=== PATIENT | male | born 1955 | race Caucasian/White ===

== ENCOUNTER 2023-01-05 08:56 | Outpatient (CLI) | payer MEDICARE, BC, SELFPAY | END 2023-01-05 08:57 | disposition home or self-care (01) | PROVIDERS: PCP Family Medicine; Visit Provider Family Medicine | DX: Z00.00 Encounter for general adult medical examination without abnormal findings (principal); E78.1 Pure hyperglyceridemia; Z12.5 Encounter for screening for malignant neoplasm of prostate; N40.0 Benign prostatic hyperplasia without lower urinary tract symptoms; R42 Dizziness and giddiness; Z80.42 Family history of malignant neoplasm of prostate; Z13.6 Encounter for screening for cardiovascular disorders; Z11.59 Encounter for screening for other viral diseases; Z83.3 Family history of diabetes mellitus | CPT/HCPCS: 80053; 80061; 84153; 86803 ==

== ENCOUNTER 2024-03-26 07:06 | Outpatient (CLI) | payer MEDICARE, BC, SELFPAY | END 2024-03-26 07:07 | disposition home or self-care (01) | PROVIDERS: PCP Family Medicine; Visit Provider Family Medicine | DX: E78.1 Pure hyperglyceridemia (principal); N40.0 Benign prostatic hyperplasia without lower urinary tract symptoms; Z12.5 Encounter for screening for malignant neoplasm of prostate; Z13.228 Encounter for screening for other metabolic disorders | CPT/HCPCS: 80053; 80061; G0103 ==

== ENCOUNTER 2024-06-13 19:20 | Emergency (ER) | payer MEDICARE, BC, SELFPAY ==
[2024-06-13 19:37] VITALS: BP 110/70; PULSE 66; RESP 16; TEMP 36.8; O2SAT 95; BMI 30.4
--- NOTE | 2024-06-13 19:43 | CRLHL7_ITS ---
For Patients: As a result of the Century Cures Act, medical imaging exams and procedure reports are released immediately into your electronic medical record. You may view this report before your referring provider. If you have questions, please contact your health care provider. Indication: Pain/injury. Technique: Left ankle 3 views. Comparison: None. Findings: Bones: Alignment is normal. No fractures or bone lesions. Joint spaces: Unremarkable. No ankle joint effusion. Soft tissues: Scattered vascular calcifications. Impression: No evidence of an acute bony abnormality. Dictated by William Aguirre MD @ 06/13/2024 8:34:16 PM (Electronically Signed)
--- NOTE | 2024-06-13 20:38 | ED.LOWEXIN ---
HPI - Extremity Injury (Lower) General Time Seen by Provider: 20:38 Date Seen: 06/13/24 Chief Complaint: Extremity Pain/Injury, Lower Stated Complaint: R ankle twisted earlier today, painful Time Seen by Provider: 06/13/24 20:38 Source: patient and RN notes reviewed Mode of arrival: ambulatory Limitations: no limitations History of Present Illness HPI Narrative: This 68-year-old male is coming in with left foot pain. He initially had ankle imaging ordered by nursing staff in triage, did point below his lateral malleolus where there was some pain but is also in his foot. He was on a ladder about 2 ft up when he fell off, he landed on his left foot, maybe felt like it twisted. With sore at 1st but he is getting increasing pain. He initially could walk okay but now the pain is worsening and he is having increased pain walking. It is more in the lateral foot now where he is feeling this. He tried icing without relief, did not try any oral [id number] medicines. Nothing else was injured. Related Data Previous Rx's ?Medication ?Instructions ?Recorded atorvastatin 40 mg tablet 40 mg PO QHS #90 tabs 03/26/24 tamsulosin 0.4 mg capsule 0.8 mg (2 x 0.4 mg) PO QDAY #180 05/20/24 caps Allergies Allergy/AdvReac Type Severity Reaction Status Date / Time No Known Drug Allergies Allergy Verified 03/26/24 07:09 Review of Systems Narrative: As per HPI. 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 [employer] What is your current living situation?: I presently have a place to live Problems where you live: no known problems In the past 12 months, utilities in danger of being shut off: no In past 12 months, lack of transportation kept you from medical appts, meetings, work, or getting things needed for daily living: no In the past 12 mos, have been you worried that your food would run out before you had money to buy more?: never true In the past 12 mos, the food you bought just didn't last and you didn't have money to buy more?: never true Smoking Status: Never smoker Do you use any of these nicotine containing products: None How often do you have a drink containing alcohol: never AUDIT-C Alcohol total score: 0 Non-prescribed substance use: denies use How often does anyone, including family, friends and others, physically hurt you: never How often does anyone, including family, friends and others, insult or talk down to you: never How often does anyone, including family, friends and others, threaten you with harm: never How often does anyone, including family, friends and others, scream or curse at you: never Little interest or pleasure in doing things: not at all Feeling down, depressed, or hopeless: not at all service: No Exam Const: Vital Signs, click to edit/add: Vital Signs - 24 hr 06/13/24 19:37 Temperature 98.2 F Pulse Rate [Pulse Oximeter] 66 Respiratory Rate 16 Blood Pressure [Ri ght Upper Arm] 110/70 Pulse Oximetry 95 Oxygen Delivery Me thod Room Air Nasim is a 68-year-old male whom is seen in exam room 3, he is lying on the bed. His sock was removed, there is no discoloration of skin, no bruising, no open wounds, ecchymosis. He has strong dorsalis pedis and posterior tibialis pulses. Neurovascular is intact. He is nontender over the malleoli, ankle mortise is nontender and intact. He is tender over the lateral midfoot and slightly over the left 5th metatarsal. This is at the base. Inversion of the foot causes pain in this area, he still has quite good range of motion about the ankle. Achilles is palpably intact and nontender. Palpation of his calcaneus really does not cause him pain along the heel. Documenting provider has reviewed patient's vital signs: yes Course Course ED Course: Nursing staff had done x-ray imaging of the ankle due to the acuity and volume in the ED. Discussed with him that I would consider doing ankle imaging based on his mechanism in where he pointed to his initial pain but I also think we should be doing foot imaging. Discussed with this type of mechanism that you can see foot and heel fractures. Reviewed that sometimes initial images of x-rays can be negative and may need to move to CT imaging. I do think we need to rule out fracture in his foot as well. Patient is in agreement. Reevaluation(s) Time of Reevaluation #1: 21:44 Reevaluation #1: Reviewed the negative x-rays of his foot by Radiology. He states his foot is feeling better now, has been using some ice. We discussed trial of conservative management, we certainly can do CT imaging if he really feels he cannot walk on it. He has declined CT imaging, did review that he really should take some Tylenol baseline and supplemental ibuprofen if needed, continue icing, minimize activity for few days. Vital Signs Vital signs: Initial Vital Signs Temperature 98.2 F 06/13/24 19:37 Temperature Source Temporal Artery Scan 06/13/24 19:37 Pulse Rate 66 06/13/24 19:37 Respiratory Rate 16 06/13/24 19:37 Blood Pressure 110/70 06/13/24 19:37 Blood Pressure Mean 83 06/13/24 19:37 Blood Pressure Position Sitting 06/13/24 19:37 Pulse Oximetry 95 06/13/24 19:37 Oxygen Delivery Method Room Air 06/13/24 19:37 Vital Signs Temperature 98.2 F 06/13/24 19:37 Pulse Rate 66 06/13/24 19:37 Respiratory Rate 16 06/13/24 19:37 Blood Pressure 110/70 06/13/24 19:37 Pulse Oximetry 95 06/13/24 19:37 Oxygen Delivery Method Room Air 06/13/24 19:37 Temperature 98.2 F 06/13/24 19:37 Pulse Rate 66 06/13/24 19:37 Respiratory Rate 16 06/13/24 19:37 Blood Pressure 110/70 06/13/24 19:37 Pulse Oximetry 95 06/13/24 19:37 Oxygen Delivery Method Room Air 06/13/24 19:37 MDM - Extremity Injury (Lower) Imaging Data XR ankle: Attestation: I have reviewed the pertinent imaging results. Radiologist's impression: Patient: WILLIAM DURÁN Facility:?[facility] Patient ID:?[id number] Site Patient ID:?[id number]. Site :?[id number] Study:?XRay-Extremity Left ANKLE 3 VIEWS-06/13/2024 7:59:37 PM Ordering Physician:?GEN KEEN Final Report: Indication: Pain/injury. Technique: Left ankle 3 views. Comparison: None. Findings: Bones: Alignment is normal. No fractures or bone lesions. Joint spaces: Unremarkable. No ankle joint effusion. Soft tissues: Scattered vascular calcifications. Impression: No evidence of an acute bony abnormality. Dictated by William Aguirre MD @ 06/13/2024 8:34:16 PM (Electronic Signature) XR foot: Attestation: I have reviewed the pertinent imaging results. Radiologist's impression: Patient: WILLIAM DURÁN Facility:?[facility] Patient ID:?[id number] Site Patient ID:?[id number]. Site :?[id number] Study:?XRay-Extremity Left FOOT 3 VIEW-06/13/2024 9:05:15 PM Ordering Physician:Aviva Soto Final Report: Indication: Fall off ladder on foot. Technique: Left foot 3 views. Comparison: None. Findings: Bones: Alignment is normal. No fractures or bone lesions. Joint spaces: Unremarkable. Soft tissues: Scattered vascular calcifications. Impression: No evidence of an acute bony abnormality. Dictated by William Aguirre MD @ 06/13/2024 9:31:01 PM (Electronic Signature) Discharge Plan Discharge Clinical Impression: Fall, Acute foot pain Patient Disposition: Home, Self-Care Condition: Stable Instructions: Foot Contusion (ED) Additional Instructions: Minimize activity. Symptoms should be improving over the next week. If they are not, you are developing increasing pain, do recommend re-evaluation. Take Tylenol 1000 mg 3 times a day baseline for pain. Can supplement with ibuprofen if needed for additional pain, follow bottle directions for dosing. Do recommend continuing to ice and elevate the next couple days, after that can try to increase activity as tolerated. Activity Level: Activity as Tolerated Prescriptions: No Action atorvastatin 40 mg tablet 40 mg PO QHS Qty: 90 3RF tamsulosin 0.4 mg capsule 0.8 mg PO QDAY Qty: 180 3RF Follow Up/Referrals: Teressa Warren MD [Primary Care Provider] - Stand Alone Forms: [employer] Instructions
--- NOTE | 2024-06-13 20:50 | CRLHL7_ITS ---
For Patients: As a result of the Century Cures Act, medical imaging exams and procedure reports are released immediately into your electronic medical record. You may view this report before your referring provider. If you have questions, please contact your health care provider. Indication: Fall off ladder on foot. Technique: Left foot 3 views. Comparison: None. Findings: Bones: Alignment is normal. No fractures or bone lesions. Joint spaces: Unremarkable. Soft tissues: Scattered vascular calcifications. Impression: No evidence of an acute bony abnormality. Dictated by William gAuirre MD @ 06/13/2024 9:31:01 PM (Electronically Signed)
== END 2024-06-13 22:00 | disposition home or self-care (01) ==
PROVIDERS: Emergency Provider Family Medicine; PCP Family Medicine
DX: M79.672 Pain in left foot (principal); W11.XXXA Fall on and from ladder, initial encounter
CPT/HCPCS: 73610; 73630; 99283

== ENCOUNTER 2024-08-26 15:59 | Outpatient (CLI) | payer MEDICARE, BC, SELFPAY | END 2024-08-26 16:00 | disposition home or self-care (01) | PROVIDERS: PCP Family Medicine; Visit Provider Family Medicine | DX: E78.1 Pure hyperglyceridemia (principal); R10.31 Right lower quadrant pain; T14.8XXA Other injury of unspecified body region, initial encounter | CPT/HCPCS: 80053; 86140 ==

== ENCOUNTER 2024-08-29 09:35 | Outpatient (CLI) | payer MEDICARE, BC, SELFPAY ==
--- NOTE | 2024-08-29 10:00 | CRLHL7_ITS ---
For Patients: As a result of the Century Cures Act, medical imaging exams and procedure reports are released immediately into your electronic medical record. You may view this report before your referring provider. If you have questions, please contact your health care provider. Indication: RT GROIN, THIGH PAIN Technique: CT Pelvis W/ ISOVUE 370 104 cc Please note that all CT scans at this facility use dose modulation, iterative reconstruction, and/or weight-based dosing when appropriate to reduce radiation dose to as low as reasonably achievable. Comparison: X-rays 08/14/2024 Findings: Disc space narrowing and spurring L4-5. Narrowing and spurring at both hip joints, right greater than left, with right-sided subchondral degenerative cystic change. No fracture. Vascular calcifications. No aneurysm. Prostate is heterogeneous. No bladder stone. Distal ureters normal. Normal appendix. No hernia. Impression: Degenerative joint disease right hip. No hernia or suspicious mass. Please note that all CT scans at this facility use dose modulation, iterative reconstruction, and/or weight-based dosing when appropriate to reduce radiation dose to as low as reasonably achievable. Dictated by Noel Perkins MD @ 08/29/2024 11:52:53 AM (Electronically Signed)
== END 2024-08-29 09:36 | disposition home or self-care (01) ==
PROVIDERS: PCP Family Medicine; Visit Provider Family Medicine
DX: R10.31 Right lower quadrant pain (principal); M16.12 Unilateral primary osteoarthritis, left hip; T14.8XXA Other injury of unspecified body region, initial encounter
CPT/HCPCS: 72193; Q9967

== ENCOUNTER 2024-09-06 11:01 | Outpatient (CLI) | payer MEDICARE, BC, SELFPAY ==
--- NOTE | 2024-09-06 11:15 | CRLHL7_ITS ---
For Patients: As a result of the Century Cures Act, medical imaging exams and procedure reports are released immediately into your electronic medical record. You may view this report before your referring provider. If you have questions, please contact your health care provider. Indication: RIGHT HIP PAIN/ RIGHT HIP OSTEOARTHRITIS Comparison: CT 08/29/2024 Procedure : Informed consent was obtained. The site was marked. Time-out was performed. The skin of the right hip was cleansed with ChloraPrep. A sterile drape was placed. 8 cc of 1 percent lidocaine was administered for superficial anesthesia. Subsequently a 22 gauge spinal needle was introduced into the right hip joint under intermittent fluoroscopic guidance. Subsequently 7 cc of 1 percent lidocaine and 2 cc 40 milligram/cc Depo-Medrol then injected into the right hip joint. The needle was removed and hemostasis achieved with direct pressure. A dressing was placed. The patient tolerated the procedure well without immediate complication. Total fluoroscopy time 0.09 minutes. Impression: Successful fluoroscopically guided right hip injection with 80 milligrams of Depo-Medrol. Dictated by Noel Perkins MD @ 09/06/2024 12:57:23 PM (Electronically Signed)
== END 2024-09-06 11:02 | disposition home or self-care (01) ==
LOC: RAD 11:02
PROVIDERS: PCP Family Medicine; Visit Provider Orthopaedic Surgery Sports Medicine
DX: M16.11 Unilateral primary osteoarthritis, right hip (principal)
CPT/HCPCS: 20610; 77002; Q9966

== ENCOUNTER 2024-12-06 14:21 | Outpatient (CLI) | payer MEDICARE, BC, SELFPAY | END 2024-12-06 14:22 | disposition home or self-care (01) | LOC: FRMREF 14:23 | PROVIDERS: PCP Family Medicine; Visit Provider Family Medicine | DX: Z01.818 Encounter for other preprocedural examination (principal) | CPT/HCPCS: 80053 ==

== ENCOUNTER 2025-06-06 08:04 | Emergency (ER) | payer MEDICARE, BC, SELFPAY ==
--- OUTSIDE RECORDS SUMMARY | 2025-04-28 08:00 | XMS_ITS | Encounter Summary ---
Author Organization [facility] Address [address] [place] [address]. [place] [address] Care Team Providers Care Wood [employer] Pelletizer Name Role Phone Nalini Salinas MD Unavailable [phone] Jose Rodriguez MD Unavailable [phone] Teressa Warren MD Primary Care Provider [phone] Reason for Visit * Reason Comments RECHECK Biopsy Encounter Details Date Type Department Care Team (Latest Contact Info) Description 04/28/2025 8:00 AM CDT Office Visit [facility] [address] 4[address] [place] [address] Santiago Linder, PAReneeC [address] [place] [address] Bone lesion (Primary Dx); Multiple myeloma not having achieved remission (H); Other myelodysplastic syndromes (H) Social History Tobacco Use Types Packs/Day Years Used Date Smoking Tobacco: Never Smokeless Tobacco: Never PHQ-2 Answer Date Recorded PHQ-2 Score 0 04/21/2025 Adolescent Education Answer Date Record ed Getting School Help Needed Not on file 05/28 Sex and Gender Information Value Date Recorded Sex Assigned at Not on file 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 [facility] Orth[facility] Surgery by Santiago Linder PA-C William Hampton Date of : 1955 Clinical History: 69 year old male with history of a right clavicle lytic lesion who presents today for biopsy for referral from Dr. Rodriguez. Procedure: After informed consent repeat scanning was performed to identify the mass and adjacent anatomical structures. The skin was prepped and draped in sterile fashion. 1% lidocaine was used for local anesthesia. Ultrasound was necessary to assure intralesional positioning and to avoid vital adjacent structures. Ultrasound guidance was used to pass a 14-gauge core biopsy needle into the mass for tissue biopsy. 8 passes were made. 4 were sent for presurgical pathology and 4 were sent for flow cytometry. Images were permanently stored for the patient's record.The specimen was immediately placed in formalin and sent to the lab. The patient tolerated the procedure well and there were no immediate complications following the procedure. 1% lidocaine: Lot# [id number] expiration 05/2028 Assessment and Plan: Assessment: 69 year old male with history of a right clavicle lytic lesion who presents today for biopsy for referral from Dr. Rodriguez. Tolerated procedure well Plan: After consent was given the procedure was performed as above. The patient tolerated it well. Steri-Strips and a bandage were placed. The patient can remove the bandage tomorrow and start showering but should avoid soaking for 1 week. The Steri-Strips will fall off on their own. They should watch for signs of infection including erythema, discharge and increased pain. If they have any concerns I instructed them to call. When the pathology results have been finalized in 7 to 14 days a member of our team will reach out to them with further instruction. All questions were answered and the patientwas in agreement the plan. Santiago Linder PA-C Physician [facility] Dept Orthopaedic Surgery, [facility] documented in this encounter Nursing Notes * Meredith Dumont ATC - 04/28/2025 8:00 AM CDT [facility] [address] 4TH FLOOR [facility] [address] Dept: [phone] Patient: William Hampton : 1955 April 28, 2025 INVASIVE PROCEDURE SAFETY CHECKLIST Date: 04/28/2025 Procedure:Right clavicle USG biopsy Patient Name: William Hampton Date of : 1955 Action: Complete sections as appropriate. Any discrepancy results in a HARD COPY until resolved. PRE PROCEDURE: Patient ID verified with 2 identifiers (name and or MRN): Yes Procedure and site verified with patient/designee (when able): Yes Accurate consent documentation in medical record: Yes H&P (or appropriate assessment) documented in medical record: NA H&P must be up to 20 days prior to procedure and updates within 24 hours of procedure as applicable: NA Relevant diagnostic and radiology test results appropriately labeled and displayed as applicable: Yes Procedure site(s) marked with provider initials: NA TIMEOUT: Time-Out performed immediately prior to starting procedure, including verbal and active participation of all team members addressing the following:Yes * Correct patient identify * Confirmed that the correct side and site are marked * An accurate procedure consent form * Agreement on the procedure to be done * Correct patient position * Relevant images and results are properly labeled and appropriately displayed * The need to administer antibiotics or fluids for irrigation purposes during the procedure as applicable * Safety precautions based on patient history or medication use DURING PROCEDURE: Verification of correct person, site, and procedures any time the responsibility for care of the patient is transferred to another member of the care team. The following medications were given: Prior to injection, verified patient identity using patient's name and date of . Due to injection administration, patient instructed to remain in clinic for 15 minutes afterwards, and to report any adverse reaction to me immediately. Biopsy was preformed Medication Name: Lidocaine [facility] [id number] Drug Amount Wasted: Yes: 15 mg/ml Vial/Syringe: Single dose vial Expiration Date: 05/2028 Scribed by Meredith Dumont ATC for Santiago Linder PA-C on April 28, 2025 at 8:58a based on the provider's statements to me. Meredith Dumont ATC documented in this encounter Miscellaneous Notes * Addendum Note - Camryn Blanco - 04/28/2025 8:00 AM CDTAddended by: CAMRYN BLANCO on: 04/29/2025 10:56 AM Modules accepted: Orders * Addendum Note - Meredith Miranda CLS - 04/28/2025 8:00 AM CDTAddended by: MEREDITH MIRANDA on: 05/20/2025 05:14 PM Modules accepted: Orders * Addendum Note - Meredith Miranda CLS - 04/28/2025 8:00 AM CDTAddended by: MEREDITH MIRANDA on: 05/20/2025 05:15 PM Modules accepted: Orders * Addendum Note - Desmond Melo CLS - 04/28/2025 8:00 AM CDTAddended by: DESMOND MELO on: 05/21/2025 01:23 PM Modules accepted: Orders * Addendum Note - Santiago Linder PA-C - 04/28/2025 8:00 AM CDTAddended by: SANTIAGO LINDER on: 05/22/2025 09:01 AM Modules accepted: Orders documented in this encounter Plan of Treatment Pending Results Name Type Priority Associated Diagnoses Date /Time POC US GUIDANCE NEEDLE PLACEMENT Imaging Routine Bone lesion 04/28/2025 7:55 AM CDT PCS Culture Pathology and Cytology Routine 04/28/2025 9:20 AM CDT Scheduled Orders Name Type Priority Associated Diagnoses Order Schedule POC US GUIDANCE NEEDLE PLACEMENT Imaging Routine Bone lesion Expected: 04/28/2025 (Approximate), Expires: 05/02/2025 PCS Culture Pathology and Cytology Routine Routine for 1 Occurrences starting 04/28/2025 until 04/28/2025, 1 completed documented as of this encounter Procedures Procedure Name Priority Date/Time Associated Diagnosis Comments FISH TIER 2 Routine 04/28/2025 9:20 AM CDT Bone lesion Other myelodysplastic syndromes (H) 1H-3C(09/05) CULTURE Routine 04/28/2025 9: 20 AM CDT FISH Routine 04/28/2025 9:20 AM CDT Bone lesion CHROMOSOME ANALYSIS, MALIGNANT TISSUE Routine 04/28/2025 9:20 AM CDT FLOW CYTOMETRY Routine 04/28/2025 8:50 AM CDT Bone lesion WA BIOPSY MUSCLE/SOFT TISSUE, PERCUTANEOUS NEEDLE Routine 04/28/2025 8:48 AM CDT Bone lesion SURGICAL PATHOLOGY EXAM Routine 04/28/2025 8:48 AM CDT Bone lesion documented in this encounter Results * FISH TIER 2 With Professional Interpretation (04/28/2025 9:20 AM CDT) Interpretation This FISH analysis was performed in follow up to the previously reported FISH analysis ([id number]) that showed MYC rearrangement. The present study was undertaken to identify a MYC fusion partner. METHODS: Specimen: Tissue touch imprints prepared from a right clavicular lesion Test performed: Fluorescence in situ hybridization (FISH) Interphase cells examined: 100 for each probe set Probes: - IGK (2p11.2) / MYC (8q24.21) (dual fusion) - CytoTest - MYC (8q24.21) / IGL (22q11.22) (dual fusion) - CytoTest RESULTS: ABNORMAL - IGK::MYC fusion (77%) - Loss of IGL (80%) - Tetraploid signal pattern consistent with doubling of stemline (7-10%) INTERPRETATION: This analysis showed that the MYC rearrangement detected in the previously reported FISH analysis results from an IGK::MYC fusion. MYC rearrangement has been associated with a worse prognosis in myeloma (Gracy N et al, 2019, Clin Cancer Res 26:6096; Sj-Garry S et al, 2024, Neoplasia 66:237945), with a greater impact on survival reported in cases in which IGL is the fusion partner (rather than IGK, as in the present case) (Fazal Jenkins et al, 2020, Clin Ca Res 27:5430) ISCN: nuc kevon (IGK,MYC)x3(IGK con MYC)x2[]/(IG K,MYC)x6(IGK con MYC)x4[] nuc kevon (MYCx1,MYC dimx2,IGLx1)[/10 0]/(MYCx2,MYC dimx4,IGLx2)[ ] ADDITIONAL COMMENTS: Control ranges: IGK::MYC: 0-0.1% MYC::IGL: 0-0.1% IGLx1: 0-4.6% This test was developed and its performance characteristics determined by the [facility]. It has not been cleared or approved by the U.S. Food and Drug Administration. . 05/24/2025 12:13 AM CDT CYTO[facility]ET[facility] BONE STRUCTURE OF RIGHT CLAVICLE / Unknown 04/28/2025 9:20 AM CDT 05/23/2025 9:03 AM CDT us Santiago MITCHELL Final Resu lt [facility] Cytogenetics Lab [facility] [address] * FISH With Professional Interpretation (04/28/2025 9:20 AM CDT) Interpretation METHODS: Specimen: Tissue touch imprints prepared from a right clavicular lesion Test performed: Fluorescence in situ hybridization (FISH) Interphase cells examined: 100-200 for each probe set Probes: - CDKN2C (1p32.3) / CKS1B (1q21.3) (dual color) - Cytocell - [id number] (5p15.2), CEP9 and D15Z4 (centromeres of 9 and 15) (Tri-Color) - [facility] [employer] - MYC (8q24.21) (breakapart) - [facility] [employer] - RADHA (11q22.3) / TP53 (17p13.1) (dual color) - Cytocell - C47R912 (13q14.3) / LAMP1 (13q34) (dual color) - [facility] [employer] - IGH (14q32.3) (breakapart) - [facility] [employer] RESULTS: ABNORMAL: HIGH-RISK - MYC rearrangement (87%) ABNORMAL: OTHER - Gain of 1q (44.5%); no loss of 1p - Gain of chromosomes 5, 9, and 15 (79%) - Monosomy 13 (94%) - Tetraploid signal pattern consistent with doubling of stemline (3.5-25.5%) NORMAL - No loss of TP53 - No rearrangement of IGH High-risk classification per one or more of the following: - Second revision of the International Staging System (R2-ISS) for overall survival in multiple myeloma. Kacey M et al. J Clin Oncol 202;40:3406. - mSMART 4.0 classification (https://www.msmar t.org/mm-treatment -guidelines) - Implications of MYC rearrangements in newly diagnosed multiple myeloma. Gracy Jenkins et al, 2020, Clin Cancer Res 26:3602. 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 The abnormalities seen in this case are well-documented albeit nonspecific recurring abnormalities in plasma cell neoplasms. Additional FISH analyses will be performed to attempt to identify a MYC fusion partner, which may permit further prognostic classification of this disease. Upon completion, results of those analyses will be issued as separate reports. ISCN: nuc kevon (EFUK8Vx4,PHQ8Kr6) [51/200]/(NVZT4Ot5 ,BPP2Ne5)[38/200] nuc kevon (M3I28-Y0Z108,CEP9 ,D15Z4)x3[73/100]/ (Q1E14-N0S883,CEP9 ,D15Z4)x6[6100] nuc kevon (MYC)x2(5'MYC sep 3'MYC)x1[80/100]/( MYC)x4(5'MYC sep 3'MYC)x2[100] nuc kevon (RADHA,TP53)x4[200 ] nuc kevon (J80P100,LAMP1)x1[ 94/100] nuc kevon (IGH)x4[200] ADDITIONAL COMMENTS: Control ranges: DVX0Hf6: 0-0.1% ODKW0Up9: 0-5.3% (ESAT4Sc6,QMT6Wh7) : 0-0.1% +5,9,15: 0-0.1% (5,9,15)x6: 0-0.1% MYC rearr: 0-2.8% (MYC)x4(5'MYC sep 3'MYC)x2: 0-0.1% +11: 0-0.1% -13: 0-3.0% IGH rearr: 0-1.5% IGHx4: 0-0.7% TP53x1: 0-3.1% (RADHA,TP53)x4: 0-1.9% This test was developed and its performance characteristics determined by the [facility]. It has not been cleared or approved by the U.S. Food and Drug Administration. . 05/21/2025 2:03 PM CDT [facility] Tissue BONE STRUCTURE OF RIGHT CLAVICLE / Unknown Non-blood Collection / Unknown 04/28/2025 9:20 AM CDT 04/28/2025 9:20 AM CDT us Santiago MITCHELL Final Resu lt [facility] Cytogenetics Lab [address] [place] [address] [address] [place] [address] * 1H-3C(1/2) Culture (04/28/2025 9:20 AM CDT) Pathologist [facility] Culture [place] Complete Date 05/08/2025 4:59 PM CDT CYTOGENETICS Tissue BONE STRUCTURE OF RIGHT CLAVICLE / Unknown Non-blood Collection / Unknown 04/28/2025 9:20 AM CDT 04/28/2025 9:20 AM CDT Santiago Linder PA-C LAB - BEAKER AP Final Resu lt Performing Organization Address City/[facility]/ZIP Co de Phone Number [facility] Cytogenetics Lab [address] [place] [address] * CHROMOSOME ANALYSIS, MALIGNANT TISSUE With Professional Interpretation (04/28/2025 9:20 AM CDT) Pathologist [facility] Interpretation A right clavicle tissue specimen was received and processed by the Cytogenetics Laboratory on 04-28-2025. Due to the hypocellularity of the specimen, only a single culture, with half the standard cell concentration could be initiated. This culture failed to yield any metaphase cells; thus, a G-banded chromosome analysis could not be performed. BILLING COMMENT: Credited all but processing fee. 05/09/2025 10:39 AM CDT CYTOGENETICS Tissue BONE STRUCTURE OF RIGHT CLAVICLE / Unknown Non-blood Collection / Unknown 04/28/2025 9:20 AM CDT 04/28/2025 9:20 AM CDT us Santiago Linder PA-C LAB - BODY FLUIDS ORDERABL ES Final Result [facility] Cytogenetics Lab [address] [place] [address] * (ABNORMAL) Flow Cytometry (04/28/2025 8:50 AM CDT) Pathologist [facility] Case Report Flow Cytometry Report Case: [id number] Authorizing Provider: Santiago Linder PA-C Collected: 04/28/2025 08:50 AM Ordering Location: [facility] Received: 04/28/2025 08:56 AM [facility] [place] Pathologist: Etta Dos Santos MD Specimen: Clavicle, Right 04/28/2025 5:44 PM CDT [facility] FLOW CYTOMETRY Flow Interpretation A. Clavicle, Right: -[place]-monotypic plasma cells -See comment 04/28/2025 5:44 PM CDT [facility] FLOW CYTOMETRY at 1744 CDT Comment The immunophenotypic findings are consistent with a clonal plasma cell process, which may represent a plasmacytoma, plasma cell myeloma, monoclonal gammopathy of undetermined significance (MGUS), or other plasma cell dyscrasia/neoplasm . Final interpretation requires correlation with morphologic and clinical features as well as with the results of other ancillary laboratory and imaging studies. 04/28/2025 5:44 PM CDT [facility] FLOW CYTOMETRY Flow Phenotypic Data 56% of total events are CD45 positive and are viable by 7-AAD. A low percentage may be caused by low viability and/or a low number of CD45 positive cells. Of the CD45 positive leukocytes, 62% are viable by 7-AAD. Unless otherwise indicated, percentages reported below are based on the total number of CD45 positive viable leukocytes. If applicable, percentage of plasma cells is from total viable nucleated cells. 90% plasma cells which express CD38, CD45 (dim), CD56, and monotypic cytoplasmic kappa immunoglobulin light chains but lack CD19 and CD20. The plasma cell percentage by flow cytometry is expected to be less than by morphology due to specimen processing. B cells are rare to absent. Case was reviewed by the following: Pathology Fellow: Iris Verdugo MD A resident/fellow was involved in the selection of testing, review of flow scattergrams, and/or interpretation of this case. I, as the senior physician, attest that I: (i) confirmed appropriate testing, (ii) examined the relevant flow scattergrams for the specimen(s); and (ii) rendered or confirmed the interpretation(s). 04/28/2025 5:44 PM CDT [facility] FLOW CYTOMETRY Flow Processing Information Multi-color flow analysis is performed for the following markers: CD19, CD20, CD38, CD45, CD56, CD138, and cytoplasmic kappa and lambda immunoglobulin light chains. Cells are gated to isolate populations (CD45 versus side scatter and forward scatter versus side scatter), to exclude debris (forward scatter versus side scatter) and to exclude cell doublets (forward scatter height versus forward scatter width and side scatter height versus side scatter width). Forward scatter varies with cell size. Side scatter varies with the amount of cytoplasmic granules. Intensity for CD45 usually increases as hematolymphoid cells mature. The analytic sensitivity of this assay to detect monotypic plasma cells as rare flow events is 0.01%. 04/28/2025 5:44 PM CDT FLOW CYTOMETRY Clinical Information 69 year old male with a right clavicle lytic lesion 04/28/2025 5:44 PM CDT FLOW CYTOMETRY FDA Disclaimer This test was developed and its performance characteristics determined by the [facility]. It has not been cleared or approved by the US Food and Drug Administration. FDA does not require this test to go through premarket FDA review. This test is used for clinical purposes and should not be regarded as investigational or for research. This laboratory is certified under the Clinical Laboratory Improvement Amendments (CLIA) as qualified to perform high complexity clinical laboratory testing. 04/28/2025 5:44 PM CDT [facility] - CORE LAB MCRS Yes(A) N/A 04/28/2025 5:44 PM CDT FLOW CYTOMETRY Performing Labs The technical component of this testing was completed at [facility]. Stain controls for all stains resulted within this report have been reviewed and show appropriate reactivity. 04/28/2025 5:44 PM CDT [facility] - CORE LAB Tissue BONE STRUCTURE OF RIGHT CLAVICLE / Unknown Non-blood Collection / Unknown 04/28/2025 8:50 AM CDT 04/28/2025 8:56 AM CDT us Santiago MITCHELL Final Resu lt [facility] FLOW CYTOMETRY [facility] Flow Cytometry [address] [facility] [address], [address] [place] [address], [facility] - CORE LAB [facility] [place] [address] [facility] 1st [place] [address] * (ABNORMAL) Surgical pathology exam [[id number]] (04/28/2025 8:48 AM CDT) Case Report Surgical Pathology Report Case: [id number] Authorizing Provider: Santiago Linder PA-C Collected: 04/28/2025 08:48 AM Ordering Location: [facility] Received: 04/28/2025 09:11 AM [facility] Pathologist: Tomi Christopher MD Specimen: Clavicle, Right, right clavicle lesion biopsy 11:22 AM CDT [facility] LAB[facility] Final Diagnosis Clavicle, right, lesion, biopsy: - Plasmacytoma - See comment 11:22 AM CDT [facility] at 1122 CDT Comment This is diagnostic o f a plasmacytoma. Additional clinical correlation is recommended to clarify the diagnosis of a solitary plasmacytoma vs multiple myeloma. A random, non-targeted, iliac crest bone marrow biopsy is recommended. Concurrent flow cytometry ([id number]) showed kappa-monotypic plasma cells. This case was reviewed in part at our Hematopathology Faculty Consensus conference at which Eduarda Han, and Ajit were present in addition to myself. 11:22 AM CDT [facility] Clinical Information The patient is a 69-year-old male with progressive right shoulder pain for 1-2 months. X-ray and MRI at [facility] showed an osteolytic lesion of the right clavicle. CT showed a partially visualized large lytic right clavicular bone lesion with an associated soft tissue mass as well as additional numerous ill-defined lucent osseous lesions in the thoracic and lumbar vertebrae. SPEP showed an 3.3 g/dL M-spike with a kappa/lambda ratio of 4.09. 11:22 AM CDT [facility] Gross Description A(A). Clavicle, Right, right clavicle lesion biopsy: Right clavicle lesion biopsy: Intraoperative consultation, lymphoma workup: Cytogenetics: 0.4 x 0.3 x 0.1 cm aggregate sent Flow cytometry: 0.5 x 0.4 x 0.1 cm aggregate sent Touch preps: 5 air dried, (Evelia GIBBS(ASC)) The specimen is received fresh with proper patient identification labeled right clavicle lesion biopsy. The specimen consists of 4 beebe-pink to red, hemorrhagic, cylindrical cores of soft tissue, ranging from 1.0-1.7 cm in length, each 0.1 cm in diameter. The cores are divided and sent for the aforementioned send out testing. One core is retained and submitted for permanent. The specimen is received in formalin with proper patient identification labeled right clavicle lesion biopsy. The specimen consists of 4 beebe-white to pink, fish-flesh cylindrical cores of soft tissue, ranging from 0.4-1.7 cm in length, each 0.1 cm in diameter. The specimen is wrapped, submitted in toto as A1-2. 5 11:22 AM [facility] Microscopic Description H&E stained sections demonstrate sheets of morphologically atypical plasma cells containing enlarged round eccentrically-located nuclei with coarse chromatin, variably prominent nucleoli, and moderate amounts of eosinophilic cytoplasm. A subset of plasma cells contain Kvng bodies. Mitotic figures are present but not numerous. Immunohistochemistry and in situ hybridization are performed with appropriate controls. The neoplastic cells are positive for CD138, OCT2, and c-MYC. They are kappa light chain restricted by kappa/lambda KEVON. They are negative for CD20, PAX5, and CD79a. The Ki-67 proliferation index is 40-50%. WADE KEVON is negative. Note: These immunohistochemical stains are deemed medically necessary. Some of the antigens may also be evaluated by flow cytometry. Concurrent evaluation by immunohistochemistry is indicated in this case in order to correlate immunophenotype with cell morphology and determine extent of involvement, spatial pattern, and focality of potential disease distribution. Case was reviewed by the following: Resident Pathologist: Connie Wallace MD A resident or fellow in a training program was involved in the initial review, preparation, and/or interpretation of this case. I, as the senior physician, attest that I have personally reviewed all specimens and or slides, including the listed special stains, and used them with my medical judgement to determine the final diagnosis. 5 11:22 AM [facility] Disclaimer Analyte Specific Reagents (ASRs) are used in many laboratory tests necessary for standard medical care and generally do not require FDA approval. This test was developed and its performance characteristics determined by [facility]. It has not been cleared or approved by the U.S. Food and Drug Administration. [facility] are certified for the performance of high-complexity clinical testing under the Clinical Laboratory Improvement Amendments of 1988 (CLIA), and in keeping with the certification requirements, the laboratory has verified this test's accuracy, precision and/or validity of the method. The following assays; ALK (D5F3), ER, HER2, PD-L1, BRAF, CD20, CD30 AZF, CD30 Formalin, MLH-1, MSH-2, MSH-6 and PMS-2, have not been validated on decalcified tissues. Results should be interpreted with caution given the possibility of false negative results on decalcified specimens. 5 11:22 AM CDT [facility] MCRS Yes(A) N/A 5 11:22 AM CDT [facility] Performing Labs The technical component of this testing was completed at [facility]. Stain controls for all stains resulted within this report have been reviewed and show appropriate reactivity. 5 11:22 AM CDT [facility] - CORE LAB Case Images 5 11:22 AM CDT [facility] Biopsy BONE STRUCTURE OF RIGHT CLAVICLE / Unknown Non-blood Collection / Unknown 04/28/2025 8:48 AM CDT 04/28/2025 9:11 AM CDT Comment:See Questions Above us Santiago MITCHELL Final Resu lt SPECIALTY LABS Specialty Lab [address], Room 3-580 [place] [address], [facility] - CORE LAB [facility] [place] [address] [facility] [address] 1st [place] [address] documented in this encounter Visit Diagnoses Diagnosis Bone lesion- Primary Disorder of bone and cartilage, unspecified Multiple myeloma not having achieved remission (H) Multiple myeloma, without mention of having achieved remission Other myelodysplastic syndromes (H) documented in this encounter Care Teams Wood Fuel Pelletizer Relationship Specialty Start Date End Date Teressa Warren MD [facility] [address] [place] [address] PCP - General Family Medicine 04/28/25 [place] [address] [address] Hematology & Oncology 04/24/25 Jose Rodriguez MD [id number] [place] [address] Assigned Musculoskeletal Provider 04/26/25 documented as of this encounter
--- OUTSIDE RECORDS SUMMARY | 2025-04-28 08:30 | XMS_ITS | Encounter Summary ---
Author Organization [facility] Address [address] [place] [address] Care Team Providers Care Bush Regenerator Name Role Phone Nalini Salinas MD Unavailable [phone] Jose Rodriguez MD Unavailable [phone] Teressa Warren MD Primary Care Provider [phone] Encounter Details Date Type Department Care Team (Late st Contact Info) Description 04/28/2025 8:30 AM CDT Ancillary Procedure [facility] [address] [place] [address] Dinh Linder, PA-C [facility] [place], [place] [address] Bone lesion Social History Tobacco Use Types Packs/Day Years Used Date Smoking Tobacco: Never Smokeless Tobacco: Never PHQ-2 Answer Date Recorded PHQ-2 Score 0 04/21/2025 Adolescent Education Answer Date Record ed Getting School Help Needed Not on file 05/28 Sex and Gender Information Value Date Recorded Sex Assigned at Not on file Legal Sex Male 4:34 AM [employer] Gender Identity Not on file Sexual Orientation Not on file documented as of this encounter Plan of Treatment Pending Results Name Type Priority Associated Diagnoses Date /Time POC US GUIDANCE NEEDLE PLACEMENT Imaging Routine Bone lesion 04/28/2025 7:55 AM CDT documented as of this encounter Visit Diagnoses Diagnosis Bone lesion Disorder of bone and cartilage, unspecified documented in this encounter Care Teams Bush Regenerator Relationship Specialty Start Date End Date Teressa Warren MD [facility] [address] [place] [address] PCP - General Family Medicine 04/28/25 [place] [address] [address] Hematology & Oncology 04/24/25 Jose Rodriguez MD [facility] [address] Assigned Musculoskeletal Provider 04/26/25 documented as of this encounter
--- OUTSIDE RECORDS SUMMARY | 2025-05-01 16:40 | XMS_ITS | Encounter Summary ---
Author Organization [facility] Address [address] [place] [address]. [place] [address] Care Team Providers Care Solo Truck Driver Name Role Phone Nalini Salinas MD Unavailable [phone] Jose Rodriguez MD Unavailable [phone] Teressa Warren MD Primary Care Provider [phone] Reason for Visit * Reason Comments RECHECK Encounter Details Date Type Department Care Team (Late st Contact Info) Description 05/01/2025 4:40 PM CDT Virtual Visit [facility] [address] 4th [place] [address] Jose Rodriguez MD [address] [place], [place] [id number] Multiple myeloma not having achieved remission (H) (Primary Dx) Social History Tobacco Use Types Packs/Day Years Used Date Smoking Tobacco: Never Smokeless Tobacco: Never PHQ-2 Answer Date Recorded PHQ-2 Score 0 04/21/2025 Adolescent Education Answer Date Record ed Getting School Help Needed Not on file 05/28 Sex and Gender Information Value Date Recorded Sex Assigned at Not on file 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 [facility] Physicians, Orthopaedic Oncology Surgery Consultation by Jose Rodriguez M.D. 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 TREATMENTS: 01/01/2025, Right total hip arthroplasty, (Devante Gasca), [facility] 04/23/2025, right distal clavicle core needle biopsy, ([place]) [facility] Nasim was seen today virtually for review of his pathology that was undertaken this morning at [facility] and a diagnosis of multiple myeloma has been made. I have not recommended any surgical intervention for the plasmacytomas right distal clavicle. He also has multiple bony lesions but the most concerning to me would be the left femoral neck lesion and risk of hip fracture. Fortunately he is not having any pain or discomfort and based upon his level of symptoms and Mirel's score, I have not advised prophylactic fixation of his left hip at this time. Instead the priority would be commencing treatment for his multiple myeloma. He has been given an appointment with the local oncology team and he informs me that he already has a appointment at [facility] as well. I advised him that he should refrain from performing strenuous activity or any impact activity on his left hip. If he should begin experiencing pain with weightbearing on his left side would be important for him to notify us or the orthopedic team at [place] if he is hospitalized at that facility. MD Chantel Dallas Professor Oncology and Adult Reconstructive Surgery Dept Orthopaedic Surgery, [facility] Physicians [phone] office, pager [email or web address] Virtual-Visit Details Type of service: Video Visit Visit total duration (including visit time, pre and post visit work time as documented above on of service): 30 min Video start time: 1700 Video end time: 1705 Non video work time: 15 min Originating Location (pt. Location): Home Distant Location (provider location): [facility] Platform used for Virtual Visit: [employer] documented in this encounter Nursing Notes * Robyn Howell MA - 05/01/2025 4:40 PM CDT Current patient location: [address] [place] [address] Is the patient currently in the state of [place]? YES Visit mode: VIDEO If the visit is dropped, the patient can be reconnected by:VIDEO VISIT: Text to cell phone: Telephone Information: and VIDEO VISIT: Send to e-mail at: [email or web address] Will anyone else be joining the visit? Pts spouse (If patient encounters technical issues they should call [phone] :[phone]) Are changes needed to the allergy or medication list? Medication flagged for removal, please review/remove Patients spouse denies any changes since echeck-in completion and states all information entered during echeck-in remains accurate. Are refills needed on medications prescribed by this physician? NO Rooming Documentation: Not applicable Reason for visit: RECHECK Robyn Howell MA [facility] documented in this encounter Plan of Treatment Not on file documented as of this encounter Visit Diagnoses Diagnosis Multiple myeloma not having achieved remission (H)- Primary Multiple myeloma, without mention of having achieved remission documented in this encounter Care Teams Solo Truck Driver Relationship Specialty Start Date End Date Teressa Warren MD [address] [id number] PCP - General Family Medicine 04/28/25 [place] [address] [address] Hematology & Oncology 04/24/25 Jose Rodriguez MD [id number] [place] [address] Assigned Musculoskeletal Provider 04/26/25 documented as of this encounter
--- OUTSIDE RECORDS SUMMARY | 2025-05-02 09:10 | XMS_ITS | Encounter Summary ---
Author Organization [facility] Address [address] [place] [address] Care Team Providers Care Utility Engineer Name Role Phone Unavailable Primary Care Provider Unavailabl e Encounter Details Date Type Department Care Team (Late st Contact Info) Description 05/02/2025 9:10 AM CDT Lab RST RO [facility] [address] [place] [address] Bijal Dubose M.D. [address] [place] [phone] Gammopathy Monoclonal Nonspecific Social History Tobacco Use Types Packs/Day Years Used Date Smoking Tobacco: Never Assessed Hunger Vital Sign Answer Date Recorded Within the past 12 months, y ou worried that your food would run out before you got the money to buy more. Never true 05/05/20 25 Within the past 12 months, t he food you bought just didn't last and you didn't have money to get more. Never true 05/05/2025 PRAPARE - Transportation Answer Date Re corded In the past 12 months, has l ack of transportation kept you from medical appointments or from getting medications? No 09/2024 In the past 12 months, has l ack of transportation kept you from meetings, work, or from getting things needed for daily living? No 05/05/2025 [facility] Utilities Answer Date Recorded In the past 12 months has th e electric, gas, oil, or water company threatened to shut off services in your home? No 05/05/2025 Housing Stability Answer Date Recorded What is your living situation today? 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 [address] [place] [phone] 06/09/2025 9:30 AM CDT Infusion Department of Oncology in [place], [place] [address] [place] [phone] Bijal Dubose M.D. [address] [place] [phone] 06/09/2025 2:00 PM CDT Appointment Department of Radiation Oncology in [place], [place] [address] [place] [phone] Chemo Goss M.D., Ph.D. [address] [place] [phone] 06/10/2025 3:30 PM CDT Appointment Department of Radiation Oncology in [place], [place] [address] [place] [phone] Chemo Goss M.D., Ph.D. [address] [place] [phone] 06/11/2025 11:30 AM CDT Appointment Department of Radiation Oncology in [place], [place] [address] [place] [phone] Chemo Goss M.D., Ph.D. [address] [place] [phone] 06/11/2025 2:45 PM CDT Appointment Department of Radiation Oncology in [place], [place] [address] [place] [phone] Chemo Goss M.D., Ph.D. [address] [place] [phone] hZane Parikh R.N. 06/11/2025 3:30 PM CDT Appointment Department of Radiation Oncology in [place], [place] [address] [place] [phone] Chemo Goss M.D., Ph.D. [address] [place] [phone] 06/12/2025 11:30 AM CDT Appointment Department of Radiation Oncology in [place], [place] [address] [place] [phone] Chemo Goss M.D., Ph.D. [address] [place] [phone] 06/13/2025 9:30 AM CDT Appointment Department of Radiation Oncology in [place], [place] [address] [place] [phone] Chemo Goss M.D., Ph.D. [address] [place] [phone] 06/16/2025 9:10 AM CDT Appointment Department of Laboratory Medicine and Pathology, [facility] in [place], [place] [address] [place] [phone] Bijal Dubose M.D. [address] [place] [phone] 06/16/2025 10:30 AM CDT Infusion Department of Oncology in [place], [place] [address] [place] [phone] Bijal Dubose M.D. [address] [place] [phone] 06/16/2025 11:00 AM CDT Appointment Department of Radiation Oncology in [place], [place] [address] [place] [phone] Chemo Goss M.D., Ph.D. [address] [place] [phone] 06/17/2025 9:45 AM CDT Appointment Department of Radiation Oncology in [place], [place] [address] [place] [phone] Chemo Goss M.D., Ph.D. [address] [place] [phone] 06/18/2025 9:45 AM CDT Appointment Department of Radiation Oncology in [place], [place] [address] [place] [phone] Chemo Goss M.D., Ph.D. [address] [place] [phone] 06/18/2025 10:30 AM CDT Appointment Department of Radiation Oncology in [place], [place] [address] [place] [phone] Chemo Goss M.D., Ph.D. [address] [place] [phone] 06/19/2025 10:45 AM CDT Appointment Department of Radiation Oncology in [place], [place] [address] [place] [phone] Chemo Goss M.D., Ph.D. [address] [place] [phone] 06/20/2025 10:45 AM CDT Appointment Department of Radiation Oncology in [place], [place] [address] [place] [phone] Chemo Goss M.D., Ph.D. [address] [place] [phone] 06/23/2025 7:50 AM CDT Appointment Department of Laboratory Medicine and Pathology, [facility] in [place], [place] [address] [place] [address] Bijal Dubose M.D. [address] [place] [phone] 06/23/2025 9:30 AM CDT Infusion Department of Oncology in [place], [place] [address] [place] [address] Bijal Dubose M.D. [address] [place] [phone] 06/30/2025 7:30 AM CDT Appointment Department of Laboratory Medicine and Pathology, [facility] in [place], [place] [address] [place] [address] Bijal Dubose M.D. [address] [place] [phone] 06/30/2025 9:30 AM CDT Office Visit Division of Hematology in [place], [place] [address] [place] [phone] Bijal Dubose M.D. [address] [place] [phone] 06/30/2025 10:30 AM CDT Infusion Department of Oncology in [place], [place] [address] [place] [address] Bijal Dubose M.D. [address] [place] [phone] 07/07/2025 11:30 AM WAVE SOLDER OFFBEARER Infusion Department of Oncology in [place], [place] [address] [place] [phone] Bijal Dubose M.D. [address] [place] [phone] 07/14/2025 11:00 AM WAVE SOLDER OFFBEARER Infusion Department of Oncology in [place], [place] [address] [place] [phone] Bijal Dubose M.D. [address] [place] [phone] 07/21/2025 10:30 AM WAVE SOLDER OFFBEARER Infusion Department of Oncology in [place], [place] [address] [place] [phone] Bijal Dubose M.D. [address] [place] [phone] documented as of this encounter Procedures Procedure Name Priority Date/Time Associated Diagnosis Comments PATHOLOGY REVIEW OF OUTSIDE MATERIAL Routine 04/28/2025 9:07 AM CDT Gammopathy Monoclonal Nonspecific documented in this encounter Results * Pathology Review of Outside Material (04/28/2025 9:07 AM CDT) 05/14/2025 11:16 AM CDT [facility] Report electronically signed by Blaze Butler M.D. I verify that I have examined all relevant slides/materials for the specimen(s) and rendered or confirmed the diagnosis. 05/14/2025 11:16 AM CDT [facility] Material Received A. [id number]: Right clavicle lesion 18 stained slides 05/14/2025 11:16 AM CDT [facility] Interpretation FINAL DIAGNOSIS Clavicle, right, biopsy ([id number]; 04/28/2025): Plasma cell neoplasm. See comment. COMMENT The findings in the specimen are diagnostic of a plasmacytoma, and in conjunction with the patient's recently seen bone marrow ([id number]), are diagnostic of multiple myeloma. The specimen consists of sheets of plasma cells with variably prominent nucleoli and nuclear enlargement. Immunohistochemical stains performed by an outside institution were reviewed at [facility] (block A:1), CD20, CD79a, CD138, Ki-67, MYC, OCT2, and PAX5. In situ hybridization studies performed by an outside institution were reviewed at [facility] (block A1: probes for kappa KEVON and lambda KEVON, and Kendal-Bedolla Virus encoded RNA [WADE]). The neoplastic cells are positive for CD138, OCT2, MYC, and kappa immunoglobulin by in situ hybridization. The Ki-67 proliferative index is approximately 30%. The neoplastic cells are negative for the remaining stains. Per report, flow cytometric immunophenotyping performed on this population documented kappa monotypic plasma cells. 05/14/2025 11:16 AM T [facility] Varies 04/28/2025 9:07 AM CDT 05/12/2025 9:07 AM CDT Bijal Dubose M.D. LAB SURG PATH ORDERABLES Final Result [facility] [address] [place] [address], [facility] [address] [place] [address] documented in this encounter Visit Diagnoses Diagnosis Gammopathy Monoclonal Nonspecific documented in this encounter
--- OUTSIDE RECORDS SUMMARY | 2025-05-06 09:00 | XMS_ITS | Encounter Summary ---
Author Organization [facility] Address [address] [place] [address] Care Team Providers Care Cone Examiner Name Role Phone Unavailable Primary Care Provider Unavailabl e Reason for Referral * Outpatient (Routine) - Closed Specialty Diagnoses / Procedures Referred By Analy messer Referred To Contact Diagnoses Clinical Research Exam Procedures Bone Marrow Research Aspirate Add On Collection Halima Whitlock M.D. [address] [place] [address] Phone: tel: fax: Referral ID Status Reason Start Date Expiration Date Visits Re quested Visits Authorized [id number] Closed 05/06/2025 08/06/2026 1 1 Reason for Visit * Appointment Request (Routine) - Authorized Specialty Diagnoses / Procedures Referred By Analy messer Referred To Contact Hematology Diagnoses Multiple Myeloma NOS Referral ID Status Reason Start Date Expiration Date V isits Requested Visits Authorized [id number] Authorized 04/30/2025 07/31/2026 2 2 Encounter Details Date Type Department Care Team (Latest Contact Info) Description 05/06/2025 9:00 AM CDT Clinical Support - [facility] Division of Hematology in [place], [place] [address] [place] [address] Shannon Skinner [address] [place] [phone] Clinical Research Exam (Primary Dx) Social History Tobacco Use Types Packs/Day Years Used Date Smoking Tobacco: Never Smokeless Tobacco: Never Alcohol Use Standard Drinks/Week Comments Not Currently 0 (1 standard drink = 0.6 oz pure alcohol) Quit drinking alcohol in 1978 Hunger Vital Sign Answer Date Recorded Within [...] things needed for daily living? No 05/05/2025 [facility] Utilities Answer Date Recorded In the past 12 months has e electric, gas, oil, or water company threatened to shut off services in your home? No 05/05/2025 Housing Stability Answer Date Recorded What is your living situation today? I have a [facility] place to live 05/05/2025 Sex and Gender Information Value Date Recorded Sex Assigned at Male 05/05/2025 10:47 AM CDT Legal Sex Male 11:35 PM [employer] Gender Identity Male 05/05/2025 10:47 AM CDT Sexual Orientation Straight 05/05/2025 10 :47 AM CDT documented as of this encounter Plan of Treatment Upcoming Encounters Date Type Department Care Team (Late st Contact Info) Description 06/09/2025 8:20 AM CDT Appointment Department of Laboratory Medicine and Pathology, [facility], in [place], [place] [address] [place] [phone] Bijal Dubose M.D. [address] [place] [phone] 06/09/2025 9:30 AM CDT Infusion Department of Oncology in [place], [place] [address] [place] [address] Bijal Dubose M.D. [address] [place] [phone] 06/09/2025 2:00 PM CDT Appointment Department of Radiation Oncology in [place], [place] [address] [place] [phone] Chemo Goss M.D., Ph.D. [address] [place] [phone] 06/10/2025 3:30 PM CDT Appointment Department of Radiation Oncology in [place], [place] [address] [place] [phone] Chemo Goss M.D., Ph.D. [address] [place] [phone] 06/11/2025 11:30 AM CDT Appointment Department of Radiation Oncology in [place], [place] [address] [place] [phone] Chemo Goss M.D., Ph.D. [address] [place] [phone] 06/11/2025 2:45 PM CDT Appointment Department of Radiation Oncology in [place], [place] [address] [place] [phone] Chemo Goss M.D., Ph.D. [address] [place] [phone] Zhane Parikh R.N. 06/11/2025 3:30 PM CDT Appointment Department of Radiation Oncology in [place], [place] [address] [place] [phone] Chemo Goss M.D., Ph.D. [address] [place] [phone] 06/12/2025 11:30 AM CDT Appointment Department of Radiation Oncology in [place], [place] [address] [place] [phone] Chemo Goss M.D., Ph.D. [address] [place] [phone] 06/13/2025 9:30 AM CDT Appointment Department of Radiation Oncology in [place], [place] [address] [place] [address] Chemo Goss M.D., Ph.D. [address] [place] [phone] 06/16/2025 9:10 AM CDT Appointment Department of Laboratory Medicine and Pathology, [facility] in [place], [place] [address] [place] [address] Bijal Dubose M.D. [address] [place] [phone] 06/16/2025 10:30 AM CDT Infusion Department of Oncology in [place], [place] [address] [place] [address] Bijal Dubose M.D. [address] [place] [phone] 06/16/2025 11:00 AM CDT Appointment Department of Radiation Oncology in [place], [place] [address] [place] [phone] Chemo Goss M.D., Ph.D. [address] [place] [phone] 06/17/2025 9:45 AM CDT Appointment Department of Radiation Oncology in [place], [place] [address] [place] [phone] Chemo Goss M.D., Ph.D. [address] [place] [phone] 06/18/2025 9:45 AM CDT Appointment Department of Radiation Oncology in [place], [place] [address] [place] [phone] Chemo Goss M.D., Ph.D. [address] [place] [phone] 06/18/2025 10:30 AM CDT Appointment Department of Radiation Oncology in [place], [place] [address] [place] [phone] Chemo Goss M.D., Ph.D. [address] [place] [phone] 06/19/2025 10:45 AM CDT Appointment Department of Radiation Oncology in [place], [place] [address] [place] [phone] Chemo Goss M.D., Ph.D. [address] [place] [phone] 06/20/2025 10:45 AM CDT Appointment Department of Radiation Oncology in [place], [place] [address] [place] [phone] Chemo Goss M.D., Ph.D. [address] [place] [phone] 06/23/2025 7:50 AM CDT Appointment Department of Laboratory Medicine and Pathology, [facility], in [place], [place] [address] [place] [phone] Bijal Dubose M.D. [address] [place] [phone] 06/23/2025 9:30 AM CDT Infusion Department of Oncology in [place], [place] [address] [place] [phone] Bijal Dubose M.D. [address] [place] [phone] 06/30/2025 7:30 AM CDT Appointment Department of Laboratory Medicine and Pathology, [facility] in [place], [place] [address] [place] [address] Bijal Dubose M.D. [address] [place] [phone] 06/30/2025 9:30 AM CDT Office Visit Division of Hematology in [place], [place] [address] [place] [address] Bijal Dubose M.D. [address] [place] [phone] 06/30/2025 10:30 AM CDT Infusion Department of Oncology in [place], [place] [address] [place] [address] Bijal Dubose M.D. [address] [place] [phone] 07/07/2025 11:30 AM [employer] Infusion Department of Oncology in [place], [place] [address] [place] [address] Bijal Dubose M.D. [address] [place] [phone] 07/14/2025 11:00 AM [employer] Infusion Department of Oncology in [place], [place] [address] [place] [address] Bijal Dubose M.D. [address] [place] [phone] 07/21/2025 10:30 AM [employer] Infusion Department of Oncology in [place], [place] [address] [place] [address] Bijal Dubose M.D. [address] [place] [phone] documented as of this encounter Results * [place] NO CHARGE VISIT (05/07/2025 1:00 PM CDT) Bone Marrow Narrative Logan Braga R.N. - 05/07/2025 1:00 PM CDT Logan Braga R.N. 05/07/2025 1:27 PM Bone Marrow Research Aspirate Add On Collection Performed by: Logan Braga R.N. Authorized by: Halima Whitlock M.D. Care team members present 1. Logan Braga R.N. 2. Renetta Corcoran POST-PROCEDURE DETAILS Procedure completed successfully: yes Complications: no apparent complications Comments An additional 10 mLs aspirate collected for research us Halima Whitlock M.D. PROCEDURE/MINOR SURGICAL ORDERABLES Final Result documented in this encounter Visit Diagnoses Diagnosis Clinical Research Exam- Primary Multiple Myeloma Not Having Achieved Remission (HCC) Clinical Research Exam documented in this encounter
--- OUTSIDE RECORDS SUMMARY | 2025-05-06 10:30 | XMS_ITS | Encounter Summary ---
Author Organization [facility] Address [address] [place] [address] Care Team Providers Care Jewel Diameter Gauger Name Role Phone Unavailable Primary Care Provider Unavailabl e Reason for Referral * MRI/CAT/PET Scan (Routine) - Closed Specialty Diagnoses / Procedures Referred By Analy messer Referred To Contact Radiology Diagnoses Multiple Myeloma Not Having Achieved Remission (HCC) Procedures CT Skeletal Survey Low Dose Whole Body without IV Contrast Bijal Dubose M.D. [address] [place] [address] Phone: tel: fax: [facility] Referral ID Status Reason Start Date Expiration Date Visits Re quested Visits Authorized [id number] Closed 05/06/2025 08/06/2026 1 1 * Outpatient (Routine) - Closed Specialty Diagnoses / Procedures Referred By Analy messer Referred To Contact Diagnoses Multiple Myeloma Not Having Achieved Remission (HCC) Procedures Biopsy Bone Marrow, Unsedated Biopsy Bone Marrow, Sedated TN DX BONE MARROW BX & ASPIR Bijal Dubose M.D. [address] [place] [address] Phone: tel: fax: [facility] Referral ID Status Reason Start Date Expiration Date Visits Re quested Visits Authorized [id number] Closed 05/06/2025 08/06/2026 1 1 * MRI/CAT/PET Scan (Routine) - Closed Specialty Diagnoses / Procedures Referred By Analy messer Referred To Contact Diagnoses Multiple Myeloma Not Having Achieved Remission (HCC) Procedures PET CT Skull to Thigh FDG Bijal Dubose M.D. [address] [place] [phone] Phone: tel: fax: [facility] Referral ID Status Reason Start Date Expiration Date Visits Re quested Visits Authorized [id number] Closed 05/06/2025 08/06/2026 1 1 * Outpatient (Routine) - Closed Specialty Diagnoses / Procedures Referred By Analy messer Referred To Contact Hematology Oncology [place] [address] Phone: tel: fax: [facility] Referral ID Status Reason Start Date Expiration Date Visits Re quested Visits Authorized [id number] Closed 05/06/2025 11/05/2026 1 1 Reason for Visit * Appointment Request (Routine) - Authorized Specialty Diagnoses / Procedures Referred By Analy messer Referred To Contact Hematology Diagnoses Multiple Myeloma NOS Referral ID Status Reason Start Date Expiration Date V isits Requested Visits Authorized [id number] Authorized 04/30/2025 07/31/2026 2 2 Encounter Details Date Type Department Care Team (Latest Contact Info) Description 05/06/2025 10:30 AM CDT Comprehensive Visit Division of Hematology in [place], [place] [address] [place] [phone] Bijal Dubose M.D. [address] [place] [phone] Gammopathy Monoclonal Nonspecific (Primary Dx); Multiple Myeloma Not Having Achieved Remission (HCC); Disorder Of Bone Density And Structure; Abnormal Finding Of Blood Chemistry Unspecified; Other General Symptoms And Signs; Other Dyspnea Social History Tobacco Use Types Packs/Day Years [...] things needed for daily living? No 05/05/2025 [facility] Utilities Answer Date Recorded In the past 12 months has [employer], gas, oil, or water company threatened to shut off services in your home? No 05/05/2025 Housing Stability Answer Date Recorded What is your living situation today? I have a [facility] to live 05/05/2025 Sex and Gender Information Value Date Recorded Sex Assigned at Male 05/05/2025 10:47 AM CDT Legal Sex Male 11:35 PM OFFICE SERVICES REPRESENTATIVE Gender Identity Male 05/05/2025 10:47 AM CDT Sexual Orientation Straight 05/05/2025 10 :47 AM CDT documented as of this encounter Last Filed Vital Signs Vital Sign Reading Time Taken Comments Blood Pressure 136/82 05/06/2025 10:15 AM CDT Pulse 63 05/06/2025 10:15 AM CDT Temperature 36.1 C (96.9 F) 05/06/2025 10:15 AM CDT Respiratory Rate - - Oxygen Saturation - - Inhaled Oxygen Concentration - - Weight 93.6 kg (206 lb 3.9 oz) 05/06/2025 10:15 AM CDT Height 181.5 cm (5' 11.46) 05/06/2025 10:15 AM CDT Body Mass Index 28.4 05/06/2025 10:15 AM CDT documented in this encounter Consult Notes * Bijal Dubose M.D. - 05/06/2025 10:30 AM CDT DATE OF VISIT: 05/06/2025 SUBJECTIVE CHIEF COMPLAINT / REASON FOR VISIT William Hampton is a 69 y.o. male who presents for evaluation of newly diagnosed multiple myeloma The patient verbally consented to an audio recording of their visit to assist with the completion of documentation. History of Present Illness Mr. 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 So he was referred to Hematology at [facility] for suspected multiple myeloma. History began in February of 2025 when he developed progressive pain in the right clavicle after throwing a Frisbee. Initially thought to be muscle-related due to inactivity post-hip surgery, the pain intensified, prompting further investigation. Imaging showed a right distal clavicular lesion. He had a core needle biopsy of that lesion on 04/23/2025. Pathology was consistent with plasmacytoma. Reportedly, imaging shows multiple other bony lesions including a left femoral neck lesion. However, thiswas reviewed by his orthopedic surgeon Dr. Jose Rodriguez who did not advise on prophylactic fixationof his left hip. His opinion was that myeloma directed therapy would take precedence. He has a history of right hip replacement in December. He experiences groin pain post-hip surgery, which he attributes to reduced activity in recent weeks due to concerns about bone fragility. He experiences right shoulder pain, limiting his ability to lift his arm. The pain starts when he attempts to lift his arm beyond a certain point. He also reports occasional burning sensation in his hands when walking at night, which he attributes to aging. He has a past medical history of pericarditis in 2009, treated with colchicine. Past surgical history includes right hip arthroplasty and left eye enucleation. 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 Physically active. Never smoker. Denies alcohol use. No current fever, chills, night sweats, or unintentional weight loss. He reports a single episode of night sweats, which he attributes to heavy blankets. OBJECTIVE VITAL SIGNS BP 136/82 (BP Location: Left arm, Patient Position: Sitting, Cuff Size: Regular) Pulse 63 Temp 36.1 ??C Ht 181.5 cm Wt 93.6 kg BMI 28.40 kg/m?? Physical Exam Physical Exam Physical Exam GENERAL: Patient is comfortably seated, in no acute distress. Alert and oriented. EYES: Left eye prosthesis EXTREMITIES: No lower extremity pitting edema SKIN: No rashes, lesions, or ecchymosis on exposed skin NEURO: No focal deficits. Normal gait. PSYCH: Normal mood and affect. ASSESSMENT / PLAN I reviewed outside labs: 04/21/2025: ESR: 63, creatinine: 1.3, kappa free light chain: 2.33, kappa/lambda ratio 4.09, LDH: 125, Hemoglobin is 13.1 M spike is 3.3 grams/deciliter Assessment & Plan # right clavicle [id number] # osseous lytic lesions I discussed that he likely has multiple myeloma but would need a bone marrow biopsy to confirm. Based on outside labs, he has no anemia or renal impairment. My plan is to proceed with staging labs, bone marrow biopsy, and PET-CT. Based on the PET-CT findings, I will consider orthopedics evaluation and/or radiation oncology consultation. I discussed the diagnosis of multiple myeloma and provided an overview of the treatment plan. I explained that there are many ways to approach a new diagnosis of multiple myeloma. He is 69 years old but I would consider him fit and a candidate for autologous stem cell transplantation. I explained that the two major pathways to follow for treating multiple myeloma are: The early transplant pathway (ASCT after about 4 months of induction therapy, followed by stem cellharvest, followed by high dose chemotherapy and stem cell transplant, followed by maintenance therapy) Standard induction would include D-VRD The delayed or no ASCT pathway (induction, consolidation, and maintenance with or without stem cellharvest). For now, we discussed starting therapy with the quadruplet (DVRD). There are different schedules of D-VRD--a 3 week cycle and a 4-week cycle. Either is acceptable. The dosing and schedule for the 4 week cycle is as below: The 4-week schedule: Marlene-VRD. Cycles are every 4 weeks. Daratumumab will be given weekly for 8 weeks, followed by every other week for 16 weeks, followed by every 4 weeks thereafter. The drug will be given either IV (16 mg/m2) or SQ (1800 mg). The most common side-effects include infusion reactions (shortness of breath, low oxygen, fast heart rate, hypertension, chills, fever), fatigue, nausea, diarrhea, constipation, dyspnea, fever, cough, muscle spasms, vomiting, infection, and peripheral sensory neuropathy. Bortezomib is 1.3 mg/m2 weekly. Most common side-effects include risk for infection, bleeding, neuropathy (numbness or pain in feet), nausea, constipation, diarrhea, and rash. Lenalidomide (Revlimid) is a pill given daily for three weeks followed by a week off (days 1-21 of cycle). It carries the risk for blood clots (DVT and PE), rash, fatigue, muscle cramping, diarrhea, and low blood counts. DVT (deep vein thrombosis) symptoms include swelling in one extremity that comes on suddenly. There may be pain or redness in that extremity. PE (pulmonary embolism) is a clot inthe lungs that presents with shortness of breath, chest pain, and fever. Typically a DVT precedes aPE. If you have any of these symptoms, you should go to an Emergency Room. You will take aspirin tohelp prevent blood clots. If you develop a rash, you should call us right away. Dexamethasone (Decadron) is a steroid medication, and is taken weekly by mouth (days 1, 8, 15, 22) each cycle. The dose will be 40 mg. Major side effects include insomnia (difficulty sleeping), increased appetite, heartburn, weight gain, fluid retention, increase in blood sugars, irritability, increased energy followed by energy ???crash?? . For supportive care, Mr. Hampton should have Levaquin 500 mg daily for first 2-3 months to prevent infection, acyclovir 400 mg bid for as long as on Velcade, aspirin 325 mg daily for DVT prophylaxis, and starting at cycle 2 or 3 Bactrim SS daily for PJP prophylaxis. For bone health, Zometa can be started, but William Hampton should have a dental evaluation prior to starting bisphosphonate (Zometa). Daily calcium 1500 mg and vitamin D 1000 IU should also be considered and an acid olivia like omeprazole or famotidine is helpful for acid protection while on Dexamethasone. He will establish care with a local shared services representative to receive the treatment locally. I will share the results of his testing once available to finalize my recommendations. Electronically signed by: Bijal Dubose M.D. 05/06/25 2:04 PM CDT documented in this encounter Plan of Treatment Upcoming Encounters Date Type Department Care Team (Late st Contact Info) Description 06/09/2025 8:20 AM CDT Appointment Department of Laboratory Medicine and Pathology, [facility], in [place], [place] [address] [place] [phone] Bijal Dubose M.D. [address] [place] [phone] 06/09/2025 9:30 AM CDT Infusion Department of Oncology in [place], [place] [address] [place] [phone] Bijal Dubose M.D. [address] [place] [phone] 06/09/2025 2:00 PM CDT Appointment Department of Radiation Oncology in [address] [phone] Chemo Goss M.D., Ph.D. [address] [place] [phone] 06/10/2025 3:30 PM CDT Appointment Department of Radiation Oncology in [address] [phone] Chemo Goss M.D., Ph.D. [address] [place] [phone] 06/11/2025 11:30 AM CDT Appointment Department of Radiation Oncology in [address] [phone] Chemo Goss M.D., Ph.D. [address] [place] [phone] 06/11/2025 2:45 PM CDT Appointment Department of Radiation Oncology in [place], [place] [address] [place] [phone] Chemo Goss M.D., Ph.D. [address] [place] [phone] Zhane Parikh R.N. 06/11/2025 3:30 PM CDT Appointment Department of Radiation Oncology in [place], [place] [address] [place] [phone] Chemo Goss M.D., Ph.D. [address] [place] [phone] 06/12/2025 11:30 AM CDT Appointment Department of Radiation Oncology in [place], [place] [address] [place] [phone] Chemo Goss M.D., Ph.D. [address] [place] [phone] 06/13/2025 9:30 AM CDT Appointment Department of Radiation Oncology in [place], [place] [address] [place] [phone] Chemo Goss M.D., Ph.D. [address] [place] [phone] 06/16/2025 9:10 AM CDT Appointment Department of Laboratory Medicine and Pathology, [facility], in [place], [place] [address] [place] [phone] Bijal Dubose M.D. [address] [place] [phone] 06/16/2025 10:30 AM CDT Infusion Department of Oncology in [place], [place] [address] [place] [phone] Bijal Dubose M.D. [address] [place] [phone] 06/16/2025 11:00 AM CDT Appointment Department of Radiation Oncology in [place], [place] [address] [place] [phone] Chemo Goss M.D., Ph.D. [address] [place] [phone] 06/17/2025 9:45 AM CDT Appointment Department of Radiation Oncology in [place], [place] [address] [place] [phone] Chemo Goss M.D., Ph.D. [address] [place] [phone] 06/18/2025 9:45 AM CDT Appointment Department of Radiation Oncology in [place], [place] [address] [place] [phone] Chemo Goss M.D., Ph.D. [address] [place] [phone] 06/18/2025 10:30 AM CDT Appointment Department of Radiation Oncology in [place], [place] [address] [place] [phone] Chemo Goss M.D., Ph.D. [address] [place] [phone] 06/19/2025 10:45 AM CDT Appointment Department of Radiation Oncology in [place], [place] [address] [place] [phone] Chemo Goss M.D., Ph.D. [address] [place] [phone] 06/20/2025 10:45 AM CDT Appointment Department of Radiation Oncology in [place], [place] [address] [place] [phone] Chemo Goss M.D., Ph.D. [address] [place] [phone] 06/23/2025 7:50 AM CDT Appointment Department of Laboratory Medicine and Pathology, [facility] in [place], [place] [address] [place] [phone] Bijal Dubose M.D. [address] [place] [phone] 06/23/2025 9:30 AM CDT Infusion Department of Oncology in [place], [place] [address] [place] [phone] Bijal Dubose M.D. [address] [place] [phone] 06/30/2025 7:30 AM CDT Appointment Department of Laboratory Medicine and Pathology, [facility] in [place], [place] [address] [place] [phone] Bijal Dubose M.D. [address] [place] [phone] 06/30/2025 9:30 AM CDT Office Visit Division of Hematology in [place], [place] [address] [place] [phone] Bijal Dubose M.D. [address] [place] [phone] 06/30/2025 10:30 AM CDT Infusion Department of Oncology in [place], [place] [address] [place] [phone] Bijal Dubose M.D. [address] [place] [phone] 07/07/2025 11:30 AM OFFICE SERVICES REPRESENTATIVE Infusion Department of Oncology in [place], [place] [address] [place] [phone] Bijal Dubose M.D. [address] [place] [phone] 07/14/2025 11:00 AM OFFICE SERVICES REPRESENTATIVE Infusion Department of Oncology in [place], [place] [address] [place] [phone] Bijal Dubose M.D. [address] [place] [phone] 07/21/2025 10:30 AM OFFICE SERVICES REPRESENTATIVE Infusion Department of Oncology in [place], [place] [address] [place] [phone] Bijal Dubose M.D. [address] [place] [phone] Scheduled Referrals Name Type Priority Associated Diagnoses Order Schedule Hematology office visit (clinic) [place]; Myeloma; General Outpatient Referral Routine Expected: 05/06/2025 (Approximate), Expires: 08/05/2026 documented as of this encounter Results * PET CT Skull to Thigh FDG (05/14/2025 6:58 PM CDT) Anatomical Region Laterality Modality Body, Nuclear Medicine PET R ST LOS, PET ARZ LOS, Nuclear Medicine PET FLA LOS, Nuclear Medicine N/A Positron Emission Tomography (PET), Positron Emission Tomography (PET) Impressions 05/14/2025 8:18 PM CDT 1. Intensely FDG avid biopsy-proven right distal clavicle myeloma. 2. Innumerable lytic and non-lytic FDG avid sites of active multiple myeloma in the skeleton. 3. High concern for extraosseous FDG avid nodular soft tissue myeloma in the left parasternal chest wall. 4. Concerning FDG avid normal-sized left internal mammary lymph nodes. Narrative 05/14/2025 8:18 PM CDT EXAM: PET CT SKULL TO THIGH FDG Serum glucose at time of F-18 FDG injection was 88 mg/dL. Patient followed standard dietary/fasting requirements for this exam. RADIOPHARMACEUTICAL/MEDS: Route: intravenous fludeoxyglucose F 18 injection RESIDENTIAL (F-18 FDG),9.93 millicurie TECHNIQUE: F18 FDG PET/CT scan was performed from the vertex through the knees with low dose, non-contrast, free-breathing CT images for attenuation correction and anatomic localization (AC/AL), with imaging beginning at approximately 60 minutes after radiotracer injection. COMPARISON: CT skeletal survey 05/12/2025. Outside CT 04/21/2025. INDICATION: Biopsy-proven multiple myeloma in the right distal clavicle. No therapy initiated. Initial treatment strategy. Left eye enucleation secondary to trauma. The patient reports no recent vaccinations. FINDINGS: The biopsy-proven lytic and destructive plasmacytoma in the distal right clavicle shows intense FDG activity, SUV max 13.7, axial image 98, see screen capture. Innumerable lytic and non-lytic FDG avid foci throughout the visualized skeleton consistent with multiple myeloma, including in the cervical, thoracic and lumbar spine, sternum, bilateral ribs, right clavicle, left scapula, sacrum, bilateral pelvis and proximal left femur. FDG activity surrounding a healing recently placed right DIONY. Focal activity near the tip of the right femoral component, axial image 340, could represent either postoperative healing or a focus of myeloma. Intensely FDG avid soft tissue nodule centered to the left of the inferior sternum with involvement/invasion of the left lateral sternum is concerning for extraosseous multiple myeloma, SUV max 12.5, axial image 168, see screen captures. This corresponds to series [address] 05/12/2025 and series 4 image 164 on 04/21/2025. There is also focal FDG activity in normal-sized left internal mammary lymph nodes, best seen on PET series 5 images 133, 139, 145, and 159 these could represent lymph node metastases. No significant anatomic changes on CT compared to recent exams. Calcified granulomas in the right lung and right hilar lymph nodes. Vascular calcifications. Procedure Note Clifford Sanchez M.D., Ph.D. - 05/14/2025 EXAM: PET CT SKULL TO THIGH FDG Serum glucose at time of F-18 FDG injection was 88 mg/dL. Patient followedstandard dietary/fasting requirements for this exam. RADIOPHARMACEUTICAL/MEDS: Route: intravenous fludeoxyglucose F 18 injection RESIDENTIAL (F-18 FDG),9.93 millicurie TECHNIQUE: F18 FDG PET/CT scan was performed from the vertex through theknees with low dose, non-contrast, free-breathing CT images forattenuation correction and anatomic localization (AC/AL), with imagingbeginning at approximately 60 minutes after radiotracer injection. COMPARISON: CT skeletal survey 05/12/2025. Outside CT 04/21/2025. INDICATION: Biopsy-proven multiple myeloma in the right distal clavicle.No therapy initiated. Initial treatment strategy. Left eye enucleation secondary to trauma. The patient reports no recent vaccinations. FINDINGS: The biopsy-proven lytic and destructive plasmacytoma in thedistal right clavicle shows intense FDG activity, SUV max 13.7, axialimage 98, see screen capture. Innumerable lytic and non-lytic FDG avidfoci throughout the visualized skeleton consistent with multiple myeloma,including in the cervical, thoracic and lumbar spine, sternum, bilateralribs, right clavicle, left scapula, sacrum, bilateral pelvis and proximalleft femur. FDG activity surrounding a healing recently placed right DIONY. Focalactivity near the tip of the right femoral component, axial image 340,could represent either postoperative healing or a focus of myeloma. Intensely FDG avid soft tissue nodule centered to the left of the inferiorsternum with involvement/invasion of the left lateral sternum isconcerning for extraosseous multiple myeloma, SUV max 12.5, axial [id number], see screen captures. This corresponds to series [address]05/12/2025 and series 4 image 164 on 04/21/2025. There is also focal FDG activity in normal-sized left internal mammarylymph nodes, best seen on PET series 5 images 133, 139, 145, and 159 thesecould represent lymph node metastases. No significant anatomic changes on CT compared to recent exams. Calcifiedgranulomas in the right lung and right hilar lymph nodes. Vascularcalcifications. IMPRESSION: 1. Intensely FDG avid biopsy-proven right distal clavicle myeloma. 2. Innumerable lytic and non-lytic FDG avid sites of active multiplemyeloma in the skeleton. 3. High concern for extraosseous FDG avid nodular soft tissue myeloma inthe left parasternal chest wall. 4. Concerning FDG avid normal-sized left internal mammary lymph nodes. us Bijal Dubose M.D. IMRuben NM PROCEDURES Final R esult * CT Skeletal Survey Low Dose Whole Body without IV Contrast (05/12/2025 5:46 PM CDT) Anatomical Region Laterality Modality Whole body, Musculoskeletal RST LOS, Nuclear Medicine ARZ LOS, Musculoskeletal ARZ LOS, Muskuloskeletal FLA LOS, Nuclear Medicine ARZ LOS N/A Computed Tomography, Computed Tomography Impressions 05/13/2025 11:37 AM CDT Large destructive lesion distal right clavicle compatible with patient's known plasmacytoma with innumerable smaller osteolytic lesions throughout the axial and appendicular skeleton. The largest of which is located within the left femoral neck causing slight endosteal scalloping, as detailed in the report. Narrative 05/13/2025 11:37 AM CDT EXAM: CT SKELETAL SURVEY WITHOUT IV CONTRAST LOW DOSE WHOLE BODY COMPARISON: CT of the chest, abdomen, and pelvis from 04/21/2025 SKELETAL FINDINGS: There is a large, lytic, and expansile lesion of the lateral right clavicle compatible with patient's known/biopsy-proven plasmacytoma. Innumerable spotty lucencies scattered throughout the axial and appendicular skeleton. The largest such lesion is noted within the left femoral neck measuring 23 x 19 mm with minimal endosteal scalloping along the posterior margin (series 6 image 935). Multilevel disc degeneration, most severe C3-4 through C5-6 and L4-5. Right DIONY. 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 OTHER FINDINGS: Enucleation with left ocular prosthesis. Minimal mucosal thickening scattered paranasal sinuses. Diffuse vascular calcifications. Calcified right hilar lymph nodes and prominent calcific granuloma right lower lobe. Subtle infrarenal abdominal aortic aneurysm measuring up to 2.8 cm in diameter. Several parapelvic left renal cysts. Prostatomegaly. Procedure Note Kirk Sanchez M.D. - 05/13/2025 EXAM: CT SKELETAL SURVEY WITHOUT IV CONTRAST LOW DOSE WHOLE BODY COMPARISON: CT of the chest, abdomen, and pelvis from 04/21/2025 SKELETAL FINDINGS: There is a large, lytic, and expansile lesion of thelateral right clavicle compatible with patient's known/biopsy-provenplasmacytoma. Innumerable spotty lucencies scattered throughout the axialand appendicular skeleton. The largest such lesion is noted within theleft femoral neck measuring 23 x 19 mm with minimal endosteal scallopingalong the posterior margin (series 6 image [id number]). Multilevel discdegeneration, most severe C3-4 through C5-6 and L4-5. Right DIONY. Moderateto severe degenerative arthritis of the left hip. OTHER FINDINGS: Enucleation with left ocular prosthesis. Minimal mucosalthickening scattered paranasal sinuses. Diffuse vascular calcifications.Calcified right hilar lymph nodes and prominent calcific granuloma rightlower lobe. Subtle infrarenal abdominal aortic aneurysm measuring up to2.8 cm in diameter. Several parapelvic left renal cysts. Prostatomegaly. IMPRESSION: Large destructive lesion distal right clavicle compatible with patient'sknown plasmacytoma with innumerable smaller osteolytic lesions throughoutthe axial and appendicular skeleton. The largest of which is locatedwithin the left femoral neck causing slight endosteal scalloping, asdetailed in the report. Bijal Dubose M.D. [facility] [place] CT PROCEDURES Final R esult * (ABNORMAL) Monoclonal Protein Study, 24 hour, Urine (05/10/2025 6:00 AM CDT) Total Protein, 24 HR, U 88 <229 mg/24 h 05/11/2025 8:29 AM CDT DTL Collection Duration 24 h 05/11 7:57 AM CDT DTL Urine Volume 1750 mL 05/11/2025 7:57 AM CDT DTL Flag M-protein Isotype MS, 24 HR, U Positive(A ) Negative 05/13/2025 8:22 AM CDT SDSC M-protein Isotype MS, 24 HR, U IgG kappa, monoclonal . 05/13/2025 8:22 AM CDT [facility] Comment: ----ADDITIONAL INFORMATION---- The submitted sample was assayed by five separate immunopurifications for IgG, IgA, IgM, kappa and lambda. The result reflects the findings of either no monoclonal protein detected or those monoclonal immunoglobulins that were detected. This test was developed and its performance characteristics determined by [facility] in a manner consistent with CLIA requirements. This test has not been cleared or approved by the U.S. Food and Drug Administration. Albumin, mg/24 h 88.0 mg/24 h 05/13/20 25 11:39 AM CDT SDSC Impression Albumin is the only protein detected. See Isotype. 05/13/2025 11:39 AM CDT [facility] Urine (Urine, 24 Hours) 05/10/2025 6:00 AM CDT 05/12/2025 7:27 AM CDT Bijal Dubose M.D. LAB URINE ORDERABLES Wilma christopher Result [facility] [address] [place] [address] [address] [facility] [address] [place] [address] [place] [address] * [place] DX BONE MARROW BX & ASPIR (05/07/2025 1:00 PM CDT) Bone Marrow Narrative [facility]ODAL - 05/07/2025 1:00 PM CDT Logan Braga R.N. 05/07/2025 1:27 PM Biopsy Bone Marrow, Unsedated Performed by: Logan Braga R.N. Authorized by: Bijal Dubose M.D. Care team members present 1. Logan Braga R.N. 2. Renetta Corcoran PROCEDURE DETAILS Procedure: Bone Marrow biopsy and Bone Marrow aspiration Bone marrow biopsy Laterality: Right Location of biopsy: Posterior iliac crest Patient position: Side lying Type of Needle: Manual bone marrow biopsy needle Findings: Slides obtained, aspirate obtained with spicules noted and redirected for core biopsy Bone marrow aspiration Aspirate volume (mL): 20 CONSENT Consent obtained: written (Risks, benefits and alternatives were discussed and a written Informed Consent was obtained. Please see Informed Consent form for further details.) UNIVERSAL PROTOCOL All relevant documentation and testing were reviewed and available. All required blood products, implants, devices and or special equipment were made available as applicable. Pre-procedure verification was conducted and the correct site was marked if required. A fire risk and smoke assessment were done as applicable. The procedural time-out to verify correct patient, correct side/site, and procedure was conducted prior to performing the procedure and confirmed in a procedural pause. PRE-PROCEDURE DETAILS Appropriate hand hygiene, gown, cap, mask, protective eyewear, sterile gloves, skin preparation, sterile drape, and strict aseptic technique were utilized as applicable for the procedure.: yes Site preparation: chlorhexidine SEDATION / ANESTHESIA Anesthesia method: local infiltration Local infiltrate type: lidocaine POST-PROCEDURE DETAILS Procedure completed successfully: yes Procedure tolorated: Well Post procedure pain scale: 2/10 Complications: no apparent complications Post-procedure instructions: Post-procedure activity instructions provided COMMENTS 200 mg 1 % lidocaine administered SQ Pressure dressing applied Pamphlet [id number] given to patient Bijal Dubose M.D. PROCEDURE/MINOR SURGICAL ORDERABLES Edited Result - Final MMODAL NA * Urinalysis, with Microscopic: Urine, Midstream (05/06/2025 12:28 PM CDT) Source Urine, Urine, Midstream 05/06/2025 1:47 PM CDT DTL Color, U Yellow 05/06/2025 1:47 PM CDT DTL Clarity, U Clear 05/06/2025 1:47 PM CDT DTL Protein, U 13 <26 mg/dL 05/06/2025 2:41 PM CDT DTL Protein/Osmol ality 0.14 <0.42 ratio 05/06/2025 3:03 PM CDT DTL Predicted 24 HR Protein, U 142 <229 mg/24 h 05/06/2025 3:03 PM CDT DTL Predicted Range 45-446 mg/24 h 05/06/2025 3:03 PM CDT DTL Urine (Urine, Midstream) 05/06/2025 12:28 PM CDT 05/06/2025 1:47 PM CDT Bijal Dubose M.D. LAB URINE ORDERABLES Wilma christopher Result [facility] [address] [place] [address], [facility] DTL [facility] [address] [place] [address] * CBC no call back, reflex T/S HGB <8 (05/06/2025 12:04 PM CDT) Hemoglobin 13.5 13.2 - 16.6 g/dL 05/06/2025 12:58 PM CDT DTL Hematocrit 40.5 38.3 - 48.6 % 05/06/2025 12:58 PM CDT DTL Erythrocytes 4.35 4.35 - 5.65 x10(12)/L 05/06/2025 12:58 PM CDT DTL MCV 93.1 78.2 - 97.9 fL 05/06/2025 12:58 PM CDT DTL RBC Distrib Width 13.4 11.8 - 14.5 % 05/06/2025 12:58 PM CDT DTL Platelet Count 210 135 - 317 x10(9)/L 05/06/2025 12:58 PM CDT DTL Leukocytes 6.3 3.4 - 9.6 x10(9)/L 05/06/2025 12:58 PM CDT DTL Neutrophils 4.05 1.56 - 6.45 x10(9)/L 05/06/2025 12:58 PM CDT [facility] Lymphocytes 1.45 0.95 - 3.07 x10(9)/L 05/06/2025 12:58 PM CDT DTL Monocytes 0.58 0.26 - 0.81 x10(9)/L 05/06/2025 12:58 PM CDT DTL Eosinophils 0.11 0.03 - 0.48 x10(9)/L 05/06/2025 12:58 PM CDT DTL Basophils 0.06 0.01 - 0.08 x10(9)/L 05/06/2025 12:58 PM CDT DTL Blood (Blood, Venous) 05/06/2025 12:04 PM CDT 05/06/2025 12:34 PM CDT Bijal Dubose M.D. LAB BLOOD NON ADD-ON Wilma l Result Performing Organization Address [facility] de Phone Number [facility] [address] [place] [address], [facility] DTL [facility] [address] [place] [address] [facility] [address] [place] [address] * Plasma Cell Assessment (05/06/2025 12:04 PM CDT) [facility] Blood Plasma Cell Light Chain Monotypic kappa plasma cells 05/06/2025 5:33 PM CDT DTL # Monotypic PCs per 150,000 events 82 events 05/06/2025 5:33 PM CDT DTL PC Event Interpretation Low number of circulating monotypic plasma cells. Reviewed by: Marion Mendez M.D. 05/06/2025 5:33 PM CDT DTL Comment: ----ADDITIONAL INFORMATION---- Plasma cell analysis was performed with antibodies to the following antigens: CD19, CD38, CD45, CD138 and kappa and lambda cytoplasmic immunoglobulin light chains. This test was developed using an analyte specific reagent. Its performance characteristics were determined by [facility] in a manner consistent with CLIA requirements. This test has not been cleared or approved by the U.S. Food and Drug Administration. Blood (Blood, Venous) 05/06/2025 12:04 PM CDT 05/06/2025 12:35 PM CDT Bijal Dubose M.D. LAB BLOOD NON ADD-ON Wilma l Result Performing Organization Address [facility]/ZIP Co de Phone Number [facility] [address] [place] [id number], [facility] [address] [facility] [address] [place] [address] * Glucose, Fasting (05/06/2025 12:04 PM CDT) Glucose, P 99 70 - 100 mg/dL 05/06/2025 1:43 PM CDT DTL Last Intake 6 hr 05/06/2025 12:31 PM CDT DTL Blood (Blood, Venous) 05/06/2025 12:04 PM CDT 05/06/2025 12:31 PM CDT us Bijal Dubose M.D. LAB BLOOD NON ADD-ON Wilma l Result [facility] [address] [place] [address], [address] [address] * 25-Hydroxyvitamin D2 and D3 (05/06/2025 12:04 PM CDT) 25-Hydroxy D2 <4.0 ng/mL 05/08/2025 12:28 PM CDT SDS 25-Hydroxy D3 66 ng/mL 05/08/2025 12:28 PM CDT SDS 25-Hydroxy D Total 66 ng/mL 2024 12:28 PM CDT [facility] Comment: Interpretation: 51-80 ng/mL (increased risk of hypercalciuria) ----REFERENCE VALUE---- 25-HYDROXY D TOTAL (D2+D3) Optimum levels in the healthy population are 20-50. ----ADDITIONAL INFORMATION---- This test was developed and its performance characteristics determined by [facility] in a manner consistent with CLIA requirements. This test has not been cleared or approved by the U.S. Food and Drug Administration. Blood (Blood, Venous) 05/06/2025 12:04 PM CDT 05/07/2025 7:31 AM CDT us Bijal Dubose M.D. LAB BLOOD ADD-ON Final Re sult Performing Organization Address City/[facility] Co de Phone Number [facility] [address] [place] [address] [facility] [address] [place] [address] [place] [address] * NT-Pro B-Type Natriuretic Peptide (BNP) (05/06/2025 12:03 PM CDT) NT-Pro BNP 64 <=540 pg/mL 05/06/2025 1:17 PM CDT DTL Comment: NT-proBNP values less than 300 pg/mL have a 99% negative predictive value for excluding acute congestive heart failure. A cutoff of 1200 pg/mL for patients with an eGFR<60 yields a diagnostic sensitivity and specificity of 89% and 72% for acute congestive heart failure. A diagnostic NT-proBNP cutoff of 900 pg/mL has been suggested in adults 50-75 years of age in the absence of renal failure. Blood (Blood, Venous) 05/06/2025 12:03 PM CDT 05/06/2025 12:32 PM CDT Bijal Dubose M.D. LAB BLOOD ADD-ON Final Re sult Performing Organization Address [facility] Co de Phone Number [facility] [address] [place] [address], [facility] DTL [facility] [address] [place] [address] * (ABNORMAL) Immunoglobulin Free Light Chains (05/06/2025 12:03 PM CDT) [place] Free Light Chain, S 3.11(H) 0.3300 - 1.94 mg/dL 05/06/2025 9:50 PM CDT SDSC Lambda Free Light Chain, S 0.6100 0.5700 - 2.63 mg/dL 05/06/2025 8:39 PM CDT SDSC [place]/Lambda FLC Ratio 5.10(H) 0.2600 - 1.65 05/06/2025 9:50 PM CDT SDSC Blood (Blood, Venous) 05/06/2025 12:03 PM CDT 05/06/2025 5:36 PM CDT us Bijal Dubose M.D. LAB BLOOD ADD-ON Final Re sult [facility] [address] [place] [address] [facility] [address] [place] [address] * Uric Acid (05/06/2025 12:03 PM CDT) Uric Acid, S 5.3 3.7 - 8.0 mg/dL 05/06/2025 1:17 PM CDT DTL Blood (Blood, Venous) 05/06/2025 12:03 PM CDT 05/06/2025 12:32 PM CDT Bijal Dubose M.D. LAB BLOOD ADD-ON Final Re sult Performing Organization Address City/[facility]/ZIP Co de Phone Number [facility] [address] [place] [address], [facility] [address] [place] [address] * Thyroid Function [place] (05/06/2025 12:03 PM CDT) Pathologist [facility] TSH, Sensitive 2.0 0.3 - 4.2 mIU/L 05/06/2025 1:17 PM CDT DTL Blood (Blood, Venous) 05/06/2025 12:03 PM CDT 05/06/2025 12:32 PM CDT Bijal Dubose M.D. LAB BLOOD ADD-ON Final Re sult [facility] [address] [place] [address], [facility] [address] [place] [address] * Sodium (05/06/2025 12:03 PM CDT) Sodium, S 138 135 - 145 mmol/L 05/06/2025 1:17 PM CDT DTL Blood (Blood, Venous) 05/06/2025 12:03 PM CDT 05/06/2025 12:32 PM CDT Bijal Dubose M.D. LAB BLOOD ADD-ON Final Re sult [facility] [address] [place] [address], [facility] [address] [place] [address] * (ABNORMAL) Quantitative M-protein Study (05/06/2025 12:03 PM CDT) Immunoglobulin A (IgA), S 137 61 - 356 mg/dL 05/06/2025 9:29 PM CDT SDSC Immunoglobulin M (IgM), S 36(L) 37 - 286 mg/dL 05/06/2025 9:44 PM CDT SDSC Immunoglobulin G (IgG), S 3760(H) 767 - 1590 mg/dL 05/06/2025 9:29 PM CDT SDSC Therapeutic Antibody Administered? Unspecified 05/06/2025 5:40 PM CDT SDSC M-protein GK 2.743(H) g/dL 05/08/2025 4:00 PM CDT SDSC Flag, M-protein Isotype Positive(A) Negative 05/08/2025 4:00 PM CDT [facility] QMPTS Interpretation IgG kappa 2.743 g/dL Consistent with MGUS, myeloma, amyloidosis, etc. Suggest Monoclonal Protein Studies, 24 Hour, Urine. 05/08/2025 4:00 PM CDT [facility]SC Comment: ----ADDITIONAL INFORMATION---- The submitted sample was assayed by five separate immunopurifications for IgG, IgA, IgM, kappa and lambda. The result reflects the findings of either no monoclonal protein detected or those monoclonal immunoglobulins that were detected. This test was developed and its performance characteristics determined by [facility] in a manner consistent with CLIA requirements. This test has not been cleared or approved by the U.S. Food and Drug Administration. Blood (Blood, Venous) 05/06/2025 12:03 PM CDT 05/06/2025 5:36 PM CDT Narrative [facility] - 05/08/2025 4:00 PM CDT Specimen Information: Specimen ID: [id number] Specimen Type: Blood Specimen Collection Start Date: 05/06/2025 12:03 PM Specimen Received Date: 05/06/2025 5:36 PM Specimen ID: [id number] Specimen Type: Blood Specimen Collection Start Date: 05/06/2025 12:03 PM Specimen Received Date: 05/06/2025 5:40 PM Bijal Dubose M.D. LAB BLOOD ADD-ON Final Re sult Performing Organization Address City/[facility]/ZIP Co de Phone Number [facility] [address] [place], [place] [id number] [place] [address] [place], [place] [id number] [place] [address] [facility] [place] [address] * Potassium (05/06/2025 12:03 PM CDT) Potassium, S 4.4 3.6 - 5.2 mmol/L 05/06/2025 1:17 PM CDT DTL Blood (Blood, Venous) 05/06/2025 12:03 PM CDT 05/06/2025 12:32 PM CDT Bijal Dubose M.D. LAB BLOOD ADD-ON Final Re sult [facility] [address] [place] [address], [place] DTL [facility] [address] [place] [address] * Phosphorus Inorganic (05/06/2025 12:03 PM CDT) Phosphorus (Inorganic), S 3.7 2.5 - 4.5 mg/dL 05/06/2025 1:17 PM CDT DTL Blood (Blood, Venous) 05/06/2025 12:03 PM CDT 05/06/2025 12:32 PM CDT us Bijal Dubose M.D. LAB BLOOD ADD-ON Final Re sult [facility] [address] [facility] [address] [place] [address] * LD (Lactate Dehydrogenase) (05/06/2025 12:03 PM CDT) Lactate Dehydrogenase (LD), S 136 122 - 222 U/L 05/06/2025 1:17 PM CDT DTL Blood (Blood, Venous) 05/06/2025 12:03 PM CDT 05/06/2025 12:32 PM CDT Bijal Dubose M.D. LAB BLOOD NON ADD-ON Wilma l Result Performing Organization Address [facility] Co de Phone Number [facility] [address] [facility] 200 [place] [address] * Creatinine with Estimated GFR (05/06/2025 12:03 PM CDT) Creatinine 1.09 0.74 - 1.35 mg/dL 05/06/2025 1:17 PM CDT DTL Estimated GFR (eGFR) 73 >=60 mL/min/BSA 05/06/2025 1:17 PM CDT DTL Comment: Estimated GFR calculated using the 2020 CKD_EPI creatinine equation. Blood (Blood, Venous) 05/06/2025 12:03 PM CDT 05/06/2025 12:32 PM CDT Bijal Dubose M.D. LAB BLOOD ADD-ON Final Re sult Performing Organization Address City/[facility]/ZIP Co de Phone Number [facility] [address] [place] [address], [facility] [address] [place] [address] * CRP (C-Reactive Protein) (05/06/2025 12:03 PM CDT) Pathologist [facility] C-Reactive Protein (CRP), S <3.0 <5.0 mg/L 05/06/2025 1:17 PM CDT DTL Blood (Blood, Venous) 05/06/2025 12:03 PM CDT 05/06/2025 12:32 PM CDT us Bijal Dubose M.D. LAB BLOOD ADD-ON Final Re sult [facility] [address] [place] [address], [facility] [address] [place] [address] * Calcium, Total (05/06/2025 12:03 PM CDT) Pathologist [facility] Calcium, Total, S 9.4 8.8 - 10.2 mg/dL 05/06/2025 1:17 PM CDT DT Blood (Blood, Venous) 05/06/2025 12:03 PM CDT 05/06/2025 12:32 PM CDT us Bijal Dubose M.D. LAB BLOOD ADD-ON Final Re sult [facility] [address] [place] [address], [facility] [address] [place] [address] * BUN (Blood Urea Nitrogen) (05/06/2025 12:03 PM CDT) Pathologist [facility] BUN (Blood Urea Nitrogen), S 21 8 - 24 mg/dL 05/06/2025 1:17 PM CDT DTL Blood (Blood, Venous) 05/06/2025 12:03 PM CDT 05/06/2025 12:32 PM CDT us Bijal Dubose M.D. LAB BLOOD ADD-ON Final Re sult [facility] [address] [place] [address], [facility] [address] [place] [address] * Bilirubin, Total (05/06/2025 12:03 PM CDT) Bilirubin, Total, S 0.4 0.0 - 1.2 mg/dL 05/06/2025 1:17 PM CDT DTL Blood (Blood, Venous) 05/06/2025 12:03 PM CDT 05/06/2025 12:32 PM CDT us Bijal Dubose M.D. LAB BLOOD ADD-ON Final Re sult Performing Organization Address City/[facility]/ZIP Co de Phone Number [facility] [address] [place], [place] [address] [address] [place] [address] * Bilirubin, Direct (05/06/2025 12:03 PM CDT) Bilirubin, Direct, S 0.1 0.0 - 0.3 mg/dL 05/06/2025 1:17 PM CDT DTL Blood (Blood, Venous) 05/06/2025 12:03 PM CDT 05/06/2025 12:32 PM CDT us Bijal Dubose M.D. LAB BLOOD ADD-ON Final Re sult [facility] [address] [place] [address], [facility] [address] [place] [address] * Bicarbonate (05/06/2025 12:03 PM CDT) Bicarbonate, S 24 22 - 29 mmol/L 05/06/2025 1:17 PM CDT [facility] Blood (Blood, Venous) 05/06/2025 12:03 PM CDT 05/06/2025 12:32 PM CDT Bijal Dubose M.D. LAB BLOOD ADD-ON Final Re sult [facility] [address] [place] [address], [facility] [address] [place] [address] * (ABNORMAL) Voel-8-Sunfjxpjagjkd (Beta-2-M) (05/06/2025 12:03 PM CDT) Xikh-0-Iapejrh obulin, S 3.51(H) 1.21 - 2.70 mcg/mL 05/06/2025 9:18 PM CDT [facility] Blood (Blood, Venous) 05/06/2025 12:03 PM CDT 05/06/2025 5:36 PM CDT Bijal Dubose M.D. LAB BLOOD ADD-ON Final Re sult Performing Organization Address [facility]/ZIP Co de Phone Number [facility] [address] [place] [address] [facility] [address] [place] [address] * AST (Aspartate Aminotransferase) (05/06/2025 12:03 PM CDT) Aspartate Aminotransferase (AST), S 22 8 - 48 U/L 05/06/2025 1:17 PM CDT [facility] Blood (Blood, Venous) 05/06/2025 12:03 PM CDT 05/06/2025 12:32 PM CDT Bijal Dubose M.D. LAB BLOOD ADD-ON Final Re sult [facility] [address] [place] [address], [facility] [address] [place] [address] * Alkaline Phosphatase (05/06/2025 12:03 PM CDT) Alkaline Phosphatase, S 90 40 - 129 U/L 05/06/2025 1:17 PM CDT DTL Blood (Blood, Venous) 05/06/2025 12:03 PM CDT 05/06/2025 12:32 PM CDT us Bijal Dubose M.D. LAB BLOOD ADD-ON Final Re sult Performing Organization Address City/[facility]/ZIP Co de Phone Number [facility] [address] [place], [place] [address] [address] [place] [address] * Albumin (05/06/2025 12:03 PM CDT) Albumin, S 3.7 3.5 - 5.0 g/dL 05/06/2025 1:17 PM CDT DTL Blood (Blood, Venous) 05/06/2025 12:03 PM CDT 05/06/2025 12:32 PM CDT us Bijal Dubose M.D. LAB BLOOD ADD-ON Final Re sult Performing Organization Address City/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
--- OUTSIDE RECORDS SUMMARY | 2025-05-06 11:33 | XMS_ITS | Encounter Summary ---
Author Organization [facility] Address [address] [place] [id number] Care Team Providers Care Sap Specialist Name Role Phone Unavailable Primary Care Provider Unavailabl e Encounter Details Date Type Department Care Team (Latest Contact Info) Description 05/06/2025 11:33 AM CDT - 05/06/2025 11:58 AM CDT Hospital Encounter Department of Laboratory Medicine and Pathology, [facility], in [place], [place] [address] [place] [address] Bijal Dubose M.D. [address] [place] [address] Multiple Myeloma Not Having Achieved Remission (HCC) Discharge Disposition: Home or Self Care Social History Tobacco Use Types Packs/Day Years [...] things needed for daily living? No 05/05/2025 [facility] Utilities Answer Date Recorded In the past 12 months has e electric, gas, oil, or water company threatened to shut off services in your home? No 05/05/2025 Housing Stability Answer Date Recorded What is your living situation today? 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 08/20/2021 tamsulosin (Flomax) 0.4 mg 24 hr capsule Take 0.4 mg by mouth daily. 08/06/2020 documented as of this encounter Plan of Treatment Upcoming Encounters Date Type Department Care Team (Late st Contact Info) Description 06/09/2025 8:20 AM CDT Appointment Department of Laboratory Medicine and Pathology, [facility] in [place], [place] [address] [place] [phone] Bijal Dubose M.D. [address] [place] [phone] 06/09/2025 9:30 AM CDT Infusion Department of Oncology in [place], [place] [address] [place] [phone] Bijal Dubose M.D. [address] [place] [phone] 06/09/2025 2:00 PM CDT Appointment Department of Radiation Oncology in [place], [place] [address] [place] [phone] Chemo Goss M.D., Ph.D. [address] [place] [phone] 06/10/2025 3:30 PM CDT Appointment Department of Radiation Oncology in [place], [place] [address] [place] [phone] Chemo Goss M.D., Ph.D. [address] [place] [phone] 06/11/2025 11:30 AM CDT Appointment Department of Radiation Oncology in [place], [place] [address] [place] [phone] Cheom Goss M.D., Ph.D. [address] [place] [phone] 06/11/2025 2:45 PM CDT Appointment Department of Radiation Oncology in [place], [place] [address] [place] [phone] Chemo Goss M.D., Ph.D. [address] [place] [phone] Zhane Parikh R.N. 06/11/2025 3:30 PM CDT Appointment Department of Radiation Oncology in [place], [place] [address] [place] [phone] Chemo Goss M.D., Ph.D. [address] [place] [phone] 06/12/2025 11:30 AM CDT Appointment Department of Radiation Oncology in [place], [place] [address] [place] [phone] Chemo Goss M.D., Ph.D. [address] [place] [phone] 06/13/2025 9:30 AM CDT Appointment Department of Radiation Oncology in [place], [place] [address] [place] [phone] Chemo Goss M.D., Ph.D. [address] [place] [phone] 06/16/2025 9:10 AM CDT Appointment Department of Laboratory Medicine and Pathology, [facility] in [place], [place] [address] [place] [phone] Bijal Dubose M.D. [address] [place] [phone] 06/16/2025 10:30 AM CDT Infusion Department of Oncology in [place], [place] [address] [place] [phone] Bijal Dubose M.D. [address] [place] [phone] 06/16/2025 11:00 AM CDT Appointment Department of Radiation Oncology in [place], [place] [address] [place] [phone] Chemo Goss M.D., Ph.D. [address] [place] [phone] 06/17/2025 9:45 AM CDT Appointment Department of Radiation Oncology in [place], [place] [address] [place] [phone] Chemo Goss M.D., Ph.D. [address] [place] [phone] 06/18/2025 9:45 AM CDT Appointment Department of Radiation Oncology in [place], [place] [address] [place] [phone] Chemo Goss M.D., Ph.D. [address] [place] [phone] 06/18/2025 10:30 AM CDT Appointment Department of Radiation Oncology in [place], [place] [address] [place] [phone] Chemo Goss M.D., Ph.D. [address] [place] [phone] 06/19/2025 10:45 AM CDT Appointment Department of Radiation Oncology in [place], [place] [address] [place] [phone] Chemo Goss M.D., Ph.D. [address] [place] [phone] 06/20/2025 10:45 AM CDT Appointment Department of Radiation Oncology in [place], [place] [address] [place] [phone] Chemo Goss M.D., Ph.D. [address] [place] [phone] 06/23/2025 7:50 AM CDT Appointment Department of Laboratory Medicine and Pathology, [facility] in [place], [place] [address] [place] [phone] Bijal Dubose M.D. [address] [place] [phone] 06/23/2025 9:30 AM CDT Infusion Department of Oncology in [place], [place] [address] [place] [phone] Bijal Dubose M.D. [address] [place] [phone] 06/30/2025 7:30 AM CDT Appointment Department of Laboratory Medicine and Pathology, [facility] in [place], [place] [address] [place] [phone] Bijal Dubose M.D. [address] [place] [phone] 06/30/2025 9:30 AM CDT Office Visit Division of Hematology in [place], [place] [address] [place] [phone] Bijal Dubose M.D. [address] [place] [phone] 06/30/2025 10:30 AM CDT Infusion Department of Oncology in [place], [place] [address] [place] [phone] Bijal Dubose M.D. [address] [place] [phone] 07/07/2025 11:30 AM SITE AUDITOR Infusion Department of Oncology in [place], [place] [address] [place] [phone] Bijal Dubose M.D. [address] [place] [phone] 07/14/2025 11:00 AM SITE AUDITOR Infusion Department of Oncology in [place], [place] [address] [place] [phone] Bijal Dubose M.D. [address] [place] [phone] 07/21/2025 10:30 AM SITE AUDITOR Infusion Department of Oncology in [place], [place] [address] [place] [phone] Bijal Dubose M.D. [address] [place] [phone] documented as of this encounter Procedures Procedure Name Priority Date/Time Associated Diagnosis Comments DIPSTICK, U Routine 05/06/2025 12:28 PM CDT MICROSCOPIC AUTOMATED Routine 05/06/2025 12:28 PM CDT PH, U Routine 05/06/2025 12:28 PM CDT OSMOLALITY, U Routine 05/06/2025 12:28 PM CDT URINALYSIS WITH MICROSCOPIC Routine 05/06/2025 12:28 PM CDT Multiple Myeloma Not Having Achieved Remission (HCC) documented in this encounter Results * Dipstick, Urine (05/06/2025 12:28 PM CDT) Hemoglobin, QL, U Negative Negative 05/06/2025 2:47 PM CDT DTL Leukocyte Esterase, U Negative Negative 05/06/2025 2:47 PM CDT DTL Nitrite, U Negative Negative 05/06/2025 2:47 PM CDT DTL Ketone, U Negative Negative mg/dL 05/06/2025 2:47 PM CDT DTL Glucose, U Negative Negative mg/dL 05/06/2025 2:47 PM CDT DTL Urine 05/06/2025 12:2 8 PM CDT 05/06/2025 1:48 PM CDT us Bijal Dubose M.D. LAB URINE ORDERABLES Wilma l Result Performing Organization Address City/[facility] Co de Phone Number [address] DTL [facility] 200 [place] [address] * pH, Urine (05/06/2025 12:28 PM CDT) pH, U 5.2 4.5 - 8.0 05/06/2025 3:0 3 PM CDT DTL Urine 05/06/2025 12:2 8 PM CDT 05/06/2025 1:48 PM CDT us Bijal Dubose M.D. LAB URINE ORDERABLES Wilma l Result [facility] [address] 200 [place] [address] * Osmolality, Urine (05/06/2025 12:28 PM CDT) Pathologist [facility] Osmolality, U 949 150 - 1150 mOsm/kg 05/06/2025 3:03 PM CDT DTL Urine 05/06/2025 12:2 8 PM CDT 05/06/2025 1:48 PM CDT Bijal Dubose M.D. LAB URINE ORDERABLES Wilma l Result Performing Organization Address [facility] Co de Phone Number [facility] 200 [place] [address] * Microscopic Automated (05/06/2025 12:28 PM CDT) [facility] Microscopy Normal 05/06/2025 2:47 PM CDT DTL RBC None Seen <3 /hpf 05/06/2025 2:47 PM CDT DTL WBC 1-3 /hpf 05/06/2025 2:47 PM CDT DTL Comment: ----REFERENCE VALUE---- <4 (Males) <11 (Females) Urine 05/06/2025 12:2 8 PM CDT 05/06/2025 1:48 PM CDT Bijal Dubose M.D. LAB URINE ORDERABLES Wilma l Result Performing Organization Address City/[facility]/ZIP Co de Phone Number [facility] [address] 200 [place] [address] * Urinalysis, with Microscopic: Urine, Midstream (05/06/2025 [...] LAB URINE ORDERABLES Wilma christopher Result [facility] [address] [place] [address], [facility] DTL [facility] [address] [place] [address] documented in this encounter Visit Diagnoses Diagnosis Multiple Myeloma Not Having Achieved Remission (HCC) documented in this encounter
--- OUTSIDE RECORDS SUMMARY | 2025-05-06 11:33 | XMS_ITS | Encounter Summary ---
Author Organization [facility] Address [address] [place] [address] Care Team Providers Care Fisheries Diver Name Role Phone Unavailable Primary Care Provider Unavailabl e Encounter Details Date Type Department Care Team (Latest Contact Info) Description 05/06/2025 11:33 AM CDT - 05/06/2025 11:58 AM CDT Hospital Encounter Department of Laboratory Medicine and Pathology, [facility] in [place], [place] [address] [place] [address] Bijal Dubose M.D. [address] [place] [address] Multiple Myeloma Not Having Achieved Remission (HCC); Disorder Of Bone Density And Structure; Abnormal Finding Of Blood Chemistry Unspecified; Other General Symptoms And Signs; Other Dyspnea Discharge Disposition: Home or Self Care Social [...] needed for daily living? 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 [address] [place] [phone] 06/09/2025 9:30 AM CDT Infusion Department of Oncology in [place], [place] [address] [place] [phone] Bijal Dubose M.D. [address] [place] [phone] 06/09/2025 2:00 PM CDT Appointment Department of Radiation Oncology in [place], [place] [address] [place] [address] Chemo Goss M.D., Ph.D. [address] [place] [phone] 06/10/2025 3:30 PM CDT Appointment Department of Radiation Oncology in [place], [place] [address] [place] [phone] Chemo Goss M.D., Ph.D. [address] [place] [phone] 06/11/2025 11:30 AM CDT Appointment Department of Radiation Oncology in [place], [place] [address] [place] [phone] Chemo Goss M.D., Ph.D. [address] [place] [phone] 06/11/2025 2:45 PM CDT Appointment Department of Radiation Oncology in [place], [place] [address] [place] [phone] Chemo Goss M.D., Ph.D. [address] [place] [phone] Zhane Parikh R.N. 06/11/2025 3:30 PM CDT Appointment Department of Radiation Oncology in [place], [place] [address] [place] [phone] Chemo Goss M.D., Ph.D. [address] [place] [phone] 06/12/2025 11:30 AM CDT Appointment Department of Radiation Oncology in [place], [place] [address] [place] [phone] Chemo Goss M.D., Ph.D. [address] [place] [phone] 06/13/2025 9:30 AM CDT Appointment Department of Radiation Oncology in [place], [place] [address] [place] [phone] Chemo Goss M.D., Ph.D. [address] [place] [phone] 06/16/2025 9:10 AM CDT Appointment Department of Laboratory Medicine and Pathology, [facility] in [place], [place] [address] [place] [phone] Bijal Dubose M.D. [address] [place] [phone] 06/16/2025 10:30 AM CDT Infusion Department of Oncology in [place], [place] [address] [place] [phone] Bijal Dubose M.D. [address] [place] [phone] 06/16/2025 11:00 AM CDT Appointment Department of Radiation Oncology in [place], [place] [address] [place] [phone] Chemo Goss M.D., Ph.D. [address] [place] [phone] 06/17/2025 9:45 AM CDT Appointment Department of Radiation Oncology in [place], [place] [address] [place] [phone] Chemo Goss M.D., Ph.D. [address] [place] [phone] 06/18/2025 9:45 AM CDT Appointment Department of Radiation Oncology in [place], [place] [address] [place] [phone] Chemo Goss M.D., Ph.D. [address] [place] [phone] 06/18/2025 10:30 AM CDT Appointment Department of Radiation Oncology in [place], [place] [address] [place] [phone] Chemo Goss M.D., Ph.D. [address] [place] [phone] 06/19/2025 10:45 AM CDT Appointment Department of Radiation Oncology in [place], [place] [address] [place] [phone] Chemo Goss M.D., Ph.D. [address] [place] [phone] 06/20/2025 10:45 AM CDT Appointment Department of Radiation Oncology in [place], [place] [address] [place] [phone] Chemo Goss M.D., Ph.D. [address] [place] [phone] 06/23/2025 7:50 AM CDT Appointment Department of Laboratory Medicine and Pathology, [facility] in [place], [place] [address] [place] [phone] Bijal Dubose M.D. [address] [place] [phone] 06/23/2025 9:30 AM CDT Infusion Department of Oncology in [place], [place] [address] [place] [phone] Bijal Dubose M.D. [address] [place] [phone] 06/30/2025 7:30 AM CDT Appointment Department of Laboratory Medicine and Pathology, [facility] in [place], [place] [address] [place] [phone] Bijal Dubose M.D. [address] [place] [phone] 06/30/2025 9:30 AM CDT Office Visit Division of Hematology in [place], [place] [address] [place] [phone] Bijal Dubose M.D. [address] [place] [phone] 06/30/2025 10:30 AM CDT Infusion Department of Oncology in [place], [place] [address] [place] [phone] Bijal Dubose M.D. [address] [place] [phone] 07/07/2025 11:30 AM ANTHROPOLOGIST PHYSICAL Infusion Department of Oncology in [place], [place] [address] [place] [phone] Bijal Dubose M.D. [address] [place] [phone] 07/14/2025 11:00 AM ANTHROPOLOGIST PHYSICAL Infusion Department of Oncology in [address] [phone] Bijal Dubose M.D. [address] [place] [phone] 07/21/2025 10:30 AM ANTHROPOLOGIST PHYSICAL Infusion Department of Oncology in [place], [place] [address] [place] [phone] Bijal Dubose M.D. [address] [place] [phone] documented as of this encounter Procedures Procedure Name Priority Date/Time Associated Diagnosis Comments CBC NO CALL BACK, REFLEX T/S Routine 05/06/2025 12:04 PM CDT Multiple Myeloma Not Having Achieved Remission (HCC) PLASMA CELL ASSESSMENT, B Routine 05/06/2025 12:04 PM CDT Multiple Myeloma Not Having Achieved Remission (HCC) 25-HYDROXYVITAMIN D2 AND D3, S Routine 05/06/2025 12:04 PM CDT Multiple Myeloma Not Having Achieved Remission (HCC) Disorder Of Bone Density And Structure GLUCOSE, FASTING, S/P Routine 05/06/2025 12:04 PM CDT Multiple Myeloma Not Having Achieved Remission (HCC) Abnormal Finding Of Blood Chemistry Unspecified QUANTITATIVE M-PROTEIN STUDY, S Routine 05/06/2025 12:03 PM CDT Multiple Myeloma Not Having Achieved Remission (HCC) THYROID FUNCTION CASCADE, S Routine 05/06/2025 12:03 PM CDT Multiple Myeloma Not Having Achieved Remission (HCC) Other General Symptoms And Signs NT-PRO B-TYPE NATRIURETIC PEPTIDE (BNP), S Routine 05/06/2025 12:03 PM CDT Multiple Myeloma Not Having Achieved Remission (HCC) Other Dyspnea IMMUNOGLOBULIN FREE LIGHT CHAINS, S Routine 05/06/2025 12:03 PM CDT Multiple Myeloma Not Having Achieved Remission (HCC) C-REACTIVE PROTEIN (CRP), S/P Routine 05/06/2025 12:03 PM CDT Multiple Myeloma Not Having Achieved Remission (HCC) URIC ACID, S/P Routine 05/06/2025 12:03 PM CDT Multiple Myeloma Not Having Achieved Remission (HCC) BUN (BLOOD UREA NITROGEN), S/P Routine 05/06/2025 12:03 PM CDT Multiple Myeloma Not Having Achieved Remission (HCC) ASPARTATE AMINOTRANSFERASE (AST), S/P Routine 05/06/2025 12:03 PM CDT Multiple Myeloma Not Having Achieved Remission (HCC) SODIUM, S/P Routine 05/06/2025 12:03 PM CDT Multiple Myeloma Not Having Achieved Remission (HCC) POTASSIUM, S/P Routine 05/06/2025 12:03 PM CDT Multiple Myeloma Not Having Achieved Remission (HCC) PHOSPHORUS (INORGANIC), S Routine 05/06/2025 12:03 PM CDT Multiple Myeloma Not Having Achieved Remission (HCC) ALKALINE PHOSPHATASE, S/P Routine 05/06/2025 12:03 PM CDT Multiple Myeloma Not Having Achieved Remission (HCC) LACTATE DEHYDROGENASE (LD), S Routine 05/06/2025 12:03 PM CDT Multiple Myeloma Not Having Achieved Remission (HCC) CREATININE WITH EGFR, S/P Routine 05/06/2025 12:03 PM CDT Multiple Myeloma Not Having Achieved Remission (HCC) BICARBONATE, B/S/P Routine 05/06/2025 12 :03 PM CDT Multiple Myeloma Not Having Achieved Remission (HCC) CALCIUM, TOT, S/P Routine 05/06/2025 12: 03 PM CDT Multiple Myeloma Not Having Achieved Remission (HCC) BILIRUBIN DIRECT, S/P Routine 05/06/2025 12:03 PM CDT Multiple Myeloma Not Having Achieved Remission (HCC) BILIRUBIN, TOT, S/P Routine 05/06/2025 1 2:03 PM CDT Multiple Myeloma Not Having Achieved Remission (HCC) [id number] (BETA-2-M), S Routine 05/06/2025 12:03 PM CDT Multiple Myeloma Not Having Achieved Remission (HCC) ALBUMIN, S/P Routine 05/06/2025 12:03 PM CDT Multiple Myeloma Not Having Achieved Remission (HCC) documented in this encounter Results * CBC no call back, reflex T/S [...] 12:04 PM CDT 05/06/2025 12:34 PM CDT us Bijal Dubose M.D. LAB BLOOD NON ADD-ON Wilma christopher Result [facility] [address] [place], [place] [address] DTL [facility] [address] [place] [address] [facility] 200 [place] [address] * Plasma Cell Assessment (05/06/2025 12:04 PM CDT) Pathologist [facility] Blood Plasma Cell Light Chain Monotypic kappa [...] reagent. Its performance characteristics were determined by [facility] in a manner consistent with CLIA requirements. This test has not been cleared or approved by the U.S. Food and Drug Administration. Blood (Blood, Venous) 05/06/2025 12:04 PM CDT 05/06/2025 12:35 PM CDT Bijal Dubose M.D. LAB BLOOD NON ADD-ON Wilma l Result [facility] [address] [place], [place] [address] DT [address] [address] * Glucose, Fasting (05/06/2025 12:04 PM CDT) Pathologist [facility] Glucose, P 99 70 - 100 mg/dL 05/06/2025 1:43 PM CDT DTL Last Intake 6 hr 05/06/2025 12:31 PM CDT DTL Blood (Blood, Venous) 05/06/2025 12:04 PM CDT 05/06/2025 12:31 PM CDT Bijal Dubose M.D. LAB BLOOD NON ADD-ON Wilma l Result [facility] [address] [place] [address], [facility] DTL [facility] [address] [place] [address] * 25-Hydroxyvitamin D2 and D3 (05/06/2025 12:04 PM CDT) 25-Hydroxy D2 <4.0 ng/mL 05/08/2025 12:28 PM CDT SDSC 25-Hydroxy D3 66 ng/mL 05/08/2025 12:28 PM CDT SDSC 25-Hydroxy D Total 66 ng/mL 2024 12:28 PM CDT [facility] Comment: Interpretation: 51-80 ng/mL (increased risk of hypercalciuria) ----REFERENCE VALUE---- 25-HYDROXY D TOTAL (D2+D3) Optimum levels in the healthy population are 20-50. ----ADDITIONAL INFORMATION---- This test was developed and its performance characteristics determined by [facility] in a manner consistent with CLIA requirements. This test has not been cleared or approved by the U.S. Food and Drug Administration. Blood (Blood, Venous) 05/06/2025 12:04 PM CDT 05/07/2025 7:31 AM CDT Bijal Dubose M.D. LAB BLOOD ADD-ON Final Re sult [facility] [place] [address] [place] [address] [facility] [address] [place] [address] [place] [address] * NT-Pro B-Type Natriuretic Peptide (BNP) (05/06/2025 12:03 PM CDT) NT-Pro BNP 64 <=540 pg/mL 05/06/2025 1:17 PM CDT DT Comment: NT-proBNP values less than 300 pg/mL [...] ADD-ON Final Re sult Performing Organization Address [facility] Co de Phone Number [facility] [address] [place] [address], [facility] [address] [place] [address] * (ABNORMAL) Immunoglobulin Free Light Chains (05/06/2025 12:03 PM CDT) [place] Free Light Chain, S 3.11(H) 0.3300 - 1.94 mg/dL 05/06/2025 9:50 PM CDT SDSC Lambda Free Light Chain, S 0.6100 0.5700 - 2.63 mg/dL 05/06/2025 8:39 PM CDT SDS [place]/Lambda FLC Ratio 5.10(H) 0.2600 - 1.65 05/06/2025 9:50 PM CDT [facility] Blood (Blood, Venous) 05/06/2025 12:03 PM CDT 05/06/2025 5:36 PM CDT Bijal Dubose M.D. LAB BLOOD ADD-ON Final Re sult Performing Organization Address City/[facility]/ZIP Co de Phone Number [facility] [address] [place] [address] [facility] [address] [place] [address] * Uric Acid (05/06/2025 12:03 PM CDT) Uric Acid, S 5.3 3.7 - 8.0 mg/dL 05/06/2025 1:17 PM CDT DTL Blood (Blood, Venous) 05/06/2025 12:03 PM CDT 05/06/2025 12:32 PM CDT Bijal Dubose M.D. LAB BLOOD ADD-ON Final Re sult Performing Organization Address City/[facility]/ZIP Co de Phone Number [facility] [address] [place] [address] * Thyroid Function Power (05/06/2025 12:03 PM CDT) TSH, Sensitive 2.0 0.3 - 4.2 mIU/L 05/06/2025 1:17 PM CDT DTL Blood (Blood, Venous) 05/06/2025 12:03 PM CDT 05/06/2025 12:32 PM CDT Bijal Dubose M.D. LAB BLOOD ADD-ON Final Re sult Performing Organization Address [facility]/ZIP Co de Phone Number [facility] [address] [place], [place] [phone] [place] [address] 200 [place] [address] * Sodium (05/06/2025 12:03 PM CDT) Sodium, S 138 135 - 145 mmol/L 05/06/2025 1:17 PM CDT DTL Blood (Blood, Venous) 05/06/2025 12:03 PM CDT 05/06/2025 12:32 PM CDT Bijal Dubose M.D. LAB BLOOD ADD-ON Final Re sult Performing Organization Address City/[facility]/ZIP Co de Phone Number [facility] [address] [place] [address], [facility] [address] [place] [address] * (ABNORMAL) Quantitative M-protein Study (05/06/2025 12:03 [...] developed and its performance characteristics determined by [facility] in a manner consistent with CLIA requirements. This test has not been cleared or approved by the U.S. Food and Drug Administration. Blood (Blood, Venous) 05/06/2025 12:03 PM CDT 05/06/2025 5:36 PM CDT Narrative [facility] - 05/08/2025 4:00 PM CDT Specimen Information: Specimen ID: [id number] Specimen Type: Blood Specimen Collection Start Date: 05/06/2025 12:03 PM Specimen Received Date: 05/06/2025 5:36 PM Specimen ID: [id number] Specimen Type: Blood Specimen Collection Start Date: 05/06/2025 12:03 PM Specimen Received Date: 05/06/2025 5:40 PM Bijal Dubose M.D. LAB BLOOD ADD-ON Final Re sult [facility] [address] [place] [address] [facility] [address] [place] [address] [facility] [address] [place] [address] [place] [address] * Potassium (05/06/2025 12:03 PM CDT) Potassium, S 4.4 3.6 - 5.2 mmol/L 05/06/2025 1:17 PM CDT DTL Blood (Blood, Venous) 05/06/2025 12:03 PM CDT 05/06/2025 12:32 PM CDT Bijal Dubose M.D. LAB BLOOD ADD-ON Final Re sult Performing Organization Address City/[facility]/ZIP Co de Phone Number [facility] [address] [place], [place] [address] [place] [address] [address] [place] [address] * Phosphorus Inorganic (05/06/2025 12:03 PM CDT) Phosphorus (Inorganic), S 3.7 2.5 - 4.5 mg/dL 05/06/2025 1:17 PM CDT DTL Blood (Blood, Venous) 05/06/2025 12:03 PM CDT 05/06/2025 12:32 PM CDT Bijal Dubose M.D. LAB BLOOD ADD-ON Final Re sult [facility] [address] [place] [address], [facility] [address] [place] [address] * LD (Lactate Dehydrogenase) (05/06/2025 12:03 PM CDT) Lactate Dehydrogenase (LD), S 136 122 - 222 U/L 05/06/2025 1:17 PM CDT DTL Blood (Blood, Venous) 05/06/2025 12:03 PM CDT 05/06/2025 12:32 PM CDT Bijal Dubose M.D. LAB BLOOD NON ADD-ON Wilma l Result Performing Organization Address [facility] Co de Phone Number [facility] [address] [place] [address], [facility] [address] [place] [address] * Creatinine with Estimated GFR (05/06/2025 12:03 PM CDT) Pathologist [facility] Creatinine 1.09 0.74 - 1.35 mg/dL 05/06/2025 1:17 PM CDT DTL Estimated GFR (eGFR) 73 >=60 mL/min/BSA 05/06/2025 1:17 PM CDT DTL Comment: Estimated GFR calculated using the 2020 CKD_EPI creatinine equation. Blood (Blood, Venous) 05/06/2025 12:03 PM CDT 05/06/2025 12:32 PM CDT us Bijal Dubose M.D. LAB BLOOD ADD-ON Final Re sult Performing Organization Address [facility] Co de Phone Number [facility] [address] [place] [address], [facility] [address] [place] [address] * CRP (C-Reactive Protein) (05/06/2025 12:03 PM CDT) C-Reactive Protein (CRP), S <3.0 <5.0 mg/L 05/06/2025 1:17 PM CDT DTL Blood (Blood, Venous) 05/06/2025 12:03 PM CDT 05/06/2025 12:32 PM CDT us Bijal Dubose M.D. LAB BLOOD ADD-ON Final Re sult [facility] [address] [place] [address], [facility] [address] [place] [address] * Calcium, Total (05/06/2025 12:03 PM CDT) Calcium, Total, S 9.4 8.8 - 10.2 mg/dL 05/06/2025 1:17 PM CDT DTL Blood (Blood, Venous) 05/06/2025 12:03 PM CDT 05/06/2025 12:32 PM CDT Bijal Dubose M.D. LAB BLOOD ADD-ON Final Re sult Performing Organization Address City/[facility]/ZIP Co de Phone Number [facility] [address] [place] [address], [facility] [address] [place] [address] * BUN (Blood Urea Nitrogen) (05/06/2025 12:03 PM CDT) BUN (Blood Urea Nitrogen), S 21 8 - 24 mg/dL 05/06/2025 1:17 PM CDT DTL Blood (Blood, Venous) 05/06/2025 12:03 PM CDT 05/06/2025 12:32 PM CDT Bijal Dubose M.D. LAB BLOOD ADD-ON Final Re sult [facility] [address] [place] [address], [facility] [address] [place] [address] * Bilirubin, Total (05/06/2025 12:03 PM CDT) Bilirubin, Total, S 0.4 0.0 - 1.2 mg/dL 05/06/2025 1:17 PM CDT DTL Blood (Blood, Venous) 05/06/2025 12:03 PM CDT 05/06/2025 12:32 PM CDT Bijal Dubose M.D. LAB BLOOD ADD-ON Final Re sult Performing Organization Address City/[facility]/ZIP Co de Phone Number [facility] [address] [place] [address] * Bilirubin, Direct (05/06/2025 12:03 PM CDT) Bilirubin, Direct, S 0.1 0.0 - 0.3 mg/dL 05/06/2025 1:17 PM CDT DTL Blood (Blood, Venous) 05/06/2025 12:03 PM CDT 05/06/2025 12:32 PM CDT Bijal Dubose M.D. LAB BLOOD ADD-ON Final Re sult Performing Organization Address [facility]/ZIP Co de Phone Number [facility] [address] [place], [place] [address] [place] [address] 200 [place] [address] * Bicarbonate (05/06/2025 12:03 PM CDT) Bicarbonate, S 24 22 - 29 mmol/L 05/06/2025 1:17 PM CDT DTL Blood (Blood, Venous) 05/06/2025 12:03 PM CDT 05/06/2025 12:32 PM CDT Bijal Dubose M.D. LAB BLOOD ADD-ON Final Re sult Performing Organization Address City/[facility]/ZIP Co de Phone Number [facility] [address] [place] [address] [place] [address] * (ABNORMAL) Zrle-7-Bgpashnamqfrg (Beta-2-M) (05/06/2025 12:03 PM CDT) Gyjd-6-Bnzulao obulin, S 3.51(H) 1.21 - 2.70 mcg/mL 05/06/2025 9:18 PM CDT [facility] Blood (Blood, Venous) 05/06/2025 12:03 PM CDT 05/06/2025 5:36 PM CDT Bijal Dubose M.D. LAB BLOOD ADD-ON Final Re sult [facility] [address] [place] [address] [facility] [address] [place] [address] * AST (Aspartate Aminotransferase) (05/06/2025 12:03 PM CDT) Pathologist [facility] Aspartate Aminotransferase (AST), S 22 8 - 48 U/L 05/06/2025 1:17 PM CDT DT Blood (Blood, Venous) 05/06/2025 12:03 PM CDT 05/06/2025 12:32 PM CDT Bijal Dubose M.D. LAB BLOOD ADD-ON Final Re sult [facility] [address] [place] [address], [facility] [address] [place] [address] * Alkaline Phosphatase (05/06/2025 12:03 PM CDT) Pathologist [facility] Alkaline Phosphatase, S 90 40 - 129 U/L 05/06/2025 1:17 PM CDT DT Blood (Blood, Venous) 05/06/2025 12:03 PM CDT 05/06/2025 12:32 PM CDT us Bijal Dubose M.D. LAB BLOOD ADD-ON Final Re sult [facility] [address] [place] [address], [facility] DTL [facility] [address] [place] [address] * Albumin (05/06/2025 12:03 PM CDT) Albumin, S 3.7 3.5 - 5.0 g/dL 05/06/2025 1:17 PM CDT DTL Blood (Blood, Venous) 05/06/2025 12:03 PM CDT 05/06/2025 12:32 PM CDT us Bijal Dubose M.D. LAB BLOOD ADD-ON Final Re sult [facility] [address] [place] [address], [facility] [address] [place] [address] documented in this encounter Visit Diagnoses Diagnosis Multiple Myeloma Not Having Achieved Remission (HCC) Disorder Of Bone Density And Structure Abnormal Finding Of Blood Chemistry Unspecified Other General Symptoms And Signs Other Dyspnea documented in this encounter
--- OUTSIDE RECORDS SUMMARY | 2025-05-06 11:59 | XMS_ITS | Encounter Summary ---
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 [address] [place] [address] Multiple Myeloma Not Having Achieved Remission (HCC) [...] needed for daily living? No 05/05/2025 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 [address] [place] [phone] 06/09/2025 9:30 AM CDT Infusion Department of Oncology in [place], [place] [address] [place] [phone] Bijal Dubose M.D. [address] [place] [phone] 06/09/2025 2:00 PM CDT Appointment Department of Radiation Oncology in [place], [place] [address] [place] [phone] Cheom Goss M.D., Ph.D. [address] [place] [phone] 06/10/2025 3:30 PM CDT Appointment Department of Radiation Oncology in [place], [place] [address] [place] [phone] Chemo Goss M.D., Ph.D. [address] [place] [phone] 06/11/2025 11:30 AM CDT Appointment Department of Radiation Oncology in [place], [place] [address] [place] [phone] Chemo Goss M.D., Ph.D. [address] [place] [phone] 06/11/2025 2:45 PM CDT Appointment Department of Radiation Oncology in [place], [place] [address] [place] [phone] Chemo Goss M.D., Ph.D. [address] [place] [phone] Zhane Parikh R.N. 06/11/2025 3:30 PM CDT Appointment Department of Radiation Oncology in [place], [place] [address] [place] [phone] Chemo Goss M.D., Ph.D. [address] [place] [phone] 06/12/2025 11:30 AM CDT Appointment Department of Radiation Oncology in [place], [place] [address] [place] [phone] Chemo Goss M.D., Ph.D. [address] [place] [phone] 06/13/2025 9:30 AM CDT Appointment Department of Radiation Oncology in [place], [place] [address] [place] [phone] Chemo Goss M.D., Ph.D. [address] [place] [phone] 06/16/2025 9:10 AM CDT Appointment Department of Laboratory Medicine and Pathology, [facility] in [place], [place] [address] [place] [phone] Bijal Dubose M.D. [address] [place] [phone] 06/16/2025 10:30 AM CDT Infusion Department of Oncology in [place], [place] [address] [place] [phone] Bijal Dubose M.D. [address] [place] [phone] 06/16/2025 11:00 AM CDT Appointment Department of Radiation Oncology in [place], [place] [address] [place] [phone] Chemo Goss M.D., Ph.D. [address] [place] [phone] 06/17/2025 9:45 AM CDT Appointment Department of Radiation Oncology in [place], [place] [address] [place] [phone] Chemo Goss M.D., Ph.D. [address] [place] [phone] 06/18/2025 9:45 AM CDT Appointment Department of Radiation Oncology in [place], [place] [address] [place] [phone] Chemo Goss M.D., Ph.D. [address] [place] [phone] 06/18/2025 10:30 AM CDT Appointment Department of Radiation Oncology in [place], [place] [address] [place] [phone] Chemo Goss M.D., Ph.D. [address] [place] [phone] 06/19/2025 10:45 AM CDT Appointment Department of Radiation Oncology in [place], [place] [address] [place] [phone] Chemo Goss M.D., Ph.D. [address] [place] [phone] 06/20/2025 10:45 AM CDT Appointment Department of Radiation Oncology in [place], [place] [address] [place] [phone] Chemo Goss M.D., Ph.D. [address] [place] [phone] 06/23/2025 7:50 AM CDT Appointment Department of Laboratory Medicine and Pathology, [facility] in [place], [place] [address] [place] [phone] Bijal Dubose M.D. [address] [place] [phone] 06/23/2025 9:30 AM CDT Infusion Department of Oncology in [place], [place] [address] [place] [phone] Bijal Dubose M.D. [address] [place] [phone] 06/30/2025 7:30 AM CDT Appointment Department of Laboratory Medicine and Pathology, [facility] in [place], [place] [address] [place] [phone] Bijal Dubose M.D. [address] [place] [phone] 06/30/2025 9:30 AM CDT Office Visit Division of Hematology in [place], [place] [address] [place] [phone] Bijal Dubose M.D. [address] [place] [phone] 06/30/2025 10:30 AM CDT Infusion Department of Oncology in [place], [place] [address] [place] [phone] Bijal Dubose M.D. 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 [address] [place] [phone] 07/14/2025 11:00 AM RIPENING ROOM OPERATOR Infusion Department of Oncology in [place], [place] [address] [place] [phone] Bijal Dubose M.D. [address] [place] [phone] 07/21/2025 10:30 AM RIPENING ROOM OPERATOR Infusion Department of Oncology in [place], [place] [address] [place] [phone] Bijal Dubose M.D. [address] [place] [phone] documented as of this encounter Procedures Procedure Name Priority Date/Time Associated Diagnosis Comments MONOCLONAL PROTEIN STUDY, 24 HR, U Routine 05/10/2025 6:00 AM CDT Multiple Myeloma Not Having Achieved Remission (HCC) documented in this encounter Results * (ABNORMAL) Monoclonal Protein Study, 24 hour, [...] kappa, monoclonal . 05/13/2025 8:22 AM CDT [facility] Comment: ----ADDITIONAL INFORMATION---- The submitted sample was assayed by five separate immunopurifications for IgG, IgA, IgM, kappa and lambda. The result reflects the findings of either no monoclonal protein detected or those monoclonal immunoglobulins that were detected. This test was developed and its performance characteristics determined by [facility] in a manner consistent with CLIA requirements. This test has not been cleared or approved by the U.S. Food and Drug Administration. Albumin, mg/24 h 88.0 mg/24 h 05/13/20 25 11:39 AM CDT [facility] Impression Albumin is the only protein detected. See Isotype. 05/13/2025 11:39 AM CDT [facility] Urine (Urine, 24 Hours) 05/10/2025 6:00 AM CDT 05/12/2025 7:27 AM CDT us Bijal Dubose M.D. LAB URINE ORDERABLES Wilma christopher Result [facility] [place] [address] [place] [address] [facility] [address] [place] [address] [facility] [address] [place] [address] [place] [address] documented in this encounter Visit Diagnoses Diagnosis Multiple Myeloma Not Having Achieved Remission (HCC) documented in this encounter
--- OUTSIDE RECORDS SUMMARY | 2025-05-07 13:00 | XMS_ITS | Encounter Summary ---
Author Organization [facility] Address [address] [place] [address] Care Team Providers Care Book Or Script Editor Name Role Phone Unavailable Primary Care Provider Unavailabl e Reason for Visit * Reason Comments Procedure BMBX * Outpatient (Routine) - Closed Specialty Diagnoses / Procedures Referred By Contac t Referred To Contact Diagnoses Multiple Myeloma Not Having Achieved Remission (HCC) Procedures Biopsy Bone Marrow, Unsedated Biopsy Bone Marrow, Sedated [place] DX BONE MARROW BX & ASPIR Bijal Dubose M.D. 200 [place] [address] Phone: tel: fax: [facility] Referral ID Status Reason Start Date Expiration Date Visits Re quested Visits Authorized [id number] Closed 05/06/2025 08/06/2026 1 1 Encounter Details Date Type Department Care Team (Latest Contact Info) Description 05/07/2025 1:00 PM CDT Procedure visit Department of Infusion Therapy in [place], [place] [address] [place] [phone] Bijal Dubose M.D. [address] [place] [address] [phone] Logan Resendiz R.N. [address] [place] [address] [phone] Multiple Myeloma Not Having Achieved Remission (HCC); Clinical Research Exam Social History Tobacco Use Types Packs/Day Years [...] for daily living? No 05/05/2025 [facility] Utilities Answer Date Recorded In the past 12 months has [employer] electric, gas, oil, or water company threatened to shut off services in your home? No 05/05/2025 Housing Stability Answer Date Recorded What is your living situation today? 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 - 05/07/2025 1:00 PM CDTAssociated Order(s): Biopsy Bone Marrow, Unsedated; Bone Marrow Research Aspirate Add On Collection Pre-Procedure Diagnose(s): Multiple Myeloma Not Having Achieved Remission (HCC); Clinical Research Exam Post-Procedure Diagnose(s): Multiple Myeloma Not Having Achieved Remission (HCC); Clinical ResearchExam Biopsy Bone Marrow, Unsedated Performed by: Logan [...] lidocaine administered SQ Pressure dressing applied Pamphlet [id number] given to patient Bone Marrow Research Aspirate Add On Collection Performed by: Logan Braga R.N. Authorized by: Halima Whitlock M.D. Care team members present 1. Logan Braga R.N. 2. Renetta Corcoran POST-PROCEDURE DETAILS Procedure completed successfully: yes Complications: no apparent complications Comments An additional 10 mLs aspirate collected for research documented in this encounter Plan of Treatment Upcoming Encounters Date Type Department Care Team (Late st Contact Info) Description 06/09/2025 8:20 AM CDT Appointment Department of Laboratory Medicine and Pathology, [facility] in [place], [place] [address] [place] [phone] Bijal Dubose M.D. [address] [place] [phone] 06/09/2025 9:30 AM CDT Infusion Department of Oncology in [place], [place] [address] [place] [phone] Bijal Dubose M.D. [address] [place] [phone] 06/09/2025 2:00 PM CDT Appointment Department of Radiation Oncology in [place], [place] [address] [place] [phone] Chemo Goss M.D., Ph.D. [address] [place] [phone] 06/10/2025 3:30 PM CDT Appointment Department of Radiation Oncology in [place], [place] [address] [place] [phone] Chemo Goss M.D., Ph.D. [address] [place] [phone] 06/11/2025 11:30 AM CDT Appointment Department of Radiation Oncology in [place], [place] [address] [place] [phone] Chemo Goss M.D., Ph.D. [address] [place] [phone] 06/11/2025 2:45 PM CDT Appointment Department of Radiation Oncology in [place], [place] [address] [place] [phone] Chemo Goss M.D., Ph.D. [address] [place] [phone] Zhane Parikh R.N. 06/11/2025 3:30 PM CDT Appointment Department of Radiation Oncology in [place], [place] [address] [place] [phone] Chemo Goss M.D., Ph.D. [address] [place] [phone] 06/12/2025 11:30 AM CDT Appointment Department of Radiation Oncology in [place], [place] [address] [place] [phone] Chemo Goss M.D., Ph.D. [address] [place] [phone] 06/13/2025 9:30 AM CDT Appointment Department of Radiation Oncology in [place], [place] [address] [place] [phone] Chemo Goss M.D., Ph.D. [address] [place] [phone] 06/16/2025 9:10 AM CDT Appointment Department of Laboratory Medicine and Pathology, [facility], in [place], [place] [address] [place] [phone] Bijal Dubose M.D. [address] [place] [phone] 06/16/2025 10:30 AM CDT Infusion Department of Oncology in [place], [place] [address] [place] [phone] Bijal Duobse M.D. [address] [place] [phone] 06/16/2025 11:00 AM CDT Appointment Department of Radiation Oncology in [place], [place] [address] [place] [phone] Chemo Goss M.D., Ph.D. [address] [place] [phone] 06/17/2025 9:45 AM CDT Appointment Department of Radiation Oncology in [place], [place] [address] [place] [phone] Chemo Goss M.D., Ph.D. [address] [place] [phone] 06/18/2025 9:45 AM CDT Appointment Department of Radiation Oncology in [place], [place] [address] [place] [phone] Chemo Goss M.D., Ph.D. [address] [place] [phone] 06/18/2025 10:30 AM CDT Appointment Department of Radiation Oncology in [place], [place] [address] [place] [phone] Chemo Goss M.D., Ph.D. [address] [place] [phone] 06/19/2025 10:45 AM CDT Appointment Department of Radiation Oncology in [place], [place] [address] [place] [phone] Chemo Goss M.D., Ph.D. [address] [place] [phone] 06/20/2025 10:45 AM CDT Appointment Department of Radiation Oncology in [place], [place] [address] [place] [phone] Chemo Goss M.D., Ph.D. [address] [place] [phone] 06/23/2025 7:50 AM CDT Appointment Department of Laboratory Medicine and Pathology, [facility], in [place], [place] [address] [place] [phone] Bijal Dubose M.D. [address] [place] [phone] 06/23/2025 9:30 AM CDT Infusion Department of Oncology in [place], [place] [address] [place] [phone] Bijal Dubose M.D. [address] [place] [phone] 06/30/2025 7:30 AM CDT Appointment Department of Laboratory Medicine and Pathology, [facility] in [place], [place] [address] [place] [phone] Bijal Dubose M.D. [address] [place] [phone] 06/30/2025 9:30 AM CDT Office Visit Division of Hematology in [place], [place] [address] [place] [phone] Bijal Dubose M.D. [address] [place] [phone] 06/30/2025 10:30 AM CDT Infusion Department of Oncology in [place], [place] [address] [place] [phone] Bijal Dubose M.D. 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 [address] [place] [phone] 07/14/2025 11:00 AM LOOPING INSPECTOR Infusion Department of Oncology in [place], [place] [address] [place] [address] [place] [phone] Bijal Dubose M.D. [address] [place] [phone] 07/21/2025 10:30 AM LOOPING INSPECTOR Infusion Department of Oncology in [place], [place] [address] [place] [phone] Bijal Dubose M.D. [address] [place] [phone] documented as of this encounter Procedures Procedure Name Priority Date/Time Associated Diagnosis Comments [facility] PRE-ANALYSIS CELL SORTING, BM Routine 05/07/2025 1:25 PM CDT MYELOMA STRATIFICATION AND RISK-ADAPTED THERAPY WITH REFLEX TO MINIMAL RESIDUAL DISEASE, BONE MARROW Routine 05/07/2025 1:25 PM CDT [facility] PRE-ANALYSIS CELL SORTING, BM Routine 05/07/2025 1:25 PM CDT MSMART SERGIO, PCPD, FISH Routine 05/07/20 1:25 PM CDT BONE MARROW RESEARCH ASPIRATE ADD ON COLLECTION Routine 05/07/2025 1:00 PM CDT Clinical Research Exam FL DX BONE MARROW BX & ASPIR Routine 05/07/2025 1:00 PM CDT Multiple Myeloma Not Having Achieved Remission (HCC) HEMATOPATHOLOGY Routine 05/07/2025 12:00 AM CDT documented in this encounter Results * Plasma Cell Myeloma Pre-Analysis Cell Sorting (05/07/2025 1:25 PM CDT) Pathologist [facility] Pre-Analysis Cell Sort Performed 05/08/2025 7:30 PM CDT DTL Comment: ----ADDITIONAL INFORMATION---- Flow cytometric cell selection was performed with antibodies to the following antigens: CD19, CD38, CD45, CD56, CD138, and CD319. Specimen enrichment for certain cell types is necessary, in order to enhance the sensitivity of genetic/molecular abnormalities detection in the cell population of interest, and to avoid unwanted contamination from other cell types. Flow cytometric cell sorting is the most direct and robust method of obtaining a pure population for subsequent genetic/molecular analysis, through assessment of a characteristic combination of cell surface antigens. This test was developed and its performance characteristics determined by [facility] in a manner consistent with CLIA requirements. This test has not been cleared or approved by the U.S. Food and Drug Administration. 05/07/2025 1:25 PM CDT 05/08/2025 10:18 AM CDT Bijal Dubose M.D. LAB GENETIC TESTING Final Result [facility] [address] [place] [address], [facility] DT 200 [facility] [address] [place] [address] * mSMART Plasma Cell Proliferative Disorder Pre-Analysis Cell Sorting (05/07/2025 1:25 PM CDT) [facility] Pre-Analysis Cell Sort Performed 05/08/2025 12:37 PM CDT DTL Comment: ----ADDITIONAL INFORMATION---- Flow cytometric cell selection was performed with antibodies to the following antigens: CD19, CD38, CD45, CD56, CD138, and CD319. Specimen enrichment for certain cell types is necessary, in order to enhance the sensitivity of genetic/molecular abnormalities detection in the cell population of interest, and to avoid unwanted contamination from other cell types. Flow cytometric cell sorting is the most direct and robust method of obtaining a pure population for subsequent genetic/molecular analysis, through assessment of a characteristic combination of cell surface antigens. This test was developed and its performance characteristics determined by [facility] in a manner consistent with CLIA requirements. This test has not been cleared or approved by the U.S. Food and Drug Administration. Bone Marrow 05/07/2025 1:25 PM CDT 05/07/2025 8:37 PM CDT Bijal Dubose M.D. LAB GENETIC TESTING Final Result [facility] [address] [place] [address], [facility] DTL [address] [place] [address] * mSMART, Plasma Cell Proliferative Disorder, FISH (05/07/2025 1:25 PM CDT) [facility] Summary Standard-Risk 05/13/2025 3:11 PM CDT DTL mSMART Evaluation Based on the mSMART algorithm, this patient is in the STANDARD RISK category. 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 The [place] Stratification for Myeloma and Risk Adapted Therapy (mSMART 3.0) algorithm classifies patients into standard or high risk categories based on the results of 2 assays. The high risk group includes patients with any of the following defined by FISH: t(14;20), t(14;16), t(4;14),1q duplication/amplif ication or 17p deletion (TP53 deletion) or patients with a Monotypic Plasma Cells S-phase (MSMRT) result of > or = 2.0%. The standard risk group includes patients with all remaining results, including: Monotypic Plasma Cells S-phase (MSMRT) <2.0%, Monotypic Plasma Cells DNA Ploidy (MSMRT) result was Hyperdiploid and FISH abnormalities including hyperdiploidy (multiple trisomies), t(11;14), or t(6;14). This classification is best used for newly diagnosed multiple myeloma. The interpretation may not be appropriate in monoclonal gammopathy of undetermined significance (MGUS), amyloidosis, or smoldering myeloma (mSMART 3.0, https://www.msmart .org/mm-treatment- guidelines.html). Note: Due to the application of a new classification criteria (mSMART 3.0, www.msmart.org/mm- treatment-guidelin es.html), any follow up testing on samples previously positive for either a t(4;14), 1q duplication/amplif ication or monotypic plasma cell S-phase > or = 2% evaluated using the mSMART 2.0 algorithm will now be classified as HIGH RISK using the updated mSMART 3.0 algorithm. This adjustment in risk is due to a new classification criteria and does not imply disease progression. 05/13/2025 3:11 PM CDT DTL Disclaimer Applicable to Analyte Specific Reagent (ASR) and Laboratory Developed Tests (LDT). This test was developed and its performance characteristics determined by [facility] in a manner consistent with CLIA requirements. It has not been cleared or approved by the U.S. Food and Drug Administration. This FISH test does not rule out other chromosome abnormalities. 05/13/2025 3:11 PM CDT DTL Released By Qing Peter M.D. 05/13/2025 3:11 PM CDT DTL Result Table ----- Abnormality Name Result # Abn Total Cells 8q24.1(MYC sep) Abnormal 20 50 -17p13.1(TP53x1,D 17Z1x2) Normal 0 50 -17(TP53,D17Z1)x1 Normal 0 50 +1q22(TP73x2,1q22 x3) Normal 0 50 14q32(IGH sep) Normal 1 50 ----- 05/13/2025 3:11 PM CDT DTL Result nuc rell(MYCx2)(5'MYC sep 3'MYCx1) 05/13/2025 3:11 PM CDT DTL Reason for Referral Plasma cell proliferative disorder (PCPD) 05/13/2025 3:11 PM CDT DTL Specimen Bone Marrow 05/13/2025 3:11 PM CDT DTL Method Locus and probes [Strategy;#Nuclei; Vendor] ----- 1p36.3(TP73),1q22( 1q22) [COPY#;50;LDT] 8q24(5'MYC,3'MYC) [BAP;50;AM] 14q32(3'IGH,5'IGH) [BAP;50;LDT] 17p13(TP53),17CEN( D17Z1) [COPY#;50;AM] Probe strategies include: BAP=break-apart probe; COPY#=region gain and loss. Scoring Method: Manual Probe vendors include: T = [facility] Developed AM = [employer] ([place], [place]) 05/13/2025 3:11 PM CDT DTL Additional Information A portion of the testing process was performed at [facility] site [id number]. 05/13/2025 3:11 PM CDT DTL Interpretation The result is abnormal and indicates a hyperdiploid plasma cell clone based on DNA ploidy results (reported separately). A MYC rearrangement was also identified. In plasma cell myeloma, hyperdiploidy represents a standard risk cytogenetic abnormality (Abhijit S., et al., Nature Reviews Clinical Oncology 15:409-421, 2018). In smoldering myeloma and monoclonal gammopathy of undetermined significance (MGUS), hyperdiploidy represents an intermediate risk cytogenetic abnormality (Kain, et al., Blood 125:7759-6005, 2015; Jarad, et al., Leukemia 32:3986-6470, 2018). In amyloidosis, the prognostic significance is less well defined. In plasma cell myeloma and smoldering myeloma, a MYC rearrangement has been associated with a significant risk of disease progression (Misund, et al. ,Leukemia 34:322-326, 2020 and Gracy, et al., Clin Cancer Res 15:8297-8805, 2020). The overall risk assessment should be done in the context of other risk factors. This test was ordered in the context of a [facility] pathology consultation/case (#[id number]), and this result should be interpreted within the context of the pathology consultation/repor t. 05/13/2025 3:11 PM CDT DTL Bone Marrow 05/07/2025 1:25 PM CDT 05/07/2025 8:37 PM CDT Bijal Dubose M.D. LAB GENETIC TESTING Final Result [facility] [address] [place] [address], [facility] DTL [address] [place] [address] * Myeloma Stratification and Risk-Adapted Therapy with Reflex to Minimal Residual Disease, Bone Marrow (05/07/2025 1:25 PM CDT) Monotypic Plasma Cells: Monotypic kappa plasma cells present. None detected. 05/08/2025 2:31 PM CDT DTL Monotypic PC per Total Events 1.34 % 05/08/2025 2:31 PM CDT DTL Monotypic Plasma Cells S-phase 0.5 % 05/08/2025 2:31 PM CDT DTL Monotypic Plasma Cells DNA Index 1.16 0.95 - 1.05 05/08/2025 2:31 PM CDT DTL Monotypic Plasma Cells DNA Ploidy Hyperdiploid Diploid 05/08/2025 2:31 PM CDT DTL Polytypic PC per Total Events <0.1 % 05/08/2025 2:31 PM CDT DTL Polytypic PC per All Plasma Cells <5.0 % 05/08/2025 2:31 PM CDT DTL Final Diagnosis Bone marrow, flow cytometric immunophenotypin . Plasma cells express: monotypic kappa cytoplasmic immunoglobulin light chains, CD38 and CD138. They do not express: CD19 or CD45. Comment: If the S-phase is >=2%, it implies a less favorable prognosis in patients with multiple myeloma. It implies high-risk by mSMART stratification, in the absence of cytogenetic abnormalities. Correlation with plasma cell FISH results is recommended. For further details please see msmart.org. Plasma cells, (monoclonal/mono typic and polyclonal/polyt ypic) are detected by immunoglobulin light chain restriction, surface immunophenotype, and DNA content. If present, the light chain expressed by the monotypic plasma cells is indicated. The percentage of clonal plasma cells estimated by flow cytometry is affected by specimen processing and antigen loss with specimen aging. Manual differential counting remains the accepted standard for determining the bone marrow plasma cell percentage. The percentage of monotypic plasma cells in S-phase of the cell cycle is determined by quantitative DNA analysis. The DNA index is a calculated value. The presence of more than one value indicates the presence of cell populations with differing DNA contents within the monotypic plasma cells. Method: Plasma cell analysis was performed with antibodies to the following antigens: CD19, CD38, CD45, CD138, kappa and lambda cytoplasmic immunoglobulin light chains and DAPI. FISH ANALYSIS FOR PCPDS, BONE MARROW: Based on flow cytometric analysis (>=0.1% monotypic plasma cells), additional plasma cell FISH testing is being performed. See separate report for results. Reviewed by: Sis Zarco M.D., Ph.D. 05/08/2025 2:31 PM CDT DT Comment: ----ADDITIONAL INFORMATION---- This test was developed and its performance characteristics determined by [facility] in a manner consistent with CLIA requirements. This test has not been cleared or approved by the U.S. Food and Drug Administration. Bone Marrow 05/07/2025 1:25 PM CDT 05/07/2025 2:20 PM CDT Bijal Dubose M.D. LAB PATHOLOGY/CYTOLOGY OR DERABLES Final Result [facility] [address] [place] [address], [facility] DT [address] [place] [address] * [place] NO CHARGE VISIT (05/07/2025 1:00 PM CDT) Bone Marrow Narrative Logan Braga RJackyN. - 05/07/2025 1:00 PM CDT Logan Braga R.N. 05/07/2025 1:27 PM Bone Marrow Research Aspirate Add On Collection Performed by: Logan Braga R.N. Authorized by: Halima Whitlock M.D. Care team members present 1. Logan Braga R.N. 2. Renetta Corcoran POST-PROCEDURE DETAILS Procedure completed successfully: yes Complications: no apparent complications Comments An additional 10 mLs aspirate collected for research Halima Whitlock M.D. PROCEDURE/MINOR SURGICAL ORDERABLES Final Result * [place] DX BONE MARROW BX & ASPIR (05/07/2025 [...] lidocaine administered SQ Pressure dressing applied Pamphlet [id number] given to patient Bijal Dubose M.D. PROCEDURE/MINOR SURGICAL ORDERABLES Edited Result - Final MMODAL NA * Hematopathology (05/07/2025 12:00 AM CDT) 05/08/2025 2:54 PM [facility] Report electronically signed by Sis Zarco M.D., Ph.D. I verify that I have examined all relevant slides/materials for the specimen(s) and rendered or confirmed the diagnosis. 05/08/2025 2:54 PM [facility] Gross Description B: Core biopsy specimens were received in B5 and were subsequently placed in formalin. Received in formalin labeled with the patient's name, medical record number, and bone marrow biopsy is a red-brown bone marrow core, 0.3 cm in average diameter by 2.0 cm in length. The specimen is bisected and submitted entirely in cassette B1. The specimen was decalcified prior to processing. Gross by JOSE DAVID. C: Received in formalin labeled with the patient's name, medical record number, and bone marrow clot is a 1.9 x 1.4 x 0.6 cm aggregateof dark red bone marrow clot material. The specimen is submitted en toto in cassette C1. Grossed by JOSE DAVID. 05/08/2025 2:54 PM T [facility] Interpretation FINAL DIAGNOSIS Peripheral blood, bone marrow aspirate and biopsy, iliac crest: 1. Plasma cell myeloma, with approximately 40% kappa light chain-restricted plasma cells. 2. Hypercellular bone marrow with morphologically unremarkable trilineage hematopoiesis. 3. Congo red stain is negative for amyloid deposition. MICROSCOPIC DESCRIPTION Peripheral Blood: CBC - 05/06/2025 12:04:00 PM HGB 13.5 g/dL; RBC 4.35 x10(12)/L; MCV 93.1 fL; RDW 13.4 %; WBC 6.3 x10(9)/L; PLT 210 x10(9)/L ----- Cell % of Total Cells NEUTROPHILS 55 LYMPHOCYTES 32 MONOCYTES 10 EOSINOPHILS 2 BASOPHILS 1 METAMYELOCYTES 0 MYELOCYTES 0 PROMYELOCYTES 0 BLASTS 0 OTHER CELLS 0 NRBC 0 Total Cells: 100 ----- Peripheral Smear: Rouleaux. Bone Marrow Aspirate/Touch Imprint/Biopsy: ----- Cell % of Total Cells NEUTROPHILS 30 METAMYELOCYTES 3 MYELOCYTES 8 PROMYELOCYTES 0 EOSINOPHILS 6 BASOPHILS 0 BLASTS 1 NORMOBLASTS 15 MONOCYTES 1 PROMONOCYTES 0 LYMPHOCYTES 1 PLASMA CELLS 35 Technical Comment : Count done on unit prep Total Cells: 500 ----- Aspirate quality: Cellular. Biopsy quality: Adequate. M:E ratio: Normal, 3:1. Cellularity: Hypercellular, 50-60%. Erythroid precursors: Normal quantity. Normal morphology. Myeloid precursors: Normal quantity. Normal morphology. Blasts not increased. Megakaryocytes: Normal quantity. Normal morphology and distribution. Lymphocytes: No morphologic abnormalities. Plasma cells: Increased (approximately 40% of marrow cellularity). Cytology: Unremarkable. Distribution: Interstitial and focal aggregates. ANCILLARY STUDIES Iron stain, bone marrow aspirate: storage iron: trace; ring sideroblasts absent. Congo red stain, bone marrow biopsy: Amyloid is absent. MSMRD flow cytometric immunophenotyping, bone marrow: Plasma cells express: monotypic kappa cytoplasmic immunoglobulin light chains, CD38 and CD138. They do not express: CD19 or CD45. Based on flow cytometric analysis (>=0.1% monotypic plasma cells), additional plasma cell FISH testing is being performed. See separate report for results. Molecular analysis for Plasma Cell Myeloma, NGS, bone marrow aspirate: Sample has been forwarded for testing. Results will be reported in an addendum. 05/08/2025 2:54 PM CDT [facility] 05/07/2025 05/07/2025 6:1 2 AM CDT us Bijal Dubose M.D. LAB SURG PATH ORDERABLES Final Result [facility] [address] [place] [address], [facility] [address] [place] [address] documented in this encounter Visit Diagnoses Diagnosis Multiple Myeloma Not Having Achieved Remission (HCC) Clinical Research Exam documented in this encounter
--- OUTSIDE RECORDS SUMMARY | 2025-05-12 16:52 | XMS_ITS | Encounter Summary ---
Author Organization [facility] Address [address] [place] [address] Care Team Providers Care Infant Toddler Lead Teacher Name Role Phone Unavailable Primary Care Provider Unavailabl e Reason for Referral * MRI/CAT/PET Scan (Routine) - Closed Specialty Diagnoses / Procedures Referred By Analy messer Referred To Contact Radiology Diagnoses Multiple Myeloma Not Having Achieved Remission (HCC) Procedures CT Skeletal Survey Low Dose Whole Body without IV Contrast Bijal Dubose M.D. [address] [place] [address] Phone: tel: fax: [facility] Referral ID Status Reason Start Date Expiration Date Visits Re quested Visits Authorized [id number] Closed 05/06/2025 08/06/2026 1 1 Reason for Visit * MRI/CAT/PET Scan (Routine) - Closed Specialty Diagnoses / Procedures Referred By Contac t Referred To Contact Radiology Diagnoses Multiple Myeloma Not Having Achieved Remission (HCC) Procedures CT Skeletal Survey Low Dose Whole Body without IV Contrast Bijal Dubose M.D. [address] [place] [address] Phone: tel: fax: [facility] Referral ID Status Reason Start Date Expiration Date Visits Re quested Visits Authorized [id number] Closed 05/06/2025 08/06/2026 1 1 Encounter Details Date Type Department Care Team (Latest Contact Info) Description 05/12/2025 4:52 PM CDT - 05/12/2025 5:20 PM CDT Hospital Encounter Department of Radiology, [facility], in [place], [place] [address] [place] [address] Bijal Dubose M.D. [address] [place] [address] Multiple Myeloma Not Having Achieved Remission (HCC) [...] things needed for daily living? No 05/05/2025 [facility] Utilities Answer Date Recorded In the past 12 months has e electric, gas, oil, or water company threatened to shut off services in your home? No 05/05/2025 Housing Stability Answer Date Recorded What is your living situation today? 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 [address] [place] [phone] 06/09/2025 9:30 AM CDT Infusion Department of Oncology in [place], [place] [address] [place] [phone] Bijal Dubose M.D. [address] [place] [phone] 06/09/2025 2:00 PM CDT Appointment Department of Radiation Oncology in [place], [place] [address] [place] [phone] Chemo Goss M.D., Ph.D. [address] [place] [phone] 06/10/2025 3:30 PM CDT Appointment Department of Radiation Oncology in [place], [place] [address] [place] [phone] Chemo Goss M.D., Ph.D. [address] [place] [phone] 06/11/2025 11:30 AM CDT Appointment Department of Radiation Oncology in [place], [place] [address] [place] [phone] Chemo Goss M.D., Ph.D. [address] [place] [phone] 06/11/2025 2:45 PM CDT Appointment Department of Radiation Oncology in [place], [place] [address] [place] [phone] Chemo Goss M.D., Ph.D. [address] [place] [phone] Zhane Parikh R.N. 06/11/2025 3:30 PM CDT Appointment Department of Radiation Oncology in [place], [place] [address] [place] [phone] Chemo Goss M.D., Ph.D. [address] [place] [phone] 06/12/2025 11:30 AM CDT Appointment Department of Radiation Oncology in [place], [place] [address] [place] [phone] Chemo Goss M.D., Ph.D. [address] [place] [phone] 06/13/2025 9:30 AM CDT Appointment Department of Radiation Oncology in [place], [place] [address] [place] [phone] Chemo Goss M.D., Ph.D. [address] [place] [phone] 06/16/2025 9:10 AM CDT Appointment Department of Laboratory Medicine and Pathology, [facility], in [place], [place] [address] [place] [phone] Bijal Dubose M.D. [address] [place] [phone] 06/16/2025 10:30 AM CDT Infusion Department of Oncology in [place], [place] [address] [place] [address] Bijal Dubose M.D. [address] [place] [phone] 06/16/2025 11:00 AM CDT Appointment Department of Radiation Oncology in [place], [place] [address] [place] [phone] Chemo Goss M.D., Ph.D. [address] [place] [phone] 06/17/2025 9:45 AM CDT Appointment Department of Radiation Oncology in [place], [place] [address] [place] [phone] Chemo Goss M.D., Ph.D. [address] [place] [phone] 06/18/2025 9:45 AM CDT Appointment Department of Radiation Oncology in [place], [place] [address] [place] [phone] Chemo Goss M.D., Ph.D. [address] [place] [phone] 06/18/2025 10:30 AM CDT Appointment Department of Radiation Oncology in [address] [phone] Chemo Goss M.D., Ph.D. [address] [place] [phone] 06/19/2025 10:45 AM CDT Appointment Department of Radiation Oncology in [place], [place] [address] [place] [phone] Chemo Goss M.D., Ph.D. [address] [place] [phone] 06/20/2025 10:45 AM CDT Appointment Department of Radiation Oncology in [place], [place] [address] [place] [phone] Chemo Goss M.D., Ph.D. [address] [place] [phone] 06/23/2025 7:50 AM CDT Appointment Department of Laboratory Medicine and Pathology, [facility] in [place], [place] [address] [place] [address] Bijal Dubose M.D. [address] [place] [phone] 06/23/2025 9:30 AM CDT Infusion Department of Oncology in [place], [place] [address] [place] [address] Bijal Dubose M.D. [address] [place] [phone] 06/30/2025 7:30 AM CDT Appointment Department of Laboratory Medicine and Pathology, [facility] in [place], [place] [address] [place] [address] Bijal Dubose M.D. [address] [place] [phone] 06/30/2025 9:30 AM CDT Office Visit Division of Hematology in [place], [place] [address] [place] [phone] Bijal Dubose M.D. [address] [place] [phone] 06/30/2025 10:30 AM CDT Infusion Department of Oncology in [place], [place] [address] [place] [address] Bijal Dubose M.D. [address] [place] [phone] 07/07/2025 11:30 AM VIBRATION TECHNICIAN Infusion Department of Oncology in [place], [place] [address] [place] [address] Bijal Dubose M.D. [address] [place] [phone] 07/14/2025 11:00 AM VIBRATION TECHNICIAN Infusion Department of Oncology in [place], [place] [address] [place] [phone] Bijal Dubose M.D. [address] [place] [phone] 07/21/2025 10:30 AM VIBRATION TECHNICIAN Infusion Department of Oncology in [place], [place] [address] [place] [address] Bijal Dubose M.D. [address] [place] [phone] documented as of this encounter Procedures Procedure Name Priority Date/Time Associated Diagnosis Comments CT SKELETAL SURVEY WITHOUT IV CONTRAST LOW DOSE WHOLE BODY RAD - Routine (most inpatients and all outpatients) 05/12/2025 5:46 PM CDT Multiple Myeloma Not Having Achieved Remission (HCC) documented in this encounter Results * CT Skeletal Survey Low Dose Whole [...] slight endosteal scalloping, asdetailed in the report. us Bijal Dubose M.D. IMRuben CT PROCEDURES Final R esult documented in this encounter Visit Diagnoses Diagnosis Multiple Myeloma Not Having Achieved Remission (HCC) documented in this encounter
--- OUTSIDE RECORDS SUMMARY | 2025-05-14 16:24 | XMS_ITS | Encounter Summary ---
Author Organization [facility] Address [address] [place] [address] Care Team Providers Care Pmo Manager Name Role Phone Unavailable Primary Care Provider Unavailabl e Reason for Visit * MRI/CAT/PET Scan (Routine) - Closed Specialty Diagnoses / Procedures Referred By Analy t Referred To Contact Diagnoses Multiple Myeloma Not Having Achieved Remission (HCC) Procedures PET CT Skull to Thigh FDG Bijal Dubose M.D. [address] [place] [address] Phone: tel: fax: [facility] Referral ID Status Reason Start Date Expiration Date Visits Re quested Visits Authorized [id number] Closed 05/06/2025 08/06/2026 1 1 Encounter Details Date Type Department Care Team (Latest Contact Info) Description 05/14/2025 4:24 PM CDT - 05/14/2025 11:59 PM CDT Hospital Encounter Department of Radiology, [facility], in [place], [place] [address] [place] [address] Bijal Dubose M.D. [address] [place] [phone] Discharge Disposition: Home or Self Care Social [...] things needed for daily living? No 05/05/2025 [facility] Utilities Answer Date Recorded In the past 12 months has th e electric, gas, oil, or water company threatened to shut off services in your home? No 05/05/2025 Housing Stability Answer Date Recorded What is your living situation today? 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 [address] [place] [phone] 06/09/2025 9:30 AM CDT Infusion Department of Oncology in [place], [place] [address] [place] [phone] Bijal Dubose M.D. [address] [place] [phone] 06/09/2025 2:00 PM CDT Appointment Department of Radiation Oncology in [place], [place] [address] [place] [phone] Chemo Goss M.D., Ph.D. [address] [place] [phone] 06/10/2025 3:30 PM CDT Appointment Department of Radiation Oncology in [place], [place] [address] [place] [phone] Chemo Goss M.D., Ph.D. [address] [place] [phone] 06/11/2025 11:30 AM CDT Appointment Department of Radiation Oncology in [place], [place] [address] [place] [phone] Chemo Goss M.D., Ph.D. [address] [place] [phone] 06/11/2025 2:45 PM CDT Appointment Department of Radiation Oncology in [address] [phone] Chemo Goss M.D., Ph.D. [address] [place] [phone] Zhane Parikh R.N. 06/11/2025 3:30 PM CDT Appointment Department of Radiation Oncology in [address] [phone] Chemo Goss M.D., Ph.D. [address] [place] [phone] 06/12/2025 11:30 AM CDT Appointment Department of Radiation Oncology in [place], [place] [address] [place] [address] Chemo Goss M.D., Ph.D. [address] [place] [phone] 06/13/2025 9:30 AM CDT Appointment Department of Radiation Oncology in [place], [place] [address] [place] [phone] Chemo Goss M.D., Ph.D. [address] [place] [phone] 06/16/2025 9:10 AM CDT Appointment Department of Laboratory Medicine and Pathology, [facility] in [place], [place] [address] [place] [address] Bijal Dubose M.D. [address] [place] [phone] 06/16/2025 10:30 AM CDT Infusion Department of Oncology in [place], [place] [address] [place] [address] Bijal Dubose M.D. [address] [place] [phone] 06/16/2025 11:00 AM CDT Appointment Department of Radiation Oncology in [place], [place] [address] [place] [phone] Chemo Goss M.D., Ph.D. [address] [place] [phone] 06/17/2025 9:45 AM CDT Appointment Department of Radiation Oncology in [place], [place] [address] [place] [phone] Chemo Goss M.D., Ph.D. [address] [place] [phone] 06/18/2025 9:45 AM CDT Appointment Department of Radiation Oncology in [place], [place] [address] [place] [phone] Chemo Goss M.D., Ph.D. [address] [place] [phone] 06/18/2025 10:30 AM CDT Appointment Department of Radiation Oncology in [place], [place] [address] [place] [phone] Chemo Goss M.D., Ph.D. [address] [place] [phone] 06/19/2025 10:45 AM CDT Appointment Department of Radiation Oncology in [place], [place] [address] [place] [phone] Chemo Goss M.D., Ph.D. [address] [place] [phone] 06/20/2025 10:45 AM CDT Appointment Department of Radiation Oncology in [address] [phone] Chemo Goss M.D., Ph.D. [address] [place] [phone] 06/23/2025 7:50 AM CDT Appointment Department of Laboratory Medicine and Pathology, [facility], in [place], [place] [address] [place] [phone] Bijal Dubose M.D. [address] [place] [phone] 06/23/2025 9:30 AM CDT Infusion Department of Oncology in [place], [place] [address] [place] [phone] Bijal Dubose M.D. [address] [place] [phone] 06/30/2025 7:30 AM CDT Appointment Department of Laboratory Medicine and Pathology, [facility], in [place], [place] [address] [place] [phone] Bijal Dubose M.D. [address] [place] [phone] 06/30/2025 9:30 AM CDT Office Visit Division of Hematology in [place], [place] [address] [place] [phone] Bijal Dubose M.D. [address] [place] [phone] 06/30/2025 10:30 AM CDT Infusion Department of Oncology in [place], [place] [address] [place] [phone] Bijal Dubose M.D. [address] [place] [phone] 07/07/2025 11:30 AM COLUMNIST/COMMENTATOR Infusion Department of Oncology in [place], [place] [address] [place] [phone] iBjal Dubose M.D. [address] [place] [phone] 07/14/2025 11:00 AM COLUMNIST/COMMENTATOR Infusion Department of Oncology in [place], [place] [address] [place] [phone] Bijal Dubose M.D. [address] [place] [phone] 07/21/2025 10:30 AM COLUMNIST/COMMENTATOR Infusion Department of Oncology in [place], [place] [address] [place] [address] [place] [address] Bijal Dubose M.D. [address] [place] [address] documented as of this encounter Procedures Procedure Name Priority Date/Time Associated Diagnosis Comments PET CT SKULL TO THIGH RAD - Routine (most inpatients and all outpatients) 05/14/2025 6:58 PM CDT Multiple Myeloma Not Having Achieved Remission (HCC) documented in this encounter Visit Diagnoses Not on filedocumented in this encounter Administered Medications Inactive Administered Medications - up to 3 most recent administrations Medication Order MAR Action Action Date Dose Rate Site fludeoxyglucose F 18 injection FPC (F-18 FDG) 4.5-16.5 millicurie, intravenous, Once, On Mon05/14/25 at 1745, For 1 dose, Imaging Protocol Orders Given 05/14/2025 5:18 PM CDT 9.93 millicuries documented in this encounter
--- OUTSIDE RECORDS SUMMARY | 2025-05-15 08:00 | XMS_ITS | Encounter Summary ---
Author Organization [facility] Address [address] [place] [id number] Care Team Providers Care Municipal Maintenance Worker Name Role Phone Unavailable Primary Care Provider Unavailabl e Reason for Referral * Outpatient (Routine) - Closed Specialty Diagnoses / Procedures Referred By Samirac t Referred To Contact Radiation Oncology Diagnoses Multiple Myeloma Not Having Achieved Remission (HCC) Bijal Dubose M.D. 200 [place] [address] Phone: tel: fax: [facility] Referral ID Status Reason Start Date Expiration Date Visits Re quested Visits Authorized [id number] Closed 05/15/2025 11/14/2026 1 1 Reason for Visit * Outpatient (Routine) - Closed Specialty Diagnoses / Procedures Referred By Analy messer Referred To Contact Hematology Oncology Bijal Dubose M.D. 200 [place] [address] Phone: tel: fax: [facility] Referral ID Status Reason Start Date Expiration Date Visits Re quested Visits Authorized [id number] Closed 05/06/2025 11/05/2026 1 1 Encounter Details Date Type Department Care Team (Late st Contact Info) Description 05/15/2025 8:00 AM CDT Telemedicine Division of Hematology in [place], [place] [address] [place] [phone] Bijal Dubose M.D. [address] [place] [phone] Multiple Myeloma Not Having Achieved Remission (HCC) (Primary Dx) Social History Tobacco Use Types [...] things needed for daily living? No 05/05/2025 [facility] Utilities Answer Date Recorded In the past 12 months has [employer] electric, gas, oil, or water [employer] threatened to shut off services in your home? No 05/05/2025 Housing Stability Answer Date Recorded What is your living situation today? 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 - 05/15/2025 8:00 AM CDT Consult conducted via real-time audio/video technology by Bijal Dubose M.D. in [facility] to the patient in Patient's Home CHIEF COMPLAINT / REASON FOR VISIT William Hampton is a 69 y.o. male who presents for evaluation of Newly Diagnosed MM HISTORY OF PRESENT ILLNESS Mr. William Hampton is a 69 year [...] So he was referred to Hematology at [facility] for suspected multiple myeloma. History began in [...] that myeloma directed therapy would take precedence. Date of diagnosis: 05/07/2025 Presenting symptoms: progressive pain in the right clavicle Hemoglobin: 13.5 Calcium: 9.4 Creatinine: 1.09 LDH: 136 Xfiv-1-lcdpajtdioupp: 3.51 C-reactive protein: <3 Albumin: 3.7 Serum M spike: 2.743 Ig ; IgA:137 ; IgM: 36 ; IgE: . Free light chains: kappa:3.11 mg/dL; lambda: 0.61 mg/dL; kappa:lambda ratio: 5.10 Urine 24-hour protein: 88 mg/24 hr; urine M spike:0 mg/24 hr. IgG K Bone marrow plasma cells: 40 %plasma cells in 40 %cellular marrow. S phase: 0.5% Circulating plasma cells: 0 Myeloma FISH: hyperdiploid plasma cell clone based on DNA ploidy results. A MYC rearrangement PET-CT 1. Intensely FDG avid biopsy-proven right distal clavicle myeloma. 2. Innumerable lytic and non-lytic FDG avid sites of active multiple myeloma in the skeleton. 3. High concern for extraosseous FDG avid nodular soft tissue myeloma in the left parasternal chestwall. 4. Concerning FDG avid normal-sized left internal mammary lymph nodes. The following portions of the patient's history were reviewed and updated as appropriate: allergies, current medications, family history, medical history, social history, surgical history, and problem list. REVIEW OF SYSTEMS REVIEW OF SYSTEMS OBJECTIVE PHYSICAL EXAM Physical Exam ASSESSMENT / PLAN # newly diagnosed multiple myeloma-standard risk # transplant eligible # right clavicle qbkewaiobwit-exyznk-[id number] # osseous lytic lesions I reviewed the results which confirm multiple myeloma. I explained that there are many ways [...] and maintenance with or without stem cellharvest). I also discussed that he may be eligible for 1 or more of clinical trials. He is interested in learning more so I will send him consent forms to read through. He will let me know his decision soon. Induction in the standard pathway would be with the quadruplet (DVRD). Cycles are every 4 weeks. Daratumumab will [...] helpful for acid protection while on Dexamethasone. I also place a consultation to Radiation Oncology for the right clavicle lesion which is causing significant discomfort. Electronically signed by: Bijal Dubose M.D. 05/15/25 6:41 PM CDT documented in this encounter Plan of Treatment Upcoming Encounters Date Type Department Care Team (Late st Contact Info) Description 06/09/2025 8:20 AM CDT Appointment Department of Laboratory Medicine and Pathology, [facility], in [place], [place] [address] [place] [phone] Bijal Dubose M.D. 200 [place] [phone] 06/09/2025 9:30 AM CDT Infusion Department of Oncology in [place], [place] [address] [place] [address] Bijal Dubose M.D. [address] [place] [phone] 06/09/2025 2:00 PM CDT Appointment Department of Radiation Oncology in [place], [place] [address] [place] [phone] Chemo Goss M.D., Ph.D. [address] [place] [phone] 06/10/2025 3:30 PM CDT Appointment Department of Radiation Oncology in [place], [place] [address] [place] [phone] Chemo Goss M.D., Ph.D. [address] [place] [phone] 06/11/2025 11:30 AM CDT Appointment Department of Radiation Oncology in [place], [place] [address] [place] [phone] Chemo Goss M.D., Ph.D. [address] [place] [phone] 06/11/2025 2:45 PM CDT Appointment Department of Radiation Oncology in [place], [place] [address] [place] [phone] Chemo Goss M.D., Ph.D. [address] [place] [phone] Zhane Parikh R.N. 06/11/2025 3:30 PM CDT Appointment Department of Radiation Oncology in [place], [place] [address] [place] [phone] Chemo Goss M.D., Ph.D. [address] [place] [phone] 06/12/2025 11:30 AM CDT Appointment Department of Radiation Oncology in [place], [place] [address] [place] [phone] Chemo Goss M.D., Ph.D. [address] [place] [phone] 06/13/2025 9:30 AM CDT Appointment Department of Radiation Oncology in [place], [place] [address] [place] [phone] Chemo Goss M.D., Ph.D. [address] [place] [phone] 06/16/2025 9:10 AM CDT Appointment Department of Laboratory Medicine and Pathology, [facility], in [place], [place] [address] [place] [phone] Bijal Dubose M.D. [address] [place] [phone] 06/16/2025 10:30 AM CDT Infusion Department of Oncology in [place], [place] [address] [place] [phone] Bijal Dubose M.D. [address] [place] [phone] 06/16/2025 11:00 AM CDT Appointment Department of Radiation Oncology in [place], [place] [address] [place] [phone] Chemo Goss M.D., Ph.D. [address] [place] [phone] 06/17/2025 9:45 AM CDT Appointment Department of Radiation Oncology in [place], [place] [address] [place] [phone] Chemo Goss M.D., Ph.D. [address] [place] [phone] 06/18/2025 9:45 AM CDT Appointment Department of Radiation Oncology in [place], [place] [address] [place] [phone] Chemo Goss M.D., Ph.D. [address] [place] [phone] 06/18/2025 10:30 AM CDT Appointment Department of Radiation Oncology in [place], [place] [address] [place] [phone] Chemo Goss M.D., Ph.D. [address] [place] [phone] 06/19/2025 10:45 AM CDT Appointment Department of Radiation Oncology in [place], [place] [address] [place] [phone] Chemo Goss M.D., Ph.D. [address] [place] [phone] 06/20/2025 10:45 AM CDT Appointment Department of Radiation Oncology in [place], [place] [address] [place] [phone] Chemo Goss M.D., Ph.D. [address] [place] [phone] 06/23/2025 7:50 AM CDT Appointment Department of Laboratory Medicine and Pathology, [facility], in [place], [place] [address] [place] [phone] Bijal Dubose M.D. [address] [place] [phone] 06/23/2025 9:30 AM CDT Infusion Department of Oncology in [place], [place] [address] [place] [address] Bijal Dubose M.D. [address] [place] [phone] 06/30/2025 7:30 AM CDT Appointment Department of Laboratory Medicine and Pathology, [facility] in [place], [place] [address] [place] [address] Bijal Dubose M.D. [address] [place] [phone] 06/30/2025 9:30 AM CDT Office Visit Division of Hematology in [place], [place] [address] [place] [address] Bijal Dubose M.D. [address] [place] [phone] 06/30/2025 10:30 AM CDT Infusion Department of Oncology in [place], [place] [address] [place] [address] Bijal Dubose M.D. [address] [place] [phone] 07/07/2025 11:30 AM SHEET WRITER Infusion Department of Oncology in [place], [place] [address] [place] [address] Bijal Dubose M.D. [address] [place] [phone] 07/14/2025 11:00 AM SHEET WRITER Infusion Department of Oncology in [place], [place] [address] [place] [phone] Bijal Dubose M.D. [address] [place] [phone] 07/21/2025 10:30 AM SHEET WRITER Infusion Department of Oncology in [place], [place] [address] [place] [address] Bijla Dubose M.D. 200 [place] [address] Scheduled Referrals Name Type Priority Associated Diagnoses Orde r Schedule Radiation Oncology - Lymphoma / myeloma curative consult (clinic) Outpatient Referral Routine Multiple Myeloma Not Having Achieved Remission (HCC) Expected: 05/15/2025, Expires: 08/14/2026 documented as of this encounter Visit Diagnoses Diagnosis Multiple Myeloma Not Having Achieved Remission (HCC)- Primary documented in this encounter
--- OUTSIDE RECORDS SUMMARY | 2025-05-19 13:00 | XMS_ITS | Encounter Summary ---
Author Organization [facility] Address [address] [place] [id number] Care Team Providers Care Senior Sales Operations Manager Name Role Phone Unavailable Primary Care Provider Unavailabl e Reason for Referral * Outpatient (Routine) - Closed Specialty Diagnoses / Procedures Referred By Contac t Referred To Contact Hematology Oncology Bijal Dubose M.D. [address] [place] [address] Phone: tel: fax: [facility] Referral ID Status Reason Start Date Expiration Date Visits Re quested Visits Authorized [id number] Closed 05/19/2025 11/18/2026 1 1 Scheduling Instructions Prechemo start * Outpatient (Routine) Specialty Diagnoses / Procedures Referred By Contac t Referred To Contact Hematology Oncology Diagnoses Multiple Myeloma Not Having Achieved Remission (HCC) Bijal Dubose M.D. [address] [place] [address] Phone: tel: fax: [facility] Referral ID Status Reason Start Date Expiration Date Visits Re quested Visits Authorized * Specialty Diagnoses / Procedures Referred By Contac t Referred To Contact Diagnoses Multiple Myeloma Not Having Achieved Remission (HCC) Bijal Dubose M.D. [address] [place] [address] Phone: tel: fax: [facility] Referral ID Status Reason Start Date Expiration Date Visits Re quested Visits Authorized * Outpatient (Routine) - Closed Specialty Diagnoses / Procedures Referred By Analy messer Referred To Contact Orthopedic Surgery Diagnoses Multiple Myeloma Not Having Achieved Remission (HCC) Lesion Lytic Bone Procedures Orthopedic Surgery - Ortho oncology eConsult Bijal Dubose M.D. [address] [place] [phone] Phone: tel: fax: [facility] Referral ID Status Reason Start Date Expiration Date Visits Re quested Visits Authorized [id number] Closed 05/19/2025 08/19/2026 1 1 Reason for Visit * Outpatient (Routine) - Closed Specialty Diagnoses / Procedures Referred By Analy messer Referred To Contact Hematology Oncology Bijal Dubose M.D. [address] [place] [address] Phone: tel: fax: [facility] Referral ID Status Reason Start Date Expiration Date Visits Re quested Visits Authorized [id number] Closed 05/16/2025 11/15/2026 1 1 Encounter Details Date Type Department Care Team (Late st Contact Info) Description 05/19/2025 1:00 PM CDT Telemedicine Division of Hematology in [place], [place] [address] [place] [phone] Bijal Dubose M.D. [address] [place] [phone] Multiple Myeloma Not Having Achieved Remission (HCC) (Primary Dx); Lesion Lytic Bone Social History Tobacco Use Types Packs/Day Years [...] needed for daily living? No 05/05/2025 [facility] Utilities Answer Date Recorded In the past 12 months has th e electric, gas, oil, or water company threatened to shut off services in your home? No 05/05/2025 Housing Stability Answer Date Recorded What is your living situation today? 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 - 05/19/2025 1:00 PM CDT Consult conducted via real-time audio/video technology by Bijal Dubose M.D. in [facility] to the patient in Patient's Home CHIEF [...] So he was referred to Hematology at [facility] for suspected multiple myeloma. History began [...] 13.5 Calcium: 9.4 Creatinine: 1.09 LDH: 136 Xsmr-5-ylwpihhklftnm: 3.51 C-reactive protein: <3 Albumin: 3.7 Serum [...] EXAM Physical Exam ASSESSMENT / PLAN # Newly diagnosed multiple myeloma-standard risk # transplant eligible # right clavicle [id number] # osseous lytic lesions The purpose of the visit today was to go over some questions that William, his , and daughter had. The questions were in regards to progression-free survival with Marlene VRD plus transplant versus DVRD without transplant. I explained that the data is premature at this point and that there was no head to head comparison. We also discuss the logistics involved with clinical trials which would involve travel back and forth. They are worried about travel during the winter months. For now, they have decided to proceed with standard of care therapy to start in [facility]. In the future, they may consider transitioning care locally with Dr. Salinas. Regarding standard therapy: He is 69 years old but I would consider him fit and a candidate for autologous stem cell transplantation. He is interested in the early transplant pathway (ASCT after about 4 months of induction therapy, followed by stem cell harvest, followed by high dose chemotherapy and stem cell transplant, followed by maintenance therapy) Standard induction would include D-VRD. Cycles are every 4 weeks. Daratumumab will [...] right clavicle lesion which is causing significant discomfort, and ortho consultation given the right hip pain in the setting of recent hip replacement surgery. I also encouraged him to see his local orthopedic surgeon. I did ask him to report any worsening pain (if pain becomes constant), difficulty bearing weight, or any infectious signsor symptoms. Electronically signed by: Bijal Dubose M.D. 05/19/25 9:05 PM CDT documented in this encounter Plan of Treatment Upcoming Encounters Date Type Department Care Team (Late st Contact Info) Description 06/09/2025 8:20 AM CDT Appointment Department of Laboratory Medicine and Pathology, [facility], in [place], [place] [address] [place] [phone] Bijal Dubose M.D. [address] [place] [phone] 06/09/2025 9:30 AM CDT Infusion Department of Oncology in [place], [place] [address] [place] [address] Bijal Caldwell M.D. [address] [place] [phone] 06/09/2025 2:00 PM CDT Appointment Department of Radiation Oncology in [place], [place] [address] [place] [phone] Chemo Goss M.D., Ph.D. [address] [place] [phone] 06/10/2025 3:30 PM CDT Appointment Department of Radiation Oncology [place], [place] [address] [place] [phone] Chemo Goss M.D., Ph.D. [address] [place] [phone] 06/11/2025 11:30 AM CDT Appointment Department of Radiation Oncology in [place], [place] [address] [place] [phone] Chemo Goss M.D., Ph.D. [address] [place] [phone] 06/11/2025 2:45 PM CDT Appointment Department of Radiation Oncology in [place], [place] [address] [place] [phone] Chemo Goss M.D., Ph.D. [address] [place] [phone] Zhane Parikh R.N. 06/11/2025 3:30 PM CDT Appointment Department of Radiation Oncology in [address] [phone] Chemo Goss M.D., Ph.D. [address] [place] [phone] 06/12/2025 11:30 AM CDT Appointment Department of Radiation Oncology in [place], [place] [address] [place] [address] Chemo Goss M.D., Ph.D. [address] [place] [phone] 06/13/2025 9:30 AM CDT Appointment Department of Radiation Oncology in [place], [place] [address] [place] [phone] Chemo Goss M.D., Ph.D. [address] [place] [phone] 06/16/2025 9:10 AM CDT Appointment Department of Laboratory Medicine and Pathology, [facility] in [place], [place] [address] [place] [address] Bijal Dubose M.D. [address] [place] [phone] 06/16/2025 10:30 AM CDT Infusion Department of Oncology in [place], [place] [address] [place] [address] Bijal Dubose M.D. [address] [place] [phone] 06/16/2025 11:00 AM CDT Appointment Department of Radiation Oncology in [place], [place] [address] [place] [phone] Chemo Goss M.D., Ph.D. [address] [place] [phone] 06/17/2025 9:45 AM CDT Appointment Department of Radiation Oncology in [place], [place] [address] [place] [phone] Chemo Goss M.D., Ph.D. [address] [place] [phone] 06/18/2025 9:45 AM CDT Appointment Department of Radiation Oncology in [place], [place] [address] [place] [phone] Chemo Goss M.D., Ph.D. [address] [place] [phone] 06/18/2025 10:30 AM CDT Appointment Department of Radiation Oncology in [place], [place] [address] [place] [phone] Chemo Goss M.D., Ph.D. [address] [place] [phone] 06/19/2025 10:45 AM CDT Appointment Department of Radiation Oncology in [place], [place] [address] [place] [phone] Chemo Goss M.D., Ph.D. [address] [place] [phone] 06/20/2025 10:45 AM CDT Appointment Department of Radiation Oncology in [place], [place] [address] [place] [phone] Chemo Goss M.D., Ph.D. [address] [place] [phone] 06/23/2025 7:50 AM CDT Appointment Department of Laboratory Medicine and Pathology, [facility], in [place], [place] [address] [place] [phone] Bijal Dubose M.D. [address] [place] [phone] 06/23/2025 9:30 AM CDT Infusion Department of Oncology in [place], [place] [address] [place] [address] Bijal Dubose M.D. [address] [place] [phone] 06/30/2025 7:30 AM CDT Appointment Department of Laboratory Medicine and Pathology, [facility] in [place], [place] [address] [place] [phone] Bijal Dubose M.D. [address] [place] [phone] 06/30/2025 9:30 AM CDT Office Visit Division of Hematology in [place], [place] [address] [place] [phone] Bijal Dubose M.D. [address] [place] [phone] 06/30/2025 10:30 AM CDT Infusion Department of Oncology in [place], [place] [address] [place] [phone] Bijal Dubose M.D. [address] [place] [phone] 07/07/2025 11:30 AM PRINTER'S ASSISTANT Infusion Department of Oncology in [place], [place] [address] [place] [phone] Bijal Dubose M.D. [address] [place] [phone] 07/14/2025 11:00 AM PRINTER'S ASSISTANT Infusion Department of Oncology in [place], [place] [address] [place] [phone] Bijal Dubose M.D. [address] [place] [phone] 07/21/2025 10:30 AM PRINTER'S ASSISTANT Infusion Department of Oncology in [place], [place] [address] [place] [address] Bijal Dubose M.D. [address] [place] [address] Scheduled Orders Name Type Priority Associated Diagnoses Orde r Schedule CBC, Chemotherapy, No Alerts Lab Routine Multiple Myeloma Not Having Achieved Remission (HCC) Expected: 06/09/2025, Expires: 06/09/2026 CBC, Chemotherapy, No Alerts Lab Routine Multiple Myeloma Not Having Achieved Remission (HCC) Expected: 06/16/2025, Expires: 06/16/2026 CBC, Chemotherapy, No Alerts Lab Routine Multiple Myeloma Not Having Achieved Remission (HCC) Expected: 06/23/2025, Expires: 06/23/2026 CBC with Differential, Blood Lab Routine Multiple Myeloma Not Having Achieved Remission (HCC) Expected: 06/30/2025, Expires: 06/30/2028 Comprehensive Metabolic Panel Lab Routine Multiple Myeloma Not Having Achieved Remission (HCC) Expected: 06/30/2025, Expires: 06/30/2026 Immunoglobulin Free Light Chains Lab Routine Multiple Myeloma Not Having Achieved Remission (HCC) Expected: 06/30/2025, Expires: 06/30/2026 Quantitative M-protein Study Lab Routine Multiple Myeloma Not Having Achieved Remission (HCC) Expected: 06/30/2025, Expires: 09/29/2026 Scheduled Referrals Name Type Priority Associated Diagnoses Order Schedule Hematology - Chemo education visit (clinic) Outpatient Referral Routine Multiple Myeloma Not Having Achieved Remission (HCC) Expected: 05/19/2025, Expires: 08/18/2026 Hematology office visit (clinic) [place] [facility]; Myeloma; General Outpatient Referral Routine Multiple Myeloma Not Having Achieved Remission (HCC) Expected: 06/30/2025, Expires: 09/29/2026 Hematology office visit (clinic) [facility]; Myeloma; General Outpatient Referral Routine Expected: 05/26/2025, Expires: 08/18/2026 documented as of this encounter Results * (ABNORMAL) Quantitative M-protein Study (06/02/2025 7:57 AM CDT) Immunoglobulin A (IgA), S 146 61 - 356 mg/dL 06/02/2025 5:23 PM CDT [facility] Immunoglobulin M (IgM), S 40 37 - 286 mg/dL 06/02/2025 5:24 PM CDT [facility] Immunoglobulin G (IgG), S 4350(H) 767 - 1590 mg/dL 06/02/2025 5:24 PM CDT [facility] Therapeutic Antibody Administered? Unspecified 06/02/2025 10:41 AM CDT [facility] M-protein GK 3.240(H) g/dL 06/03/2025 12:41 PM CDT [facility] Flag, M-protein Isotype Positive(A) Negative 06/03/2025 12:41 PM CDT [facility] QMPTS Interpretation IgG kappa 3.24 g/dL 06/03/2025 12:41 PM CDT [facility] Comment: ----ADDITIONAL INFORMATION---- The submitted sample was assayed by five separate immunopurifications for IgG, IgA, IgM, kappa and lambda. The result reflects the findings of either no monoclonal protein detected or those monoclonal immunoglobulins that were detected. This test was developed and its performance characteristics determined by [facility] in a manner consistent with CLIA requirements. This test has not been cleared or approved by the U.S. Food and Drug Administration. Blood (Blood, Venous) 06/02/2025 7:57 AM CDT 06/02/2025 10:38 AM CDT [facility] - 06/03/2025 12:41 PM CDT Specimen Information: Specimen ID: [id number] Specimen Type: Blood Specimen Collection Start Date: 06/02/2025 7:57 AM Specimen Received Date: 06/02/2025 10:38 AM Specimen ID: [id number] Specimen Type: Blood Specimen Collection Start Date: 06/02/2025 7:57 AM Specimen Received Date: 06/02/2025 10:41 AM Bijal Dubose M.D. LAB BLOOD ADD-ON Final Re sult [facility] [address] [place] [address] [facility] [address] [place] [address] [facility] [address] [place] [address] [place] [phone] * (ABNORMAL) Immunoglobulin Free Light Chains (06/02/2025 7:57 AM CDT) [place] Free Light Chain, S 3.18(H) 0.3300 - 1.94 mg/dL 06/02/2025 2:49 PM CDT [facility] Lambda Free Light Chain, S 0.6300 0.5700 - 2.63 mg/dL 06/02/2025 2:50 PM CDT [facility] [place]/Lambda FLC Ratio 5.05(H) 0.2600 - 1.65 06/02/2025 2:50 PM CDT [facility] Blood (Blood, Venous) 06/02/2025 7:57 AM CDT 06/02/2025 10:54 AM CDT Bijal Dubose M.D. LAB BLOOD ADD-ON Final Re sult [facility] [address] [place] [address] [facility] [address] [place] [address] * HCV Ab Scrn w/Reflex to HCV PCR, Serum (06/02/2025 7:57 AM CDT) Pathologist [facility] HCV Ab Screen, S Negative Negative 06/02/2025 12:28 PM CDT [facility] Comment: Consumption of high-dose biotin supplement within 12 hours of blood collection for this test can cause false-negative results. Blood (Blood, Venous) 06/02/2025 7:57 AM CDT 06/02/2025 10:32 AM CDT Bijal Dubose M.D. LAB MICROBIOLOGY - BLOOD ORDERABLES Final Result [facility] [address] [place] [address] [facility] [address] [place] [address] * HBc Total Ab Scrn, Serum (06/02/2025 7:57 AM CDT) HBc Total Ab Scrn, S Negative Negative 06/02/2025 12:28 PM CDT [facility] Blood (Blood, Venous) 06/02/2025 7:57 AM CDT 06/02/2025 10:32 AM CDT Bijal Dubose M.D. LAB MICROBIOLOGY - BLOOD ORDERABLES Final Result [facility] [address] [place] [address] [facility] [address] [place] [address] * HBs Antigen Scrn, Serum (06/02/2025 7:57 AM CDT) Pathologist [facility] HBs Antigen Scrn, S Negative Negative 06/02/2025 12:28 PM CDT [facility] Blood (Blood, Venous) 06/02/2025 7:57 AM CDT 06/02/2025 10:32 AM CDT Bijal Dubose M.D. LAB MICROBIOLOGY - BLOOD ORDERABLES Final Result [facility] [address] [place] [address] [facility] [address] [place] [address] * (ABNORMAL) Comprehensive Metabolic Panel (06/02/2025 7:57 AM CDT) Pathologist [facility] Potassium, S 4.1 3.6 - 5.2 mmol/L 06/02/2025 9:36 AM CDT [facility] Sodium, S 136 135 - 145 mmol/L 06/02/2025 9:36 AM CDT [facility] Chloride, S 103 98 - 107 mmol/L 06/02/2025 9:36 AM CDT DTL Bicarbonate, S 22 22 - 29 mmol/L 06/02/2025 9:36 AM CDT [facility] Anion Gap 11 7 - 15 06/02/2025 9:36 AM CDT [facility] BUN (Blood Urea Nitrogen), S 18 8 - 24 mg/dL 06/02/2025 9:36 AM CDT [facility] Creatinine 1.16 0.74 - 1.35 mg/dL 06/02/2025 9:36 AM CDT [facility] Estimated GFR (eGFR) 68 >=60 mL/min/BS A 06/02/2025 9:36 AM CDT [facility] Comment: Estimated GFR calculated using the 2020 CKD_EPI creatinine equation. Calcium, Total, S 9.1 8.8 - 10.2 mg/dL 06/02/2025 9:36 AM CDT DTL Glucose, S 99 70 - 140 mg/dL 06/02/2025 9:36 AM CDT [facility] Protein, Total, S 9.1(H) 6.3 - 7.9 g/dL 06/02/2025 9:36 AM CDT DTL Albumin, S 3.4(L) 3.5 - 5.0 g/dL 06/02/2025 9:36 AM CDT [facility]TL Aspartate Aminotransferase (AST), S 23 8 - 48 U/L 06/02/2025 9:36 AM CDT DTL Alkaline Phosphatase, S 90 40 - 129 U/L 06/02/2025 9:36 AM CDT DTL Alanine Aminotransferase (ALT), S 39 7 - 55 U/L 06/02/2025 9:36 AM CDT DTL Bilirubin, Total, S 0.5 0.0 - 1.2 mg/dL 06/02/2025 9:36 AM CDT [facility] Blood (Blood, Venous) 06/02/2025 7:57 AM CDT 06/02/2025 8:36 AM CDT us Bijal Dubose M.D. LAB BLOOD ADD-ON Final Re sult [facility] [address] [place] [address], [facility] DTL [facility] [address] [place] [address] * (ABNORMAL) CBC with Differential, Blood (06/02/2025 7:57 AM CDT) Hemoglobin 12.8(L) 13.2 - 16.6 g/dL 06/02/2025 9:07 AM CDT DTL Hematocrit 38.0(L) 38.3 - 48.6 % 06/02/2025 9:07 AM CDT DTL Erythrocytes 4.14(L) 4.35 - 5.65 x10(12)/L 06/02/2025 9:07 AM CDT DTL MCV 91.8 78.2 - 97.9 fL 06/02/2025 9:07 AM CDT DTL RBC Distrib Width 13.2 11.8 - 14.5 % 06/02/2025 9:07 AM CDT DTL Platelet Count 193 135 - 317 x10(9)/L 06/02/2025 9:07 AM CDT DTL Leukocytes 5.1 3.4 - 9.6 x10(9)/L 06/02/2025 9:07 AM CDT DTL Neutrophils 3.05 1.56 - 6.45 x10(9)/L 06/02/2025 9:07 AM CDT [facility] Lymphocytes 1.33 0.95 - 3.07 x10(9)/L 06/02/2025 9:07 AM CDT DTL Monocytes 0.53 0.26 - 0.81 x10(9)/L 06/02/2025 9:07 AM CDT DTL Eosinophils 0.16 0.03 - 0.48 x10(9)/L 06/02/2025 9:07 AM CDT DTL Basophils 0.04 0.01 - 0.08 x10(9)/L 06/02/2025 9:07 AM CDT DTL Blood (Blood, Venous) 06/02/2025 7:57 AM CDT 06/02/2025 8:28 AM CDT us Bijal Dubose M.D. LAB BLOOD ADD-ON Final Re sult [facility] [address] [place] [address], [facility] DTL [facility] [address] [place] [address] [facility] [address] [place] [address] * Type and Screen (with Reflex Antibody ID) (06/02/2025 7:57 AM CDT) ABORh A Pos Not applicable 06/02/2025 9:13 AM CDT [facility] Antibody Screen Negative Negative 06/02/2025 9:24 AM CDT [facility] Type & Screen Expiration 06/05/2025 23:59 06/02/2025 9:13 AM CDT [facility] Testing Location [facility] 06/02/2025 8:31 AM CDT [facility] Blood (Blood, Venous) 06/02/2025 7:57 AM CDT 06/02/2025 8:31 AM CDT Bijal Dubose M.D. LAB BLOOD BANK TEST ORDER JANE Final Result [facility] [place] [address] [place] [address], [facility] ETRM [facility] [address] [place] [address] documented in this encounter Visit Diagnoses Diagnosis Multiple Myeloma Not Having Achieved Remission (HCC)- Primary Lesion Lytic Bone Multiple Myeloma Not Having Achieved Remission (HCC) documented in this encounter
--- OUTSIDE RECORDS SUMMARY | 2025-05-20 10:00 | XMS_ITS | Encounter Summary ---
Author Organization [facility] Address [address] [place] [address] Care Team Providers Care Nitroglycerin Nitrator Operator Batch Name Role Phone Unavailable Primary Care Provider Unavailabl e Reason for Visit * Outpatient (Routine) - Closed Specialty Diagnoses / Procedures Referred By Analy t Referred To Contact Hematology Oncology Bijal Dubose M.D. [address] [place] [phone] Phone: tel: fax: [facility] Referral ID Status Reason Start Date Expiration Date Visits Re quested Visits Authorized [id number] Closed 05/20/2025 11/19/2026 1 1 Encounter Details Date Type Department Care Team (Late st Contact Info) Description 05/20/2025 10:00 AM CDT Telemedicine Division of Hematology in [place], [place] [address] [place] [phone] Bijal Dubose M.D. [address] [place] [phone] Francisca Mejia R.N. [address] [place] [phone] Multiple Myeloma Not Having Achieved Remission (HCC) [...] things needed for daily living? No 05/05/2025 [facility] Utilities Answer Date Recorded In the past 12 months has th e electric, gas, oil, or water company threatened to shut off services in your home? No 05/05/2025 Housing Stability Answer Date Recorded What is your living situation today? 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 - 05/20/2025 10:00 AM CDT REMS Enrollment Visit Medication enrolled: Revlimid INSTRUCTION WAS PROVIDED ON THE FOLLOWING: RN provided education on [facility] REMS enrollment process. RN reviewed patient/provider agreement form with the patient Discussed risk category Adult Male (AM) Revlimid requires prior authorization, which [facility] will help obtain, and once approved, the prescription will be coordinated through an appropriate specialty pharmacy for home delivery. Formal chemo education will be provided in a separate visit. All questions were answered and patient expressed understanding of the above content. documented in this encounter Plan of Treatment Upcoming Encounters Date Type Department Care Team (Late st Contact Info) Description 06/09/2025 8:20 AM CDT Appointment Department of Laboratory Medicine and Pathology, [facility], in [place], [place] [address] [place] [address] Bijal Dubose M.D. [address] [place] [phone] 06/09/2025 9:30 AM CDT Infusion Department of Oncology in [place], [place] [address] [place] [phone] Bijal Dubose M.D. [address] [place] [phone] 06/09/2025 2:00 PM CDT Appointment Department of Radiation Oncology in [place], [place] [address] [place] [phone] Chemo Goss M.D., Ph.D. [address] [place] [phone] 06/10/2025 3:30 PM CDT Appointment Department of Radiation Oncology in [place], [place] [address] [place] [phone] Chemo Goss M.D., Ph.D. [address] [place] [phone] 06/11/2025 11:30 AM CDT Appointment Department of Radiation Oncology in [place], [place] [address] [place] [phone] Chemo Goss M.D., Ph.D. [address] [place] [phone] 06/11/2025 2:45 PM CDT Appointment Department of Radiation Oncology in [address] [phone] Chemo Goss M.D., Ph.D. [address] [place] [phone] Zhane Parikh R.N. 06/11/2025 3:30 PM CDT Appointment Department of Radiation Oncology in [place], [place] [address] [place] [phone] Chemo Goss M.D., Ph.D. [address] [place] [phone] 06/12/2025 11:30 AM CDT Appointment Department of Radiation Oncology in [place], [place] [address] [place] [phone] Chemo Goss M.D., Ph.D. [address] [place] [phone] 06/13/2025 9:30 AM CDT Appointment Department of Radiation Oncology in [place], [place] [address] [place] [phone] Chemo Goss M.D., Ph.D. [address] [place] [phone] 06/16/2025 9:10 AM CDT Appointment Department of Laboratory Medicine and Pathology, [facility] in [place], [place] [address] [place] [phone] Bijal Dubose M.D. [address] [place] [phone] 06/16/2025 10:30 AM CDT Infusion Department of Oncology in [place], [place] [address] [place] [phone] Bijal Dubose M.D. [address] [place] [phone] 06/16/2025 11:00 AM CDT Appointment Department of Radiation Oncology in [place], [place] [address] [place] [phone] Chemo Goss M.D., Ph.D. [address] [place] [phone] 06/17/2025 9:45 AM CDT Appointment Department of Radiation Oncology in [place], [place] [address] [place] [phone] Chemo Goss M.D., Ph.D. [address] [place] [phone] 06/18/2025 9:45 AM CDT Appointment Department of Radiation Oncology in [place], [place] [address] [place] [phone] Chemo Goss M.D., Ph.D. [address] [place] [phone] 06/18/2025 10:30 AM CDT Appointment Department of Radiation Oncology in [place], [place] [address] [place] [phone] Chemo Goss M.D., Ph.D. [address] [place] [phone] 06/19/2025 10:45 AM CDT Appointment Department of Radiation Oncology in [place], [place] [address] [place] [phone] Chemo Goss M.D., Ph.D. [address] [place] [phone] 06/20/2025 10:45 AM CDT Appointment Department of Radiation Oncology in [place], [place] [address] [place] [phone] Chemo Goss M.D., Ph.D. [address] [place] [phone] 06/23/2025 7:50 AM CDT Appointment Department of Laboratory Medicine and Pathology, [facility] in [place], [place] [address] [place] [address] Bijal Dubose M.D. [address] [place] [phone] 06/23/2025 9:30 AM CDT Infusion Department of Oncology in [place], [place] [address] [place] [phone] Bijal Dubose M.D. [address] [place] [phone] 06/30/2025 7:30 AM CDT Appointment Department of Laboratory Medicine and Pathology, [facility] in [place], [place] [address] [place] [address] Bijal Dubose M.D. [address] [place] [phone] 06/30/2025 9:30 AM CDT Office Visit Division of Hematology in [place], [place] [address] [place] [phone] Bijal Dubose M.D. [address] [place] [phone] 06/30/2025 10:30 AM CDT Infusion Department of Oncology in [place], [place] [address] [place] [phone] Bijal Dubose M.D. [address] [place] [phone] 07/07/2025 11:30 AM MINK SLICER Infusion Department of Oncology in [place], [place] [address] [place] [phone] Bijal Dubose M.D. [address] [place] [phone] 07/14/2025 11:00 AM MINK SLICER Infusion Department of Oncology in [place], [place] [address] [place] [address] Bijal Dubose M.D. [address] [place] [phone] 07/21/2025 10:30 AM MINK SLICER Infusion Department of Oncology in [place], [place] [address] [place] [address] Bijal Dubose M.D. [address] [place] [phone] documented as of this encounter Visit Diagnoses Diagnosis Multiple Myeloma Not Having Achieved Remission (HCC)- Primary documented in this encounter Additional Health Concerns Infection Onset Date Last Indicated Resolved Time Protective Environment 05/20/2025 05/20/2025 documented as of this encounter
--- OUTSIDE RECORDS SUMMARY | 2025-05-21 07:00 | XMS_ITS | Encounter Summary ---
Author Organization [facility] Address [address] [place] [address] Care Team Providers Care Corporate Travel Agent Name Role Phone Unavailable Primary Care Provider Unavailabl e Reason for Visit * Outpatient (Routine) - Closed Specialty Diagnoses / Procedures Referred By Analy t Referred To Contact Orthopedic Surgery Diagnoses Multiple Myeloma Not Having Achieved Remission (HCC) Lesion Lytic Bone Procedures Orthopedic Surgery - Ortho oncology eConsult Bijal Dubose M.D. [address] [place] [phone] Phone: tel: fax: [facility] Referral ID Status Reason Start Date Expiration Date Visits Re quested Visits Authorized [id number] Closed 05/19/2025 08/19/2026 1 1 Encounter Details Date Type Department Care Team (Latest Contact Info) Description 05/21/2025 7:00 AM CDT Internal E-Consult Department of Orthopedic Surgery in [place], [place] [address] [place] [phone] Froylan Liang M.D. [address] [place] [phone] Multiple Myeloma Not Having Achieved Remission (HCC); Lesion Lytic Bone Social History Tobacco Use [...] the money to buy more. Never true 09/01/20 25 Within the past 12 months, t [...] things needed for daily living? No 05/05/2025 [facility] Utilities Answer Date Recorded In the past 12 months has th e electric, gas, oil, or water company threatened to shut off services in your home? No 05/05/2025 Housing Stability Answer Date Recorded What is your living situation today? 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 - 05/22/2025 7:[address] Dubose: Thank you very much for forwarding the clinical inquiry on Mr. Hampton. I understand him to be a 69-year-old individual with newly diagnosed multiple myeloma based upon a lytic lesion in his right clavicle. We were specifically asked to comment on fracture/activity risk there as well as findings on his PET- CT from his recent hip arthroplasty. I have had a chance to examine his 05/12/2025, CT skeletal survey as well as his 05/14/2025, PET-CT. The lesion in his clavicle is only partially covered on his 04/21/2025, outside chest CT. Read in concert, these demonstrate changes fully consistent with multiple myeloma. The lesion in his clavicle is lytic and at the distal aspect of the clavicle and would pose a risk of pathologic fracture. There is not a surgical fixation that we would recommend for this. Rather, my best recommendation would be for him to have treatment for the underlying disease and to avoid any strenuous activity with the right arm. It is hard for me to say in more detail without seeing and examining him, buttypically we recommend that the right upper extremity be used for cup of tea lifting and not anything heavier than that. Additionally, it would be important to let pain be his guide for activities.If he were to have significant sharp focal and persistent pain, then placement in a basic arm sling, imaging, and referral would be appropriate. In looking at his scans, he does have increased FDG avidity around his total hip arthroplasty. While I cannot be definitive, I will say that this degree of FDG avidity and pattern seems to be fully consistent with a recent surgery and does not necessarily indicate anything more than that. I am presuming that there is no clinical evidence of infection around the hip which can also give increased FDG avidity. The other main lesion which caught my eye was in his left femoral neck (CT skeletal survey series 3and 4, image 309, for example; PET-CT series 601, image 315). This does have a lytic nature to it, but very low FDG avidity on the PET compared to the other lesions. If he is having significant pain in the left hip, it would be important for him to be referred for consideration of prophylactic stabilization. If, however, he is not having significant pain in this area, then careful observation on his part for any signs of pain and treatment of the underlying disease would be appropriate. Thank you very much for your confidence in forwarding this question to our team; if I have misunderstood your question or may be of further assistance, please do not hesitate to reach out directly. Froylan Liang M.D. CT CT Job ID: [id number]/[facility] documented in this encounter Plan of Treatment Upcoming Encounters Date Type Department Care Team (Late st Contact Info) Description 06/09/2025 8:20 AM CDT Appointment Department of Laboratory Medicine and Pathology, [facility], in [place], [place] [address] [place] [phone] Bijal Dubose M.D. [address] [place] [phone] 06/09/2025 9:30 AM CDT Infusion Department of Oncology in [place], [place] [address] [place] [phone] Bijal Dubose M.D. [address] [place] [phone] 06/09/2025 2:00 PM CDT Appointment Department of Radiation Oncology in [place], [place] [address] [place] [phone] Chemo Goss M.D., Ph.D. [address] [place] [phone] 06/10/2025 3:30 PM CDT Appointment Department of Radiation Oncology in [place], [place] [address] [place] [phone] Chemo Goss M.D., Ph.D. [address] [place] [phone] 06/11/2025 11:30 AM CDT Appointment Department of Radiation Oncology in [place], [place] [address] [place] [phone] Chemo Goss M.D., Ph.D. [address] [place] [phone] 06/11/2025 2:45 PM CDT Appointment Department of Radiation Oncology in [place], [place] [address] [place] [phone] Chemo Goss M.D., Ph.D. [address] [place] [phone] Zhane Parikh R.N. 06/11/2025 3:30 PM CDT Appointment Department of Radiation Oncology in [place], [place] [address] [place] [phone] Chemo Goss M.D., Ph.D. [address] [place] [phone] 06/12/2025 11:30 AM CDT Appointment Department of Radiation Oncology in [place], [place] [address] [place] [phone] Chemo Goss M.D., Ph.D. [address] [place] [phone] 06/13/2025 9:30 AM CDT Appointment Department of Radiation Oncology in [place], [place] [address] [place] [address] Chemo Goss M.D., Ph.D. [address] [place] [phone] 06/16/2025 9:10 AM CDT Appointment Department of Laboratory Medicine and Pathology, [facility], in [place], [place] [address] [place] [address] Bijal Dubose M.D. [address] [place] [phone] 06/16/2025 10:30 AM CDT Infusion Department of Oncology in [place], [place] [address] [place] [address] Bijal Dubose M.D. [address] [place] [phone] 06/16/2025 11:00 AM CDT Appointment Department of Radiation Oncology in [place], [place] [address] [place] [phone] Chemo Goss M.D., Ph.D. [address] [place] [phone] 06/17/2025 9:45 AM CDT Appointment Department of Radiation Oncology in [place], [place] [address] [place] [phone] Chemo Goss M.D., Ph.D. [address] [place] [phone] 06/18/2025 9:45 AM CDT Appointment Department of Radiation Oncology in [place], [place] [address] [place] [phone] Chemo Goss M.D., Ph.D. [address] [place] [phone] 06/18/2025 10:30 AM CDT Appointment Department of Radiation Oncology in [place], [place] [address] [place] [phone] Chemo Goss M.D., Ph.D. [address] [place] [phone] 06/19/2025 10:45 AM CDT Appointment Department of Radiation Oncology in [place], [place] [address] [place] [phone] Chemo Goss M.D., Ph.D. [address] [place] [phone] 06/20/2025 10:45 AM CDT Appointment Department of Radiation Oncology in [place], [place] [address] [place] [phone] Chemo Goss M.D., Ph.D. [address] [place] [phone] 06/23/2025 7:50 AM CDT Appointment Department of Laboratory Medicine and Pathology, [facility], in [place], [place] [address] [place] [address] Bijal Dubose M.D. [address] [place] [phone] 06/23/2025 9:30 AM CDT Infusion Department of Oncology in [place], [place] [address] [place] [phone] Bijal Dubose M.D. [address] [place] [phone] 06/30/2025 7:30 AM CDT Appointment Department of Laboratory Medicine and Pathology, [facility] in [place], [place] [address] [place] [phone] Bijal Dubose M.D. [address] [place] [phone] 06/30/2025 9:30 AM CDT Office Visit Division of Hematology in [place], [place] [address] [place] [phone] Bijal Dubose M.D. [address] [place] [phone] 06/30/2025 10:30 AM CDT Infusion Department of Oncology in [place], [place] [address] [place] [phone] Bijal Dubose M.D. [address] [place] [phone] 07/07/2025 11:30 AM PRODUCTION LINE WELDER Infusion Department of Oncology in [place], [place] [address] [place] [phone] Bijal Dubose M.D. [address] [place] [phone] 07/14/2025 11:00 AM PRODUCTION LINE WELDER Infusion Department of Oncology in [place], [place] [address] [place] [phone] Bijal Dubose M.D. [address] [place] [phone] 07/21/2025 10:30 AM PRODUCTION LINE WELDER Infusion Department of Oncology in [place], [place] [address] [place] [phone] Bijal Dubose M.D. [address] [place] [phone] documented as of this encounter Visit Diagnoses Diagnosis Multiple Myeloma Not Having Achieved Remission (HCC) Lesion Lytic Bone documented in this encounter Additional Health Concerns Infection Onset Date Last Indicated Resolved Time Protective Environment 05/20/2025 05/20/2025 documented as of this encounter
--- OUTSIDE RECORDS SUMMARY | 2025-05-30 09:42 | XMS_ITS | Encounter Summary ---
Author Organization [facility] Address [address] [place] [id number] Care Team Providers Care Pattern Changer And Repairer Name Role Phone Unavailable Primary Care Provider Unavailabl e Reason for Referral * Outpatient (Routine) - Closed Specialty Diagnoses / Procedures Referred By Analy messer Referred To Contact Radiation Oncology Diagnoses Multiple Myeloma Not Having Achieved Remission (HCC) Bijal Dubose M.D. [address] [place] [address] Phone: tel: fax: [facility] Referral ID Status Reason Start Date Expiration Date Visits Re quested Visits Authorized [id number] Closed 05/15/2025 11/14/2026 1 1 Reason for Visit * Outpatient (Routine) - Closed Specialty Diagnoses / Procedures Referred By Analy messer Referred To Contact Radiation Oncology Diagnoses Multiple Myeloma Not Having Achieved Remission (HCC) Bijal Dubose M.D. [address] [place] [address] Phone: tel: fax: [facility] Referral ID Status Reason Start Date Expiration Date Visits Re quested Visits Authorized [id number] Closed 05/15/2025 11/14/2026 1 1 Encounter Details Date Type Department Care Team (Latest Contact Info) Description 05/30/2025 9:42 AM CDT - 05/30/2025 10:58 AM CDT Hospital Encounter Department of Radiation Oncology in [place], [place] [address] [place] [phone] Cheom Goss M.D., Ph.D. [address] [place] [phone] Lesion Lytic Bone (Primary Dx); Multiple Myeloma Not Having Achieved Remission (HCC) Social History Tobacco Use Types Packs/Day Years [...] things needed for daily living? No 05/05/2025 [facility] Utilities Answer Date Recorded In the past 12 months has e electric, gas, oil, or water company threatened to shut off services in your home? No 05/05/2025 Housing Stability Answer Date Recorded What is your living situation today? I have a [facility] place to live 05/05/2025 Sex and Gender Information Value Date Recorded Sex Assigned at Male 05/05/2025 10:47 AM CDT Legal Sex Male 11:35 PM SETTER OUT Gender Identity Male 05/05/2025 10:47 AM CDT Sexual Orientation Straight 05/05/2025 10 :47 AM CDT documented as of this encounter Last Filed Vital Signs Vital Sign Reading Time Taken Comments Blood Pressure - - Pulse - - Temperature - - Respiratory Rate - - Oxygen Saturation - - Inhaled Oxygen Concentration - - Weight 93.4 kg (205 lb 14.6 oz) 05/30/2025 9:47 AM CDT Height - - Body Mass Index 28.35 05/06/2025 10:15 AM CDT documented in this encounter Medications at Time of Discharge acyclovir (Zovirax) 400 mg tabletIndication s:Multiple Myeloma Not Having Achieved Remission (HCC) Take 1 tablet (400 mg total) by mouth 2 (two) times a day. 60 tablet 6 05/21/[address] tabletIndication s:Multiple Myeloma Not Having Achieved Remission (HCC) Take 1 tablet (325 mg total) by mouth daily. 100 tablet 3 05/21/2025 atorvastatin (Lipitor) 40 mg tablet Take 40 mg by mouth daily. 08/20/2021 dexAMETHasone (Decadron) 4 mg tabletIndication s:Multiple Myeloma Not Having Achieved Remission (HCC) Take 10 tablets (40 mg total) by mouth once a week for 4 doses. Take on days 1, 8, 15, and 22. If it is a day you are receiving daratumumab, take dexAMETHasone prior to infusion appointment. 40 tablet 05/21/2025 5 lenalidomide (Revlimid) 25 mg capsuleIndicatio ns:Multiple Myeloma Not Having Achieved Remission (HCC) Take 1 capsule (25 mg total) by mouth daily. Take on days 1 through 21 of cycle. 21 capsule 06/02/2025 5 ondansetron (Zofran) 8 mg tabletIndication s:Multiple Myeloma Not Having Achieved Remission (HCC) Take 1 tablet (8 mg total) by mouth every 8 (eight) hours as needed for nausea or vomiting (unrelieved by prochlorperazine). 30 tablet 3 05/21/2025 6 prochlorperazine (Compazine) 10 mg tabletIndication s:Multiple Myeloma Not Having Achieved Remission (HCC) Take 1 tablet (10 mg total) by mouth every 6 (six) hours as needed for nausea or vomiting. 30 tablet 3 05/21/2025 6 sulfamethoxazole -trimethoprim (Bactrim) 400-80 mg per tabletIndication s:Multiple Myeloma Not Having Achieved Remission (HCC) Take 1 tablet by mouth daily for 360 doses. 90 tablet 3 05/21/2025 6 tamsulosin (Flomax) 0.4 mg 24 hr capsule Take 0.4 mg by mouth daily. 08/06/2020 lenalidomide (Revlimid) 25 mg capsuleIndicatio ns:Multiple Myeloma Not Having Achieved Remission (HCC) Take 1 capsule (25 mg total) by mouth daily. Take on days 1 through 21 of cycle. 21 capsule 05/20/2025 5 lenalidomide (Revlimid) 25 mg capsuleIndicatio ns:Multiple Myeloma Not Having Achieved Remission (HCC) Take 1 capsule (25 mg total) by mouth daily. Take on days 1 through 21 of cycle. 21 capsule 06/02/2025 5 levoFLOXacin (Levaquin) 500 mg tabletIndication s:Multiple Myeloma Not Having Achieved Remission (HCC) Take 1 tablet (500 mg total) by mouth daily for 90 doses. 30 tablet 2 05/21/2025 5 documented as of this encounter Consult Notes * Ronit Spangler APRN, C.N.P., D.N.P. - 05/30/2025 10:00 AM CDT RADIATION ONCOLOGY CONSULTATION SUBJECTIVE REQUESTING PROVIDER: Bijal Dubose M.D. RADIATION ONCOLOGIST Chemo Goss MD, PHD (Pager # [phone]) REASON FOR CONSULT Right clavicle plasmacytoma HISTORY OF PRESENT ILLNESS Mr. Hampton is a 69 y.o. 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 His oncologic history is outlined below: Oncology History Overview Note Date of diagnosis: 05/07/2025 Presenting symptoms: progressive pain in the right clavicle Hemoglobin: 13.5 Calcium: 9.4 Creatinine: 1.09 LDH: 136 Yyoj-2-qtoqzhnmdbpia: 3.51 C-reactive protein: <3 Albumin: 3.7 Serum [...] avid normal-sized left internal mammary lymph nodes. Multiple Myeloma Not Having Achieved Remission (HCC) 04/28/2025 Biopsy/Pathology Outside interpretation of biopsy: Clavicle, right, biopsy (04/28/2025): Plasma cell neoplasm. 05/07/2025 Biopsy/Pathology Bone Marrow Biopsy (05/07/25): Plasma cell myeloma, with approximately 40% kappa light chain-restricted plasma cells. Hypercellular bone marrow with morphologically unremarkable trilineage hematopoiesis. Congo red stain is negative for amyloid deposition. 05/14/[address] IMPRESSION: 1. Intensely FDG avid biopsy-proven right distal clavicle myeloma. 2. Innumerable lytic and non-lytic FDG avid sites of active multiple myeloma in the skeleton. 3. High concern for extraosseous FDG avid nodular soft tissue myeloma in the left parasternal chestwall. 4. Concerning FDG avid normal-sized left internal mammary lymph nodes. 06/02/2025 - Chemotherapy Daratumumab (Subcutaneous) RVD (Lenalidomide / Bortezomib / dexAMETHasone) (28 day cycles) Start Date: 06/02/2025 (Planned) 06/09/2025 - Radiation Therapy Radiation Therapy Treatment Details (Noted on 05/29/2025) Site: Right Clavicle Technique: No technique specified Goal: Curative Planned Treatment Start Date: 06/09/2025 In the clinic today, Mr. Hampton presents with his Riana. He has limited range of motion of the right shoulder and struggles to reach my hand when greeting him while seated. He reports he has had discomfort in the shoulder since the end of March. He has not taken any oral medications for painand feels his pain is tolerable. His use of his right arm is limited as he was instructed to not lift anything heavier than a coffee cup. Pain exacerbated with movement. He denies any new numbness/tingling or loss of sensation in the right arm or hand. He describes intermittent burning in bilateral hands that tends to occur when he walks his dog at night, although notes no episodes of burning in the past month. The patient does not have a history of lupus, scleroderma, or ulcerative colitis, and does not havea pacemaker. The patient has no other personal history of cancer or radiation. REVIEW OF SYSTEMS Review of systems as noted in HPI. MEDICAL HISTORY Past Medical History: Diagnosis Date Dyslipidemia NOS Approximately 2014 Hepatitis Childhood Multiple Myeloma NOS 05/01/2025 Pericarditis (HCC) 2009 SURGICAL HISTORY Past Surgical History: Procedure Laterality Date ENUCLEATION Left Following trauma to eye at age 17 TOTAL HIP ARTHROPLASTY Right 01/01/2025 - Enucleation of his left eye after traumatic injury (glass impaled eye while working at [employer]) FAMILY HISTORY First degree family history of cancer in his father (prostate cancer), brother (lung cancer), brother (oral cancer) and another brother (skin cancer). SOCIAL HISTORY Mr. William Hampton lives in [place], [place] with his . He has 3 adult children a daughter and two sons. His daughter has been supportive in his medical care. 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 He deniesany current tobacco use. He has not had any alcohol intake since 1982. No elicit drug use. Medications and Allergies were reviewed. OBJECTIVE Wt 93.4 kg BMI 28.35 kg/m?? PHYSICAL EXAMINATION General: Pleasant, in no acute distress. Head: Normocephalic, atraumatic Eyes: Left eye prothesis Lungs: Normal work of breathing on room air. Skin: No rashes or lesions. Extremities: Limited range of motion of right arm.Guarded. Neuro: Alert and oriented. Mental: Appropriate mood and affect. 2 Ambulatory and capable of all selfcare but unable to carry out any work activities; up and about more than 50% of waking hours ASSESSMENT / PLAN # Multiple Myeloma # Plasmacytoma right clavicle # Osseous lytic lesions Mr. Hampton is a 69 y.o. male with multiple myeloma with right clavicle plasmacytoma who is seen in Radiation Oncology for a discussion of radiation treatment. We have reviewed the pertinent medical history, imaging and recommendations from Hematology. I discussed the relevant history and imaging with Dr. Chemo Goss who recommends photon-based external beam radiotherapy - 20 Gy in 10 fractions to the right clavicle. We discussed the role of radiation in this patient's case, which is to provide a localized treatment to the right clavicle to help alleviate pain and prevent the development of a pathologic fracture. The logistics of radiotherapy simulation were reviewed with the patient utilizing the simulation booklet. We discussed treatment planning and potential strategies for minimizing dose to critical structures. We specifically discussed positioning, CT scanning, and subsequent treatment planing by our radiation oncology team. We discussed that treatment is Monday-Monday without weekend treatments. Wediscussed the utility of management visits throughout their treatment course. I discussed the potential short-term and long-term side effects of radiation, including but not limited too fatigue, dermatitis, and an acute pain flare secondary to inflammation at the beginning of therapy. We discussed the potential long-term risk of muscle fibrosis, bone weakening (osteopenia), potential for fractureafter treatment, and rare risk of secondary malignancies. Mr. William Hampton is agreeable to proceed with CT simulation today. Tentative plan will be to proceed with treatment on 06/09/25. Our departmental contact information was provided and he was encouraged to contact the Department of Radiation Oncology with further questions or concerns. I personally spent 65 minutes in care of the patient today. Time includes both idi-worv-rt-face mqctscm-zy-xnny patient care. Ronit Spangler APRN, JESS, [place]ARG[place] Department of Radiation Oncology Cosigned by Chemo Goss M.D., Ph.D. at 05/30/2025 2:16 PM CDT Associated attestation - Chemo Goss M.D., Ph.D. - 05/30/2025 2:16 PM CDT I saw and evaluated the patient and I participated in the newberry portions of the service. I reviewed the documentation of Ronit Spangler DNP, APRN, JESS and I agree with the findings and plan. In summary, this is a gentleman with newly diagnosed multiple myeloma with involvement of a painfullesion on the lateral aspect of right clavicle. He has limited abduction and he is abiding by recommended weight bearing instructions. Patient is expected to start systemic therapy next week. I recommend a 10 daily fraction course of palliative external beam photon radiotherapy delivering 20 Gy targeting this right clavicle without interrupting his infusion schedule. Benefits of pain control, improved local control along with expected and possible acute and late side effects were discussed. Patient is ready to proceed. I personally spent 60 minutes in care of the patient today. Time includes both zot-yrjf-bd-face seagyiy-sv-snkt patient care. documented in this encounter Plan of Treatment Upcoming Encounters Date Type Department Care Team (Late st Contact Info) Description 06/09/2025 8:20 AM CDT Appointment Department of Laboratory Medicine and Pathology, [facility] in [place], [place] [address] [place] [phone] Bijal Dubose M.D. [address] [place] [phone] 06/09/2025 9:30 AM CDT Infusion Department of Oncology in [place], [place] [address] [place] [phone] Bijal Dbuose M.D. [address] [place] [phone] 06/09/2025 2:00 PM CDT Appointment Department of Radiation Oncology in [address] [phone] Chemo Goss M.D., Ph.D. [address] [place] [phone] 06/10/2025 3:30 PM CDT Appointment Department of Radiation Oncology in [place], [place] [address] [place] [phone] Chemo Goss M.D., Ph.D. [address] [place] [phone] 06/11/2025 11:30 AM CDT Appointment Department of Radiation Oncology in [place], [place] [address] [place] [phone] Chemo Goss M.D., Ph.D. [address] [place] [phone] 06/11/2025 2:45 PM CDT Appointment Department of Radiation Oncology in [place], [place] [address] [place] [phone] Chemo Goss M.D., Ph.D. [address] [place] [phone] Zhane Parikh R.N. 06/11/2025 3:30 PM CDT Appointment Department of Radiation Oncology in [place], [place] [address] [place] [phone] Chemo Goss M.D., Ph.D. [address] [place] [phone] 06/12/2025 11:30 AM CDT Appointment Department of Radiation Oncology in [place], [place] [address] [place] [phone] Chemo Goss M.D., Ph.D. [address] [place] [phone] 06/13/2025 9:30 AM CDT Appointment Department of Radiation Oncology in [place], [place] [address] [place] [phone] Chemo Goss M.D., Ph.D. [address] [place] [phone] 06/16/2025 9:10 AM CDT Appointment Department of Laboratory Medicine and Pathology, [facility], in [place], [place] [address] [place] [address] Bijal Dubose M.D. [address] [place] [phone] 06/16/2025 10:30 AM CDT Infusion Department of Oncology in [place], [place] [address] [place] [phone] Bijal Dubose M.D. [address] [place] [phone] 06/16/2025 11:00 AM CDT Appointment Department of Radiation Oncology in [place], [place] [address] [place] [phone] Chemo Goss M.D., Ph.D. [address] [place] [phone] 06/17/2025 9:45 AM CDT Appointment Department of Radiation Oncology in [place], [place] [address] [place] [phone] Chemo Goss M.D., Ph.D. [address] [place] [phone] 06/18/2025 9:45 AM CDT Appointment Department of Radiation Oncology in [place], [place] [address] [place] [phone] Chemo Goss M.D., Ph.D. [address] [place] [phone] 06/18/2025 10:30 AM CDT Appointment Department of Radiation Oncology in [place], [place] [address] [place] [phone] hCemo Goss M.D., Ph.D. [address] [place] [phone] 06/19/2025 10:45 AM CDT Appointment Department of Radiation Oncology in [place], [place] [address] [place] [phone] Chemo Goss M.D., Ph.D. [address] [place] [phone] 06/20/2025 10:45 AM CDT Appointment Department of Radiation Oncology in [place], [place] [address] [place] [phone] Chemo Goss M.D., Ph.D. [address] [place] [phone] 06/23/2025 7:50 AM CDT Appointment Department of Laboratory Medicine and Pathology, [facility] in [place], [place] [address] [place] [phone] Bijal Dubose M.D. [address] [place] [phone] 06/23/2025 9:30 AM CDT Infusion Department of Oncology in [place], [place] [address] [place] [phone] Bijal Dubose M.D. [address] [place] [phone] 06/30/2025 7:30 AM CDT Appointment Department of Laboratory Medicine and Pathology, [facility] in [place], [place] [address] [place] [phone] Bijal Dubose M.D. [address] [place] [phone] 06/30/2025 9:30 AM CDT Office Visit Division of Hematology in [place], [place] [address] [place] [phone] Bijal Dubose M.D. [address] [place] [phone] 06/30/2025 10:30 AM CDT Infusion Department of Oncology in [place], [place] [address] [place] [phone] Bijal Dubose M.D. [address] [place] [phone] 07/07/2025 11:30 AM SETTER OUT Infusion Department of Oncology in [place], [place] [address] [place] [phone] Bijal Dubose M.D. [address] [place] [phone] 07/14/2025 11:00 AM SETTER OUT Infusion Department of Oncology in [place], [place] [address] [place] [phone] Bijal Dubose M.D. [address] [place] [phone] 07/21/2025 10:30 AM SETTER OUT Infusion Department of Oncology in [place], [place] [address] [place] [phone] Bijal Dubose M.D. [address] [place] [phone] Scheduled Referrals Name Type Priority Associated Diagnoses Order Schedule Radiation Oncology - Lymphoma / myeloma curative consult (clinic) Outpatient Referral Routine Once for 1 Occurrences starting 05/30/2025 until 05/30/2025 documented as of this encounter Visit Diagnoses Diagnosis Lesion Lytic Bone- Primary Multiple Myeloma Not Having Achieved Remission (HCC) documented in this encounter Additional Health Concerns Infection Onset Date Last Indicated Resolved Time Protective Environment 05/20/2025 05/20/2025 documented as of this encounter
--- OUTSIDE RECORDS SUMMARY | 2025-05-30 10:59 | XMS_ITS | Encounter Summary ---
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 [address] [place] [address] Phone: tel: fax: [facility] Referral ID Status Reason Start Date Expiration Date Visits Re quested Visits Authorized [id number] Closed 05/29/2025 08/29/2026 1 1 Reason for Visit * Radiation Therapy (Routine) - Closed Specialty Diagnoses / Procedures Referred By Analy messer Referred To Contact Diagnoses Multiple Myeloma Not Having Achieved Remission (HCC) Procedures Initial Rad Onc Treatment Planning CT Simulation Chemo Goss M.D., Ph.D. [address] [place] [address] Phone: tel: fax: [facility] Referral ID Status Reason Start Date Expiration Date Visits Re quested Visits Authorized [id number] Closed 05/29/2025 08/29/2026 1 1 Encounter Details Date Type Department Care Team (Latest Contact Info) Description 05/30/2025 10:59 AM CDT - 05/30/2025 2:56 PM CDT Hospital Encounter Department of Radiation Oncology in [place], [place] [address] [place] [address] Chemo Goss M.D., Ph.D. [address] [place] [address] Multiple Myeloma Not Having Achieved Remission (HCC) [...] things needed for daily living? No 05/05/2025 [facility] Utilities Answer Date Recorded In the past 12 months has th e electric, gas, oil, or water company threatened to shut off services in your home? No 05/05/2025 Housing Stability Answer Date Recorded What is your living situation today? 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 Authorized by: Chemo Goss M.D., Ph.D. Simulation was performed under physician supervision based on physician order in preparation for radiation therapy. Physician was immediately available to provide assistance and direction throughout the procedure. Written consent for treatment was completed or confirmed. The patient was appropriately identified and placed in the treatment position using the necessary immobilization to ensure a reproducible treatment position. Reference marion were placed to facilitate marking of isocenter. Area scanned:Neck, Chest, and Upper Extremity Contrast used for the simulation procedure: None Patient position:head first supine Custom immobilization: 5 point mask and Custom neck rest Motion management: None Bolus: No CT guidance: Following positioning of the patient, a series of slices was obtained to be utilized in treatment planning. CT images were transferred to the Eclipse treatment planning system, after a reference isocenter was determined and marked. Segmentation and treatment planning will take place prior to treatment delivery. Patient set up and imaging was appropriate and completed without incident. Certified Orthotic Fitter use:No Cosigned by Chemo Goss M.D., Ph.D. at 05/30/2025 12:59 PM CDT Associated attestation - Chemo Goss M.D., Ph.D. - 05/30/2025 12:59 PM CDT Simulation was initiated on 05/30/25 based on my order, under my direct supervision in preparation for radiation therapy for 1. Multiple Myeloma Not Having Achieved Remission (HCC) . The patient was placed in the treatment position using the necessary immobilization to ensure a reproducible treatment position. Set-up parameters to be used for daily treatment are outlined above.Reference marion were placed on the patient to facilitate marking of isocenter. The procedure was performed under my personal supervision. documented in this encounter Plan of Treatment Upcoming Encounters Date Type Department Care Team (Late st Contact Info) Description 06/09/2025 8:20 AM CDT Appointment Department of Laboratory Medicine and Pathology, [facility], in [address] [phone] Bijal Dubose M.D. [address] [place] [phone] 06/09/2025 9:30 AM CDT Infusion Department of Oncology in [place], [place] [address] [place] [phone] Bijal Dubose M.D. [address] [place] [phone] 06/09/2025 2:00 PM CDT Appointment Department of Radiation Oncology in [place], [place] [address] [place] [phone] Chemo Goss M.D., Ph.D. [address] [place] [phone] 06/10/2025 3:30 PM CDT Appointment Department of Radiation Oncology in [address] [phone] Chemo Goss M.D., Ph.D. [address] [place] [phone] 06/11/2025 11:30 AM CDT Appointment Department of Radiation Oncology in [place], [place] [address] [place] [phone] Chemo Goss M.D., Ph.D. [address] [place] [phone] 06/11/2025 2:45 PM CDT Appointment Department of Radiation Oncology in [place], [place] [address] [place] [phone] Chemo Goss M.D., Ph.D. [address] [place] [phone] Zhane Parikh R.N. 06/11/2025 3:30 PM CDT Appointment Department of Radiation Oncology in [place], [place] [address] [place] [phone] Chemo Goss M.D., Ph.D. [address] [place] [phone] 06/12/2025 11:30 AM CDT Appointment Department of Radiation Oncology in [place], [place] [address] [place] [phone] Chemo Goss M.D., Ph.D. [address] [place] [phone] 06/13/2025 9:30 AM CDT Appointment Department of Radiation Oncology in [place], [place] [address] [place] [phone] Chemo Goss M.D., Ph.D. [address] [place] [phone] 06/16/2025 9:10 AM CDT Appointment Department of Laboratory Medicine and Pathology, [facility], in [place], [place] [address] [place] [phone] Bijal Dubose M.D. [address] [place] [phone] 06/16/2025 10:30 AM CDT Infusion Department of Oncology in [place], [place] [address] [place] [phone] Bijal Dubose M.D. [address] [place] [phone] 06/16/2025 11:00 AM CDT Appointment Department of Radiation Oncology in [place], [place] [address] [place] [phone] Chemo Goss M.D., Ph.D. [address] [place] [phone] 06/17/2025 9:45 AM CDT Appointment Department of Radiation Oncology in [place], [place] [address] [place] [phone] Chemo Goss M.D., Ph.D. [address] [place] [phone] 06/18/2025 9:45 AM CDT Appointment Department of Radiation Oncology in [place], [place] [address] [place] [phone] Chemo Goss M.D., Ph.D. [address] [place] [phone] 06/18/2025 10:30 AM CDT Appointment Department of Radiation Oncology in [place], [place] [address] [place] [phone] Chemo Goss M.D., Ph.D. [address] [place] [phone] 06/19/2025 10:45 AM CDT Appointment Department of Radiation Oncology in [place], [place] [address] [place] [address] Chemo Goss M.D., Ph.D. [address] [place] [phone] 06/20/2025 10:45 AM CDT Appointment Department of Radiation Oncology in [place], [place] [address] [place] [address] Chemo Goss M.D., Ph.D. [address] [place] [phone] 06/23/2025 7:50 AM CDT Appointment Department of Laboratory Medicine and Pathology, [facility] in [place], [place] [address] [place] [address] Bijal Dubose M.D. [address] [place] [phone] 06/23/2025 9:30 AM CDT Infusion Department of Oncology in [place], [place] [address] [place] [address] Bijal Dubose M.D. [address] [place] [phone] 06/30/2025 7:30 AM CDT Appointment Department of Laboratory Medicine and Pathology, [facility] in [place], [place] [address] [place] [address] Bijal Dubose M.D. [address] [place] [phone] 06/30/2025 9:30 AM CDT Office Visit Division of Hematology in [place], [place] [address] [place] [address] Bijal Dubose M.D. [address] [place] [phone] 06/30/2025 10:30 AM CDT Infusion Department of Oncology in [place], [place] [address] [place] [phone] Bijal Dubose M.D. [address] [place] [phone] 07/07/2025 11:30 AM LINUX DEVELOPER Infusion Department of Oncology in [place], [place] [address] [place] [phone] Bijal Dubose M.D. [address] [place] [phone] 07/14/2025 11:00 AM LINUX DEVELOPER Infusion Department of Oncology in [place], [place] [address] [place] [phone] Bijal Dubose M.D. [address] [place] [phone] 07/21/2025 10:30 AM LINUX DEVELOPER Infusion Department of Oncology in [place], [place] [address] [place] [phone] Bijal Dubose M.D. [address] [place] [phone] documented as of this encounter Procedures Procedure Name Priority Date/Time Associated Diagnosis Comments INITIAL RAD ONC TREATMENT PLANNING CT SIMULATION Routine 05/30/2025 11:15 AM CDT Multiple Myeloma Not Having Achieved Remission (HCC) documented in this encounter Results * Initial Rad Onc Treatment Planning CT Simulation (05/30/2025 11:15 AM CDT) [facility] - 05/30/2025 11:15 AM CDT Chemo Goss M.D., Ph.D. 05/30/2025 12:59 PM Initial Rad Onc Treatment Planning CT Simulation Performed by: Chemo Goss M.D., Ph.D. Authorized by: Chemo Goss M.D., Ph.D. Simulation was performed under physician supervision based on physician order in preparation for radiation therapy. Physician was immediately available to provide assistance and direction throughout the procedure. Written consent for treatment was completed or confirmed. The patient was appropriately identified and placed in the treatment position using the necessary immobilization to ensure a reproducible treatment position. Reference marion were placed to facilitate marking of isocenter. Area scanned:Neck, Chest, and Upper Extremity Contrast used for the simulation procedure: None Patient position:head first supine Custom immobilization: 5 point mask and Custom neck rest Motion management: None Bolus: No CT guidance: Following positioning of the patient, a series of slices was obtained to be utilized in treatment planning. CT images were transferred to the Eclipse treatment planning system, after a reference isocenter was determined and marked. Segmentation and treatment planning will take place prior to treatment delivery. Patient set up and imaging was appropriate and completed without incident. Certified Orthotic Fitter use:No Chemo Goss M.D., Ph.D. RADIATION ONCOLOGY ORDER JANE Final Result ZACH carvalho documented in this encounter Visit Diagnoses Diagnosis Multiple Myeloma Not Having Achieved Remission (HCC) documented in this encounter Additional Health Concerns Infection Onset Date Last Indicated Resolved Time Protective Environment 05/20/2025 05/20/2025 documented as of this encounter
--- OUTSIDE RECORDS SUMMARY | 2025-06-02 07:40 | XMS_ITS | Encounter Summary ---
Author Organization [facility] Address [address] [place] [address] Care Team Providers Care [employer] T[employer] Name Role Phone Unavailable Primary Care Provider Unavailabl e Reason for Visit * Episode Based Medications (Routine) - Authorized Specialty Diagnoses / Procedures Referred By Contac t Referred To Contact Diagnoses Multiple Myeloma Not Having Achieved Remission (HCC) Bijal Dubose M.D. 200 [place] [address] Phone: tel: fax: Division of Hematology in [place], [place] [address] [place] [address] Phone: tel: Referral ID Status Reason Start Date Expiration Date V isits Requested Visits Authorized [id number] Authorized 05/19/2025 05/19/2027 99 99 Encounter Details Date Type Department Care Team (Latest Contact Info) Description 06/02/2025 7:40 AM CDT - 06/02/2025 11:59 PM CDT Hospital Encounter Department of Laboratory Medicine and Pathology, [facility], in [place], [place] [address] [place] [phone] Bijal Dubose M.D. [address] [place] [phone] Multiple Myeloma Not Having Achieved Remission (HCC) [...] things needed for daily living? No 05/05/2025 [facility] Utilities Answer Date Recorded In the past 12 months has e [employer], gas, oil, or water company threatened to shut off services in your home? No 05/05/2025 Housing Stability Answer Date Recorded What is your living situation today? [facility] a [facility] live 05/05/2025 Sex and Gender Information Value Date Recorded Sex Assigned at Male 05/05/2025 10:47 AM CDT Legal Sex Male 11:35 PM [employer] RE[employer] Gender Identity Male 05/05/2025 10:47 AM CDT [...] Take 40 mg by mouth daily. 08/20/2021 calcium carbonate-vitami n D3 1,500 mg (600 mg calcium)-10 mcg (400 Unit) per tablet Take 1 tablet by mouth daily with morning meal. dexAMETHasone (Decadron) 4 mg tabletIndication s:Multiple Myeloma Not Having Achieved Remission (HCC) Take 10 tablets (40 mg total) by mouth once a week for 4 doses. Take on days 1, 8, 15, and 22. If it is a day you are receiving daratumumab, take dexAMETHasone prior to infusion appointment. 40 tablet 05/21/2025 5 famotidine (Pepcid) 10 mg tablet Take 10 mg by mouth 2 (two) times a day. lenalidomide (Revlimid) 25 mg capsuleIndicatio ns:Multiple Myeloma [...] Appointment Department of Laboratory Medicine and Pathology, [facility], in [place], [place] [address] [place] [phone] Bijal Dubose M.D. [address] [place] [phone] 06/09/2025 9:30 AM CDT Infusion Department of Oncology in [place], [place] [address] [place] [address] Bijal Caldwell M.D. [address] [place] [phone] 06/09/2025 2:00 PM CDT Appointment Department of Radiation Oncology in [place], [place] [address] [place] [phone] Chemo Goss M.D., Ph.D. [address] [place] [phone] 06/10/2025 3:30 PM CDT Appointment Department of Radiation Oncology in [place], [place] [address] [place] [phone] Chemo Goss M.D., Ph.D. [address] [place] [phone] 06/11/2025 11:30 AM CDT Appointment Department of Radiation Oncology in [place], [place] [address] [place] [phone] Chemo Goss M.D., Ph.D. [address] [place] [phone] 06/11/2025 2:45 PM CDT Appointment Department of Radiation Oncology in [place], [place] [address] [place] [phone] Chemo Goss M.D., Ph.D. [address] [place] [phone] Zhane Parikh R.N. 06/11/2025 3:30 PM CDT Appointment Department of Radiation Oncology in [address] [phone] Chemo Goss M.D., Ph.D. [address] [place] [phone] 06/12/2025 11:30 AM CDT Appointment Department of Radiation Oncology in [place], [place] [address] [place] [address] Chemo Goss M.D., Ph.D. [address] [place] [phone] 06/13/2025 9:30 AM CDT Appointment Department of Radiation Oncology in [place], [place] [address] [place] [phone] Chemo Goss M.D., Ph.D. [address] [place] [phone] 06/16/2025 9:10 AM CDT Appointment Department of Laboratory Medicine and Pathology, [facility] in [place], [place] [address] [place] [address] Bijal Dubose M.D. [address] [place] [phone] 06/16/2025 10:30 AM CDT Infusion Department of Oncology in [place], [place] [address] [place] [address] Bijal Dubose M.D. [address] [place] [phone] 06/16/2025 11:00 AM CDT Appointment Department of Radiation Oncology in [place], [place] [address] [place] [phone] Chemo Goss M.D., Ph.D. [address] [place] [phone] 06/17/2025 9:45 AM CDT Appointment Department of Radiation Oncology in [place], [place] [address] [place] [phone] Chemo Goss M.D., Ph.D. [address] [place] [phone] 06/18/2025 9:45 AM CDT Appointment Department of Radiation Oncology in [place], [place] [address] [place] [phone] Chemo Goss M.D., Ph.D. [address] [place] [phone] 06/18/2025 10:30 AM CDT Appointment Department of Radiation Oncology in [place], [place] [address] [place] [phone] Chemo Goss M.D., Ph.D. [address] [place] [phone] 06/19/2025 10:45 AM CDT Appointment Department of Radiation Oncology in [place], [place] [address] [place] [phone] Chemo Goss M.D., Ph.D. [address] [place] [phone] 06/20/2025 10:45 AM CDT Appointment Department of Radiation Oncology in [place], [place] [address] [place] [phone] Chemo Goss M.D., Ph.D. [address] [place] [phone] 06/23/2025 7:50 AM CDT Appointment Department of Laboratory Medicine and Pathology, [facility], in [place], [place] [address] [place] [phone] Bijal Dubose M.D. [address] [place] [phone] 06/23/2025 9:30 AM CDT Infusion Department of Oncology in [place], [place] [address] [place] [address] Bijal Dubose M.D. [address] [place] [phone] 06/30/2025 7:30 AM CDT Appointment Department of Laboratory Medicine and Pathology, [facility] in [place], [place] [address] [place] [phone] Bijla Dubose M.D. [address] [place] [phone] 06/30/2025 9:30 AM CDT Office Visit Division of Hematology in [place], [place] [address] [place] [phone] Bijal Dubose M.D. [address] [place] [phone] 06/30/2025 10:30 AM CDT Infusion Department of Oncology in [place], [place] [address] [place] [phone] Bijal Dubose M.D. [address] [place] [phone] 07/07/2025 11:30 AM [employer] REPA[employer] Infusion Department of Oncology in [place], [place] [address] [place] [phone] Bijal Dubose M.D. [address] [place] [phone] 07/14/2025 11:00 AM [employer] REPA[employer] Infusion Department of Oncology in [place], [place] [address] [place] [phone] Bijal Dubose M.D. [address] [place] [phone] 07/21/2025 10:30 AM [employer] M[employer] REPAIRER Infusion Department of Oncology in [place], [place] [address] [place] [address] Bijal Dubose M.D. 200 [place] [phone] documented as of this encounter Procedures Procedure Name Priority Date/Time Associated Diagnosis Comments QUANTITATIVE M-PROTEIN STUDY, S Routine 06/02/2025 7:57 AM CDT Multiple Myeloma Not Having Achieved Remission (HCC) HBS ANTIGEN SCRN, S Routine 06/02/2025 7 :57 AM CDT Multiple Myeloma Not Having Achieved Remission (HCC) HBC TOTAL AB SCRN, S Routine 06/02/2025 7:57 AM CDT Multiple Myeloma Not Having Achieved Remission (HCC) SPECIAL RED CELL AG TYPING, B Routine 06/02/2025 7:57 AM CDT HCV AB SCRN W/REFLEX TO HCV PCR, S Routine 06/02/2025 7:57 AM CDT Multiple Myeloma Not Having Achieved Remission (HCC) IMMUNOGLOBULIN FREE LIGHT CHAINS, S Routine 06/02/2025 7:57 AM CDT Multiple Myeloma Not Having Achieved Remission (HCC) CBC WITH DIFFERENTIAL, B Routine 06/02/2025 7:57 AM CDT Multiple Myeloma Not Having Achieved Remission (HCC) TYPE AND SCREEN Routine 06/02/2025 7:57 AM CDT Multiple Myeloma Not Having Achieved Remission (HCC) COMPREHENSIVE METABOLIC PANEL, S/P Routine 06/02/2025 7:57 AM CDT Multiple Myeloma Not Having Achieved Remission (HCC) documented in this encounter Results * Special Red Cell Antigen Typing (06/02/2025 7:57 AM CDT) Special Red Cell Antigen * 06/02/2025 10:17 AM CDT DTL Comment:K- Blood 06/02/2025 7:57 AM CDT 06/02/2025 8:30 AM CDT Bijal Dubose M.D. LAB BLOOD BANK TEST ORDER JANE Final Result [facility] [address] [place] [address], [facility] DTL [facility] [address] [place] [address] * (ABNORMAL) Quantitative M-protein Study (06/02/2025 7:57 [...] developed and its performance characteristics determined by [facility] in a manner consistent with CLIA requirements. This test has not been cleared or approved by the U.S. Food and Drug Administration. Blood (Blood, Venous) 06/02/2025 7:57 AM CDT 06/02/2025 10:38 AM CDT Narrative [facility] - 06/03/2025 12:41 PM CDT Specimen Information: Specimen ID: [id number] Specimen Type: Blood Specimen Collection Start Date: 06/02/2025 7:57 AM Specimen Received Date: 06/02/2025 10:38 AM Specimen ID: [id number] Specimen Type: Blood Specimen Collection Start Date: 06/02/2025 7:57 AM Specimen Received Date: 06/02/2025 10:41 AM Bijal Dubose M.D. LAB BLOOD ADD-ON Final Re sult [facility] [address] [place] [address] [facility] [address] [place] [address] [place] [phone] [place] [address] [place] [address] * (ABNORMAL) Immunoglobulin Free Light Chains (06/02/2025 7:57 AM CDT) [place] Free Light Chain, S 3.18(H) 0.3300 - 1.94 mg/dL 06/02/2025 2:49 PM CDT [facility] Lambda Free Light Chain, S 0.6300 0.5700 - 2.63 mg/dL 06/02/2025 2:50 PM CDT [facility] [place]/Lambda FLC Ratio 5.05(H) 0.2600 - 1.65 06/02/2025 2:50 PM CDT [facility] Blood (Blood, Venous) 06/02/2025 7:57 AM CDT 06/02/2025 10:54 AM CDT Bijal Dubose M.D. LAB BLOOD ADD-ON Final Re sult Performing Organization Address City/[facility]/ZIP Co de Phone Number [facility] [address] [place] [address] [facility] [address] [place] [address] * HCV Ab Scrn w/Reflex to HCV PCR, Serum (06/02/2025 7:57 AM CDT) HCV Ab Screen, S Negative Negative 06/02/2025 12:28 PM CDT [facility] Comment: Consumption of high-dose biotin supplement within 12 hours of blood collection for this test can cause false-negative results. Blood (Blood, Venous) 06/02/2025 7:57 AM CDT 06/02/2025 10:32 AM CDT Bijal Dubose M.D. LAB MICROBIOLOGY - BLOOD ORDERABLES Final Result [facility] [address] [place] [address] [facility] [address] [place] [address] * HBc Total Ab Scrn, Serum (06/02/2025 7:57 AM CDT) Pathologist [facility] HBc Total Ab Scrn, S Negative Negative 06/02/2025 12:28 PM CDT [facility] Blood (Blood, Venous) 06/02/2025 7:57 AM CDT 06/02/2025 10:32 AM CDT Bijal Dubose M.D. LAB MICROBIOLOGY - BLOOD ORDERABLES Final Result Performing Organization Address City/[facility]/ZIP Co de Phone Number [facility] [address] [place] [address] [facility] [address] [place] [address] * HBs Antigen Scrn, Serum (06/02/2025 7:57 AM CDT) Pathologist [facility] HBs Antigen Scrn, S Negative Negative 06/02/2025 12:28 PM CDT [facility] Blood (Blood, Venous) 06/02/2025 7:57 AM CDT 06/02/2025 10:32 AM CDT Bijal Dubose M.D. LAB MICROBIOLOGY - BLOOD ORDERABLES Final Result [facility] [address] [place] [address] [facility] [address] [place] [address] * (ABNORMAL) Comprehensive Metabolic Panel (06/02/2025 7:57 AM CDT) [facility] Potassium, S 4.1 3.6 - 5.2 mmol/L [...] M.D. LAB BLOOD ADD-ON Final Re sult [facility] [address] [place] [address], [facility] DTL [facility] [address] [place] [address] * (ABNORMAL) CBC with Differential, Blood (06/02/2025 [...] 7:57 AM CDT 06/02/2025 8:28 AM CDT Bijal Dubose M.D. LAB BLOOD ADD-ON Final Re sult Performing Organization Address City/[facility]/ZIP Co de Phone Number [facility] [address] [place] [address], [facility] DTL [facility] [address] [place] [address] DHPM [facility] [address] [place] [address] * Type and Screen (with Reflex Antibody ID) (06/02/2025 7:57 AM CDT) Pathologist [facility] ABORh A Pos Not applicable 06/02/2025 9:13 AM CDT [facility] Antibody Screen Negative Negative 06/02/2025 9:24 AM CDT [facility] Type & Screen Expiration 06/05/2025 23:59 06/02/2025 9:13 AM CDT ETRM Testing Location [place] DEFAULT 06/02/2025 8:31 AM CDT [facility] Blood (Blood, Venous) 06/02/2025 7:57 AM CDT 06/02/2025 8:31 AM CDT Bijal Dubose M.D. LAB BLOOD BANK TEST ORDER JANE Final Result Performing Organization Address [facility]/ZIP Co de Phone Number [facility] [address] [place] [address], [facility] ETRM [facility] [address] [place] [address] documented in this encounter Visit Diagnoses Diagnosis Multiple Myeloma Not Having Achieved Remission (HCC) documented in this encounter Additional Health Concerns Infection Onset Date Last Indicated Resolved Time Protective Environment 05/20/2025 05/20/2025 documented as of this encounter
--- OUTSIDE RECORDS SUMMARY | 2025-06-02 09:00 | XMS_ITS | Encounter Summary ---
Author Organization [facility] Address [address] [place] [address] Care Team Providers Care Hot Box Operator Name Role Phone Unavailable Primary Care Provider Unavailabl e Reason for Visit * Outpatient (Routine) - Closed Specialty Diagnoses / Procedures Referred By Analy t Referred To Contact Hematology Oncology Bijal Dubose M.D. [address] [place] [phone] Phone: tel: fax: [facility] Referral ID Status Reason Start Date Expiration Date Visits Re quested Visits Authorized [id number] Closed 05/19/2025 11/18/2026 1 1 Encounter Details Date Type Department Care Team (Late st Contact Info) Description 06/02/2025 9:00 AM CDT Office Visit Division of Hematology in [place], [place] [address] [place] [phone] Bijal Dubose M.D. [address] [place] [address] [phone] Jose Lacey M.D. [address] [place] [address] [phone] Multiple Myeloma Not Having Achieved Remission (HCC) [...] things needed for daily living? No 05/05/2025 [facility] Utilities Answer Date Recorded In the past 12 months has [employer], gas, oil, or water company threatened to shut off services in your home? No 05/05/2025 Housing Stability Answer Date Recorded What is your living situation today? 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 Gender Identity Male 05/05/2025 10:47 AM CDT Sexual Orientation Straight 05/05/2025 10 :47 AM CDT documented as of this encounter Last Filed Vital Signs Vital Sign Reading Time Taken Comments Blood Pressure 135/75 06/02/2025 8:43 AM CDT Pulse 55 06/02/2025 8:43 AM CDT Temperature 35.9 C (96.7 F) 06/02/2025 8:43 AM CDT Respiratory Rate - - Oxygen Saturation - - Inhaled Oxygen Concentration - - Weight 92.8 kg (204 lb 9.4 oz) 06/02/2025 8:43 A M CDT Height 180.8 cm (5' 11.18) 06/02/2025 8:43 AM C DT Body Mass Index 28.39 06/02/2025 8:43 AM CDT documented in this encounter Progress Notes * Charley Chakraborty M.D. - 06/02/2025 9:00 AM CDT SUBJECTIVE Primary car icer: Dr Bijal Dubose CHIEF COMPLAINT / REASON FOR VISIT William [...] So he was referred to Hematology at [facility] for suspected multiple myeloma. History began in [...] 13.5 Calcium: 9.4 Creatinine: 1.09 LDH: 136 Kvju-8-becvlhdqkicns: 3.51 C-reactive protein: <3 Albumin: 3.7 Serum [...] avid normal-sized left internal mammary lymph nodes. Beta2 3.51 mcg/mL RISS: stage II The following portions of the patient's history were reviewed and updated as appropriate: allergies, current medications, family history, medical history, social history, surgical history, and problem list. REVIEW OF SYSTEMS REVIEW OF SYSTEMS INTERVAL EVENTS: 06/02/25 since he has been limiting use of R arm, his pain is better controlled. R hip pain also well controlled. He presents with his medications today oral ones and antibiotics but hasn't started yet. Will starttoday OBJECTIVE BP 135/75 (BP Location: Right arm, Patient Position: Sitting, Cuff Size: Regular) Pulse (!) 55 Temp (!) 35.9 ??C Ht 180.8 cm Wt 92.8 kg BMI 28.39 kg/m?? PHYSICAL EXAM Physical Exam Performance Status: 1 - Restricted in physically strenuous activity but ambulatory and able to carry out work of a light or sedentary nature, e.g., light house work General Appearance: Alert, cooperative, no distress, appears stated age Head: Normocephalic, without obvious abnormality, atraumatic Eyes: PERRL, conjunctiva/corneas clear bilaterally Ears: Normal external ear canals bilaterally Nose: Nares normal, septum midline, mucosa normal, no drainage or sinus tenderness Throat: Lips, mucosa, and tongue normal Neck: Supple, symmetrical, trachea midline, no adenopathy; thyroid: no enlargement/tenderness/nodules Back: Symmetric, no curvature, ROM normal, no CVA tenderness Lungs: Clear to auscultation bilaterally, respirations unlabored Chest Wall: No tenderness or deformity Heart: Regular rate and rhythm, S1 and S2 normal, no murmur, rub or gallop Abdomen: Soft, non-tender, bowel sounds active all four quadrants, no masses, no organomegaly Extremities: Extremities normal, atraumatic, no cyanosis or edema Skin: Skin color, texture, turgor normal, no rashes or lesions Lymph Nodes: Cervical, supraclavicular, and axillary nodes normal Neurologic: CNII-XII intact, normal strength, sensation and reflexes throughout ASSESSMENT / PLAN # Newly diagnosed multiple myeloma-standard risk cytogenetics-IgGkappa #RISS: stage II # Transplant eligible Today is his pre-chemotherapy initiation visit. Melissa 06/02 C1D1 Proceed with treatment #Infection prophylaxis Will forego Levaquin given mild aortic aneurysm and interaction and patient's concerns, acyclovir 400 mg bid for as long as on Velcade, and starting at cycle 2 or 3 Bactrim SS daily for PJP prophylaxis #Bone prophylaxis Zometa can be started, but William Hampton should have a dental evaluation prior to starting bisphosphonate (Zometa). He will see his dental locally. Daily calcium 1500 mg and vitamin D 1000 IU should also be considered and an acid olivia like omeprazole or famotidine is helpful for acid protection while on Dexamethasone. #DVT prophylaxis aspirin 325 mg daily for DVT prophylaxis, # Right clavicle [id number]-[id number] Will start radiation (MondayJune 09) with Radiation Oncology for the right clavicle lesion whichis causing significant discomfort, #Right hip pain #Recent R total hip replacement (December 2024) Ortho e-consultation completed 05/20 given the right hip pain in the setting of recent hip replacement surgery. Dr Liang reviewed the CT skeletal, PETCT; increased FDG avidity around his total hip arthroplasty. this degree of FDG avidity and pattern seems to be fully consistent with a recent surgery and does not necessarily indicate anything more than that. #Left femoral neck lytic lesion very low FDG avidity on the PET compared to the other lesions. If he is having significant pain in the left hip, it would be important for him to be referred for consideration of prophylactic stabilization. If, however, he is not having significant pain in this area, then careful observation on hispart for any signs of pain and treatment of the underlying disease would be appropriate. Return to clinic in 4 weeks for C2D1 Seen and discussed with dr Lacey Electronically signed by: Charley Amezcua M.D. 06/01/25 6:32 PM CDT Cosigned by Jose Lacey M.D. at 06/02/2025 9:56 AM CDT Associated attestation - Jose Lacey M.D. - 06/02/2025 9:56 AM CDT I saw and evaluated the patient, participating in the [place]berry portions of the service. I reviewed the resident/fellow???s note. I agree with the resident/fellow???s findings and plan. Briefly, he has standard risk multiple myeloma for which he will be starting on treatment with the quadruplet regimen he will daratumumab, lenalidomide, bortezomib and dexamethasone. He will start his injections today. He already has a lenalidomide in hand. I told him to delay the start of Bactrim prophylaxis by a couple weeks to ensure that any rash that may develop he has clearly attributed to the causative drug. We will not be using levofloxacin. He will be on a full-dose aspirin. We will start the Zometa once his dental workup was complete. He will be starting his radiation therapy next week. Plan is to give focus radiation to the clavicle from a symptomatic perspective. From an orthoped ic perspective no intervention is currently needed. We went over all the questions that he is willing to proceed with the treatment as we had discussed. documented in this encounter Plan of Treatment Upcoming Encounters Date Type Department Care Team (Late st Contact Info) Description 06/09/2025 8:20 AM CDT Appointment Department of Laboratory Medicine and Pathology, [facility], in [place], [place] [address] [place] [phone] Bijal Dubose M.D. [address] [place] [phone] 06/09/2025 9:30 AM CDT Infusion Department of Oncology in [place], [place] [address] [place] [phone] Bijal Dubose M.D. [address] [place] [phone] 06/09/2025 2:00 PM CDT Appointment Department of Radiation Oncology in [place], [place] [address] [place] [phone] Chemo Goss M.D., Ph.D. [address] [place] [address] [phone] 06/10/2025 3:30 PM CDT Appointment Department of Radiation Oncology in [place], [place] [address] [place] [phone] Chemo Goss M.D., Ph.D. [address] [place] [phone] 06/11/2025 11:30 AM CDT Appointment Department of Radiation Oncology in [place], [place] [address] [place] [phone] Chemo Goss M.D., Ph.D. [address] [place] [phone] 06/11/2025 2:45 PM CDT Appointment Department of Radiation Oncology in [place], [place] [address] [place] [phone] Chemo Goss M.D., Ph.D. [address] [place] [phone] Zhane Parikh R.N. 06/11/2025 3:30 PM CDT Appointment Department of Radiation Oncology in [place], [place] [address] [place] [phone] Chemo Goss M.D., Ph.D. [address] [place] [phone] 06/12/2025 11:30 AM CDT Appointment Department of Radiation Oncology in [place], [place] [address] [place] [phone] Chemo Goss M.D., Ph.D. [address] [place] [phone] 06/13/2025 9:30 AM CDT Appointment Department of Radiation Oncology in [place], [place] [address] [place] [phone] Chemo Goss M.D., Ph.D. [address] [place] [phone] 06/16/2025 9:10 AM CDT Appointment Department of Laboratory Medicine and Pathology, [facility] in [place], [place] [address] [place] [phone] Bijal Dubose M.D. [address] [place] [phone] 06/16/2025 10:30 AM CDT Infusion Department of Oncology in [place], [place] [address] [place] [phone] Bijal Dubose M.D. [address] [place] [phone] 06/16/2025 11:00 AM CDT Appointment Department of Radiation Oncology in [place], [place] [address] [place] [phone] Chemo Goss M.D., Ph.D. [address] [place] [phone] 06/17/2025 9:45 AM CDT Appointment Department of Radiation Oncology in [place], [place] [address] [place] [phone] Chemo Goss M.D., Ph.D. [address] [place] [phone] 06/18/2025 9:45 AM CDT Appointment Department of Radiation Oncology in [place], [place] [address] [place] [phone] Chemo Goss M.D., Ph.D. [address] [place] [phone] 06/18/2025 10:30 AM CDT Appointment Department of Radiation Oncology in [place], [place] [address] [place] [phone] Chemo Goss M.D., Ph.D. [address] [place] [phone] 06/19/2025 10:45 AM CDT Appointment Department of Radiation Oncology in [place], [place] [address] [place] [phone] Chemo Goss M.D., Ph.D. [address] [place] [phone] 06/20/2025 10:45 AM CDT Appointment Department of Radiation Oncology in [place], [place] [address] [place] [phone] Chemo Goss M.D., Ph.D. [address] [place] [phone] 06/23/2025 7:50 AM CDT Appointment Department of Laboratory Medicine and Pathology, [facility] in [place], [place] [address] [place] [phone] Bijal Dubose M.D. [address] [place] [phone] 06/23/2025 9:30 AM CDT Infusion Department of Oncology in [place], [place] [address] [place] [phone] Bijal Dubose M.D. [address] [place] [phone] 06/30/2025 7:30 AM CDT Appointment Department of Laboratory Medicine and Pathology, [facility] in [place], [place] [address] [place] [phone] Bijal Dubose M.D. [address] [place] [phone] 06/30/2025 9:30 AM CDT Office Visit Division of Hematology in [place], [place] [address] [place] [phone] Bijal Dubose M.D. [address] [place] [phone] 06/30/2025 10:30 AM CDT Infusion Department of Oncology in [place], [place] [address] [place] [phone] Bijal Dubose M.D. [address] [place] [phone] 07/07/2025 11:30 AM DIGITAL DESIGNER Infusion Department of Oncology in [place], [place] [address] [place] [phone] Bijal Dubose M.D. [address] [place] [phone] 07/14/2025 11:00 AM DIGITAL DESIGNER Infusion Department of Oncology in [place], [place] [address] [place] [phone] Bijal Dubose M.D. [address] [place] [phone] 07/21/2025 10:30 AM DIGITAL DESIGNER Infusion Department of Oncology in [place], [place] [address] [place] [phone] Bijal Dubose M.D. [address] [place] [phone] documented as of this encounter Visit Diagnoses Diagnosis Multiple Myeloma Not Having Achieved Remission (HCC)- Primary documented in this encounter Additional Health Concerns Infection Onset Date Last Indicated Resolved Time Protective Environment 05/20/2025 05/20/2025 documented as of this encounter
--- OUTSIDE RECORDS SUMMARY | 2025-06-02 09:30 | XMS_ITS | Encounter Summary ---
Author Organization [facility] Address [address] [place] [address] Care Team Providers Care Flight Radio Officer Name Role Phone Unavailable Primary Care Provider Unavailabl e Reason for Referral * Outpatient (Routine) - Authorized Specialty Diagnoses / Procedures Referred By Analy messer Referred To Contact Hematology Oncology Bijal Dubose M.D. [address] [place] [address] Phone: tel: fax: [facility] Referral ID Status Reason Start Date Expiration Date V isits Requested Visits Authorized [id number] Authorized 06/02/2025 12/02/2026 1 1 Reason for Visit * Episode Based Medications (Routine) - Authorized Specialty Diagnoses / Procedures Referred By Analy messer Referred To Contact Diagnoses Multiple Myeloma Not Having Achieved Remission (HCC) Bijal Dubose M.D. 200 [place] [address] Phone: tel: fax: Division of Hematology in [place], [place] [address] [place] [address] Phone: tel: Referral ID Status Reason Start Date Expiration Date V isits Requested Visits Authorized [id number] Authorized 05/19/2025 05/19/2027 99 99 Encounter Details Date Type Department Care Team (Late st Contact Info) Description 06/02/2025 9:30 AM CDT Education Division of Hematology in [place], [place] [address] [place] [phone] Bijal Dubose M.D. [address] [place] [address] Halima Tellez R.N. Social History Tobacco Use Types Packs/Day Years [...] things needed for daily living? No 05/05/2025 [facility] Utilities Answer Date Recorded In the past 12 months has [employer] electric, gas, oil, or water company threatened to shut off services in your home? No 05/05/2025 Housing Stability Answer Date Recorded What is your living situation today? 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 - 06/02/2025 9:30 AM CDT Met with Mr and Mrs Hampton to review new treatment education. RN was given only 10 minutes for education between provider visit and chemo appt. Chemotherapy Education Visit. Diagnosis: Multiple Myeloma C90.00 Therapy plan: Treatment medications: Daratumumab Bortezomib Lenalidomide dexamethasone Start date: 06/02/25 LEARNING NEEDS ASSESSMENT: Done with and Mrs Hampton. Ready to learn, no apparent learning barriers were identified; learning preferences include listening. Explained diagnosis and treatment plan; patient/child/caregiver expressed understanding of the content. INSTRUCTED ON THE FOLLOWING EDUCATION TOPIC(s): Treatment schedule, potential side effects the patient may experience, but is not limited to the following: fatigue, weakness, anorexia, nausea, vomiting, diarrhea, constipation, neutropenia, increased risk for infection, increased risk for bleeding. The patient expressed understanding of the content. EDUCATION MATERIAL(s) PROVIDED: Micromedex and supplemental drug sheets specific to treatment plan,Your Blood Counts During Cancer Treatment ([facility] Patient Education [place]) [id number], Hematology Contact Information ([facility]) [id number], Multiple Myeloma ([facility] Patient Education [place]) [id number], Hematology Evaluation and Treatment Workbook [id number] and Mrs Hampton verbalized understanding and had no further questions at this time. Patient and were encouraged to call with any questions regarding medications, symptoms or other. Daratumumab and Hyaluronidase (Darzalex Faspro)- Monoclonal Antibody (targets CD38 cells which helps to kill myeloma cells as CD38 is widely found on myeloma cells) Side Effects - Hypersensitivity reaction (preventative measures - pre- medications acetaminophen, dexamethasone, diphenhydramine; Lower risk than IV formulation), fatigue, increased risk for herpes zoster reactivation, injection site reactions and skin irritation Reviewed symptoms of an infusion reaction including shortness of breath, fever, chills, hypotension, flushing, and itching The patient will be taking acyclovir and for at least 3 months after you finish daratumumab to prevent herpes zoster reactivation Administration - Subcutaneous injection given over 3-5 minutes into the abdomen. Lenalidomide (Revlimid)- Immunomodulator (enhances activity of immune cells and helps immune systemrecognize and destroy myeloma cells) Side Effects Myelosuppression (fatigue, infection risk, bleeding risk), venous thromboembolism, diarrhea, and rash. Reviewed the sign/symptoms of a blood clot such as unilateral swelling/redness of extremity, suddenshortness of breath, problems with speech and weakness on one side of the body. The patient will be taking aspirin as VTE prophylaxis. Administration/Handling Take at bedtime with or without food; do not open or chew capsules. Patient was provided with information regarding safe handling: okay to handle whole capsule and wash hands after handling; caregivers and women of childbearing potential should avoid handling. Access Can only be filled at specific specialty pharmacies that will be determined by the patients insurance. The specialty pharmacy will deliver the medication directly to their home. REMS Patient will be enrolled in the [employer] REMS program and will receive a survey phone calls required to receive the medication. Do not donate blood or other body fluids while on therapy and store capsules in a secure location. Patient is aware of the potential for defects and prevention of while required on therapy. Bortezomib (Velcade)- Proteasome Inhibitor (Proteasome's are inhibited which helps to stop Myeloma cells from continuing to divide) Side Effects - diarrhea or constipation, peripheral neuropathy, thrombocytopenia, increased risk for herpes zoster reactivation, and cardiomyopathy (extremely rare). Immediately notify your healthcare team if you notice any changes in your hands or feet The patient will be taking acyclovir every day and for at least 3 months after you finish bortezomib to prevent herpes zoster reactivation. Administration - Administered as a subcutaneous injection under the skin Drug interactions - Vitamin C and green tea may decrease the efficacy of bortezomib; do not take vitamin C, multivitamins, or consume food containing vitamin C or green tea on day of treatment Dexamethasone (Decadron)- Steroid (boosts ability of other agents to destroy myeloma cells) Side Effects - hyperglycemia, hypertension, mood changes, insomnia, stomach upset Patients with diabetes should monitor their blood sugars more frequently the day of and day after taking steroids. Take with food to reduce risk of stomach upset documented in this encounter Plan of Treatment Upcoming Encounters Date Type Department Care Team (Late st Contact Info) Description 06/09/2025 8:20 AM CDT Appointment Department of Laboratory Medicine and Pathology, [facility], in [place], [place] 200 [place] [address] Bijal Dubose M.D. 200 [place] [address] 06/09/2025 9:30 AM CDT Infusion Department of Oncology in [place], [place] [address] [place] [phone] Bijal Dubose M.D. [address] [place] [phone] 06/09/2025 2:00 PM CDT Appointment Department of Radiation Oncology in [place], [place] [address] [place] [phone] Chemo Goss M.D., Ph.D. [address] [place] [phone] 06/10/2025 3:30 PM CDT Appointment Department of Radiation Oncology in [place], [place] [address] [place] [phone] Chemo Goss M.D., Ph.D. [address] [place] [phone] 06/11/2025 11:30 AM CDT Appointment Department of Radiation Oncology in [place], [place] [address] [place] [phone] Chemo Goss M.D., Ph.D. [address] [place] [phone] 06/11/2025 2:45 PM CDT Appointment Department of Radiation Oncology in [place], [place] [address] [place] [phone] Chemo Goss M.D., Ph.D. [address] [place] [phone] Zhane Parikh R.N. 06/11/2025 3:30 PM CDT Appointment Department of Radiation Oncology in [place], [place] [address] [place] [phone] Chemo Goss M.D., Ph.D. [address] [place] [phone] 06/12/2025 11:30 AM CDT Appointment Department of Radiation Oncology in [place], [place] [address] [place] [phone] Chemo Goss M.D., Ph.D. [address] [place] [phone] 06/13/2025 9:30 AM CDT Appointment Department of Radiation Oncology in [place], [place] [address] [place] [phone] Chemo Goss M.D., Ph.D. [address] [place] [phone] 06/16/2025 9:10 AM CDT Appointment Department of Laboratory Medicine and Pathology, [facility] in [place], [place] [address] [place] [phone] Bijal Dubose M.D. [address] [place] [phone] 06/16/2025 10:30 AM CDT Infusion Department of Oncology in [place], [place] [address] [place] [phone] Bijal Dubose M.D. [address] [place] [phone] 06/16/2025 11:00 AM CDT Appointment Department of Radiation Oncology in [place], [place] [address] [place] [phone] Chemo Goss M.D., Ph.D. [address] [place] [phone] 06/17/2025 9:45 AM CDT Appointment Department of Radiation Oncology in [place], [place] [address] [place] [address] [place] [address] Chemo Goss M.D., Ph.D. [address] [place] [phone] 06/18/2025 9:45 AM CDT Appointment Department of Radiation Oncology in [place], [place] [address] [place] [address] Chemo Goss M.D., Ph.D. [address] [place] [phone] 06/18/2025 10:30 AM CDT Appointment Department of Radiation Oncology in [place], [place] [address] [place] [address] Chemo Goss M.D., Ph.D. [address] [place] [phone] 06/19/2025 10:45 AM CDT Appointment Department of Radiation Oncology in [place], [place] [address] [place] [address] Chemo Goss M.D., Ph.D. [address] [place] [phone] 06/20/2025 10:45 AM CDT Appointment Department of Radiation Oncology in [place], [place] [address] [place] [phone] Chemo Goss M.D., Ph.D. [address] [place] [phone] 06/23/2025 7:50 AM CDT Appointment Department of Laboratory Medicine and Pathology, [facility], in [place], [place] [address] [place] [address] Bijal Dubose M.D. [address] [place] [phone] 06/23/2025 9:30 AM CDT Infusion Department of Oncology in [place], [place] [address] [place] [phone] Bijal Dubose M.D. [address] [place] [phone] 06/30/2025 7:30 AM CDT Appointment Department of Laboratory Medicine and Pathology, [facility] in [place], [place] [address] [place] [phone] Bijal Dubose M.D. [address] [place] [phone] 06/30/2025 9:30 AM CDT Office Visit Division of Hematology in [place], [place] [address] [place] [phone] Bijal Dubose M.D. [address] [place] [phone] 06/30/2025 10:30 AM CDT Infusion Department of Oncology in [place], [place] [address] [place] [phone] Bijal Dubose M.D. [address] [place] [phone] 07/07/2025 11:30 AM DESIGN TECH Infusion Department of Oncology in [place], [place] [address] [place] [phone] Bijal Dubose M.D. [address] [place] [phone] 07/14/2025 11:00 AM DESIGN TECH Infusion Department of Oncology in [place], [place] [address] [place] [phone] Bijal Dubose M.D. [address] [place] [phone] 07/21/2025 10:30 AM DESIGN TECH Infusion Department of Oncology in [place], [place] [address] [place] [address] Bijal Dubose M.D. [address] [place] [address] Scheduled Referrals Name Type Priority Associated Diagnoses Order Schedule Hematology nurse visit (clinic) Outpatient Referral Routine Expected: 06/16/2025, Expires: 09/01/2026 documented as of this encounter Visit Diagnoses Not on filedocumented in this encounter Additional Health Concerns Infection Onset Date Last Indicated Resolved Time Protective Environment 05/20/2025 05/20/2025 documented as of this encounter
--- OUTSIDE RECORDS SUMMARY | 2025-06-02 10:00 | XMS_ITS | Encounter Summary ---
Author Organization [facility] Address [address] [place] [address] Care Team Providers Care Human Service Coordinator Name Role Phone Unavailable Primary Care Provider Unavailabl e Reason for Visit * Episode Based Medications (Routine) - Authorized Specialty Diagnoses / Procedures Referred By Contac t Referred To Contact Diagnoses Multiple Myeloma Not Having Achieved Remission (HCC) Bijal Dubose M.D. [address] [place] [phone] Phone: tel: fax: Division of Hematology in [place], [place] [address] [place] [phone] Phone: tel: Referral ID Status Reason Start Date Expiration Date V isits Requested Visits Authorized [id number] Authorized 05/19/2025 05/19/2027 99 99 Encounter Details Date Type Department Care Team (Late st Contact Info) Description 06/02/2025 10:00 AM CDT Infusion Department of Oncology in [place], [place] [address] [place] [phone] Bijal Dubose M.D. [address] [place] [phone] Multiple Myeloma Not Having Achieved Remission (HCC) [...] things needed for daily living? No 05/05/2025 [facility] Utilities Answer Date Recorded In the past 12 months has [employer] electric, gas, oil, or water company threatened to shut off services in your home? No 05/05/2025 Housing Stability Answer Date Recorded What is your living situation today? I have a [facility] place to live 05/05/2025 Sex and Gender Information Value Date Recorded Sex Assigned at Male 05/05/2025 10:47 AM CDT Legal Sex Male 11:35 PM SOUND EFFECTS SUPERVISOR Gender Identity Male 05/05/2025 10:47 AM CDT Sexual Orientation Straight 05/05/2025 10 :47 AM CDT documented as of this encounter Last Filed Vital Signs Vital Sign Reading Time Taken Comments Blood Pressure 142/76 06/02/2025 1:00 PM CDT Pulse 58 06/02/2025 1:00 PM CDT Temperature - - Respiratory Rate 16 06/02/2025 1:00 PM CDT Oxygen Saturation - - Inhaled Oxygen Concentration - - Weight - - Height - - Body Mass Index - - documented in this encounter Plan of Treatment Upcoming Encounters Date Type Department Care Team (Late st Contact Info) Description 06/09/2025 8:20 AM CDT Appointment Department of Laboratory Medicine and Pathology, [facility], in [place], [place] [address] [place] [phone] Bijal Dubose M.D. [address] [place] [phone] 06/09/2025 9:30 AM CDT Infusion Department of Oncology in [place], [place] [address] [place] [phone] Bijal Dubose M.D. [address] [place] [phone] 06/09/2025 2:00 PM CDT Appointment Department of Radiation Oncology in [place], [place] [address] [place] [phone] Chemo Goss M.D., Ph.D. [address] [place] [phone] 06/10/2025 3:30 PM CDT Appointment Department of Radiation Oncology in [place], [place] [address] [place] [phone] Chemo Goss M.D., Ph.D. [address] [place] [phone] 06/11/2025 11:30 AM CDT Appointment Department of Radiation Oncology in [place], [place] [address] [place] [phone] Chemo Goss M.D., Ph.D. [address] [place] [phone] 06/11/2025 2:45 PM CDT Appointment Department of Radiation Oncology in [address] [phone] Chemo Goss M.D., Ph.D. [address] [place] [phone] Zhane Parikh R.N. 06/11/2025 3:30 PM CDT Appointment Department of Radiation Oncology in [address] [address] Chemo Goss M.D., Ph.D. [address] [place] [phone] 06/12/2025 11:30 AM CDT Appointment Department of Radiation Oncology in [place], [place] [address] [place] [address] Chemo Goss M.D., Ph.D. [address] [place] [phone] 06/13/2025 9:30 AM CDT Appointment Department of Radiation Oncology in [place], [place] [address] [place] [phone] Chemo Goss M.D., Ph.D. [address] [place] [phone] 06/16/2025 9:10 AM CDT Appointment Department of Laboratory Medicine and Pathology, [facility] in [place], [place] [address] [place] [address] Bijal Dubose M.D. [address] [place] [phone] 06/16/2025 10:30 AM CDT Infusion Department of Oncology in [place], [place] [address] [place] [address] Bijal Dubose M.D. [address] [place] [phone] 06/16/2025 11:00 AM CDT Appointment Department of Radiation Oncology in [place], [place] [address] [place] [phone] Chemo Goss M.D., Ph.D. [address] [place] [phone] 06/17/2025 9:45 AM CDT Appointment Department of Radiation Oncology in [place], [place] [address] [place] [address] Chemo Goss M.D., Ph.D. [address] [place] [phone] 06/18/2025 9:45 AM CDT Appointment Department of Radiation Oncology in [place], [place] [address] [place] [phone] Chemo Goss M.D., Ph.D. [address] [place] [phone] 06/18/2025 10:30 AM CDT Appointment Department of Radiation Oncology in [place], [place] [address] [place] [phone] Chemo Goss M.D., Ph.D. [address] [place] [phone] 06/19/2025 10:45 AM CDT Appointment Department of Radiation Oncology in [place], [place] [address] [place] [phone] Chemo Goss M.D., Ph.D. [address] [place] [phone] 06/20/2025 10:45 AM CDT Appointment Department of Radiation Oncology in [place], [place] [address] [place] [phone] Chemo Goss M.D., Ph.D. [address] [place] [phone] 06/23/2025 7:50 AM CDT Appointment Department of Laboratory Medicine and Pathology, [facility], in [place], [place] [address] [place] [phone] Bijal Dubose M.D. [address] [place] [phone] 06/23/2025 9:30 AM CDT Infusion Department of Oncology in [place], [place] [address] [place] [phone] Bijal Dubose M.D. [address] [place] [phone] 06/30/2025 7:30 AM CDT Appointment Department of Laboratory Medicine and Pathology, [facility] in [place], [place] [address] [place] [phone] Bijal Dubose M.D. [address] [place] [phone] 06/30/2025 9:30 AM CDT Office Visit Division of Hematology in [place], [place] [address] [place] [phone] Bijal Dubose M.D. [address] [place] [phone] 06/30/2025 10:30 AM CDT Infusion Department of Oncology in [place], [place] [address] [place] [phone] Bijal Dubose M.D. [address] [place] [phone] 07/07/2025 11:30 AM SOUND EFFECTS SUPERVISOR Infusion Department of Oncology in [place], [place] [address] [place] [phone] Bijal Dubose M.D. [address] [place] [phone] 07/14/2025 11:00 AM SOUND EFFECTS SUPERVISOR Infusion Department of Oncology in [place], [place] [address] [place] [phone] Bijal Dubose M.D. [address] [place] [phone] 07/21/2025 10:30 AM SOUND EFFECTS SUPERVISOR Infusion Department of Oncology in [place], [place] [address] [place] [address] Bijal Dubose M.D. [address] [place] [phone] documented as of this encounter Visit Diagnoses Diagnosis Multiple Myeloma Not Having Achieved Remission (HCC)- Primary documented in this encounter Administered Medications Inactive Administered Medications - up to 3 most recent administrations Medication Order MAR Action Action Date Dose Rate Site acetaminophen tablet 650 mg (TylenoL) 650 mg, oral, Once, On Mon06/02/25 at 1100, For 1 dose, Administer 30 minutes prior to monoclonal antibody.Indications:Mult iple Myeloma Not Having Achieved Remission (HCC) Given 06/02/2025 10:40 AM CDT 650 mg bortezomib injection 3 mg (Velcade) 3 mg (rounded from 2.821 mg = 1.3 mg/m2 2.17 m2 Treatment Plan BSA from Measured weight), subcutaneous, Once, On Mon06/02/25 at 1100, For 1 dose, Rotate injection site.Indications:Multiple Myeloma Not Having Achieved Remission (HCC) Given 06/02/2025 11:40 AM CDT 3 mg Left Lower Abdomen daratumumab-hyaluronidase -fihj injection 1,800 mg (Darzalex Faspro) 1,800 mg, subcutaneous, Administer over 5 Minutes, Once, On Mon06/02/25 at 1130, For 1 doseIndications:Multiple Myeloma Not Having Achieved Remission (HCC) Given 06/02/2025 11:41 AM CDT 1,800 mg Right Lower Abdomen dexAMETHasone tablet 40 mg (Decadron) 40 mg (set by rule on 05/19/2025 9:24 PM), oral, Once as needed, Administer if patient did not take dexAMETHasone orally as prescribed, Starting on Mon06/02/25 at 1033, For 1 dose, Give prior to daratumumab.Indications:M ultiple Myeloma Not Having Achieved Remission (HCC) Given 06/02/2025 10:42 AM CDT 40 mg diphenhydrAMINE capsule 50 mg (BenadryL) 50 mg, oral, Once, On Mon06/02/25 at 1100, For 1 dose, Administer 30 minutes prior to monoclonal antibodyIndications:Multi ple Myeloma Not Having Achieved Remission (HCC) Given 06/02/2025 10:40 AM CDT 50 mg montelukast tablet 10 mg (Singulair) 10 mg, oral, Once, On 06/02/25 at 1100, For 1 dose, Administer 30 minutes prior to monoclonal antibody.Indications:Mult iple Myeloma Not Having Achieved Remission (HCC) Given 06/02/2025 10:42 AM CDT 10 mg documented in this encounter Additional Health Concerns Infection Onset Date Last Indicated Resolved Time Protective Environment 05/20/2025 05/20/2025 documented as of this encounter
--- OUTSIDE RECORDS SUMMARY | 2025-06-06 08:10 | XMS_ITS | Encounter Summary ---
Author Organization [facility] Address [address] [place] [address] Care Team Providers Care Security Rover Name Role Phone Unavailable Primary Care Provider Unavailabl e Reason for Referral * Specialty Diagnoses / Procedures Referred By Contvidya t Referred To Contact Diagnoses Multiple Myeloma Not Having Achieved Remission (HCC) Ronit Spangler, STEPHAN, C.N.P., D.N.P. 200 [place] [address] Phone: tel: fax: [facility] Referral ID Status Reason Start Date Expiration Date Visits Re quested Visits Authorized * Radiation Therapy (Routine) - Authorized Specialty Diagnoses / Procedures Referred By Contvidya t Referred To Contact Diagnoses Multiple Myeloma Not Having Achieved Remission (HCC) Procedures Management Visit Chemo Goss M.D., Ph.D. 200 [place] [address] Phone: tel: fax: [facility] Referral ID Status Reason Start Date Expiration Date V isits Requested Visits Authorized [id number] Authorized 05/29/2025 08/29/2026 2 2 * Radiation Therapy (Routine) - Closed Specialty Diagnoses / Procedures Referred By Contac t Referred To Contact Diagnoses Multiple Myeloma Not Having Achieved Remission (HCC) Procedures Initial Rad Onc Treatment Planning CT Simulation Chemo Goss M.D., Ph.D. [address] [place] [phone] Phone: tel: fax: [facility] Referral ID Status Reason Start Date Expiration Date Visits Re quested Visits Authorized [id number] Closed 05/29/2025 08/29/2026 1 1 * Radiation Therapy (Routine) - Authorized Specialty Diagnoses / Procedures Referred By Contac t Referred To Contact Diagnoses Multiple Myeloma Not Having Achieved Remission (HCC) Procedures Prior Auth Rad Tx Chemo Goss M.D., Ph.D. [address] [place] [phone] Phone: tel: fax: [facility] Referral ID Status Reason Start Date Expiration Date V isits Requested Visits Authorized [id number] Authorized 05/29/2025 08/29/2026 1 1 Encounter Details Date Type Department Care Team (Late st Contact Info) Description 05/29/2025 Orders Only Department of Radiation Oncology in [place], [place] [address] [place] [phone] Ronit Spangler APRN, C.N.P., D.N.P. [address] [place] [phone] Multiple Myeloma Not Having Achieved Remission (HCC) [...] things needed for daily living? No 05/05/2025 [facility] Utilities Answer Date Recorded In the past 12 months has [employer] electric, gas, oil, or water [employer] threatened to shut off services in your home? No 05/05/2025 Housing Stability Answer Date Recorded What is your living situation today? [facility] a [facility] live 05/05/2025 Sex and Gender Information Value Date Recorded Sex Assigned at Male 05/05/2025 10:47 AM CDT Legal Sex Male 11:35 PM METHODS ANALYST DATA PROCESSING Gender Identity Male 05/05/2025 10:47 AM CDT Sexual Orientation Straight 05/05/2025 10 :47 AM CDT documented as of this encounter Plan of Treatment Upcoming Encounters Date Type Department Care Team (Late st Contact Info) Description 06/09/2025 8:20 AM CDT Appointment Department of Laboratory Medicine and Pathology, [facility], in [place], [place] [address] [place] [phone] Bijal Dubose M.D. [address] [place] [phone] 06/09/2025 9:30 AM CDT Infusion Department of Oncology in [place], [place] [address] [place] [phone] Bijal Dubose M.D. [address] [place] [phone] 06/09/2025 2:00 PM CDT Appointment Department of Radiation Oncology in [place], [place] [address] [place] [phone] Chemo Goss M.D., Ph.D. [address] [place] [phone] 06/10/2025 3:30 PM CDT Appointment Department of Radiation Oncology in [place], [place] [address] [place] [phone] Chemo Goss M.D., Ph.D. [address] [place] [phone] 06/11/2025 11:30 AM CDT Appointment Department of Radiation Oncology in [place], [place] [address] [place] [phone] Chemo Goss M.D., Ph.D. [address] [place] [phone] 06/11/2025 2:45 PM CDT Appointment Department of Radiation Oncology in [place], [place] [address] [place] [phone] Cehmo Goss M.D., Ph.D. [address] [place] [phone] Zhane Parikh R.N. 06/11/2025 3:30 PM CDT Appointment Department of Radiation Oncology in [place], [place] [address] [place] [phone] Chemo Goss M.D., Ph.D. [address] [place] [phone] 06/12/2025 11:30 AM CDT Appointment Department of Radiation Oncology in [place], [place] [address] [place] [phone] Chemo Goss M.D., Ph.D. [address] [place] [phone] 06/13/2025 9:30 AM CDT Appointment Department of Radiation Oncology in [place], [place] [address] [place] [phone] Chemo Goss M.D., Ph.D. [address] [place] [phone] 06/16/2025 9:10 AM CDT Appointment Department of Laboratory Medicine and Pathology, [facility] in [place], [place] [address] [place] [phone] Bijal Dubose M.D. [address] [place] [phone] 06/16/2025 10:30 AM CDT Infusion Department of Oncology in [place], [place] [address] [place] [phone] Bijal Dubose M.D. [address] [place] [phone] 06/16/2025 11:00 AM CDT Appointment Department of Radiation Oncology in [place], [place] [address] [place] [phone] Chemo Goss M.D., Ph.D. [address] [place] [phone] 06/17/2025 9:45 AM CDT Appointment Department of Radiation Oncology in [place], [place] [address] [place] [phone] Chemo Goss M.D., Ph.D. [address] [place] [phone] 06/18/2025 9:45 AM CDT Appointment Department of Radiation Oncology in [place], [place] [address] [place] [phone] Chemo Goss M.D., Ph.D. [address] [place] [phone] 06/18/2025 10:30 AM CDT Appointment Department of Radiation Oncology in [place], [place] [address] [place] [phone] Chemo Goss M.D., Ph.D. [address] [place] [phone] 06/19/2025 10:45 AM CDT Appointment Department of Radiation Oncology in [place], [place] [address] [place] [phone] Chemo Goss M.D., Ph.D. [address] [place] [phone] 06/20/2025 10:45 AM CDT Appointment Department of Radiation Oncology in [place], [place] [address] [place] [phone] Chemo Goss M.D., Ph.D. [address] [place] [phone] 06/23/2025 7:50 AM CDT Appointment Department of Laboratory Medicine and Pathology, [facility] in [place], [place] [address] [place] [phone] Bijal Dubose M.D. [address] [place] [phone] 06/23/2025 9:30 AM CDT Infusion Department of Oncology in [place], [place] [address] [place] [phone] Bijal Dubose M.D. [address] [place] [phone] 06/30/2025 7:30 AM CDT Appointment Department of Laboratory Medicine and Pathology, [facility] in [place], [place] [address] [place] [phone] Bijal Dubose M.D. [address] [place] [phone] 06/30/2025 9:30 AM CDT Office Visit Division of Hematology in [place], [place] [address] [place] [phone] Bijal Dubose M.D. [address] [place] [phone] 06/30/2025 10:30 AM CDT Infusion Department of Oncology in [place], [place] [address] [place] [phone] Bijal Dubose M.D. [address] [place] [phone] 07/07/2025 11:30 AM METHODS ANALYST DATA PROCESSING Infusion Department of Oncology in [place], [place] [address] [place] [phone] Bijal Dubose M.D. [address] [place] [phone] 07/14/2025 11:00 AM METHODS ANALYST DATA PROCESSING Infusion Department of Oncology in [address] [phone] Bijal Dubose M.D. [address] [place] [phone] 07/21/2025 10:30 AM METHODS ANALYST DATA PROCESSING Infusion Department of Oncology in [place], [place] [address] [place] [phone] Bijal Dubose M.D. [address] [place] [phone] Scheduled Orders Name Type Priority Associated Diagnoses Order Schedule Prior Auth Rad Tx Radiation Oncology Routine Multiple Myeloma Not Having Achieved Remission (HCC) Ordered: 05/29/2025 Management Visit Radiation Oncology Routine Multiple Myeloma Not Having Achieved Remission (HCC) 2 Occurrences starting 05/29/2025 until 08/28/2026 Scheduled Referrals Name Type Priority Associated Diagnoses Orde r Schedule Radiation Oncology - Nurse education visit (clinic) Outpatient Referral Routine Multiple Myeloma Not Having Achieved Remission (HCC) Expected: 06/09/2025, Expires: 08/28/2026 documented as of this encounter Results * Initial Rad Onc Treatment Planning CT Simulation (05/30/2025 11:15 AM CDT) Narrative ZACH ZAMORA - 05/30/2025 11:15 AM CDT Chemo Goss [...] planning. CT images were transferred to the [employer] treatment planning system, after a reference isocenter was determined and marked. Segmentation and treatment planning will take place prior to treatment delivery. Patient set up and imaging was appropriate and completed without incident. Shredder/Granulator Operator use:No Chemo Goss M.D., Ph.D. RADIATION ONCOLOGY ORDER JANE Final Result ZACH ZAMORA na documented in this encounter Visit Diagnoses Diagnosis Multiple Myeloma Not Having Achieved Remission (HCC)- Primary Multiple Myeloma Not Having Achieved Remission (HCC) documented in this encounter Additional Health Concerns Infection Onset Date Last Indicated Resolved Time Protective Environment 05/20/2025 05/20/2025 documented as of this encounter
--- OUTSIDE RECORDS SUMMARY | 2025-06-06 08:10 | XMS_ITS | Encounter Summary ---
Author Organization [facility] Address [address] [place] [address] Care Team Providers Care Petroleum Analyst Name Role Phone Unavailable Primary Care Provider Unavailabl e Reason for Referral * Medication Prior Authorization - Closed Specialty Diagnoses / Procedures Referred By Analy t Referred To Contact Diagnoses Multiple Myeloma Not Having Achieved Remission (HCC) Bijal Dubose M.D. [address] [place] [phone] Phone: tel: fax: Referral ID Status Reason Start Date Expiration Date Visits Re quested Visits Authorized [id number] Closed 1 1 Encounter Details Date Type Department Care Team (Late st Contact Info) Description 05/26/2025 Orders Only Division of Hematology in [place], [place] [address] [place] [phone] Bijal Dubose M.D. [address] [place] [phone] Multiple Myeloma Not Having Achieved Remission (HCC) [...] things needed for daily living? No 05/05/2025 [facility] Utilities Answer Date Recorded In the past 12 months has e electric, gas, oil, or water company threatened to shut off services in your home? No 05/05/2025 Housing Stability Answer Date Recorded What is your living situation today? I have a [facility] place to live 05/05/2025 Sex and Gender Information Value Date Recorded Sex Assigned at Male 05/05/2025 10:47 AM CDT Legal Sex Male 11:35 PM DIRECTOR OF SUSTAINABILITY Gender Identity Male 05/05/2025 10:47 AM CDT Sexual Orientation Straight 05/05/2025 10 :47 AM CDT documented as of this encounter Plan of Treatment Upcoming Encounters Date Type Department Care Team (Late st Contact Info) Description 06/09/2025 8:20 AM CDT Appointment Department of Laboratory Medicine and Pathology, [facility], in [place], [place] [address] [place] [phone] Bijal Dubose M.D. [address] [place] [phone] 06/09/2025 9:30 AM CDT Infusion Department of Oncology in [place], [place] [address] [place] [phone] Bijal Dubose M.D. [address] [place] [phone] 06/09/2025 2:00 PM CDT Appointment Department of Radiation Oncology in [place], [place] [address] [place] [phone] Chemo Goss M.D., Ph.D. [address] [place] [phone] 06/10/2025 3:30 PM CDT Appointment Department of Radiation Oncology in [place], [place] [address] [place] [phone] Chemo Goss M.D., Ph.D. [address] [place] [phone] 06/11/2025 11:30 AM CDT Appointment Department of Radiation Oncology in [place], [place] [address] [place] [phone] Chemo Goss M.D., Ph.D. [address] [place] [phone] 06/11/2025 2:45 PM CDT Appointment Department of Radiation Oncology in [place], [place] [address] [place] [phone] Chemo Goss M.D., Ph.D. [address] [place] [phone] Zhane Parikh R.N. 06/11/2025 3:30 PM CDT Appointment Department of Radiation Oncology in [place], [place] [address] [place] [phone] Chemo Goss M.D., Ph.D. [address] [place] [phone] 06/12/2025 11:30 AM CDT Appointment Department of Radiation Oncology in [place], [place] [address] [place] [phone] Chemo Goss M.D., Ph.D. [address] [place] [phone] 06/13/2025 9:30 AM CDT Appointment Department of Radiation Oncology in [place], [place] [address] [place] [phone] Chemo Goss M.D., Ph.D. [address] [place] [phone] 06/16/2025 9:10 AM CDT Appointment Department of Laboratory Medicine and Pathology, [facility] in [place], [place] [address] [place] [address] Bijal Dubose M.D. [address] [place] [phone] 06/16/2025 10:30 AM CDT Infusion Department of Oncology in [place], [place] [address] [place] [address] Bijal Dubose M.D. [address] [place] [phone] 06/16/2025 11:00 AM CDT Appointment Department of Radiation Oncology in [place], [place] [address] [place] [phone] Chemo Goss M.D., Ph.D. [address] [place] [phone] 06/17/2025 9:45 AM CDT Appointment Department of Radiation Oncology in [place], [place] [address] [place] [phone] Chemo Goss M.D., Ph.D. [address] [place] [phone] 06/18/2025 9:45 AM CDT Appointment Department of Radiation Oncology in [place], [place] [address] [place] [phone] Chemo Goss M.D., Ph.D. [address] [place] [phone] 06/18/2025 10:30 AM CDT Appointment Department of Radiation Oncology in [place], [place] [address] [place] [phone] Chemo Goss M.D., Ph.D. [address] [place] [phone] 06/19/2025 10:45 AM CDT Appointment Department of Radiation Oncology in [place], [place] [address] [place] [phone] Chemo Goss M.D., Ph.D. [address] [place] [phone] 06/20/2025 10:45 AM CDT Appointment Department of Radiation Oncology in [place], [place] [address] [place] [phone] Chemo Goss M.D., Ph.D. [address] [place] [phone] 06/23/2025 7:50 AM CDT Appointment Department of Laboratory Medicine and Pathology, [place], [place] [address] [place] [phone] Bijal Dubose M.D. [address] [place] [phone] 06/23/2025 9:30 AM CDT Infusion Department of Oncology in [place], [place] [address] [place] [phone] Bijal Dubose M.D. [address] [place] [phone] 06/30/2025 7:30 AM CDT Appointment Department of Laboratory Medicine and Pathology, [facility] in [place], [place] [address] [place] [phone] Bijal Dubose M.D. [address] [place] [phone] 06/30/2025 9:30 AM CDT Office Visit Division of Hematology in [place], [place] [address] [place] [phone] Bijal Dubose M.D. [address] [place] [phone] 06/30/2025 10:30 AM CDT Infusion Department of Oncology in [place], [place] [address] [place] [phone] Bijal Dubose M.D. [address] [place] [phone] 07/07/2025 11:30 AM DIRECTOR OF SUSTAINABILITY Infusion Department of Oncology in [place], [place] [address] [place] [phone] Bijal Dubose M.D. [address] [place] [phone] 07/14/2025 11:00 AM DIRECTOR OF SUSTAINABILITY Infusion Department of Oncology in [address] [phone] Bijal Dubose M.D. [address] [place] [phone] 07/21/2025 10:30 AM DIRECTOR OF SUSTAINABILITY Infusion Department of Oncology in [address] [phone] Bijal Dubose M.D. [address] [place] [phone] documented as of this encounter Visit Diagnoses Diagnosis Multiple Myeloma Not Having Achieved Remission (HCC)- Primary documented in this encounter Additional Health Concerns Infection Onset Date Last Indicated Resolved Time Protective Environment 05/20/2025 05/20/2025 documented as of this encounter
--- OUTSIDE RECORDS SUMMARY | 2025-06-06 08:10 | XMS_ITS | Encounter Summary ---
Author Organization [facility] Address [address] [place] [address] Care Team Providers Care Gas Transfer Operator Name Role Phone Unavailable Primary Care Provider Unavailabl e Encounter Details Date Type Department Care Team (Late st Contact Info) Description 05/23/2025 Orders Only Division of Hematology in [place], [place] [address] [place] [address] Bijal Dubose M.D. 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 [address] [place] [phone] 06/09/2025 9:30 AM CDT Infusion Department of Oncology in [place], [place] [address] [place] [phone] Bijal Dubose M.D. [address] [place] [phone] 06/09/2025 2:00 PM CDT Appointment Department of Radiation Oncology in [place], [place] [address] [place] [phone] Chemo Goss M.D., Ph.D. [address] [place] [phone] 06/10/2025 3:30 PM CDT Appointment Department of Radiation Oncology in [place], [place] [address] [place] [phone] Chemo Goss M.D., Ph.D. [address] [place] [phone] 06/11/2025 11:30 AM CDT Appointment Department of Radiation Oncology in [place], [place] [address] [place] [phone] Chemo Goss M.D., Ph.D. [address] [place] [phone] 06/11/2025 2:45 PM CDT Appointment Department of Radiation Oncology in [place], [place] [address] [place] [phone] Chemo Goss M.D., Ph.D. [address] [place] [phone] Zhane Parikh R.N. 06/11/2025 3:30 PM CDT Appointment Department of Radiation Oncology in [place], [place] [address] [place] [phone] Chemo Goss M.D., Ph.D. [address] [place] [phone] 06/12/2025 11:30 AM CDT Appointment Department of Radiation Oncology in [place], [place] [address] [place] [phone] Chemo Goss M.D., Ph.D. [address] [place] [phone] 06/13/2025 9:30 AM CDT Appointment Department of Radiation Oncology in [place], [place] [address] [place] [phone] Chemo Goss M.D., Ph.D. [address] [place] [phone] 06/16/2025 9:10 AM CDT Appointment Department of Laboratory Medicine and Pathology, [facility], in [place], [place] [address] [place] [phone] Bijal Dubose M.D. [address] [place] [phone] 06/16/2025 10:30 AM CDT Infusion Department of Oncology in [place], [place] [address] [place] [phone] Bijal Dubose M.D. [address] [place] [phone] 06/16/2025 11:00 AM CDT Appointment Department of Radiation Oncology in [place], [place] [address] [place] [phone] Chemo Goss M.D., Ph.D. [address] [place] [phone] 06/17/2025 9:45 AM CDT Appointment Department of Radiation Oncology in [place], [place] [address] [place] [phone] Chemo Goss M.D., Ph.D. [address] [place] [phone] 06/18/2025 9:45 AM CDT Appointment Department of Radiation Oncology in [place], [place] [address] [place] [phone] Chemo Goss M.D., Ph.D. [address] [place] [phone] 06/18/2025 10:30 AM CDT Appointment Department of Radiation Oncology in [place], [place] [address] [place] [phone] Chemo Goss M.D., Ph.D. [address] [place] [phone] 06/19/2025 10:45 AM CDT Appointment Department of Radiation Oncology in [place], [place] [address] [place] [address] [place] [address] Chemo Goss M.D., Ph.D. [address] [place] [address] 06/20/2025 10:45 AM CDT Appointment Department of Radiation Oncology in [place], [place] [address] [place] [address] Chemo Goss M.D., Ph.D. [address] [place] [phone] 06/23/2025 7:50 AM CDT Appointment Department of Laboratory Medicine and Pathology, [facility] in [place], [place] [address] [place] [address] Bijal Dubose M.D. [address] [place] [phone] 06/23/2025 9:30 AM CDT Infusion Department of Oncology in [place], [place] [address] [place] [address] Bijal Dubose M.D. [address] [place] [phone] 06/30/2025 7:30 AM CDT Appointment Department of Laboratory Medicine and Pathology, [facility] in [place], [place] [address] [place] [address] Bijal Dubose M.D. [address] [place] [phone] 06/30/2025 9:30 AM CDT Office Visit Division of Hematology in [place], [place] [address] [place] [address] Bijal Dubose M.D. [address] [place] [phone] 06/30/2025 10:30 AM CDT Infusion Department of Oncology in [place], [place] [address] [place] [address] Bijal Dubose M.D. [address] [place] [phone] 07/07/2025 11:30 AM VOLTAGE INSPECTOR Infusion Department of Oncology in [place], [place] [address] [place] [address] Bijal Dubose M.D. [address] [place] [phone] 07/14/2025 11:00 AM VOLTAGE INSPECTOR Infusion Department of Oncology in [place], [place] [address] [place] [address] Bijal Dubose M.D. [address] [place] [address] 07/21/2025 10:30 AM VOLTAGE INSPECTOR Infusion Department of Oncology in [place], [place] [address] [place] [address] Bijal Dubose M.D. [address] [place] [phone] documented as of this encounter Visit Diagnoses Diagnosis Multiple Myeloma Not Having Achieved Remission (HCC)- Primary documented in this encounter Additional Health Concerns Infection Onset Date Last Indicated Resolved Time Protective Environment 05/20/2025 05/20/2025 documented as of this encounter
--- OUTSIDE RECORDS SUMMARY | 2025-06-06 08:11 | XMS_ITS | Encounter Summary ---
Demographics Address [address] [facility] [facility] [address] [place] [address] Home Phone Mobile Phone Email Address [email or web address] Preferred Language ENG Marital Status Voodoo Affiliation Unknown Race White Ethnic Group Not or Lati no Author Organization [facility] Address [address] [place] [address] Care Team Providers Care Budget Manager Name Role Phone Unavailable Primary Care Provider Unavailabl e Reason for Referral * Outpatient (Routine) - Closed Specialty Diagnoses / Procedures Referred By Analy t Referred To Contact Hematology Oncology Bijal Dubose M.D. [address] [place] [phone] Phone: tel: fax: [facility] Referral ID Status Reason Start Date Expiration Date Visits Re quested Visits Authorized [id number] Closed 05/20/2025 11/19/2026 1 1 Scheduling Instructions Please schedule nurse video visit with patient today or tomorrow. Thanks Encounter Details Date Type Department Care Team (Late st Contact Info) Description 05/20/2025 Clinical Communication Division of Hematology in [place], [place] [address] [place] [phone] Bijal Dubose M.D. [address] [place] [phone] Social History Tobacco Use Types Packs/Day Years [...] things needed for daily living? No 05/05/2025 [facility] Utilities Answer Date Recorded In the past 12 months has e electric, gas, oil, or water company threatened to shut off services in your home? No 05/05/2025 Housing Stability Answer Date Recorded What is your living situation today? I have a [facility] place to live 05/05/2025 Sex and Gender Information Value Date Recorded Sex Assigned at Male 05/05/2025 10:47 AM CDT Legal Sex Male 11:[address] ATTENDANT Gender Identity Male 05/05/2025 10:47 AM CDT Sexual Orientation Straight 05/05/2025 10 :47 AM CDT documented as of this encounter Plan of Treatment Upcoming Encounters Date Type Department Care Team (Late st Contact Info) Description 06/09/2025 8:20 AM CDT Appointment Department of Laboratory Medicine and Pathology, [facility] in [place], [place] [address] [place] [phone] Bijal Dubose M.D. [address] [place] [phone] 06/09/2025 9:30 AM CDT Infusion Department of Oncology in [place], [place] [address] [place] [phone] Bijal Dubose M.D. [address] [place] [phone] 06/09/2025 2:00 PM CDT Appointment Department of Radiation Oncology in [place], [place] [address] [place] [phone] Chemo Goss M.D., Ph.D. [address] [place] [phone] 06/10/2025 3:30 PM CDT Appointment Department of Radiation Oncology in [place], [place] [address] [place] [phone] Chemo Goss M.D., Ph.D. [address] [place] [phone] 06/11/2025 11:30 AM CDT Appointment Department of Radiation Oncology in [place], [place] [address] [place] [phone] Chemo Goss M.D., Ph.D. [address] [place] [phone] 06/11/2025 2:45 PM CDT Appointment Department of Radiation Oncology in [place], [place] [address] [place] [phone] Chemo Goss M.D., Ph.D. [address] [place] [phone] Zhane Parikh R.N. 06/11/2025 3:30 PM CDT Appointment Department of Radiation Oncology in [place], [place] [address] [place] [phone] Chemo Goss M.D., Ph.D. [address] [place] [phone] 06/12/2025 11:30 AM CDT Appointment Department of Radiation Oncology in [place], [place] [address] [place] [phone] Chemo Goss M.D., Ph.D. [address] [place] [phone] 06/13/2025 9:30 AM CDT Appointment Department of Radiation Oncology in [place], [place] [address] [place] [phone] Chemo Goss M.D., Ph.D. [address] [place] [phone] 06/16/2025 9:10 AM CDT Appointment Department of Laboratory Medicine and Pathology, [facility] in [place], [place] [address] [place] [phone] Bijal Dubose M.D. [address] [place] [phone] 06/16/2025 10:30 AM CDT Infusion Department of Oncology in [place], [place] [address] [place] [phone] Bijal Dubose M.D. [address] [place] [phone] 06/16/2025 11:00 AM CDT Appointment Department of Radiation Oncology in [place], [place] [address] [place] [phone] Chemo Goss M.D., Ph.D. [address] [place] [phone] 06/17/2025 9:45 AM CDT Appointment Department of Radiation Oncology in [place], [place] [address] [place] [phone] Chemo Goss M.D., Ph.D. [address] [place] [phone] 06/18/2025 9:45 AM CDT Appointment Department of Radiation Oncology in [place], [place] [address] [place] [phone] Chemo Goss M.D., Ph.D. [address] [place] [phone] 06/18/2025 10:30 AM CDT Appointment Department of Radiation Oncology in [place], [place] [address] [place] [address] Chemo Goss M.D., Ph.D. [address] [place] [phone] 06/19/2025 10:45 AM CDT Appointment Department of Radiation Oncology in [place], [place] [address] [place] [address] Chemo Goss M.D., Ph.D. [address] [place] [phone] 06/20/2025 10:45 AM CDT Appointment Department of Radiation Oncology in [place], [place] [address] [place] [address] Chemo Goss M.D., Ph.D. [address] [place] [phone] 06/23/2025 7:50 AM CDT Appointment Department of Laboratory Medicine and Pathology, [facility] in [place], [place] [address] [place] [address] Bijal Dubose M.D. [address] [place] [phone] 06/23/2025 9:30 AM CDT Infusion Department of Oncology in [place], [place] [address] [place] [address] Bijal Dubose M.D. [address] [place] [phone] 06/30/2025 7:30 AM CDT Appointment Department of Laboratory Medicine and Pathology, [facility] in [place], [place] [address] [place] [phone] Bijal Dubose M.D. [address] [place] [phone] 06/30/2025 9:30 AM CDT Office Visit Division of Hematology in [place], [place] [address] [place] [phone] Bijal Dubose M.D. [address] [place] [phone] 06/30/2025 10:30 AM CDT Infusion Department of Oncology in [place], [place] [address] [place] [phone] Bijal Dubose M.D. [address] [place] [phone] 07/07/2025 11:[address] ATTENDANT Infusion Department of Oncology in [place], [place] [address] [place] [phone] Bijal Dubose M.D. [address] [place] [phone] 07/14/2025 11:[address] ATTENDANT Infusion Department of Oncology in [address] [address] Bijal Dubose M.D. [address] [place] [phone] 07/21/2025 10:[address] ATTENDANT Infusion Department of Oncology in [place], [place] [address] [place] [phone] Bijal Dubose M.D. [address] [place] [phone] Scheduled Referrals Name Type Priority Associated Diagnoses Order Schedule Hematology nurse visit (clinic) Outpatient Referral Routine Expected: 05/20/2025, Expires: 08/19/2026 documented as of this encounter Visit Diagnoses Not on filedocumented in this encounter Additional Health Concerns Infection Onset Date Last Indicated Resolved Time Protective Environment 05/20/2025 05/20/2025 documented as of this encounter
--- OUTSIDE RECORDS SUMMARY | 2025-06-06 08:11 | XMS_ITS | Encounter Summary ---
Author Organization [facility] Address [address] [place] [address] Care Team Providers Care Catalogue Compiler Name Role Phone Nalini Salinas MD Unavailable [phone] Jose Rodriguez MD Unavailable [phone] Teressa Warren MD Primary Care Provider [phone] Encounter Details Date Type Department Care Team (Latest Contact Info) Description 04/28/2025 Travel Social History Tobacco Use Types Packs/Day Years Used Date Smoking Tobacco: Never Smokeless Tobacco: Never PHQ-2 Answer Date Recorded PHQ-2 Score 0 04/21/2025 Adolescent Education Answer Date Record ed Getting School Help Needed Not on file 05/28 Sex and Gender Information Value Date Recorded Sex Assigned at Not on file Legal Sex Male 4:34 AM FLOOR HELPER Gender Identity Not on file Sexual Orientation Not on file documented as of this encounter Plan of Treatment Not on file documented as of this encounter Visit Diagnoses Not on filedocumented in this encounter Care Teams Catalogue Compiler Relationship Specialty Start Date End Date Teressa Warren MD [facility] [address] [place] [address] [phone] PCP - General Family Medicine 04/28/25 [place] [id number] [address] Hematology & Oncology 04/24/25 Jose Rodriguez MD [address] [facility] [address] [place] [address] Assigned Musculoskeletal Provider 04/26/25 documented as of this encounter
--- OUTSIDE RECORDS SUMMARY | 2025-06-06 08:12 | XMS_ITS | Encounter Summary ---
Author Organization [facility] Address [address] [place] [address] Care Team Providers Care Shake Table Operator Name Role Phone Unavailable Primary Care Provider Unavailabl e Encounter Details Date Type Department Care Team (Late st Contact Info) Description 05/22/2025 Orders Only Division of Hematology in [place], [place] [address] [place] [address] Bijal Dubose M.D. [address] [place] [address] Social History Tobacco Use Types Packs/Day Years [...] needed for daily living? No 05/05/2025 [facility] Utilities Answer Date Recorded In the past 12 months has [facility] electric, gas, oil, or water company threatened to shut off services in your home? No 05/05/2025 Housing Stability Answer Date Recorded What is your living situation today? I have a [facility] place to live 05/05/2025 Sex and Gender Information Value Date Recorded Sex Assigned at Male 05/05/2025 10:47 AM CDT Legal Sex Male 11:35 PM MANAGER SAFE Gender Identity Male 05/05/2025 10:47 AM CDT Sexual Orientation Straight 05/05/2025 10 :47 AM CDT documented as of this encounter Plan of Treatment Upcoming Encounters Date Type Department Care Team (Late st Contact Info) Description 06/09/2025 8:20 AM CDT Appointment Department of Laboratory Medicine and Pathology, [facility], in [place], [place] [address] [place] [phone] Bijal Dubose M.D. [address] [place] [phone] 06/09/2025 9:30 AM CDT Infusion Department of Oncology in [place], [place] [address] [place] [phone] Bijal Dubose M.D. [address] [place] [phone] 06/09/2025 2:00 PM CDT Appointment Department of Radiation Oncology in [place], [place] [address] [place] [phone] Chemo Goss M.D., Ph.D. [address] [place] [phone] 06/10/2025 3:30 PM CDT Appointment Department of Radiation Oncology in [address] [address] Chemo Goss M.D., Ph.D. [address] [place] [phone] 06/11/2025 11:30 AM CDT Appointment Department of Radiation Oncology in [place], [place] [address] [place] [phone] Chemo Goss M.D., Ph.D. [address] [place] [phone] 06/11/2025 2:45 PM CDT Appointment Department of Radiation Oncology in [place], [place] [address] [place] [address] Chemo Goss M.D., Ph.D. [address] [place] [phone] Zhane Parikh R.N. 06/11/2025 3:30 PM CDT Appointment Department of Radiation Oncology in [place], [place] [address] [place] [phone] Chemo Goss M.D., Ph.D. [address] [place] [phone] 06/12/2025 11:30 AM CDT Appointment Department of Radiation Oncology in [place], [place] [address] [place] [address] Chemo Goss M.D., Ph.D. [address] [place] [phone] 06/13/2025 9:30 AM CDT Appointment Department of Radiation Oncology in [place], [place] [address] [place] [address] Chemo Goss M.D., Ph.D. [address] [place] [phone] 06/16/2025 9:10 AM CDT Appointment Department of Laboratory Medicine and Pathology, [facility], in [place], [place] [address] [place] [address] Bijal Dubose M.D. [address] [place] [phone] 06/16/2025 10:30 AM CDT Infusion Department of Oncology in [place], [place] [address] [place] [phone] Bijal Dubose M.D. [address] [place] [phone] 06/16/2025 11:00 AM CDT Appointment Department of Radiation Oncology in [place], [place] [address] [place] [phone] Chemo Goss M.D., Ph.D. [address] [place] [phone] 06/17/2025 9:45 AM CDT Appointment Department of Radiation Oncology in [place], [place] [address] [place] [phone] Chemo Goss M.D., Ph.D. [address] [place] [phone] 06/18/2025 9:45 AM CDT Appointment Department of Radiation Oncology in [address] [address] Chemo Goss M.D., Ph.D. [address] [place] [phone] 06/18/2025 10:30 AM CDT Appointment Department of Radiation Oncology in [place], [place] [address] [place] [phone] Chemo Goss M.D., Ph.D. [address] [place] [phone] 06/19/2025 10:45 AM CDT Appointment Department of Radiation Oncology in [place], [place] [address] [place] [phone] Chemo Goss M.D., Ph.D. [address] [place] [address] 06/20/2025 10:45 AM CDT Appointment Department of Radiation Oncology in [place], [place] [address] [place] [address] Chemo Goss M.D., Ph.D. [address] [place] [phone] 06/23/2025 7:50 AM CDT Appointment Department of Laboratory Medicine and Pathology, [facility] in [place], [place] [address] [place] [address] Bijal Dubose M.D. [address] [place] [phone] 06/23/2025 9:30 AM CDT Infusion Department of Oncology in [place], [place] [address] [place] [address] Bijal Dubose M.D. [address] [place] [phone] 06/30/2025 7:30 AM CDT Appointment Department of Laboratory Medicine and Pathology, [facility] in [place], [place] [address] [place] [address] Bijal Dubose M.D. [address] [place] [phone] 06/30/2025 9:30 AM CDT Office Visit Division of Hematology in [place], [place] [address] [place] [address] Bijal Dubose M.D. [address] [place] [phone] 06/30/2025 10:30 AM CDT Infusion Department of Oncology in [place], [place] [address] [place] [phone] Bijal Dubose M.D. [address] [place] [phone] 07/07/2025 11:30 AM MANAGER SAFE Infusion Department of Oncology in [place], [place] [address] [place] [phone] Bijal Dubose M.D. [address] [place] [phone] 07/14/2025 11:00 AM MANAGER SAFE Infusion Department of Oncology in [place], [place] [address] [place] [phone] Bijal Dubose M.D. [address] [place] [phone] 07/21/2025 10:30 AM MANAGER SAFE Infusion Department of Oncology in [place], [place] [address] [place] [phone] Bijal Dubose M.D. [address] [place] [phone] documented as of this encounter Visit Diagnoses Not on filedocumented in this encounter Additional Health Concerns Infection Onset Date Last Indicated Resolved Time Protective Environment 05/20/2025 05/20/2025 documented as of this encounter
--- OUTSIDE RECORDS SUMMARY | 2025-06-06 08:12 | XMS_ITS | Encounter Summary ---
Author Organization [facility] Address [address] [place] [address] Care Team Providers Care Risk Control Product Liability Director Name Role Phone Unavailable Primary Care Provider Unavailabl e Encounter Details Date Type Department Care Team (Late st Contact Info) Description 05/20/2025 Clinical Communication Division of Hematology in [place], [place] [address] [place] [address] Bijal Dubose M.D. [address] [place] [address] Social History Tobacco Use Types Packs/Day Years [...] needed for daily living? No 05/05/2025 [facility] Utilities Answer Date Recorded In the past 12 months has [facility] electric, gas, oil, or water company threatened to shut off services in your home? No 05/05/2025 Housing Stability Answer Date Recorded What is your living situation today? 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 - 05/26/2025 9:42 AM CDT Lenalidomide sent to Dr. Dubose for sign and release to [facility]. documented in this encounter Plan of Treatment Upcoming Encounters Date Type Department Care Team (Late st Contact Info) Description 06/09/2025 8:20 AM CDT Appointment Department of Laboratory Medicine and Pathology, [facility] in [place], [place] [address] [place] [address] Bijal Dubose M.D. [address] [place] [phone] 06/09/2025 9:30 AM CDT Infusion Department of Oncology in [place], [place] [address] [place] [address] Bijal Dubose M.D. [address] [place] [phone] 06/09/2025 2:00 PM CDT Appointment Department of Radiation Oncology in [place], [place] [address] [place] [phone] Chemo Goss M.D., Ph.D. [address] [place] [phone] 06/10/2025 3:30 PM CDT Appointment Department of Radiation Oncology in [place], [place] [address] [place] [phone] Chemo Goss M.D., Ph.D. [address] [place] [phone] 06/11/2025 11:30 AM CDT Appointment Department of Radiation Oncology in [place], [place] [address] [place] [phone] Chemo Goss M.D., Ph.D. [address] [place] [phone] 06/11/2025 2:45 PM CDT Appointment Department of Radiation Oncology in [place], [place] [address] [place] [phone] Chemo Goss M.D., Ph.D. [address] [place] [phone] Zhane Parikh R.N. 06/11/2025 3:30 PM CDT Appointment Department of Radiation Oncology in [place], [place] [address] [place] [phone] Chemo Goss M.D., Ph.D. [address] [place] [phone] 06/12/2025 11:30 AM CDT Appointment Department of Radiation Oncology in [place], [place] [address] [place] [phone] Chemo Goss M.D., Ph.D. [address] [place] [phone] 06/13/2025 9:30 AM CDT Appointment Department of Radiation Oncology in [address] [phone] Chemo Goss M.D., Ph.D. [address] [place] [phone] 06/16/2025 9:10 AM CDT Appointment Department of Laboratory Medicine and Pathology, [facility], in [place], [place] [address] [place] [phone] Bijal Dubose M.D. [address] [place] [phone] 06/16/2025 10:30 AM CDT Infusion Department of Oncology in [place], [place] [address] [place] [phone] Bijal Dubose M.D. [address] [place] [phone] 06/16/2025 11:00 AM CDT Appointment Department of Radiation Oncology in [place], [place] [address] [place] [phone] Chemo Goss M.D., Ph.D. [address] [place] [phone] 06/17/2025 9:45 AM CDT Appointment Department of Radiation Oncology in [place], [place] [address] [place] [phone] Chemo Goss M.D., Ph.D. [address] [place] [phone] 06/18/2025 9:45 AM CDT Appointment Department of Radiation Oncology in [place], [place] [address] [place] [phone] Chemo Goss M.D., Ph.D. [address] [place] [phone] 06/18/2025 10:30 AM CDT Appointment Department of Radiation Oncology in [place], [place] [address] [place] [phone] Chemo Goss M.D., Ph.D. [address] [place] [phone] 06/19/2025 10:45 AM CDT Appointment Department of Radiation Oncology in [place], [place] [address] [place] [address] Chemo Goss M.D., Ph.D. [address] [place] [phone] 06/20/2025 10:45 AM CDT Appointment Department of Radiation Oncology in [place], [place] [address] [place] [address] Chemo Goss M.D., Ph.D. [address] [place] [phone] 06/23/2025 7:50 AM CDT Appointment Department of Laboratory Medicine and Pathology, [facility] in [place], [place] [address] [place] [address] Bijal Dubose M.D. [address] [place] [phone] 06/23/2025 9:30 AM CDT Infusion Department of Oncology in [place], [place] [address] [place] [address] Bijal Dubose M.D. [address] [place] [phone] 06/30/2025 7:30 AM CDT Appointment Department of Laboratory Medicine and Pathology, [facility] in [place], [place] [address] [place] [address] Bijal Dubose M.D. [address] [place] [phone] 06/30/2025 9:30 AM CDT Office Visit Division of Hematology in [place], [place] [address] [place] [address] Bijal Dubose M.D. [address] [place] [phone] 06/30/2025 10:30 AM CDT Infusion Department of Oncology in [place], [place] [address] [place] [address] Bijal Dubose M.D. [address] [place] [phone] 07/07/2025 11:30 AM FIELD SERVICER Infusion Department of Oncology in [place], [place] [address] [place] [address] Bijal Dubose M.D. [address] [place] [phone] 07/14/2025 11:00 AM FIELD SERVICER Infusion Department of Oncology in [place], [place] [address] [place] [address] Bijal Dubose M.D. [address] [place] [phone] 07/21/2025 10:30 AM FIELD SERVICER Infusion Department of Oncology in [place], [place] [address] [place] [phone] Bijal Dubose M.D. [address] [place] [phone] documented as of this encounter Visit Diagnoses Diagnosis Multiple Myeloma Not Having Achieved Remission (HCC) documented in this encounter Additional Health Concerns Infection Onset Date Last Indicated Resolved Time Protective Environment 05/20/2025 05/20/2025 documented as of this encounter
--- OUTSIDE RECORDS SUMMARY | 2025-06-06 08:12 | XMS_ITS | Clinical Summary ---
Author Organization [facility] Address [address] [place] [address] Care Team Providers Care Equipment Maintenance Tech Name Role Phone Brittany Diaz MD Primary Care Provider Allergies No known active allergies Medications simvastatin (ZOCOR) 20 mg tablet Take 1 tablet by mouth at bedtime. 0 07/01/2010 Active Active Problems Problem Noted Date Diagnosed Date FUO (fever of unknown origin) 05/09/2010 Pericardial effusion 05/09/2010 Pericarditis 05/09/2010 RHINITIS - ALLERGIC 12/09/2002 Dyslipidemia Family History Medical History Relation Name Comments Cancer-prostate Father Other Mother in good health Relation Name Status Comments Father Mother Social History Tobacco Use Types Packs/Day Years Used Date Smoking Tobacco: Former Cigarettes Smokeless Tobacco: Never Tobacco Cessation:Counseling Given: Yes Alcohol Use Standard Drinks/Week Comments No 0 (1 standard drink = 0.6 oz pur e alcohol) Sex and Gender Information Value Date Recorded Sex Assigned at Not on file Legal Sex Male 6:58 AM 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 Gender Identity Not on file Sexual Orientation Not on file Obstetrics History Last Filed Vital Signs Vital Sign Reading Time Taken Comments Blood Pressure 130/83 07/21/2021 2:06 PM 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 tow er Pulse 69 07/21/2021 2:06 PM 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 Temperature 37.1 C (98.7 F) 05/13/2010 7:56 AM CDT Respiratory Rate 18 05/13/2010 7:56 AM CDT Oxygen Saturation 96% 07/21/2021 2:06 PM 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 Inhaled Oxygen Concentration - - Weight 95.7 kg (211 lb) 07/21/2021 2:06 PM 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 Height 177.8 cm (5' 10) 07/15/2010 10:22 AM 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 Body Mass Index - - Plan of Treatment Health Maintenance Due Date Last Done Comments Tetanus booster 1965 Depression screening for age 12+ 1966 BMI (ht and wt on same day) for age 18+ 1972 Hepatitis C screening for ag e 18-79 1972 Colonoscopy through age 75 11/13/1999 Lipids for age 45-75 11/13/1999 Pneumococcal series for age 50+ (1 of 1 - PCV) 2004 Zoster (shingles) series for age 50+ (1 of 2) 2004 Medicare Wellness for age 65+ 11/13/2019 COVID-19 vaccine series (2 - 2024- season) 2025 08/16/2021 Influenza Vaccine (#1) 2025 RSV vaccine for adults or (1 - 1-dose 75+ series) 2029 Hepatitis B series for 19+ Aged Out N o longer eligible based on patient's age to complete this topic Insurance MEDICARE [place] ONLY [facility] Advance Directives * Full Code (Latest Code Status on File) Date Activated Date Inactivated Comments 05/09/2010 1:17 PM 05/13/2010 12:40 PM Care Teams Equipment Maintenance Tech Relationship Specialty Start Date End Date Brittany Diaz MD PCP - General 05/11/10
--- OUTSIDE RECORDS SUMMARY | 2025-06-06 08:12 | XMS_ITS | Clinical Summary ---
Author Organization [facility] Address [address] [place] [address]. [place] [address] Care Team Providers Care Custodial Worker Name Role Phone Nalini Salinas MD Unavailable [phone] Jose Rodriguez MD Unavailable [phone] Teressa Warren MD Primary Care Provider [phone] Allergies No known active allergies Medications meclizine (ANTIVERT) 25 MG tablet Take 1 tablet (25 mg) by mouth every 6 hours as needed for dizziness 15 tablet 1 Active Additional Information Patient not taking.Reported on 04/21/2025 atorvastatin (LIPITOR) 40 MG tablet 1 Active tamsulosin (FLOMAX) 0.4 MG capsule Daily 0 Active Active Problems No known active problems Encounters Date Type Department Care Team Description 05/12/2025 PRE VISIT [facility] [address] [place] [address] [facility] [place] [address] Nalini Salinas MD *-*INCOMING RECORDS*-* (Bone lesion [M89.9]/Encounter for screening for malignant neoplasm of prostate [Z12.5]) 05/01/2025 4:40 PM CDT Virtual Visit [facility] [address] 4th [place] [address] Jose Rodriguez MD Multiple myeloma not having achieved remission (H) (Primary Dx) 04/28/2025 8:30 AM CDT Ancillary Procedure [facility] [address] [place] [address] Dinh Linder PA-C Bone lesion 04/28/2025 8:00 AM CDT Office Visit [facility] [address] [phone] Dinh Linder PA-C Bone lesion (Primary Dx); Multiple myeloma not having achieved remission (H); Other myelodysplastic syndromes (H) 04/28/2025 Travel 04/27/2025 Travel 04/24/2025 Telephone [facility] [address] [phone] Jose Rodriguez MD 04/21/2025 10:00 AM CDT Ancillary Procedure [facility] [place] [address] [place] [phone] Jose Rodriguez MD Bone lesion 04/21/2025 9:15 AM CDT Lab [facility] [place] [address] [place] [phone] Bone lesion; Encounter for screening for malignant neoplasm of prostate 04/21/2025 8:00 AM CDT Office Visit [facility] [address] [place] [phone] Jose Rodriguez MD Bone lesion (Primary Dx); Encounter for screening for malignant neoplasm of prostate 04/21/2025 Travel 04/21/2025 PRE VISIT [facility] [place] [address] [place] [phone] Jose Rodriguez MD Previsit 04/18/2025 Telephone [facility] [address] [phone] Sloan Dietrich MD Appointment from Last 3 Months Immunizations Immunization Administration Dates Next Due COVID-19 MONOVALENT 12+ (Pfizer) 08/16/2021 COVID-19 Monovalent 18+ (Moderna) 10/22/2020,,09/24/2020 TD,PF 7+ (Tenivac) 12/22/2004 TDAP (Adacel,Boostrix) 08/20/2018,07/18/2014 Td (Adult), Adsorbed 12/22/2004,09/04/2004 Social History Tobacco Use Types Packs/Day Years Used Date Smoking Tobacco: Never Smokeless Tobacco: Never Tobacco Cessation:Counseling Given: Yes PHQ-2 Answer Date Recorded PHQ-2 Score 0 04/21/2025 Adolescent Education Answer Date Record ed Getting School Help Needed Not on file 05/28 Sex and Gender Information Value Date Recorded Sex Assigned at Not on file Legal Sex Male 4:34 AM [employer] Gender Identity Not on file Sexual Orientation Not on file Last Filed Vital Signs Vital Sign Reading Time Taken Comments Blood Pressure 134/84 09/27/2021 2:40 PM [employer] Pulse 56 01/11/2021 2:22 AM CDT Temperature 37 C (98.6 F) 01/10/2021 10:54 PM CDT Respiratory Rate 12 01/11/2021 2:22 AM CDT Oxygen Saturation 97% 01/11/2021 2:22 AM CDT Inhaled Oxygen Concentration - - Weight 93.9 kg (207 lb) 05/01/2025 4:17 PM CDT Height 181.6 cm (5' 11.5) 05/01/2025 4:17 PM CD T Body Mass Index 28.47 05/01/2025 4:17 PM CDT Plan of Treatment Health Maintenance Due Date Last Done Comments ADVANCE CARE PLANNING 1954 ANNUAL REVIEW OF HM ORDERS 1954 CT COLONOGRAPHY 1954 FIT 1954 FLEX SIG 1954 LIPID 1954 sDNA (Cologuard) 1954 COLONOSCOPY 1964 COLORECTAL CANCER SCREENING 1964 HEPATITIS C SCREENING 1972 ZOSTER VACCINE (1 of 2) 1973 FALL RISK ASSESSMENT 11/13/2019 MEDICARE ANNUAL WELLNESS VISIT 11/13/2019 DIABETES SCREENING 01/11/2024 01/10/2021, 0 03/09/2010, 03/06/2010 COVID-19 VACCINE (5 - season) 2025 08/16/2021, 10/22/2020, 10/01/2020, Additional history exists INFLUENZA VACCINE (#1) 2025 RSV VACCINE (1 - 1-dose 75+ series) 2029 DTAP/TDAP/TD VACCINE (4 - Td or Tdap) 02/16/2033 02/16/2023, 08/20/2018, 07/18/2014, Additional history exists PNEUMOCOCCAL VACCINE 50+ YEARS Completed 03/26/2024, 01/05/2023 PHQ-2 (once per calendar year) Completed 04/21/2025 HPV VACCINE (No Doses Required) Completed MENINGITIS VACCINE Aged Out No longer eligible based on patient's age to complete this topic Procedures Procedure Name Priority Date/Time Associated Diagnosis Comments FISH TIER 2 Routine 04/28/2025 9:20 AM CDT Bone lesion Other myelodysplastic syndromes (H) FISH Routine 04/28/2025 9:20 AM CDT Bone lesion 1H-3C(09/05) CULTURE Routine 04/28/2025 9: 20 AM CDT CHROMOSOME ANALYSIS, MALIGNANT TISSUE Routine 04/28/2025 9:20 AM CDT FLOW CYTOMETRY Routine 04/28/2025 8:50 AM CDT Bone lesion NE BIOPSY MUSCLE/SOFT TISSUE, PERCUTANEOUS NEEDLE Routine 04/28/2025 8:48 AM CDT Bone lesion SURGICAL PATHOLOGY EXAM Routine 04/28/2025 8:48 [address] CDT Bone lesion CT CHEST/ABDOMEN/PELVIS W CONTRAST STAT 04/21/2025 10:04 AM CDT Bone lesion ISTAT CREATININE POCT Routine 04/21/2025 9:47 AM CDT PROTEIN ELECTROPHORESIS Routine 04/21/2025 9:36 AM CDT Bone lesion PROTEIN ELECTROPHORESIS, SERUM Routine 04/21/2025 9:36 AM CDT Bone lesion TOTAL PROTEIN, SERUM FOR ELP Routine 04/21/2025 9:36 AM CDT Bone lesion LACTATE DEHYDROGENASE Routine 04/21/2025 9:36 AM CDT Bone lesion PROSTATE SPECIFIC ANTIGEN SCREEN Routine 04/21/2025 9:36 AM CDT Bone lesion Encounter for screening for malignant neoplasm of prostate UREA NITROGEN (BUN) Routine 04/21/2025 9 :36 AM CDT Bone lesion CBC WITH PLATELETS Routine 04/21/2025 9: 36 AM CDT Bone lesion ERYTHROCYTE SEDIMENTATION RATE AUTO Routine 04/21/2025 9:36 AM CDT Bone lesion KAPPA AND LAMBDA LIGHT CHAIN Routine 04/21/2025 9:36 AM CDT Bone lesion ALKALINE PHOSPHATASE Routine 04/21/2025 9:36 AM CDT Bone lesion CALCIUM Routine 04/21/2025 9:36 AM CDT Bone lesion CREATININE Routine 04/21/2025 9:36 AM CDT Bone lesion BASIC METABOLIC PANEL STAT 01/10/2021 11:42 PM CDT from Last 3 Months or Most Recently Relevant to Health Maintenance Results * FISH TIER 2 With Professional Interpretation (04/28/2025 9:20 AM CDT) Interpretation This FISH analysis was performed in follow up to the 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 The present study [...] associated with a worse prognosis in myeloma (Abdalldaniel N et al, 2019, Clin Cancer Res 26:5723; Sj-Garry S et al, 2024, Neoplasia 66:811410), with a greater impact on survival reported in cases in which IGL is the fusion partner (rather than IGK, as in the present case) (Fazal N et al, 2020, Clin Ca Res 27:5430) ISCN: nuc kevon (IGK,MYC)x3(IGK con MYC)x2[67/100]/(IG K,MYC)x6(IGK con MYC)x4[10/100] nuc kevon (MYCx1,MYC dimx2,IGLx1)[73/10 0]/(MYCx2,MYC dimx4,IGLx2)[7/100 ] ADDITIONAL COMMENTS: Control ranges: IGK::MYC: 0-0.1% MYC::IGL: 0-0.1% IGLx1: 0-4.6% This test was developed and its performance characteristics determined by the [facility]. It has not been cleared or approved by the U.S. Food and Drug Administration. . 05/24/2025 12:13 AM CDT [facility] BONE STRUCTURE OF RIGHT CLAVICLE / Unknown 04/28/2025 9:20 AM CDT 05/23/2025 9:03 AM CDT us Dinh EDUARDO AP Final Resu lt [facility] Cytogenetics Lab [address] [place] [address] Building Room [address] [place] [address] * 1H-3C(1/2) Culture (04/28/2025 9:20 AM CDT) Culture [place] Complete Date 05/08/2025 4:59 PM CDT [facility] Tissue BONE STRUCTURE OF RIGHT CLAVICLE / Unknown Non-blood Collection / Unknown 04/28/2025 9:20 AM CDT 04/28/2025 9:20 AM CDT us Dinh LOMAX - JAYCE AP Final Resu lt [facility] Lab [address] [facility] Building Room [address] * FISH With Professional Interpretation (04/28/2025 9:20 AM CDT) Interpretation METHODS: Specimen: Tissue touch imprints prepared from a right clavicular lesion Test performed: Fluorescence in situ hybridization (FISH) Interphase cells examined: 100-200 for each probe set Probes: - CDKN2C (1p32.3) / CKS1B (1q21.3) (dual color) - Cytocell - [id number] (5p15.2), CEP9 and D15Z4 (centromeres of 9 and 15) (Tri-Color) - [facility] - MYC (8q24.21) (breakapart) - [facility] - RADHA (11q22.3) / TP53 (17p13.1) (dual color) - Cytocell - [id number] (13q14.3) / LAMP1 (13q34) (dual color) - [...] rearrangements in newly diagnosed multiple myeloma. Gracy N et al, 2019, Clin Cancer Res 26:0060. INTERPRETATION: These findings are consistent with the [...] issued as separate reports. ISCN: nuc kevon (HUEA4Ck4,EKV8Gl8) [51/200]/(GHUK4Jl9 ,OGS0El8)[38/200] nuc kevon (W6J39-J0R677,CEP9 ,D15Z4)x3[73/100]/ (U2L31-O6Q771,CEP9 ,D15Z4)x6[6100] nuc kevon (MYC)x2(5'MYC sep 3'MYC)x1[80/100]/( MYC)x4(5'MYC sep 3'MYC)x2[7100] nuc kevon (RADHA,TP53)x4[200 ] nuc kevon (B75J172,LAMP1)x1[ 94/100] nuc kevon (IGH)x4[200] ADDITIONAL COMMENTS: Control ranges: QNE6Qq0: 0-0.1% NRUW8Sa8: 0-5.3% (JGKR4Rm4,IAQ3Cr0) : 0-0.1% +5,9,15: 0-0.1% (5,9,15)x6: 0-0.1% MYC rearr: 0-2.8% (MYC)x4(5'MYC sep 3'MYC)x2: 0-0.1% +11: 0-0.1% -13: 0-3.0% IGH rearr: 0-1.5% IGHx4: 0-0.7% TP53x1: 0-3.1% (RADHA,TP53)x4: 0-1.9% This test was developed and its performance characteristics determined by the [facility]. It has not been cleared or approved by the U.S. Food and Drug Administration. . 05/21/2025 2:03 PM CDT [facility] Tissue BONE STRUCTURE OF RIGHT CLAVICLE / Unknown Non-blood Collection / Unknown 04/28/2025 9:20 AM CDT 04/28/2025 9:20 AM CDT Dinh Linder PA-C LAB - BEAKER AP Final Resu lt Performing Organization Address [facility] Co de Phone Number [facility] Cytogenetics Lab [address] [place] [address] * CHROMOSOME ANALYSIS, MALIGNANT TISSUE With Professional Interpretation (04/28/2025 9:20 AM CDT) Interpretation A right clavicle tissue specimen was [...] 9:20 AM CDT 04/28/2025 9:20 AM CDT Dinh Linder PA-C LAB - BODY FLUIDS ORDERABL ES Final Result Performing Organization Address [facility] Co de Phone Number [facility] Cyt[facility]etics Lab [address] [place] [address] Building Room [address] * (ABNORMAL) Flow Cytometry (04/28/2025 8:50 AM CDT) Case Report Flow Cytometry Report Case: [id number] Authorizing Provider: Dinh Linder PA-C Collected: 04/28/2025 08:50 AM Ordering Location: [facility] Received: 04/28/2025 08:56 AM [facility] [place] Pathologist: Etta Dos Santos MD Specimen: Clavicle, Right 04/28/2025 5:44 PM CDT [facility] FLOW CYTOMETRY Flow Interpretation A. Clavicle, Right: -Conception-monotypic plasma cells -See comment 04/28/2025 5:44 PM [...] events is 0.01%. 04/28/2025 5:44 PM CDT [facility] FLOW CYTOMETRY Clinical Information 69 year old male with a right clavicle lytic lesion 04/28/2025 5:44 PM CDT FLOW CYTOMETRY FDA Disclaimer This test was developed and its performance characteristics determined by the [facility]. It has not been cleared [...] clinical laboratory testing. 04/28/2025 5:44 PM CDT [facility] - CORE LAB MCRS Yes(A) N/A 04/28/2025 5:44 PM CDT FLOW CYTOMETRY Performing Labs The technical component of this testing was completed at [facility]. Stain controls for all stains resulted within this report have been reviewed and show appropriate reactivity. 04/28/2025 5:44 PM CDT [facility] - CORE LAB Tissue BONE STRUCTURE OF RIGHT CLAVICLE / Unknown Non-blood Collection / Unknown 04/28/2025 8:50 AM CDT 04/28/2025 8:56 AM CDT us Dinh EDUARDO AP Final Resu lt FLOW CYTOMETRY Flow Cytometry [address] [facility], Room [address] [place] [address] - CORE LAB [facility] - [address] 1st [place] [address] * (ABNORMAL) Surgical pathology exam [[id number]] (04/28/2025 8:48 AM CDT) Case Report Surgical Pathology Report Case: [id number] Authorizing Provider: Dinh Linder PA-C Collected: 04/28/2025 08:48 AM Ordering Location: [facility] Received: 04/28/2025 09:11 AM [facility] [place] Pathologist: Tomi Christopher MD Specimen: Clavicle, Right, [...] marrow biopsy is recommended. Concurrent flow cytometry ([id number]) showed kappa-monotypic plasma cells. This case was reviewed in part at our Hematopathology Faculty Consensus conference at which Eduarda Han, and Ajit were present in addition to myself. 11:22 AM CDT SPECIALTY LABS Clinical Information The patient is a 69-year-old male with progressive right shoulder pain for 1-2 months. X-ray and MRI at [facility] showed an osteolytic lesion of the [...] sent Touch preps: 5 air dried, (Evelia GIBBS([facility])) The specimen is received fresh with proper [...] in toto as A1-2. 5 11:22 AM [facility] Microscopic Description H&E stained [...] determine the final diagnosis. 5 11:22 AM [facility] Disclaimer Analyte Specific Reagents (ASRs) are used in many laboratory tests necessary for standard medical care and generally do not require FDA approval. This test was developed and its performance characteristics determined by [facility]. It has not been cleared or approved by the U.S. Food and Drug Administration. [facility] are certified for the performance [...] component of this testing was completed at [facility]. Stain controls for all stains resulted within this report have been reviewed and show appropriate reactivity. 5 11:22 AM CDT [facility] - CORE LAB Case Images 5 11:22 AM CDT SPECIAL[facility] LABS Biopsy BONE STRUCTURE OF RIGHT CLAVICLE / Unknown Non-blood Collection / Unknown 04/28/2025 8:48 AM CDT 04/28/2025 9:11 AM CDT Comment:See Questions Above us Dinh EDUARDO AP Final Resu lt SPECIALTY LABS Specialty Lab [address], Room [address] [place] [address], [facility] - CORE LAB [facility] [place] [address] [facility] 1st [place] [address] * CT Chest/Abdomen/Pelvis w Contrast (04/21/2025 10:04 AM CDT) Anatomical Region Laterality Modality Abdomen/Pelvis, Chest, SUBRA D CT BODY, UMP CT CHEST, UMP CT ABDOMEN PELVIS, RAD CT Computed Tomography Impressions 04/21/2025 2:13 PM CDT IMPRESSION: 1. Partially imaged large right lytic distal clavicular bone lesion with associated soft tissue mass. 2. Additional numerous lucent osseous lesions noted in the thoracic and lumbar vertebrae. Findings are concerning for multiple myeloma or metastases. LUCERO CASTILLO MD Narrative 04/21/2025 2:13 PM CDT EXAMINATION: CT CHEST/ABDOMEN/PELVIS W CONTRAST, 04/21/2025 10:04 AM TECHNIQUE: Helical CT images from the thoracic inlet through the symphysis pubis were obtained with IV contrast. Contrast dose: Isovue 370 102cc COMPARISON: Outside right shoulder MRI on 04/15/2025 HISTORY:69 years Bone lesion FINDINGS: CHEST: THYROID: Thyroid is unremarkable. LUNGS/PLEURA: No focal pulmonary opacities. No suspicious lung nodules or mass. No pleural effusion or pneumothorax. Central tracheobronchial tree is patent. Stable calcified granuloma abutting the right lung base. MEDIASTINUM: Heart size is within normal limits. No pericardial effusion. Normal caliber of the aorta and pulmonary arteries. No mediastinal lymphadenopathy. Few calcified right hilar lymph nodes. CHEST WALL: No suspicious axillary lymphadenopathy. ABDOMEN: LIVER: Normal size. Normal morphology. No focal hepatic mass. BILIARY: Normal appearance of the gallbladder. No biliary dilation. PANCREAS: No focal pancreatic mass or ductal dilation. SPLEEN: Normal size. ADRENAL GLANDS: Within normal limits. KIDNEYS: No suspicious renal mass, renal calculi, or hydronephrosis. Left parapelvic cysts. STOMACH: Within normal limits. BOWEL: Normal caliber of the small and large bowel. Uncomplicated diverticulosis. Normal appendix. PERITONEUM/FLUID: No focal fluid collection or evidence of free fluid or free air. VESSELS: No aneurysmal dilatation of the abdominal aorta. The portal, splenic, and superior mesenteric veins are patent. The origins of the celiac and superior mesenteric arteries are patent. LYMPH NODES: No retroperitoneal or mesenteric lymphadenopathy. PELVIS: REPRODUCTIVE ORGANS: Prostatomegaly. BLADDER: No focal bladder wall thickening. BONES/SOFT TISSUES: Partially visualized large lytic lesion in the right distal clavicle with associated soft tissue mass, better evaluated on outside MRI dated 04/15/2025. Additional numerous small ill-defined lucent bone lesions are seen, for example 1.3 cm round lesion at L2 (series 7, image 57) and 0.5 cm lesions at T10 (series 7, image 68). Status post total right hip arthroplasty with an augmentation acetabular screw. Multilevel degenerative disc disease. Procedure Note Lucero Castillo MD - 04/21/2025 EXAMINATION: CT CHEST/ABDOMEN/PELVIS W CONTRAST, 04/21/2025 10:04 AM TECHNIQUE: Helical CT images from the thoracic inlet through the symphysis pubis were obtained with IV contrast. Contrast dose: Isovue 370 102cc COMPARISON: Outside right shoulder MRI on 04/15/2025 HISTORY:69 years Bone lesion FINDINGS: CHEST: THYROID: Thyroid is unremarkable. LUNGS/PLEURA: No focal pulmonary opacities. No suspicious lung nodules or mass. No pleural effusion or pneumothorax. Central tracheobronchial tree is patent. Stable calcified granuloma abutting the right lung base. MEDIASTINUM: Heart size is within normal limits. No pericardial effusion. Normal caliber of the aorta and pulmonary arteries. No mediastinal lymphadenopathy. Few calcified right hilar lymph nodes. CHEST WALL: No suspicious axillary lymphadenopathy. ABDOMEN: LIVER: Normal size. Normal morphology. No focal hepatic mass. BILIARY: Normal appearance of the gallbladder. No biliary dilation. PANCREAS: No focal pancreatic mass or ductal dilation. SPLEEN: Normal size. ADRENAL GLANDS: Within normal limits. KIDNEYS: No suspicious renal mass, renal calculi, or hydronephrosis. Left parapelvic cysts. STOMACH: Within normal limits. BOWEL: Normal caliber of the small and large bowel. Uncomplicated diverticulosis. Normal appendix. PERITONEUM/FLUID: No focal fluid collection or evidence of free fluid or free air. VESSELS: No aneurysmal dilatation of the abdominal aorta. The portal, splenic, and superior mesenteric veins are patent. The origins of the celiac and superior mesenteric arteries are patent. LYMPH NODES: No retroperitoneal or mesenteric lymphadenopathy. PELVIS: REPRODUCTIVE ORGANS: Prostatomegaly. BLADDER: No focal bladder wall thickening. BONES/SOFT TISSUES: Partially visualized large lytic lesion in the right distal clavicle with associated soft tissue mass, better evaluated on outside MRI dated 04/15/2025. Additional numerous small ill-defined lucent bone lesions are seen, for example 1.3 cm round lesion at L2 (series 7, image 57) and 0.5 cm lesions at T10 (series 7, image 68). Status post total right hip arthroplasty with an augmentation acetabular screw. Multilevel degenerative disc disease. IMPRESSION: 1. Partially imaged large right lytic distal clavicular bone lesion with associated soft tissue mass. 2. Additional numerous lucent osseous lesions noted in the thoracic and lumbar vertebrae. Findings are concerning for multiple myeloma or metastases. LUCERO CASTILLO MD Jose Rodriguez MD IMG CT ORDERABLES Final Result * (ABNORMAL) Creatinine POCT (04/21/2025 9:47 AM CDT) Creatinine POCT 1.3(H) 0.7 - 1.2 mg/dL 04/21/2025 9:50 AM CDT [facility] POC GFR, ESTIMATED POCT 59(L) >60 mL/min/1.7 3m2 04/21/2025 9:50 AM CDT [facility] POC Blood, venous BLOOD SPECIMEN / Unknown 04/21/2025 9:47 AM CDT 04/21/2025 9:50 AM CDT Narrative [facility] POC - 04/21/2025 9:50 AM CDT Reference intervals for this test were updated on 11/11/2024 to standardize reference intervals for creatinine measured by different instruments. There may be differences in the flagging of prior results with similar values performed with this method. Those prior results can be interpreted in the context of the updated reference intervals. Jose Rodriguez MD LAB - BEAKER POCT Final Result [facility] POC [facility] [place] [facility] [place] [address] [facility] 1st [place] [address] * (ABNORMAL) Protein Electrophoresis, Serum (04/21/2025 9:36 AM CDT) Albumin 3.7 3.7 - 5.1 g/dL 04/25/2025 10:32 PM CDT SPECIALTY CORE/PROT/E NDO Alpha 1 0.3 0.2 - 0.4 g/dL 04/25/2025 10:32 PM CDT SPECIALTY CORE/PROT/E NDO Alpha 2 0.8 0.5 - 0.9 g/dL 04/25/2025 10:32 PM CDT [facility] SPECIALTY CORE/PROT/E NDO Beta Globulin 0.6 0.6 - 1.0 g/dL 04/25/2025 10:32 PM CDT [facility] SPECIALTY CORE/PROT/E NDO Gamma Globulin 3.6(H) 0.7 - 1.6 g/dL 04/25/2025 10:32 PM CDT [facility] SPECIALTY CORE/PROT/E NDO Monoclonal Peak 3.3(H) <=0.0 g/dL 04/25/2025 10:32 PM CDT SPECIALTY CORE/PROT/E NDO ELP Interpretation Large monoclonal protein (3.3 g/dL) seen in the gamma fraction, not previously characterized in our laboratory. Recommend serum and urine immunofixation for confirmation and further characterization if not previously performed elsewhere. Pathologic significance requires clinical correlation. Tay Carter M.D., Ph.D., Pathologist. 04/25/2025 10:32 PM CDT SPECIALTY CORE/PROT/E NDO Blood STRUCTURE OF LEFT UPPER LIMB / Unknown Venipuncture / Unknown 04/21/2025 9:36 AM CDT 04/21/2025 9:36 AM CDT us Jose Rodriguez MD LAB - BLOOD ORDERABLES Final R esult [facility] SPECIALTY CORE/PROT/ENDO Specialty Core/Prot/Endo [address] [facility], Room [address] * (ABNORMAL) Total Protein, Serum for ELP (04/21/2025 9:36 AM CDT) Total Protein Serum for ELP 9.0(H) 6.4 - 8.3 g/dL 04/21/2025 10:30 AM CDT [facility] - CORE LAB Blood STRUCTURE OF LEFT UPPER LIMB / Unknown Venipuncture / Unknown 04/21/2025 9:36 AM CDT 04/21/2025 9:36 AM CDT Jose Rodriguez MD LAB - BLOOD ORDERABLES Final R esult Performing Organization Address [facility]/ZIP Co de Phone Number [facility] - CORE LAB [address] [place] [address] * Lactate Dehydrogenase (04/21/2025 9:36 AM CDT) Lactate Dehydrogenase 125 0 - 250 U/L 04/21/2025 10:01 AM CDT [facility] - CORE LAB Blood STRUCTURE OF LEFT UPPER LIMB / Unknown Venipuncture / Unknown 04/21/2025 9:36 AM CDT 04/21/2025 9:36 AM CDT Jose Rodriguez MD LAB - BLOOD ORDERABLES Final R [facility] Performing Organization Address [facility] de Phone Number [facility] - CORE LAB [address] [place] [address] * (ABNORMAL) Conception and lambda light chain (04/21/2025 9:36 AM CDT) Conception Free Light Chains 2.33(H) 0.33 - 1.94 mg/dL 04/21/2025 1:20 PM CDT SPECIALTY CORE/PROT/ENDO Lambda Free Light Chains 0.57 0.57 - 2.63 mg/dL 04/21/2025 1:20 PM CDT SPECIALTY CORE/PROT/ENDO Conception /Lambda Ratio 4.09(H) 0.26 - 1.65 04/21/2025 1:20 PM CDT SPECIALTY CORE/PROT/ENDO Blood STRUCTURE OF LEFT UPPER LIMB / Unknown Venipuncture / Unknown 04/21/2025 9:36 AM CDT 04/21/2025 9:36 AM CDT Narrative SPECIALTY CORE/PROT/ENDO - 04/21/2025 1:20 PM CDT Undetected antigen excess is a rare event but cannot be excluded. If these free light chain results do not agree with other clinical or laboratory findings, or if the sample is from a patient that has previously demonstrated antigen excess, the result must be checked by retesting at a higher sample dilution. Results should always be interpreted in conjunction with other laboratory tests and clinical evidence; any anomalies should be discussed with the testing laboratory. Jose Rodriguez MD LAB - BLOOD ORDERABLES Final R esult [facility] SPECIAL[facility] CORE/PROT/ENDO [facility] Special[facility] Core/Prot/Endo [address], Room 3-[address] * Urea nitrogen (04/21/2025 9:36 AM CDT) Urea Nitrogen 18.8 8.0 - 23.0 mg/dL 04/21/2025 10:01 AM CDT [facility] Blood STRUCTURE OF LEFT UPPER LIMB / Unknown Venipuncture / Unknown 04/21/2025 9:36 AM CDT 04/21/2025 9:36 AM CDT Jose Rodriguez MD LAB - BLOOD ORDERABLES Final R esult [facility]ORE LAB [facility] [place] [address] [facility] 1st [place] [address] * Prostate spec antigen screen (04/21/2025 9:36 AM CDT) Prostate Specific Antigen Screen 2.04 0.00 - 6.50 ng/mL 04/21/2025 10:24 AM CDT [facility] Blood STRUCTURE OF LEFT UPPER LIMB / Unknown Venipuncture / Unknown 04/21/2025 9:36 AM CDT 04/21/2025 9:36 AM CDT Narrative [facility] - 04/21/2025 10:24 AM CDT This result is obtained using the David Elecsys total PSA method on the angelika e411 immunoassay analyzer, which is an ultrasensitive method. Results obtained with different assay methods or kits cannot be used interchangeably. This test is intended for initial prostate cancer screening. PSA values exceeding the age-specific limits are suspicious for prostate disease, but additional testing, such as prostate biopsy, is needed to diagnose prostate pathology. The [employer] recommends annual examination with digital rectal examination and serum PSA beginning at age 50 and for men with a life expectancy of at least 10 years after detection of prostate cancer. For men in high-risk groups, such as Americans or men with a first-degree relative diagnosed at a younger age, testing should begin at a younger age. It is generally recommended that information be provided to patients about the benefits and limitations of testing and treatment so they can make informed decisions. Jose Rodriguez MD LAB - BLOOD ORDERABLES Final R esult Performing Organization Address [facility] de Phone Number [facility] [address] [place] [address] * (ABNORMAL) Erythrocyte sedimentation rate auto (04/21/2025 9:36 AM CDT) Erythrocyte Sedimentation Rate 63(H) 0 - 20 mm/hr 04/21/2025 10:12 AM CDT [facility] Blood STRUCTURE OF LEFT UPPER LIMB / Unknown Venipuncture / Unknown 04/21/2025 9:36 AM CDT 04/21/2025 9:36 AM CDT Jose Rodriguez MD LAB - BLOOD ORDERABLES Final R esult Performing Organization Address [facility] Co de Phone Number [facility] [address] [place] [address] * Creatinine (04/21/2025 9:36 AM CDT) Creatinine 1.01 0.67 - 1.17 mg/dL 04/21/2025 10:01 AM CDT [facility] GFR Estimate 80 >60 mL/min/1.7 3m2 04/21/2025 10:01 AM CDT [facility] Comment:eGFR calculated usin g 2020 CKD-EPI equation. Blood STRUCTURE OF LEFT UPPER LIMB / Unknown Venipuncture / Unknown 04/21/2025 9:36 AM CDT 04/21/2025 9:36 AM CDT Jose Rodriguez MD LAB - BLOOD ORDERABLES Final R esult Performing Organization Address [facility] Co de Phone Number [facility] [address] [place] [address] * Calcium (04/21/2025 9:36 AM CDT) Calcium 9.5 8.8 - 10.4 mg/dL 04/21/2025 10:01 AM CDT [facility] Blood STRUCTURE OF LEFT UPPER LIMB / Unknown Venipuncture / Unknown 04/21/2025 9:36 AM CDT 04/21/2025 9:36 AM CDT Jose Rodriguez MD LAB - BLOOD ORDERABLES Final R esult Performing Organization Address [facility] de Phone Number [facility] [address] [place] [address] * Alkaline phosphatase (04/21/2025 9:36 AM CDT) Alkaline Phosphatase 86 40 - 150 U/L 04/21/2025 10:01 AM CDT [facility] Blood STRUCTURE OF LEFT UPPER LIMB / Unknown Venipuncture / Unknown 04/21/2025 9:36 AM CDT 04/21/2025 9:36 AM CDT Jose Rodriguez MD LAB - BLOOD ORDERABLES Final R esult Performing Organization Address [facility] Co de Phone Number [facility] [address] [place] [address] * (ABNORMAL) CBC with platelets (04/21/2025 9:36 AM CDT) WBC Count 5.21 4.00 - 11.00 10e3/uL 04/21/2025 9:42 AM CDT [facility] RBC Count 4.26(L) 4.40 - 5.90 10e6/uL 04/21/2025 9:42 AM CDT [facility] Hemoglobin 13.1(L) 13.3 - 17.7 g/dL 04/21/2025 9:42 AM CDT [facility] Hematocrit 39.4(L) 40.0 - 53.0 % 04/21/2025 9:42 AM CDT [facility] MCV 92.5 78.0 - 100.0 fL 04/21/2025 9:42 AM CDT [facility] MCH 30.8 26.5 - 33.0 pg 04/21/2025 9:42 AM CDT [facility] MCHC 33.2 31.5 - 36.5 g/dL 04/21/2025 9:42 AM CDT [facility] RDW 13.1 10.0 - 15.0 % 04/21/2025 9:42 AM CDT [facility] Platelet Count 172 150 - 450 10e3/uL 04/21/2025 9:42 AM CDT [facility] Blood STRUCTURE OF LEFT UPPER LIMB / Unknown Venipuncture / Unknown 04/21/2025 9:36 AM CDT 04/21/2025 9:36 AM CDT Jose Rodriguez MD LAB - BLOOD ORDERABLES Final R esult Performing Organization Address [facility]/State/ZIP Co de Phone Number [facility] - [address] 1st [place] [address] * (ABNORMAL) Basic metabolic panel (01/10/2021 11:42 PM CDT) Sodium 137 133 - 144 mmol/L 01/11/2021 12:14 AM CDT [facility] Potassium 4.0 3.4 - 5.3 mmol/L 01/11/2021 12:14 AM CDT [facility] Comment:Specimen slightly he molyzed, potassium may be falsely elevated Chloride 107 94 - 109 mmol/L 01/11/2021 12:14 AM CDT [facility] Carbon Dioxide 26 20 - 32 mmol/L 01/11/2021 12:14 AM [facility] Anion Gap 4 3 - 14 mmol/L 01/11/2021 12:14 AM [facility] Glucose 105(H) 70 - 99 mg/dL 01/11/2021 12:14 AM [facility] Urea Nitrogen 22 7 - 30 mg/dL 01/11/2021 12:14 AM [facility] Creatinine 0.94 0.66 - 1.25 mg/dL 01/11/2021 12:14 AM [facility] GFR Estimate 84 >60 mL/min/{1. 73_m2} 01/11/2021 12:14 AM [facility] Comment: Non GFR Calc Starting 08/21/2018, serum creatinine based estimated GFR (eGFR) will be calculated using the Chronic Kidney Disease Epidemiology Collaboration (CKD-EPI) equation. GFR Estimate If Black >90 >60 mL/min/{1. 73_m2} 01/11/2021 12:14 AM [facility] Comment: GFR Calc Starting 08/21/2018, serum creatinine based estimated GFR (eGFR) will be calculated using the Chronic Kidney Disease Epidemiology Collaboration (CKD-EPI) equation. Calcium 8.3(L) 8.5 - 10.1 mg/dL 01/11/2021 12:14 AM [facility] Blood 01/10/2021 11:4 2 PM CDT 01/10/2021 11:49 PM CDT Álvaro Alexandre MD LAB - BLOOD ORDERABLES Wilma christopher Result [facility] [address] [address], [facility] [phone] from Last 3 Months or Most Recently Relevant to Health Maintenance Insurance [place] Care Teams Custodial Worker Relationship Specialty Start Date End Date Teressa Warren MD [facility] [address] [place] [address] PCP - General Family Medicine 04/28/25 N[place]ini [place] [id number] [place] [address] Hematology & Oncology 04/24/25 Jose Rodriguez MD [id number] [place] [address] Assigned Musculoskeletal Provider 04/26/25
--- OUTSIDE RECORDS SUMMARY | 2025-06-06 08:12 | XMS_ITS | Encounter Summary ---
Author Organization [facility] Address [address] [place] [address] Care Team Providers Care Smart Energy Specialist Name Role Phone Unavailable Primary Care Provider Unavailabl e Encounter Details Date Type Department Care Team (Late st Contact Info) Description 05/20/2025 Orders Only Division of Hematology in [place], [place] [address] [place] [address] Bijal Dubose M.D. [address] [place] [phone] Multiple Myeloma Not Having Achieved Remission (HCC) [...] for daily living? 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 [address] [place] [phone] 06/09/2025 9:30 AM CDT Infusion Department of Oncology in [place], [place] [address] [place] [phone] Bijal Dubose M.D. [address] [place] [phone] 06/09/2025 2:00 PM CDT Appointment Department of Radiation Oncology in [place], [place] [address] [place] [phone] Chemo Goss M.D., Ph.D. [address] [place] [phone] 06/10/2025 3:30 PM CDT Appointment Department of Radiation Oncology in [place], [place] [address] [place] [phone] Chemo Goss M.D., Ph.D. [address] [place] [phone] 06/11/2025 11:30 AM CDT Appointment Department of Radiation Oncology in [place], [place] [address] [place] [phone] Chemo Goss M.D., Ph.D. [address] [place] [phone] 06/11/2025 2:45 PM CDT Appointment Department of Radiation Oncology in [place], [place] [address] [place] [phone] Chemo Goss M.D., Ph.D. [address] [place] [phone] Zhane Parikh R.N. 06/11/2025 3:30 PM CDT Appointment Department of Radiation Oncology in [place] [address] [place] [phone] Chemo Goss M.D., Ph.D. [address] [place] [phone] 06/12/2025 11:30 AM CDT Appointment Department of Radiation Oncology in [place], [place] [address] [place] [phone] Chemo Goss M.D., Ph.D. [address] [place] [phone] 06/13/2025 9:30 AM CDT Appointment Department of Radiation Oncology in [place], [place] [address] [place] [phone] Chemo Goss M.D., Ph.D. [address] [place] [phone] 06/16/2025 9:10 AM CDT Appointment Department of Laboratory Medicine and Pathology, [facility], in [place], [place] [address] [place] [phone] Bijal Dubose M.D. [address] [place] [phone] 06/16/2025 10:30 AM CDT Infusion Department of Oncology in [place], [place] [address] [place] [phone] Bijal Dubose M.D. [address] [place] [phone] 06/16/2025 11:00 AM CDT Appointment Department of Radiation Oncology in [place], [place] [address] [place] [phone] Chemo Goss M.D., Ph.D. [address] [place] [phone] 06/17/2025 9:45 AM CDT Appointment Department of Radiation Oncology in [place], [place] [address] [place] [phone] Chemo Goss M.D., Ph.D. [address] [place] [phone] 06/18/2025 9:45 AM CDT Appointment Department of Radiation Oncology in [place], [place] [address] [place] [phone] Chemo Goss M.D., Ph.D. [address] [place] [phone] 06/18/2025 10:30 AM CDT Appointment Department of Radiation Oncology in [place], [place] [address] [place] [phone] Chemo Goss M.D., Ph.D. [address] [place] [phone] 06/19/2025 10:45 AM CDT Appointment Department of Radiation Oncology in [place], [place] [address] [place] [address] [place] [phone] Chemo Goss M.D., Ph.D. [address] [place] [phone] 06/20/2025 10:45 AM CDT Appointment Department of Radiation Oncology in [place], [place] [address] [place] [address] Chemo Goss M.D., Ph.D. [address] [place] [phone] 06/23/2025 7:50 AM CDT Appointment Department of Laboratory Medicine and Pathology, [facility] in [place], [place] [address] [place] [address] Bijal Dubose M.D. [address] [place] [phone] 06/23/2025 9:30 AM CDT Infusion Department of Oncology in [place], [place] [address] [place] [address] Bijal Dubose M.D. [address] [place] [phone] 06/30/2025 7:30 AM CDT Appointment Department of Laboratory Medicine and Pathology, [facility] in [place], [place] [address] [place] [address] Bijal Dubose M.D. [address] [place] [phone] 06/30/2025 9:30 AM CDT Office Visit Division of Hematology in [place], [place] [address] [place] [address] Bijal Dubose M.D. [address] [place] [phone] 06/30/2025 10:30 AM CDT Infusion Department of Oncology in [place], [place] [address] [place] [address] Bijal Dubose M.D. [address] [place] [phone] 07/07/2025 11:30 AM ENGINEER BOOSTER AND EXHAUSTER Infusion Department of Oncology in [place], [place] [address] [place] [address] Bijal Dubose M.D. [address] [place] [phone] 07/14/2025 11:00 AM ENGINEER BOOSTER AND EXHAUSTER Infusion Department of Oncology in [place], [place] [address] [place] [address] Bijal Dubose M.D. [address] [place] [phone] 07/21/2025 10:30 AM ENGINEER BOOSTER AND EXHAUSTER Infusion Department of Oncology in [place], [place] [address] [place] [address] Bijal Dubose M.D. [address] [place] [phone] documented as of this encounter Visit Diagnoses Diagnosis Multiple Myeloma Not Having Achieved Remission (HCC)- Primary documented in this encounter Additional Health Concerns Infection Onset Date Last Indicated Resolved Time Protective Environment 05/20/2025 05/20/2025 documented as of this encounter
--- OUTSIDE RECORDS SUMMARY | 2025-06-06 08:12 | XMS_ITS | Encounter Summary ---
Author Organization [facility] Address [address] [place] [address] Care Team Providers Care Candle Maker Name Role Phone Nalini Salinas MD Unavailable [phone] Jose Rodriguez MD Unavailable [phone] Teressa Warren MD Primary Care Provider [phone] Reason for Visit * Reason Onset Date Comments *-*INCOMING RECORDS*-* 05/12/2025 Bone lesi on [M89.9]Encounter for screening for malignant neoplasm of prostate [Z12.5] Encounter Details Date Type Department Care Team (Late st Contact Info) Description 05/12/2025 PRE VISIT [address] 200 [facility] [place] [phone] [place]alini [place]inas [place] [id number] [place] [address] *-*INCOMING RECORDS*-* (Bone lesion [M89.9]/Encounter for screening for malignant neoplasm of prostate [Z12.5]) Social History Tobacco Use Types Packs/Day Years Used Date Smoking Tobacco: Never Smokeless Tobacco: Never PHQ-2 Answer Date Recorded PHQ-2 Score 0 04/21/2025 Adolescent Education Answer Date Record ed Getting School Help Needed Not on file 05/28 Sex and Gender Information Value Date Recorded Sex Assigned at Not on file 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, [facility] DATE RECEIVED: 05/06 NOTES STATUS DETAILS OFFICE NOTE from medical oncologist - [place] Dr. Bijal Dubose: 05/06/25 OPERATIVE REPORT [facility] 01/01/25: Right Total Hip Arthoplasty MEDICATION LIST [facility] LABS PATHOLOGY REPORTS [facility] 04/28/25: [id number] ANYTHING RELATED TO DIAGNOSIS [facility] 04/21/25 IMAGING (NEED IMAGES & REPORT) CT SCANS PACS [facility] 04/21/25 MRI PACS [facility] 04/15/25 XRAYS PACS [facility] 04/02/25 ULTRASOUND PACS [facility] 04/28/25 documented in this encounter Plan of Treatment Not on file documented as of this encounter Visit Diagnoses Not on filedocumented in this encounter Care Teams Candle Maker Relationship Specialty Start Date End Date Teressa Warren MD [facility] [address] [place] [address] PCP - General Family Medicine 04/28/25 [place] [address] [address] Hematology & Oncology 04/24/25 Jose Rodriguez MD [address] [place], [place] [address] Assigned Musculoskeletal Provider 04/26/25 documented as of this encounter
--- OUTSIDE RECORDS SUMMARY | 2025-06-06 08:12 | XMS_ITS | Encounter Summary ---
Author Organization [facility] Address [address] [place] [address] Care Team Providers Care Taker Off Braker Machine Name Role Phone Unavailable Primary Care Provider Unavailabl e Encounter Details Date Type Department Care Team (Late st Contact Info) Description 05/22/2025 Orders Only Division of Hematology in [place], [place] [address] [place] [address] Halima Tellez, RJackyN. Social History Tobacco Use Types Packs/Day Years [...] needed for daily living? No 05/05/[address] [facility] Utilities Answer Date Recorded In the past 12 months has e electric, gas, oil, or water company threatened to shut off services in your home? No 05/05/2025 Housing Stability Answer Date Recorded What is your living situation today? 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 [address] [place] [phone] 06/09/2025 9:30 AM CDT Infusion Department of Oncology in [address] [address] Bijal Dubose M.D. [address] [place] [phone] 06/09/2025 2:00 PM CDT Appointment Department of Radiation Oncology in [place], [place] [address] [place] [phone] Chemo Goss M.D., Ph.D. [address] [place] [phone] 06/10/2025 3:30 PM CDT Appointment Department of Radiation Oncology in [address] [phone] Chemo Goss M.D., Ph.D. [address] [place] [phone] 06/11/2025 11:30 AM CDT Appointment Department of Radiation Oncology in [address] [phone] Chemo Goss M.D., Ph.D. [address] [place] [phone] 06/11/2025 2:45 PM CDT Appointment Department of Radiation Oncology in [place], [place] [address] [place] [phone] Chemo Goss M.D., Ph.D. [address] [place] [phone] Zhane Parikh R.N. 06/11/2025 3:30 PM CDT Appointment Department of Radiation Oncology in [place], [place] [address] [place] [phone] Chemo Goss M.D., Ph.D. [address] [place] [phone] 06/12/2025 11:30 AM CDT Appointment Department of Radiation Oncology in [place], [place] [address] [place] [phone] Chemo Goss M.D., Ph.D. [address] [place] [phone] 06/13/2025 9:30 AM CDT Appointment Department of Radiation Oncology in [place], [place] [address] [place] [phone] Chemo Goss M.D., Ph.D. [address] [place] [phone] 06/16/2025 9:10 AM CDT Appointment Department of Laboratory Medicine and Pathology, [facility], in [place], [place] [address] [place] [phone] Bijal Dubose M.D. [address] [place] [phone] 06/16/2025 10:30 AM CDT Infusion Department of Oncology in [place], [place] [address] [place] [phone] Bijal Dubose M.D. [address] [place] [phone] 06/16/2025 11:00 AM CDT Appointment Department of Radiation Oncology in [place], [place] [address] [place] [phone] Chemo Goss M.D., Ph.D. [address] [place] [phone] 06/17/2025 9:45 AM CDT Appointment Department of Radiation Oncology in [place], [place] [address] [place] [phone] Chemo Goss M.D., Ph.D. [address] [place] [phone] 06/18/2025 9:45 AM CDT Appointment Department of Radiation Oncology in [place], [place] [address] [place] [phone] Chemo Goss M.D., Ph.D. [address] [place] [phone] 06/18/2025 10:30 AM CDT Appointment Department of Radiation Oncology in [place], [place] [address] [place] [phone] Chemo Goss M.D., Ph.D. [address] [place] [phone] 06/19/2025 10:45 AM CDT Appointment Department of Radiation Oncology in [address] [phone] Chemo Goss M.D., Ph.D. [address] [place] [phone] 06/20/2025 10:45 AM CDT Appointment Department of Radiation Oncology in [place], [place] [address] [place] [address] Chemo Goss M.D., Ph.D. [address] [place] [phone] 06/23/2025 7:50 AM CDT Appointment Department of Laboratory Medicine and Pathology, [facility] in [place], [place] [address] [place] [address] Bijal Dubose M.D. [address] [place] [phone] 06/23/2025 9:30 AM CDT Infusion Department of Oncology in [place], [place] [address] [place] [address] Bijal Dubose M.D. [address] [place] [phone] 06/30/2025 7:30 AM CDT Appointment Department of Laboratory Medicine and Pathology, [facility] in [place], [place] [address] [place] [address] Bijal Dubose M.D. [address] [place] [phone] 06/30/2025 9:30 AM CDT Office Visit Division of Hematology in [place], [place] [address] [place] [phone] Bijal Dubose M.D. [address] [place] [phone] 06/30/2025 10:30 AM CDT Infusion Department of Oncology in [place], [place] [address] [place] [phone] Bijal Dubose M.D. [address] [place] [phone] 07/07/2025 11:30 AM DATA COMPILER Infusion Department of Oncology in [place], [place] [address] [place] [address] Bijal Dubose M.D. [address] [place] [phone] 07/14/2025 11:00 AM DATA COMPILER Infusion Department of Oncology in [place], [place] [address] [place] [address] Bijal Dubose M.D. [address] [place] [phone] 07/21/2025 10:30 AM DATA COMPILER Infusion Department of Oncology in [place], [place] [address] [place] [phone] Bijal Dubose M.D. [address] [place] [phone] documented as of this encounter Visit Diagnoses Not on filedocumented in this encounter Additional Health Concerns Infection Onset Date Last Indicated Resolved Time Protective Environment 05/20/2025 05/20/2025 documented as of this encounter
--- OUTSIDE RECORDS SUMMARY | 2025-06-06 08:14 | XMS_ITS | Encounter Summary ---
Author Organization [facility] Address [address] [place] [address] Care Team Providers Care Tallow Refiner Name Role Phone Unavailable Primary Care Provider Unavailabl e Reason for Visit * Reason Onset Date Comments Forms 05/06/2025 Encounter Details Date Type Department Care Team ([facility] st Contact Info) Description 05/06/2025 Clinical Communication Division of Hematology in [place], [place] [address] [place] [address] Bijal Dubose M.D. [address] [place] [address] Forms Social History Tobacco Use Types Packs/Day Years [...] daily living? No 05/05/2025 [facility] Utilities Answer Date Recorded In the past [address] [facility] electric, gas, oil, or water company threatened to shut off services in your home? No 05/05/2025 Housing Stability Answer Date Recorded What is your living situation today? I have a [facility] place to live 05/05/2025 Sex and Gender Information Value Date Recorded Sex Assigned at Male 05/05/2025 10:47 AM CDT Legal Sex Male 11:35 PM CAREER PROFESSIONAL Gender Identity Male 05/05/2025 10:47 AM CDT Sexual Orientation Straight 05/05/2025 10 :47 AM CDT documented as of this encounter Plan of Treatment Upcoming Encounters Date Type Department Care Team (Late st Contact Info) Description 06/09/2025 8:20 AM CDT Appointment Department of Laboratory Medicine and Pathology, [facility], in [place], [place] [address] [place] [phone] Bijal Dubose M.D. [address] [place] [phone] 06/09/2025 9:30 AM CDT Infusion Department of Oncology in [place], [place] [address] [place] [phone] Bijal Dubose M.D. [address] [place] [phone] 06/09/2025 2:00 PM CDT Appointment Department of Radiation Oncology in [place], [place] [address] [place] [phone] Chemo Goss M.D., Ph.D. [address] [place] [phone] 06/10/2025 3:30 PM CDT Appointment Department of Radiation Oncology in [place], [place] [address] [place] [phone] Chemo Goss M.D., Ph.D. [address] [place] [phone] 06/11/2025 11:30 AM CDT Appointment Department of Radiation Oncology in [place], [place] [address] [place] [phone] Chemo Goss M.D., Ph.D. [address] [place] [phone] 06/11/2025 2:45 PM CDT Appointment Department of Radiation Oncology in [place], [place] [address] [place] [phone] Chemo Goss M.D., Ph.D. [address] [place] [phone] Zhane Parikh R.N. 06/11/2025 3:30 PM CDT Appointment Department of Radiation Oncology in [place], [place] [address] [place] [phone] Chemo Goss M.D., Ph.D. [address] [place] [phone] 06/12/2025 11:30 AM CDT Appointment Department of Radiation Oncology in [place], [place] [address] [place] [phone] Chemo Goss M.D., Ph.D. [address] [place] [phone] 06/13/2025 9:30 AM CDT Appointment Department of Radiation Oncology in [place], [place] [address] [place] [phone] Chemo Goss M.D., Ph.D. [address] [place] [phone] 06/16/2025 9:10 AM CDT Appointment Department of Laboratory Medicine and Pathology, [facility], in [place], [place] [address] [place] [address] Bijal Dubose M.D. [address] [place] [phone] 06/16/2025 10:30 AM CDT Infusion Department of Oncology in [place], [place] [address] [place] [phone] Bijal Dubose M.D. [address] [place] [phone] 06/16/2025 11:00 AM CDT Appointment Department of Radiation Oncology in [place], [place] [address] [place] [phone] Chemo Goss M.D., Ph.D. [address] [place] [phone] 06/17/2025 9:45 AM CDT Appointment Department of Radiation Oncology in [place], [place] [address] [place] [phone] Chemo Goss M.D., Ph.D. [address] [place] [phone] 06/18/2025 9:45 AM CDT Appointment Department of Radiation Oncology in [address] [address] Chemo Goss M.D., Ph.D. [address] [place] [phone] 06/18/2025 10:30 AM CDT Appointment Department of Radiation Oncology in [place], [place] [address] [place] [phone] Chemo Goss M.D., Ph.D. [address] [place] [phone] 06/19/2025 10:45 AM CDT Appointment Department of Radiation Oncology in [place], [place] [address] [place] [address] Chemo Goss M.D., Ph.D. [address] [place] [phone] 06/20/2025 10:45 AM CDT Appointment Department of Radiation Oncology in [place], [place] [address] [place] [phone] Chemo Goss M.D., Ph.D. [address] [place] [phone] 06/23/2025 7:50 AM CDT Appointment Department of Laboratory Medicine and Pathology, [facility] in [place], [place] [address] [place] [address] Bijal Dubose M.D. [address] [place] [phone] 06/23/2025 9:30 AM CDT Infusion Department of Oncology in [place], [place] [address] [place] [address] Bijal Dubose M.D. [address] [place] [phone] 06/30/2025 7:30 AM CDT Appointment Department of Laboratory Medicine and Pathology, [facility] in [place], [place] [address] [place] [address] Bijal Dubose M.D. [address] [place] [phone] 06/30/2025 9:30 AM CDT Office Visit Division of Hematology in [place], [place] [address] [place] [phone] Bijal Dubose M.D. [address] [place] [phone] 06/30/2025 10:30 AM CDT Infusion Department of Oncology in [place], [place] [address] [place] [address] Bijal Dubose M.D. [address] [place] [phone] 07/07/2025 11:30 AM CAREER PROFESSIONAL Infusion Department of Oncology in [place], [place] [address] [place] [address] Bijal Dubose M.D. [address] [place] [phone] 07/14/2025 11:00 AM CAREER PROFESSIONAL Infusion Department of Oncology in [place], [place] [address] [place] [address] Bijal Dubose M.D. [address] [place] [phone] 07/21/2025 10:30 AM CAREER PROFESSIONAL Infusion Department of Oncology in [place], [place] [address] [place] [phone] Bijal Dubose M.D. [address] [place] [phone] documented as of this encounter Visit Diagnoses Not on filedocumented in this encounter Additional Health Concerns Infection Onset Date Last Indicated Resolved Time Protective Environment 05/20/2025 05/20/2025 documented as of this encounter
--- OUTSIDE RECORDS SUMMARY | 2025-06-06 08:14 | XMS_ITS | Encounter Summary ---
Author Organization [facility] Address [address] [place] [address] Care Team Providers Care Instructional Support Assistant Name Role Phone Unavailable Primary Care Provider Unavailabl e Reason for Visit * Reason Onset Date Comments Forms 05/06/2025 Encounter Details Date Type Department Care Team ([facility] st Contact Info) Description 05/06/2025 Clinical Communication Division of Hematology in [place], [place] [address] [place] [address] Bijal Dubose M.D. [address] [place] [address] Forms Social History Tobacco Use Types Packs/Day [...] things needed for daily living? No 05/05/2025 [facility] Utilities Answer Date Recorded In the past 12 months has [facility] electric, gas, oil, or water company threatened to shut off services in your home? No 05/05/2025 Housing Stability Answer Date Recorded What is your living situation today? 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 [address] [place] [phone] 06/09/2025 9:30 AM CDT Infusion Department of Oncology in [place], [place] [address] [place] [phone] Bijal Dubose M.D. [address] [place] [phone] 06/09/2025 2:00 PM CDT Appointment Department of Radiation Oncology in [place], [place] [address] [place] [phone] Chemo Goss M.D., Ph.D. [address] [place] [phone] 06/10/2025 3:30 PM CDT Appointment Department of Radiation Oncology in [place], [place] [address] [place] [phone] Chemo Goss M.D., Ph.D. [address] [place] [phone] 06/11/2025 11:30 AM CDT Appointment Department of Radiation Oncology in [place], [place] [address] [place] [phone] Chemo Goss M.D., Ph.D. [address] [place] [phone] 06/11/2025 2:45 PM CDT Appointment Department of Radiation Oncology in [place], [place] [address] [place] [phone] Chemo Goss M.D., Ph.D. [address] [place] [phone] Zhane Parikh R.N. 06/11/2025 3:30 PM CDT Appointment Department of Radiation Oncology in [place], [place] [address] [place] [phone] Chemo Goss M.D., Ph.D. [address] [place] [phone] 06/12/2025 11:30 AM CDT Appointment Department of Radiation Oncology in [place], [place] [address] [place] [phone] Chemo Goss M.D., Ph.D. [address] [place] [phone] 06/13/2025 9:30 AM CDT Appointment Department of Radiation Oncology in [place], [place] [address] [place] [phone] Chemo Goss M.D., Ph.D. [address] [place] [phone] 06/16/2025 9:10 AM CDT Appointment Department of Laboratory Medicine and Pathology, [facility], in [place], [place] [address] [place] [address] Bijal Dubose M.D. [address] [place] [phone] 06/16/2025 10:30 AM CDT Infusion Department of Oncology in [place], [place] [address] [place] [phone] Bijal Dubose M.D. [address] [place] [phone] 06/16/2025 11:00 AM CDT Appointment Department of Radiation Oncology in [place], [place] [address] [place] [phone] Chemo Goss M.D., Ph.D. [address] [place] [phone] 06/17/2025 9:45 AM CDT Appointment Department of Radiation Oncology in [place], [place] [address] [place] [phone] Chemo Goss M.D., Ph.D. [address] [place] [phone] 06/18/2025 9:45 AM CDT Appointment Department of Radiation Oncology in [address] [address] Chemo Goss M.D., Ph.D. [address] [place] [phone] 06/18/2025 10:30 AM CDT Appointment Department of Radiation Oncology in [place], [place] [address] [place] [phone] Chemo Goss M.D., Ph.D. [address] [place] [phone] 06/19/2025 10:45 AM CDT Appointment Department of Radiation Oncology in [place], [place] [address] [place] [address] Chemo Goss M.D., Ph.D. [address] [place] [phone] 06/20/2025 10:45 AM CDT Appointment Department of Radiation Oncology in [place], [place] [address] [place] [phone] Chemo Goss M.D., Ph.D. [address] [place] [phone] 06/23/2025 7:50 AM CDT Appointment Department of Laboratory Medicine and Pathology, [facility] in [place], [place] [address] [place] [address] Bijal Dubose M.D. [address] [place] [phone] 06/23/2025 9:30 AM CDT Infusion Department of Oncology in [place], [place] [address] [place] [address] Bijal Dubose M.D. [address] [place] [phone] 06/30/2025 7:30 AM CDT Appointment Department of Laboratory Medicine and Pathology, [facility] in [place], [place] [address] [place] [address] Bijal Dubose M.D. [address] [place] [phone] 06/30/2025 9:30 AM CDT Office Visit Division of Hematology in [place], [place] [address] [place] [phone] Bijal Dubose M.D. [address] [place] [phone] 06/30/2025 10:30 AM CDT Infusion Department of Oncology in [place], [place] [address] [place] [address] Bijal Dubose M.D. [address] [place] [phone] 07/07/2025 11:30 AM SALES REPRESENTATIVE JEWELRY Infusion Department of Oncology in [place], [place] [address] [place] [address] Bijal Dubose M.D. [address] [place] [phone] 07/14/2025 11:00 AM SALES REPRESENTATIVE JEWELRY Infusion Department of Oncology in [place], [place] [address] [place] [address] Bijal Dubose M.D. [address] [place] [phone] 07/21/2025 10:30 AM SALES REPRESENTATIVE JEWELRY Infusion Department of Oncology in [place], [place] [address] [place] [phone] Bijal Dubose M.D. [address] [place] [phone] documented as of this encounter Visit Diagnoses Not on filedocumented in this encounter Additional Health Concerns Infection Onset Date Last Indicated Resolved Time Protective Environment 05/20/2025 05/20/2025 documented as of this encounter
--- OUTSIDE RECORDS SUMMARY | 2025-06-06 08:14 | XMS_ITS | Clinical Summary ---
Author Organization [facility] Privacy Networks [facility] Address [address] [address] Phone Care Team Providers Care Tapering Machine Operator Name Role Phone Teressa Warren MD Primary Care Provider [phone] Allergies No known active allergies Medications atorvaSTATin (Lipitor) 40 MG tablet 1 Active tamsulosin (Flomax) 0.4 MG 24 hour capsule Daily 0 Active oxyCODONE (Roxicodone) 5 MG immediate release tablet Take 1-2 Tablets by mouth every six hours as needed for Pain. Take 1 tablet for pain rated 4-6, take 2 tablets for pain rated 7-10. Not to exceed 6 tablets in 1 day. 30 Tablet 5 Active senna-docusate (Senna S) 8.6-50 MG oral tablet Take 1-2 Tablets by mouth two times a day. 30 Tablet 5 Active acetaminophen (TYLENOL) 325 MG tablet Take 3 Tablets by mouth every six hours as needed for Pain. Limit acetaminophen to 4000 mg per day from all sources. 100 Tablet 5 Active hydrOXYzine HCl (Atarax) 10 MG tablet Take 1 Tablet by mouth every six hours as needed for Other (Muscle Spasms). 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 Social History Tobacco Use Types Packs/Day Years Used Date Smoking Tobacco: Never Smokeless Tobacco: Never Tobacco Cessation:Counseling Given: Not Answered Alcohol Use Standard Drinks/Week Comments Not Currently 0 (1 standard drink = 0.6 oz pur e alcohol) [facility] Utilities Answer Date Recorded In the past 12 months has th e electric, gas, oil, or water company threatened to shut off services in your home? No 01/01/2025 Hunger Vital Sign Answer Date Recorded Within the past 12 months, y ou worried that your food would run out before you got the money to buy more. Never true 01/02/20 Within the past 12 months, t he food you bought just didn't last and you didn't have money to get more. Never true 01/01/2025 PRAPARE - Transportation Answer Date Re corded In the past 12 months, has l ack of transportation kept you from medical appointments or from getting medications? No 12/05 In the past 12 months, has l ack of transportation kept you from meetings, work, or from getting things needed for daily living? No 01/01/2025 Housing Stability Vital Sign Answer Sandip e Recorded In the last 12 months, was t here a time when you were not able to pay the mortgage or rent on time? No 01/01/2025 In the past 12 months, how m any times have you moved where you were living? 0 01/01/2025 At any time in the past 12 m [facility], were you homeless or living in a [place] [facility] [place] facility (including now)? No 01/01/2025 IP Custom IPV Answer Date Recorded Do you feel UNSAFE in any of your personal relationships with your family members or any other acquaintances? No 2024 Sex and Gender Information Value Date Recorded Sex Assigned at Male 12/27/2024 2:56 PM CDT Legal Sex Male 9:38 AM LOCATION DIRECTOR Gender Identity Male 12/27/2024 2:56 PM CDT Sexual Orientation Straight 12/27/2024 2: 56 PM CDT Obstetrics History Last Filed Vital Signs Vital Sign Reading Time Taken Comments Blood Pressure 129/72 01/02/2025 7:20 AM CDT Pulse 61 01/02/2025 7:20 AM CDT Temperature 36.5 C (97.7 F) 01/02/2025 7:20 AM CDT Respiratory Rate 18 01/02/2025 7:20 AM CDT Oxygen Saturation 95% 01/02/2025 7:20 AM CDT Inhaled Oxygen Concentration - - Weight 94.7 kg (208 lb 12.8 oz) 01/01/2025 7:45 AM CDT Height 177.8 cm (5' 10) 01/01/2025 7:45 AM CDT Body Mass Index 29.96 01/01/2025 7:45 AM CDT Plan of Treatment Health Maintenance Due Date Last Done Comments CT Colonography 1954 Cologuard 1954 Colonoscopy 1954 Colorectal Cancer Screening 1954 FIT/FOBT 1954 Sigmoidoscopy 1954 PERTUSSIS (Standing Order) 1973 TETANUS (Standing Order) 1973 Pneumococcal Vaccine: 50+ yr s (Standing Order) (1 of 1 - PCV) 2004 Shingrix (Zoster recombinant ) vaccine (Standing Order) (1 of 2) 2004 COVID-19 Vaccine ( - 2023-2 5 season) 2025 Influenza Vaccine Seasonal (Standing Order) (#1) 2025 RSV Vaccination (60+ yrs) (Abrysvo/Arexvy) (1 - 1-dose 75+ series) 2029 HPV Vaccine (Standing Order) Aged Out No longer eligible based on patient's age to complete this topic Hepatitis B Vaccine (Standin g Order) Aged Out No longer eligible b ased on patient's age to complete this topic Medical Devices Implanted Type Area Back Sizer Device Identifier Shelf Expiration Date Model / Serial / Lot Cup Acet [place] Sector Ii 58mm - [id number] Implanted:Qty: 1 on 01/01/2025 by Girma Gasca MD at [facility] Right: Hip DEPUY 10/04/2034 8 / N/A / [id number] [place] Hole Eliminator Ps - [id number] Implanted:Qty: 1 on 01/01/2025 by Girma Gasca MD at [facility] Right: Hip DEPUY [id number] 10/04/2034 0 / N/A / [id number] Liner Acet Altrx 36mm X 58mm Neutral - [id number] Implanted:Qty: 1 on 01/01/2025 by Girma Gasca MD at [facility] Right: Hip DEPUY [id number] 12/02/2028 8 / N/A / [id number] Screw Bone [place] Cancellous 6.5x30mm - [id number] Implanted:Qty: 1 on 01/01/2025 by Girma Gasca MD at [facility] Right: Hip DEPUY [id number] 09/03/2033 0 / N/A / [id number] Screw Bone Cancellous 6.5mm X 35mm - [id number] Implanted:Qty: 1 on 01/01/2025 by Girma Gasca MD at [facility] Right: Hip DEPUY [id number] 10/04/2034 0 / N/A / [id number] Stem Femoral Actis Duofix Sz 7 Std Colla - [id number] Implanted:Qty: 1 on 01/01/2025 by Girma Gasca MD at [facility] Right: Hip DEPUY [id number] 11/01/2034 1010-07-11 0 / N/A / [id number] Head Femoral Biolox Delta Sz 36 +5mm - [id number] Implanted:Qty: 1 on 01/01/2025 by Girma Gasca MD at [facility] Right: Hip DEPUY [id number] 10/04/2029 0 / N/A / [id number] Insurance [facility] MEDIC[facility] PART A & B Advance Directives For more information, please contact: [phone] Documents on File Type Date Recorded Patient Civil Manager Expl anation Advance Directive - RV 12/06/2024 8:48 AM A dvance Directive * Full Code (Latest Code Status on File) Date Activated Date Inactivated Comments 01/01/2025 7:15 AM 01/02/2025 2:16 PM Care Teams Tapering Machine Operator Relationship Specialty Start Date End Date Teressa Warren MD [place] [address] [place] [address] PCP - General Family Medicine 01/01/25
--- OUTSIDE RECORDS SUMMARY | 2025-06-06 08:15 | XMS_ITS | Encounter Summary ---
Author Organization [facility] Address [address] [place] [address] Care Team Providers Care Air Quality Engineer Name Role Phone Zion Munson Primary Care Provider + [phone] Nalini Salinas MD Unavailable [phone] Jose Rodriguez MD Unavailable [phone] Encounter Details Date Type Department Care Team (Latest Contact Info) Description 04/27/2025 Travel Social History Tobacco Use Types Packs/Day Years Used Date Smoking Tobacco: Never Smokeless Tobacco: Never PHQ-2 Answer Date Recorded PHQ-2 Score 0 04/21/2025 Adolescent Education Answer Date Record ed Getting School Help Needed Not on file 05/28 Sex and Gender Information Value Date Recorded Sex Assigned at Not on file Legal Sex Male 4:34 AM JUICE TESTER Gender Identity Not on file Sexual Orientation Not on file documented as of this encounter Plan of Treatment Not on file documented as of this encounter Visit Diagnoses Not on filedocumented in this encounter Care Teams Air Quality Engineer Relationship Specialty Start Date End Date Zion Munson [address] [address] PCP - General Family Medicine 11/07/20 04/27/25 [place] [address] [address] Hematology & Oncology 04/24/25 Jose Rodriguez MD [address] [place], [place] [address] [place] [address] Assigned Musculoskeletal Provider 04/26/25 documented as of this encounter
--- OUTSIDE RECORDS SUMMARY | 2025-06-06 08:15 | XMS_ITS | Encounter Summary ---
Author Organization [facility] Address [address] [place] [address]. [place] [address] Care Team Providers Care Checker Cashier Name Role Phone Zion Munson Primary Care Provider + [phone] Nalini Salinas MD Unavailable [phone] Reason for Referral * Consultation (Priority: 1-2 Weeks) - Pending Review Specialty Diagnoses / Procedures Referred By Analy messer Referred To Contact Medical Oncology Diagnoses Bone lesion Encounter for screening for malignant neoplasm of prostate Jose Rodriguez MD [address] [address] Phone: tel: fax: Referral ID Status Reason Start Date Expiration Date V isits Requested Visits Authorized [id number] Pending Review 04/24/2025 04/24/2026 1 1 Question Answer My Clinical Question Is: Find concerning for multiple myeloma or metastases, biopsy being completed on 04/28 If you have additional clinical questions which require a provider discussion, please call [phone]. Ask for the Chemo only medicine physician. Reason for Referral: Medical Oncology Medical Onc Reason for Referral: Medical Oncology Services Patient Scheduling Instructions: [email or web address] will call you to coordinate your care as prescribed by the provider. If you don t hear from a patient account representative within 2 business days, please call Comments Please be aware that coverage of these services is subject to the terms and limitations of your health insurance plan. Call member services at your health plan with any benefit or coverage questions. [email or web address] will call you to coordinate your care as prescribed by the provider. If you don t hear from a patient account representative within 2 business days, please call Encounter Details Date Type Department Care Team (Late st Contact Info) Description 04/24/2025 Telephone [facility] [place] [address] [place] [address] Jose Rodriguez MD [address] [place] [address] Social History Tobacco Use Types Packs/Day Years Used Date Smoking Tobacco: Never Smokeless Tobacco: Never PHQ-2 Answer Date Recorded PHQ-2 Score 0 04/21/2025 Adolescent Education Answer Date Record ed Getting School Help Needed Not on file 05/28 Sex and Gender Information Value Date Recorded Sex Assigned at Not on file Legal Sex Male 4:34 AM 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 - I let him know Dr. Rodriguez reviewed labs and CT and examinations did not clearly reveal diagnosis, so I was calling to schedule ultrasound-guided core needle biopsy of right distal clavicle. - Appointment scheduled with Dinh on Monday @ 8:00am. - I let him know Dr. Rodriguez would also like to put in a medical oncology referral so we can get the ball rolling on an appointment. - Patient verbalized understanding of plan and all questions were answered. Call back number to clinic was given and patient was told to call if they had any further questions or any new or worseningsymptoms. documented in this encounter Plan of Treatment Scheduled Referrals Name Type Priority Associated Diagnoses Orde r Schedule Adult Oncology/Hematology Silver Solderer Referral Referral Priority: 1-2 Weeks Bone lesion Encounter for screening for malignant neoplasm of prostate Expected: 04/24/2025 (Approximate), Expires: 04/24/2026 documented as of this encounter Visit Diagnoses Diagnosis Encounter for screening for malignant neoplasm of prostate- Primary Special screening for malignant neoplasm of prostate Bone lesion Disorder of bone and cartilage, unspecified documented in this encounter Care Teams Checker Cashier Relationship Specialty Start Date End Date Zion Munson [address] [address] PCP - General Family Medicine 11/07/20 04/27/25 [place] [address] [address] Hematology & Oncology 04/24/25 documented as of this encounter
--- OUTSIDE RECORDS SUMMARY | 2025-06-06 08:15 | XMS_ITS | Encounter Summary ---
Author Organization [facility] Address [address] [place] [address] Care Team Providers Care Product Managent Intern Name Role Phone Unavailable Primary Care Provider Unavailabl e Reason for Referral * Outpatient (Routine) - Closed Specialty Diagnoses / Procedures Referred By Analy t Referred To Contact Hematology Oncology Bijal Dubose M.D. [address] [place] [phone] Phone: tel: fax: [facility] Referral ID Status Reason Start Date Expiration Date Visits Re quested Visits Authorized [id number] Closed 05/16/2025 11/15/2026 1 1 Encounter Details Date Type Department Care Team (Late st Contact Info) Description 05/16/2025 Orders Only Division of Hematology in [place], [place] [address] [place] [phone] Bijal Dubose M.D. [address] [place] [phone] Social History Tobacco Use Types Packs/Day Years [...] things needed for daily living? No 05/05/2025 [facility] Utilities Answer Date Recorded In the past 12 months has [facility] electric, gas, oil, or water company threatened to shut off services in your home? No 05/05/2025 Housing Stability Answer Date Recorded What is your living situation today? 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 [address] [place] [phone] 06/09/2025 9:30 AM CDT Infusion Department of Oncology in [place], [place] [address] [place] [phone] Bijal Dubose M.D. [address] [place] [phone] 06/09/2025 2:00 PM CDT Appointment Department of Radiation Oncology in [place], [place] [address] [place] [phone] Chemo Goss M.D., Ph.D. [address] [place] [phone] 06/10/2025 3:30 PM CDT Appointment Department of Radiation Oncology in [place], [place] [address] [place] [phone] Chemo Goss M.D., Ph.D. [address] [place] [phone] 06/11/2025 11:30 AM CDT Appointment Department of Radiation Oncology in [place], [place] [address] [place] [phone] Chemo Goss M.D., Ph.D. [address] [place] [phone] 06/11/2025 2:45 PM CDT Appointment Department of Radiation Oncology in [place], [place] [address] [place] [phone] Chmeo Goss M.D., Ph.D. [address] [place] [phone] Zhane Parikh R.N. 06/11/2025 3:30 PM CDT Appointment Department of Radiation Oncology in [address] [phone] Chemo Goss M.D., Ph.D. [address] [place] [phone] 06/12/2025 11:30 AM CDT Appointment Department of Radiation Oncology in [place], [place] [address] [place] [phone] Chemo Goss M.D., Ph.D. [address] [place] [phone] 06/13/2025 9:30 AM CDT Appointment Department of Radiation Oncology in [place], [place] [address] [place] [phone] Chemo Goss M.D., Ph.D. [address] [place] [phone] 06/16/2025 9:10 AM CDT Appointment Department of Laboratory Medicine and Pathology, [facility] in [place], [place] [address] [place] [phone] Bijal Dubose M.D. [address] [place] [phone] 06/16/2025 10:30 AM CDT Infusion Department of Oncology in [place], [place] [address] [place] [phone] Bijal Dubose M.D. [address] [place] [phone] 06/16/2025 11:00 AM CDT Appointment Department of Radiation Oncology in [place], [place] [address] [place] [phone] Chemo Goss M.D., Ph.D. [address] [place] [phone] 06/17/2025 9:45 AM CDT Appointment Department of Radiation Oncology in [place], [place] [address] [place] [phone] Chemo Goss M.D., Ph.D. [address] [place] [phone] 06/18/2025 9:45 AM CDT Appointment Department of Radiation Oncology in [place], [place] [address] [place] [phone] Chemo Goss M.D., Ph.D. [address] [place] [phone] 06/18/2025 10:30 AM CDT Appointment Department of Radiation Oncology in [place], [place] [address] [place] [phone] Chemo Goss M.D., Ph.D. [address] [place] [phone] 06/19/2025 10:45 AM CDT Appointment Department of Radiation Oncology in [place], [place] [address] [place] [phone] Chemo Goss M.D., Ph.D. [address] [place] [phone] 06/20/2025 10:45 AM CDT Appointment Department of Radiation Oncology in [place], [place] [address] [place] [phone] Chemo Goss M.D., Ph.D. [address] [place] [phone] 06/23/2025 7:50 AM CDT Appointment Department of Laboratory Medicine and Pathology, [facility] in [place], [place] [address] [place] [phone] Bijal Dubose M.D. [address] [place] [phone] 06/23/2025 9:30 AM CDT Infusion Department of Oncology in [place], [place] [address] [place] [phone] Bijal Dubose M.D. [address] [place] [phone] 06/30/2025 7:30 AM CDT Appointment Department of Laboratory Medicine and Pathology, [facility] in [place], [place] [address] [place] [phone] Bijal Dubose M.D. [address] [place] [phone] 06/30/2025 9:30 AM CDT Office Visit Division of Hematology in [place], [place] [address] [place] [phone] Bijal Dubose M.D. [address] [place] [phone] 06/30/2025 10:30 AM CDT Infusion Department of Oncology in [place], [place] [address] [place] [phone] Bijal Dubose M.D. [address] [place] [phone] 07/07/2025 11:30 AM MUSIC RESEARCHER Infusion Department of Oncology in [place], [place] [address] [place] [phone] Bijal Dubose M.D. [address] [place] [phone] 07/14/2025 11:00 AM MUSIC RESEARCHER Infusion Department of Oncology in [place], [place] [address] [place] [phone] Bijal Dubose M.D. [address] [place] [phone] 07/21/2025 10:30 AM MUSIC RESEARCHER Infusion Department of Oncology in [place], [place] [address] [place] [phone] Bijal Dubose M.D. [address] [place] [phone] Scheduled Referrals Name Type Priority Associated Diagnoses Order Schedule Hematology office visit (clinic) [place]; Myeloma; General Outpatient Referral Routine Expected: 05/19/2025, Expires: 08/15/2026 documented as of this encounter Visit Diagnoses Not on filedocumented in this encounter
--- OUTSIDE RECORDS SUMMARY | 2025-06-06 08:15 | XMS_ITS | Encounter Summary ---
Author Organization [facility] Address [address] [place] [address] Care Team Providers Care Assistant Operator Name Role Phone Unavailable Primary Care Provider Unavailabl e Reason for Visit * Reason Onset Date Comments [facility] - Outside Materials 04/30/2025 Encounter Details Date Type Department Care Team (Late st Contact Info) Description 04/30/2025 Clinical Communication [place], [place] [address] [place] [phone] External, Referring Provider [facility] - Outside Materials Social History Tobacco Use Types Packs/Day Years [...] things needed for daily living? No 05/05/[address] [facility] Utilities Answer Date Recorded In the past 12 months has [facility] electric, gas, oil, or water company threatened to shut off services in your home? No 05/05/2025 Housing Stability Answer Date Recorded What is your living situation today? 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 [address] [place] [phone] 06/09/2025 9:30 AM CDT Infusion Department of Oncology in [place], [place] [address] [place] [phone] Bijal Dubose M.D. [address] [place] [phone] 06/09/2025 2:00 PM CDT Appointment Department of Radiation Oncology in [place], [place] [address] [place] [phone] Chemo Goss M.D., Ph.D. [address] [place] [phone] 06/10/2025 3:30 PM CDT Appointment Department of Radiation Oncology in [place], [place] [address] [place] [phone] Chemo Goss M.D., Ph.D. [address] [place] [phone] 06/11/2025 11:30 AM CDT Appointment Department of Radiation Oncology in [place], [place] [address] [place] [phone] Chemo Goss M.D., Ph.D. [address] [place] [phone] 06/11/2025 2:45 PM CDT Appointment Department of Radiation Oncology in [place], [place] [address] [place] [phone] Chemo Goss M.D., Ph.D. [address] [place] [phone] Zhane Parikh R.N. 06/11/2025 3:30 PM CDT Appointment Department of Radiation Oncology in [place], [place] [address] [place] [phone] Chemo Goss M.D., Ph.D. [address] [place] [phone] 06/12/2025 11:30 AM CDT Appointment Department of Radiation Oncology in [place], [place] [address] [place] [phone] Chemo Goss M.D., Ph.D. [address] [place] [phone] 06/13/2025 9:30 AM CDT Appointment Department of Radiation Oncology in [place], [place] [address] [place] [phone] Chemo Goss M.D., Ph.D. [address] [place] [phone] 06/16/2025 9:10 AM CDT Appointment Department of Laboratory Medicine and Pathology, [facility], in [place], [place] [address] [place] [phone] Bijal Dubose M.D. [address] [place] [phone] 06/16/2025 10:30 AM CDT Infusion Department of Oncology in [place], [place] [address] [place] [phone] Bijal Dubose M.D. [address] [place] [phone] 06/16/2025 11:00 AM CDT Appointment Department of Radiation Oncology in [place], [place] [address] [place] [phone] Chemo Goss M.D., Ph.D. [address] [place] [phone] 06/17/2025 9:45 AM CDT Appointment Department of Radiation Oncology in [place], [place] [address] [place] [phone] Chemo Goss M.D., Ph.D. [address] [place] [phone] 06/18/2025 9:45 AM CDT Appointment Department of Radiation Oncology in [place], [place] [address] [place] [phone] Chemo Goss M.D., Ph.D. [address] [place] [phone] 06/18/2025 10:30 AM CDT Appointment Department of Radiation Oncology in [place], [place] [address] [place] [phone] Chemo Goss M.D., Ph.D. [address] [place] [phone] 06/19/2025 10:45 AM CDT Appointment Department of Radiation Oncology in [place], [place] [address] [place] [phone] Chemo Goss M.D., Ph.D. [address] [place] [phone] 06/20/2025 10:45 AM CDT Appointment Department of Radiation Oncology in [place], [place] [address] [place] [phone] Chemo Goss M.D., Ph.D. [address] [place] [phone] 06/23/2025 7:50 AM CDT Appointment Department of Laboratory Medicine and Pathology, [facility] in [place], [place] [address] [place] [phone] Bijla Dubose M.D. [address] [place] [phone] 06/23/2025 9:30 AM CDT Infusion Department of Oncology in [place], [place] [address] [place] [phone] Bijal Dubose M.D. [address] [place] [phone] 06/30/2025 7:30 AM CDT Appointment Department of Laboratory Medicine and Pathology, [facility] in [place], [place] [address] [place] [phone] Bijal Dubose M.D. [address] [place] [phone] 06/30/2025 9:30 AM CDT Office Visit Division of Hematology in [place], [place] [address] [place] [phone] Bijal Dubose M.D. [address] [place] [phone] 06/30/2025 10:30 AM CDT Infusion Department of Oncology in [place], [place] [address] [place] [phone] Bijal Dubose M.D. [address] [place] [phone] 07/07/2025 11:30 AM PHARMACEUTICAL PROCESS ENGINEER Infusion Department of Oncology in [place], [place] [address] [place] [phone] Bijal Dubose M.D. [address] [place] [phone] 07/14/2025 11:00 AM PHARMACEUTICAL PROCESS ENGINEER Infusion Department of Oncology in [place], [place] [address] [place] [phone] Bijal Dubose M.D. [address] [place] [phone] 07/21/2025 10:30 AM PHARMACEUTICAL PROCESS ENGINEER Infusion Department of Oncology in [place], [place] [address] [place] [phone] Bijal Dubose M.D. [address] [place] [phone] documented as of this encounter Results * Pathology Review of Outside Material (04/28/2025 9:07 AM CDT) 05/14/2025 11:16 AM T [facility] Report electronically signed by Blaze Butler M.D. I verify that I have examined all relevant slides/materials for the specimen(s) and rendered or confirmed the diagnosis. 05/14/2025 11:16 AM T [facility] Material Received A. [id number]: Right clavicle lesion 18 stained slides 05/14/2025 11:16 AM T [facility] Interpretation FINAL DIAGNOSIS Clavicle, right, biopsy ([id number]; 04/28/2025): Plasma cell neoplasm. See comment. 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 The specimen consists of sheets of plasma cells with variably prominent nucleoli and nuclear enlargement. Immunohistochemical stains performed by an outside institution were reviewed at [facility] (block A:1), CD20, CD79a, CD138, Ki-67, MYC, OCT2, and PAX5. In situ hybridization studies performed by an outside institution were reviewed at [facility] (block A1: probes for kappa KEVON and [...] monotypic plasma cells. 05/14/2025 11:16 AM T [facility] Varies 04/28/2025 9:07 AM CDT 05/12/2025 9:07 AM CDT Bijal Dubose M.D. LAB SURG PATH ORDERABLES Final Result [facility] [address] [place] [address], [facility] [address] [place] [address] documented in this encounter Visit Diagnoses Diagnosis Gammopathy Monoclonal Nonspecific- Primary documented in this encounter Additional Health Concerns Infection Onset Date Last Indicated Resolved Time Protective Environment 05/20/2025 05/20/2025 documented as of this encounter
--- OUTSIDE RECORDS SUMMARY | 2025-06-06 08:16 | XMS_ITS ---
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 Linked Problems Multiple Myeloma Not Having Achieved Remission (HCC) Treatment Medications Current Day (Day 8 , Cycle 1 - Planned for 06/09/2025) Next Day (Day 15, Cycle 1 - Planned for 06/16/2025) bortezomib (Velcade)daratumumab-hyaluron idase-fihj (Darzalex Faspro)lenalidomide (Revlimid) bortezomib injection 3 mg (Velcade)daratumumab-hyaluro nidase-fihj injection 1,800 mg (Darzalex Faspro) bortezomib injection 3 mg (Velcade)daratumumab-hyaluro nidase-fihj injection 1,800 mg (Darzalex Faspro) Vascular Access Patency - Peripheral Intravenous Catheter and Rapid Infusion Catheter* Plan Start Date:06/02/2025 Linked Problems Multiple Myeloma Not Having Achieved Remission (HCC) Treatment Medications No medications scheduled. Past Treatment and Therapy Plans No past plan information found.
--- OUTSIDE RECORDS SUMMARY | 2025-06-06 08:16 | XMS_ITS | Clinical Summary ---
Author Organization [facility] Address [address] [place] [address] Care Team Providers Care Bill Peddler Name Role Phone Unavailable Primary Care Provider Unavailabl e Source Comments Patient records contain information from all sites at [facility]. For routine questions regarding patient records, call [phone] during business hours, M-F 8:00 AM - 5:00 PM Central Time. Record requests for emergency care only can be directed to [phone] at any time.[facility] Allergies No known active allergies Medications tamsulosin (Flomax) 0.4 mg 24 hr capsule Take 0.4 mg by mouth daily. 08/06/20 20 Active atorvastatin (Lipitor) 40 mg tablet Take 40 mg by mouth daily. 08/20/20 21 Active acyclovir (Zovirax) 400 mg tabletIndicat ions:Multiple Myeloma Not Having Achieved Remission (HCC) Take 1 tablet (400 mg total) by mouth 2 (two) times a day. 60 tablet 6 05/21/20 [address] tabletIndicat ions:Multiple Myeloma Not Having Achieved Remission (HCC) Take 1 tablet (325 mg total) by mouth daily. 100 tablet 3 05/21/20 25 Active dexAMETHasone (Decadron) 4 mg tabletIndicat ions:Multiple Myeloma Not Having Achieved Remission (HCC) Take 10 tablets (40 mg total) by mouth once a week for 4 doses. Take on days 1, 8, 15, and 22. If it is a day you are receiving daratumumab, take dexAMETHasone prior to infusion appointment. 40 tablet 05/21/20 25 2024 Active ondansetron (Zofran) 8 mg tabletIndicat ions:Multiple Myeloma Not Having Achieved Remission (HCC) Take 1 tablet (8 mg total) by mouth every 8 (eight) hours as needed for nausea or vomiting (unrelieved by prochlorperazine ). 30 tablet 3 05/21/20 25 2025 Active prochlorperaz ine (Compazine) 10 mg tabletIndicat ions:Multiple Myeloma Not Having Achieved Remission (HCC) Take 1 tablet (10 mg total) by mouth every 6 (six) hours as needed for nausea or vomiting. 30 tablet 3 05/21/20 25 2025 Active sulfamethoxaz ole-trimethop rim (Bactrim) 400-80 mg per tabletIndicat ions:Multiple Myeloma Not Having Achieved Remission (HCC) Take 1 tablet by mouth daily for 360 doses. 90 tablet 3 05/21/20 25 2025 Active lenalidomide (Revlimid) 25 mg capsuleIndica tions:Multipl e Myeloma Not Having Achieved Remission (HCC) Take 1 capsule (25 mg total) by mouth daily. Take on days 1 through 21 of cycle. 21 capsule 06/02/20 25 2024 Active calcium carbonate-vit brito D3 1,500 mg (600 mg calcium)-10 mcg (400 Unit) per tablet Take 1 tablet by mouth daily with morning meal. Active famotidine (Pepcid) 10 mg tablet Take 10 mg by mouth 2 (two) times a day. Active prochlorperaz ine (Compazine) 10 mg tabletIndicat ions:Multiple Myeloma Not Having Achieved Remission (HCC) Take 1 tablet (10 mg total) by mouth every 6 (six) hours as needed for nausea or vomiting. 30 tablet 3 05/19/20 25 2024 Discontinued(R eorder) ondansetron (Zofran) 8 mg tabletIndicat ions:Multiple Myeloma Not Having Achieved Remission (HCC) Take 1 tablet (8 mg total) by mouth every 8 (eight) hours as needed for nausea or vomiting (unrelieved by prochlorperazine ). 30 tablet 3 05/19/20 25 2024 Discontinued(R eorder) levoFLOXacin (Levaquin) 500 mg tabletIndicat ions:Multiple Myeloma Not Having Achieved Remission (HCC) Take 1 tablet (500 mg total) by mouth daily for 90 doses. 30 tablet 2 05/19/20 25 2024 Discontinued(R eorder) aspirin [address] tabletIndicat ions:Multiple Myeloma Not Having Achieved Remission (HCC) Take 1 tablet (325 mg total) by mouth daily. 100 tablet 3 05/19/20 25 2024 Discontinued(R eorder) acyclovir (Zovirax) 400 mg tabletIndicat ions:Multiple Myeloma Not Having Achieved Remission (HCC) Take 1 tablet (400 mg total) by mouth 2 (two) times a day. 60 tablet 6 05/19/202024 Discontinued(R eorder) sulfamethoxaz ole-trimethop rim (Bactrim) 400-80 mg per tabletIndicat ions:Multiple Myeloma Not Having Achieved Remission (HCC) Take 1 tablet by mouth daily for 360 doses. 90 tablet 3 05/19/202024 Discontinued(R eorder) dexAMETHasone (Decadron) 4 mg tabletIndicat ions:Multiple Myeloma Not Having Achieved Remission (HCC) Take 10 tablets (40 mg total) by mouth once a week for 4 doses. Take on days 1, 8, 15, and 22. If it is a day you are receiving daratumumab, take dexAMETHasone prior to infusion appointment. 40 tablet 05/19/20 25 2024 Discontinued(R eorder) levoFLOXacin (Levaquin) 500 mg tabletIndicat ions:Multiple Myeloma Not Having Achieved Remission (HCC) Take 1 tablet (500 mg total) by mouth daily for 90 doses. 30 tablet 2 05/21/20 25 2024 Discontinued(A lternate therapy) lenalidomide (Revlimid) 25 mg capsuleIndica tions:Multipl e Myeloma Not Having Achieved Remission (HCC) Take 1 capsule (25 mg total) by mouth daily. Take on days 1 through 21 of cycle. 21 capsule 05/20/20 25 2024 Discontinued lenalidomide (Revlimid) 25 mg capsuleIndica tions:Multipl e Myeloma Not Having Achieved Remission (HCC) Take 1 capsule (25 mg total) by mouth daily. Take on days 1 through 21 of cycle. 21 capsule 06/02/20 25 2024 Discontinued Active Problems Problem Noted Date Diagnosed Date Multiple Myeloma Not Having Achieved Remission 0 05/19/2025 Other Director Of Development And Marketing Current Drug Therapy 05/19/2025 Encounters Date Type Department Care Team Description 06/02/2025 10:00 AM CDT Infusion Department of Oncology in [place], [place] [address] [place] [phone] Bijal Dubose M.D. Multiple Myeloma Not Having Achieved Remission (HCC) (Primary Dx) 06/02/2025 9:30 AM CDT Education Division of Hematology in [place], [place] [address] [place] [phone] Bijal Dubose M.D. Halima Tellez R.N. 06/02/2025 9:00 AM CDT Office Visit Division of Hematology in [place], [place] [address] [place] [phone] Bijal Dubose M.D. Kumar, Shaji, M.D. Multiple Myeloma Not Having Achieved Remission (HCC) (Primary Dx) 06/02/2025 7:40 AM CDT - 06/02/2025 11:59 PM CDT Hospital Encounter Department of Laboratory Medicine and Pathology, [facility] in [place], [place] [address] [place] [phone] Bijal Dubose M.D. Multiple Myeloma Not Having Achieved Remission (HCC) Discharge Disposition: Home or Self Care 06/02/2025 Clinical Communication Division of Hematology in [place], [place] [address] [place] [phone] Bijal Dubose M.D. Med Question 05/30/2025 10:59 AM CDT - 05/30/2025 2:56 PM CDT Hospital Encounter Department of Radiation Oncology in [place], [place] [address] [place] [phone] Chemo Goss M.D., Ph.D. Multiple Myeloma Not Having Achieved Remission (HCC) 05/30/2025 9:42 AM CDT - 05/30/2025 10:58 AM CDT Hospital Encounter Department of Radiation Oncology in [place], [place] [address] [place] [phone] Chemo Goss M.D., Ph.D. Lesion Lytic Bone (Primary Dx); Multiple Myeloma Not Having Achieved Remission (HCC) 05/29/2025 Orders Only Department of Radiation Oncology in [place], [place] [address] [place] [phone] Ronit Spangler APRN, C.N.P., D.N.P. Multiple Myeloma Not Having Achieved Remission (HCC) (Primary Dx) 05/26/2025 Orders Only Division of Hematology in [place], [place] [address] [place] [phone] Bijal Dubose M.D. Multiple Myeloma Not Having Achieved Remission (HCC) (Primary Dx) 05/23/2025 Orders Only Division of Hematology in [place], [place] [address] [place] [phone] Bijal Dubose M.D. Multiple Myeloma Not Having Achieved Remission (HCC) (Primary Dx) 05/22/2025 Orders Only Division of Hematology in [place], [place] [address] [place] [phone] Halima Tellez, R.NJacky 05/22/2025 Orders Only Division of Hematology in [place], [place] [address] [place] [phone] Bijal Dubose M.D. 05/21/2025 7:00 AM CDT Internal E-Consult Department of Orthopedic Surgery in [place], [place] [address] [place] [phone] Froylan Liang M.D. Multiple Myeloma Not Having Achieved Remission (HCC); Lesion Lytic Bone 05/20/2025 10:00 AM CDT Telemedicine Division of Hematology in [place], [place] [address] [place] [phone] Bijal Dubose M.D. Stahman, Jessica K, RJackyNJacky Multiple Myeloma Not Having Achieved Remission (HCC) (Primary Dx) 05/20/2025 Orders Only Division of Hematology in [place], [place] [address] [place] [phone] Bijal Dubose M.D. Multiple Myeloma Not Having Achieved Remission (HCC) (Primary Dx) 05/20/2025 Clinical Communication Division of Hematology in [place], [place] [address] [place] [phone] Bijal Dubose M.D. 05/20/2025 Clinical Communication Division of Hematology in [place], [place] [address] [place] [phone] Bijal Dubose M.D. 05/19/2025 1:00 PM CDT Telemedicine Division of Hematology in [place], [place] [address] [place] [address] Bijal Dubose M.D. Multiple Myeloma Not Having Achieved Remission (HCC) (Primary Dx); Lesion Lytic Bone 05/16/2025 Orders Only Division of Hematology in [place], [place] [address] [place] [phone] Bijal Dubose M.D. 05/15/2025 8:00 AM CDT Telemedicine Division of Hematology in [place], [place] [address] [place] [address] Bijal Dubose M.D. Multiple Myeloma Not Having Achieved Remission (HCC) (Primary Dx) 05/14/2025 4:24 PM CDT - 05/14/2025 11:59 PM CDT Hospital Encounter Department of Radiology, [facility] in [place], [place] [address] [place] [address] Bijal Dubose M.D. Discharge Disposition: Home or Self Care 05/12/2025 4:52 PM CDT - 05/12/2025 5:20 PM CDT Hospital Encounter Department of Radiology, [facility] in [place], [place] [address] [place] [address] Bijal Dubose M.D. Multiple Myeloma Not Having Achieved Remission (HCC) Discharge Disposition: Home or Self Care 05/07/2025 1:00 PM CDT Procedure visit Department of Infusion Therapy in [place], [place] [address] [place] [address] Bijal Dubose M.D. Allen, Richard J, R.N. Multiple Myeloma Not Having Achieved Remission (HCC); Clinical Research Exam 05/06/2025 11:59 AM CDT - 05/06/2025 11:59 PM CDT Hospital Encounter Department of Laboratory Medicine and Pathology, [place], [place] [address] [place] [phone] Bijal Dubose M.D. Multiple Myeloma Not Having Achieved Remission (HCC) Discharge Disposition: Home or Self Care 05/06/2025 11:33 AM CDT - 05/06/2025 11:58 AM CDT Hospital Encounter Department of Laboratory Medicine and Pathology, [place], [place] [address] [place] [phone] Bijal Dubose M.D. Multiple Myeloma Not Having Achieved Remission (HCC); Disorder Of Bone Density And Structure; Abnormal Finding Of Blood Chemistry Unspecified; Other General Symptoms And Signs; Other Dyspnea Discharge Disposition: Home or Self Care 05/06/2025 11:33 AM CDT - 05/06/2025 11:58 AM CDT Hospital Encounter Department of Laboratory Medicine and Pathology, [facility] in [place], [place] [address] [place] [phone] Bijal Dubose M.D. Multiple Myeloma Not Having Achieved Remission (HCC) Discharge Disposition: Home or Self Care 05/06/2025 10:30 AM CDT Comprehensive Visit Division of Hematology in [place], [place] [address] [place] [phone] Bijal Dubose M.D. Gammopathy Monoclonal Nonspecific (Primary Dx); Multiple Myeloma Not Having Achieved Remission (HCC); Disorder Of Bone Density And Structure; Abnormal Finding Of Blood Chemistry Unspecified; Other General Symptoms And Signs; Other Dyspnea 05/06/2025 9:00 AM CDT Clinical Support - [facility] Division of Hematology in [address] [phone] Shannon Skinner Clinical Research Exam (Primary Dx) 05/06/2025 Clinical Communication Division of Hematology in [place], [place] [address] [place] [phone] Bijal Dubose M.D. Forms 05/06/2025 Clinical Communication Division of Hematology in [place], [place] [address] [place] [address] Bijal Dubose M.D. Forms 05/02/2025 9:10 AM CDT Lab RST RO LMP [address] [place] [address] Bijal Dubose M.D. Gammopathy Monoclonal Nonspecific 04/30/2025 Clinical Communication [place], [place] [address] [place] [address] External, Referring Provider [facility] - Outside Materials from Last 3 Months Social History Tobacco Use Types Packs/Day Years [...] things needed for daily living? No 05/05/2025 [facility] Utilities Answer Date Recorded In the past 12 months has [facility] CounterStorm, gas, oil, or water FRUCT threatened to shut off services in your home? No 05/05/2025 Housing Stability Answer Date Recorded What is your living situation today? 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 Gender Identity Male 05/05/2025 10:47 AM CDT Sexual Orientation Straight 05/05/2025 10 :47 AM CDT Last Filed Vital Signs Vital Sign Reading Time Taken Comments Blood Pressure 142/76 06/02/2025 1:00 PM CDT Pulse 58 06/02/2025 1:00 PM CDT Temperature 35.9 C (96.7 F) 06/02/2025 8:43 AM CDT Respiratory Rate 16 06/02/2025 1:00 PM CDT Oxygen Saturation - - Inhaled Oxygen Concentration - - Weight 92.8 kg (204 lb 9.4 oz) 06/02/2025 8:43 A M CDT Height 180.8 cm (5' 11.18) 06/02/2025 8:43 AM C DT Body Mass Index 28.39 06/02/2025 8:43 AM CDT Plan of Treatment Upcoming Encounters Date Type Department Care Team (Late st Contact Info) Description 06/09/2025 8:20 AM CDT Appointment Department of Laboratory Medicine and Pathology, [facility] in [address] [phone] Bijal Dubose M.D. [address] [place] [phone] 06/09/2025 9:30 AM CDT Infusion Department of Oncology in [place], [place] [address] [place] [phone] Bijal Dubose M.D. [address] [place] [phone] 06/09/2025 2:00 PM CDT Appointment Department of Radiation Oncology in [address] [phone] Chemo Goss M.D., Ph.D. [address] [place] [phone] 06/10/2025 3:30 PM CDT Appointment Department of Radiation Oncology in [address] [phone] Chemo Goss M.D., Ph.D. [address] [place] [phone] 06/11/2025 11:30 AM CDT Appointment Department of Radiation Oncology in [place], [place] [address] [place] [phone] Chemo Goss M.D., Ph.D. [address] [place] [phone] 06/11/2025 2:45 PM CDT Appointment Department of Radiation Oncology in [place], [place] [address] [place] [phone] Chemo Goss M.D., Ph.D. [address] [place] [phone] Zhane Parikh R.N. 06/11/2025 3:30 PM CDT Appointment Department of Radiation Oncology in [place], [place] [address] [place] [phone] Chemo Goss M.D., Ph.D. [address] [place] [phone] 06/12/2025 11:30 AM CDT Appointment Department of Radiation Oncology in [place], [place] [address] [place] [phone] Chemo Goss M.D., Ph.D. [address] [place] [phone] 06/13/2025 9:30 AM CDT Appointment Department of Radiation Oncology in [place], [place] [address] [place] [phone] Chemo Goss M.D., Ph.D. [address] [place] [phone] 06/16/2025 9:10 AM CDT Appointment Department of Laboratory Medicine and Pathology, [facility] in [place], [place] [address] [place] [phone] Bijal Dubose M.D. [address] [place] [phone] 06/16/2025 10:30 AM CDT Infusion Department of Oncology in [place], [place] [address] [place] [phone] Bijal Dubose M.D. [address] [place] [phone] 06/16/2025 11:00 AM CDT Appointment Department of Radiation Oncology in [place], [place] [address] [place] [phone] Chemo Goss M.D., Ph.D. [address] [place] [phone] 06/17/2025 9:45 AM CDT Appointment Department of Radiation Oncology in [place], [place] [address] [place] [phone] Chemo Goss M.D., Ph.D. [address] [place] [phone] 06/18/2025 9:45 AM CDT Appointment Department of Radiation Oncology in [place], [place] [address] [place] [phone] Chemo Goss M.D., Ph.D. [address] [place] [phone] 06/18/2025 10:30 AM CDT Appointment Department of Radiation Oncology in [place], [place] [address] [place] [phone] Chemo Goss M.D., Ph.D. [address] [place] [phone] 06/19/2025 10:45 AM CDT Appointment Department of Radiation Oncology in [place], [place] [address] [place] [phone] Chemo Goss M.D., Ph.D. [address] [place] [phone] 06/20/2025 10:45 AM CDT Appointment Department of Radiation Oncology in [place], [place] [address] [place] [phone] Chemo Goss M.D., Ph.D. [address] [place] [phone] 06/23/2025 7:50 AM CDT Appointment Department of Laboratory Medicine and Pathology, [facility] in [place], [place] [address] [place] [address] Bijal Dubose M.D. [address] [place] [phone] 06/23/2025 9:30 AM CDT Infusion Department of Oncology in [place], [place] [address] [place] [address] Bijal Dubose M.D. [address] [place] [phone] 06/30/2025 7:30 AM CDT Appointment Department of Laboratory Medicine and Pathology, [facility] in [place], [place] [address] [place] [address] Bijal Dubose M.D. [address] [place] [phone] 06/30/2025 9:30 AM CDT Office Visit Division of Hematology in [place], [place] [address] [place] [phone] Bijal Dubose M.D. [address] [place] [phone] 06/30/2025 10:30 AM CDT Infusion Department of Oncology in [place], [place] [address] [place] [phone] Bijal Dubose M.D. [address] [place] [phone] 07/07/2025 11:30 AM BIOMEDICAL MANAGER Infusion Department of Oncology in [place], [place] [address] [place] [phone] Bijal Dubose M.D. [address] [place] [phone] 07/14/2025 11:00 AM BIOMEDICAL MANAGER Infusion Department of Oncology in [place], [place] [address] [place] [phone] Bijal Dubose M.D. [address] [place] [phone] 07/21/2025 10:30 AM BIOMEDICAL MANAGER Infusion Department of Oncology in [place], [place] [address] [place] [phone] Bijal Dubose M.D. [address] [place] [phone] Health Maintenance Due Date Last Done Comments CT Colonography 1954 Cologuard 1955 Colonoscopy 1955 Colorectal Cancer Screening 1954 FIT 1954 Zoster Vaccines (1 of 2) 1973 RSV vaccine - (32-36 weeks) or 50+ years (1 - Risk 60-74 years 1-dose series) 2014 Depression Screening (Annual PHQ-2) 09/04/2024 Fall Risk Screen (Annual) 09/04/2024 COVID-19 Vaccine ( season) 2025 08/16/2021, 10/22/2020, 09/24/2020 Influenza Vaccine (#1) 2025 Fasting Glucose for Diabetes Screening 06/02/2028 06/02/2025, 05/06/2025, 01/10/2021 DTaP,Tdap,and Td Vaccines (4 - Td or Tdap) 02/16/2033 02/16/2023, 08/20/2018, 07/18/2014, Additional history exists Pneumococcal vaccine (50+ years) Completed 03/26/2024, 01/05/2023 Hepatitis C Screening Completed 06/02/2025 HPV Vaccines Aged Out No longer eligi ble based on patient's age to complete this topic IPV Vaccines Aged Out No longer eligi ble based on patient's age to complete this topic Medical Devices Implanted Type Area Candy Spreader Device Identifier Shelf Expiration Date Model / Serial / Lot Hip Implant Hip Implant Right: Hip Ocular (Eye) Implant Ocular (Eye) Implant Right: Eye Procedures Procedure Name Priority Date/Time Associated Diagnosis Comments SPECIAL RED CELL AG TYPING, B Routine 06/02/2025 7:57 AM CDT QUANTITATIVE M-PROTEIN STUDY, S Routine 06/02/2025 7:57 [...] Multiple Myeloma Not Having Achieved Remission (HCC) HCV AB SCRN W/REFLEX TO HCV PCR, S Routine 06/02/2025 7:57 AM CDT Multiple Myeloma Not Having Achieved Remission (HCC) HBC TOTAL AB SCRN, S Routine 06/02/2025 7:57 AM CDT Multiple Myeloma Not Having Achieved Remission (HCC) HBS ANTIGEN SCRN, S Routine 06/02/2025 7 :57 AM CDT Multiple Myeloma Not Having Achieved Remission (HCC) INITIAL RAD ONC TREATMENT PLANNING CT SIMULATION Routine 05/30/2025 11:15 AM CDT Multiple Myeloma Not Having Achieved Remission (HCC) PET CT SKULL TO THIGH RAD - Routine (most inpatients and all outpatients) 05/14/2025 6:58 PM CDT Multiple Myeloma Not Having Achieved Remission (HCC) CT SKELETAL SURVEY WITHOUT IV CONTRAST LOW DOSE WHOLE BODY RAD - Routine (most inpatients and all outpatients) 05/12/2025 5:46 PM CDT Multiple Myeloma Not Having Achieved Remission (HCC) MONOCLONAL PROTEIN STUDY, 24 HR, U Routine 05/10/2025 6:00 AM CDT Multiple Myeloma Not Having Achieved Remission (HCC) MYELOMA STRATIFICATION AND RISK-ADAPTED THERAPY WITH REFLEX TO MINIMAL RESIDUAL DISEASE, BONE MARROW Routine 05/07/2025 1:25 PM CDT NGPCM PRE-ANALYSIS CELL SORTING, BM Routine 05/07/2025 1:25 PM CDT MPCDS PRE-ANALYSIS CELL SORTING, BM Routine 05/07/2025 1:25 PM CDT MSMART EVAL, PCPD, FISH Routine 05/07/2025 1:25 PM CDT BONE MARROW RESEARCH ASPIRATE ADD ON COLLECTION Routine 05/07/2025 1:00 PM CDT Clinical Research Exam NE DX BONE MARROW BX & ASPIR Routine 05/07/2025 1:00 PM CDT Multiple Myeloma Not Having Achieved Remission (HCC) HEMATOPATHOLOGY Routine 05/07/2025 12:00 AM CDT DIPSTICK, U Routine 05/06/2025 12:28 PM CDT PH, U Routine 05/06/2025 12:28 PM CDT OSMOLALITY, U Routine 05/06/2025 12:28 PM CDT MICROSCOPIC AUTOMATED Routine 05/06/2025 12:28 PM CDT URINALYSIS WITH MICROSCOPIC Routine 05/06/2025 12:28 PM CDT Multiple Myeloma Not Having Achieved Remission (HCC) CBC NO CALL BACK, REFLEX T/S Routine 05/06/2025 12:04 PM CDT Multiple Myeloma Not Having Achieved Remission (HCC) PLASMA CELL ASSESSMENT, B Routine 05/06/2025 12:04 PM CDT Multiple Myeloma Not Having Achieved Remission (HCC) GLUCOSE, FASTING, S/P Routine 05/06/2025 12:04 PM CDT Multiple Myeloma Not Having Achieved Remission (HCC) Abnormal Finding Of Blood Chemistry Unspecified 25-HYDROXYVITAMIN D2 AND D3, S Routine 05/06/2025 12:04 PM CDT Multiple Myeloma Not Having Achieved Remission (HCC) Disorder Of Bone Density And Structure NT-PRO B-TYPE NATRIURETIC PEPTIDE (BNP), S Routine [...] Remission (HCC) Other General Symptoms And Signs SODIUM, S/P Routine 05/06/2025 12:03 PM CDT Multiple Myeloma Not Having Achieved Remission (HCC) QUANTITATIVE M-PROTEIN STUDY, S Routine 05/06/2025 12:03 [...] Remission (HCC) CALCIUM, TOT, S/P Routine 05/06/2025 12:03 PM CDT Multiple Myeloma Not Having Achieved Remission (HCC) BUN (BLOOD UREA NITROGEN), S/P Routine 05/06/2025 12:03 PM CDT Multiple Myeloma Not Having Achieved Remission (HCC) BILIRUBIN, TOT, S/P Routine 05/06/2025 12:03 PM CDT Multiple Myeloma Not Having Achieved Remission (HCC) BILIRUBIN DIRECT, S/P Routine 05/06/2025 12:03 PM CDT Multiple Myeloma Not Having Achieved Remission (HCC) BICARBONATE, B/S/P Routine 05/06/2025 12:03 PM CDT Multiple Myeloma Not Having Achieved Remission (HCC) [id number] (BETA-2-M), S Routine 05/06/2025 12:03 PM CDT Multiple Myeloma Not Having Achieved Remission (HCC) ASPARTATE AMINOTRANSFERASE (AST), S/P Routine 05/06/2025 12:03 PM CDT Multiple Myeloma Not Having Achieved Remission (HCC) ALKALINE PHOSPHATASE, S/P Routine 05/06/2025 12:03 PM CDT Multiple Myeloma Not Having Achieved Remission (HCC) ALBUMIN, S/P Routine 05/06/2025 12:03 PM CDT Multiple Myeloma Not Having Achieved Remission (HCC) PATHOLOGY REVIEW OF OUTSIDE MATERIAL Routine 04/28/2025 9:07 AM CDT Gammopathy Monoclonal Nonspecific OUTSIDE US Routine 04/28/2025 8:[address] BODY Routine 04/21/2025 9:25 AM CDT from Last 3 Months Results * (ABNORMAL) Quantitative M-protein Study (06/02/2025 7:57 AM CDT) Only the most recent of2 resultswithin the time period is included. Immunoglobulin A (IgA), S 146 61 - [...] kappa 3.24 g/dL 06/03/2025 12:41 PM CDT [facility] Comment: ----ADDITIONAL INFORMATION---- The submitted sample was assayed by five separate immunopurifications for IgG, IgA, IgM, kappa and lambda. The result reflects the findings of either no monoclonal protein detected or those monoclonal immunoglobulins that were detected. This test was developed and its performance characteristics determined by [facility] in a manner consistent with CLIA requirements. This test has not been cleared or approved by the U.S. Food and Drug Administration. Blood (Blood, Venous) 06/02/2025 7:57 AM CDT 06/02/2025 10:38 AM CDT Narrative [facility] - 06/03/2025 12:41 PM CDT Specimen Information: Specimen ID: [id number] Specimen Type: Blood Specimen Collection Start Date: 06/02/2025 7:57 AM Specimen Received Date: 06/02/2025 10:38 AM Specimen ID: [id number] Specimen Type: Blood Specimen Collection Start Date: 06/02/2025 7:57 AM Specimen Received Date: 06/02/2025 10:41 AM Bijal Dubose M.D. LAB BLOOD ADD-ON Final Re sult Performing Organization Address [facility]/State/ZIP Co de Phone Number [facility] [address] [place] [address] [facility] [address] [place] [address] Dr. [place], [place] [id number] [place] [address] [address] CHINO [address] [place] [address] [place] [address] * HBs Antigen Scrn, Serum (06/02/2025 7:57 AM CDT) HBs Antigen Scrn, S Negative Negative 06/02/2025 12:28 PM CDT [facility] Blood (Blood, Venous) 06/02/2025 7:57 AM CDT 06/02/2025 10:32 AM CDT Bijal Dubose M.D. LAB MICROBIOLOGY - BLOOD ORDERABLES Final Result [facility] [address] [place] [address] [facility] [address] [place] [address] * HBc Total Ab Scrn, Serum (06/02/2025 7:57 AM CDT) Pathologist [facility] HBc Total Ab Scrn, S Negative Negative 06/02/2025 12:28 PM CDT [facility] Blood (Blood, Venous) 06/02/2025 7:57 AM CDT 06/02/2025 10:32 AM CDT Bijal Dubose M.D. LAB MICROBIOLOGY - BLOOD ORDERABLES Final Result Performing Organization Address City/[facility]/ZIP Co de Phone Number [facility] [address] [place] [address] [facility] [address] [place] [address] * Special Red Cell Antigen Typing (06/02/2025 7:57 AM CDT) [facility] Special Red Cell Antigen * 06/02/2025 10:17 AM CDT [facility] Comment:K- Blood 06/02/2025 7:57 AM CDT 06/02/2025 8:30 AM CDT Bijal Dubose M.D. LAB BLOOD BANK TEST ORDER JANE Final Result Performing Organization Address City/[facility]/ZIP Co de Phone Number [facility] [address] [place] [address], [place] DTL [facility] [address] [place] [address] * HCV Ab Scrn w/Reflex to HCV PCR, Serum (06/02/2025 7:57 AM CDT) Pathologist [facility] HCV Ab Screen, S Negative Negative 06/02/2025 12:28 PM CDT [facility] Comment: Consumption of high-dose biotin supplement within 12 hours of blood collection for this test can cause false-negative results. Blood (Blood, Venous) 06/02/2025 7:57 AM CDT 06/02/2025 10:32 AM CDT Bijal Dubose M.D. LAB MICROBIOLOGY - BLOOD ORDERABLES Final Result Performing Organization Address [facility] Co de Phone Number [facility] [address] [place] [address] [facility] [address] [place] [address] [place] [address] * (ABNORMAL) Immunoglobulin Free Light Chains (06/02/2025 7:57 AM CDT) Only the most recent of2 resultswithin the time period is included. G. L. [employer] Free Light Chain, S 3.18(H) 0.3300 - 1.94 mg/dL 06/02/2025 2:49 PM CDT [facility] Lambda Free Light Chain, S 0.6300 0.5700 - 2.63 mg/dL 06/02/2025 2:50 PM CDT [facility] G. L. Garcia/Lambda FLC Ratio 5.05(H) 0.2600 - 1.65 06/02/2025 2:50 PM CDT [facility] Blood (Blood, Venous) 06/02/2025 7:57 AM CDT 06/02/2025 10:54 AM CDT Bijal Dubose M.D. LAB BLOOD ADD-ON Final Re sult Performing Organization Address [facility] Co de Phone Number [facility] [address] [place] [address] [facility] [address] [place] [address] * (ABNORMAL) CBC with Differential, Blood (06/02/2025 7:57 AM CDT) Pathologist [facility] Hemoglobin 12.8(L) 13.2 - 16.6 g/dL 06/02/2025 [...] M.D. LAB BLOOD ADD-ON Final Re sult [facility] [address] [place] [address], [facility] DTL [facility] [address] [place] [address] DHPM [facility] [address] [place] [address] * Type and Screen (with Reflex Antibody ID) (06/02/2025 7:57 AM CDT) ABORh A Pos Not applicable 06/02/2025 9:13 AM CDT ETRM Antibody Screen Negative Negative 06/02/2025 9:24 AM CDT ETRM Type & Screen Expiration 06/05/2025 23:59 06/02/2025 9:13 AM CDT ETRM Testing Location [place] DEFAULT 06/02/2025 8:31 AM CDT ETR[facility] Blood (Blood, Venous) 06/02/2025 7:57 AM CDT 06/02/2025 8:31 AM CDT Bijal Dubose M.D. LAB BLOOD BANK TEST ORDER JANE Final Result [facility] [address] [place] [address], [facility] ETRM [facility] [address] [place] [address] * (ABNORMAL) Comprehensive Metabolic Panel (06/02/2025 7:57 AM CDT) Potassium, S 4.1 3.6 - 5.2 mmol/L [...] 7:57 AM CDT 06/02/2025 8:36 AM CDT Bijal Dubose M.D. LAB BLOOD ADD-ON Final Re sult [facility] [address] [place] [address], [facility] [address] [place] [address] * Initial Rad Onc Treatment Planning CT Simulation (05/30/2025 11:15 AM CDT) Narrative [facility] - 05/30/2025 11:15 AM CDT Chemo Goss [...] imaging was appropriate and completed without incident. Motor Vehicle Dispatcher use:No us Chemo Goss M.D., Ph.D. 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 This corresponds to series [...] M.D. IMRuben CT PROCEDURES Final R esult * (ABNORMAL) [...] developed and its performance characteristics determined by [facility] in a manner consistent with CLIA [...] ORDERABLES Wilma l Result Performing Organization Address [facility] Co de Phone Number [facility] [address] [place] [address] [facility] [address] [place] [address] [facility] [address] [place] [address] [place] [address] * Plasma Cell Myeloma Pre-Analysis Cell Sorting (05/07/2025 1:25 PM CDT) Pathologist [facility] NGPCM Pre-Analysis Cell Sort Performed 05/08/2025 7:30 PM CDT DT Comment: ----ADDITIONAL INFORMATION---- Flow cytometric cell selection [...] developed and its performance characteristics determined by [facility] in a manner consistent with CLIA requirements. This test has not been cleared or approved by the U.S. Food and Drug Administration. 05/07/2025 1:25 PM CDT 05/08/2025 10:18 AM CDT us Bijal Dubose M.D. LAB GENETIC TESTING Final Result Performing Organization Address [facility]/ZIP Co de Phone Number [facility] [address] [place] [address], [facility] DT 200 [facility] 200 [place] [address] * Myeloma Stratification and Risk-Adapted Therapy with [...] Zarco M.D., Ph.D. 05/08/2025 2:31 PM CDT DTL Comment: ----ADDITIONAL INFORMATION---- This test was developed and its performance characteristics determined by [facility] in a manner consistent with CLIA requirements. This test has not been cleared or approved by the U.S. Food and Drug Administration. Bone Marrow 05/07/2025 1:25 PM CDT 05/07/2025 2:20 PM CDT us Bijal Dubose M.D. LAB PATHOLOGY/CYTOLOGY OR DERABLES Final Result [facility] [address] [place] [address], [facility] DT 200 [facility] 200 [place] [address] * mSMART Plasma Cell Proliferative Disorder Pre-Analysis Cell Sorting (05/07/2025 1:25 PM CDT) Pathologist [facility] Pre-Analysis Cell Sort Performed 05/08/2025 12:37 [...] developed and its performance characteristics determined by [facility] in a manner consistent with CLIA requirements. This test has not been cleared or approved by the U.S. Food and Drug Administration. Bone Marrow 05/07/2025 1:25 PM CDT 05/07/2025 8:37 PM CDT us Bijal Dubose M.D. LAB GENETIC TESTING Final Result [facility] [address] [place] [address], [facility] DTL [address] [place] [address] * mSMART, Plasma Cell Proliferative Disorder, FISH (05/07/2025 1:25 PM CDT) [facility] mSMART Result Summary Standard-Risk 05/13/2025 3:11 PM CDT DTL mSMART Evaluation Based on the mSMART algorithm, this patient is in the STANDARD RISK category. 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 The [place] Stratification for Myeloma and Risk Adapted Therapy [...] developed and its performance characteristics determined by [facility] in a manner consistent with CLIA [...] 05/13/2025 3:11 PM CDT DTL Result nuc kevon(MYCx2)(5'MYC sep 3'MYCx1) 05/13/2025 3:11 PM CDT DTL Reason for Referral Plasma cell proliferative disorder (PCPD) 05/13/2025 3:11 PM CDT DTL Specimen Bone Marrow 05/13/2025 3:11 PM CDT DTL Method Locus and probes [Strategy;#Nuclei; Vendor] ----- 1p36.3(TP73),1q22( 1q22) [COPY#;50;LDT] 8q24(5'MYC,3'MYC) [BAP;50;AM] 14q32(3'IGH,5'IGH) [BAP;50;LDT] 17p13(TP53),17CEN( D17Z1) [COPY#;50;AM] Probe strategies include: BAP=break-apart probe; COPY#=region gain and loss. Scoring Method: Manual Probe vendors include: T = [facility] Developed AM = [employer] ([place], [place]) 05/13/2025 3:11 PM CDT DTL Additional Information A portion of the testing process was performed at [facility] site [id number]. 05/13/2025 3:11 PM CDT DTL Interpretation The [...] risk cytogenetic abnormality (Kain, et al., Blood 125:4336-9472, 2015; Jarad, et al., Leukemia 32:6268-2252, 2018). In amyloidosis, the prognostic significance is less well defined. In plasma cell myeloma and smoldering myeloma, a MYC rearrangement has been associated with a significant risk of disease progression (Misund, et al. ,Leukemia 34:322-326, 2020 and Gracy, et al., Clin Cancer Res 15:5262-9903, 2020). The overall risk assessment should be done in the context of other risk factors. This test was ordered in the context of a [facility] pathology consultation/case (#[id number]), and this result should be interpreted within the context of the pathology consultation/repor t. 05/13/2025 3:11 PM CDT DTL Bone Marrow 05/07/2025 1:25 PM CDT 05/07/2025 8:37 PM CDT Bijal Dubose M.D. LAB GENETIC TESTING Final Result [facility] [address] [place] [address], [facility] DTL [address] [place] [address] * NE NO CHARGE VISIT (05/07/2025 1:00 PM CDT) [...] M.D. PROCEDURE/MINOR SURGICAL ORDERABLES Final Result * NE DX BONE MARROW BX & ASPIR (05/07/2025 [...] lidocaine administered SQ Pressure dressing applied Pamphlet [id number] given to patient Bijal Dubose M.D. PROCEDURE/MINOR SURGICAL ORDERABLES Edited Result - Final MMODAL NA * Hematopathology (05/07/2025 12:00 AM CDT) 05/08/2025 2:54 PM T [facility] Report electronically signed by Sis Zarco M.D., Ph.D. I verify that I have examined all relevant slides/materials for the specimen(s) and rendered or confirmed the diagnosis. 05/08/2025 2:54 PM CDT [facility] Gross Description B: Core biopsy specimens were [...] Grossed by JOSE DAVID. 05/08/2025 2:54 PM CDT [facility] Interpretation FINAL DIAGNOSIS Peripheral blood, bone marrow [...] 0 Total Cells: 100 ----- Peripheral Smear: Jessica. Bone Marrow Aspirate/Touch Imprint/Biopsy: ----- Cell % [...] stain, bone marrow biopsy: Amyloid is absent. [facility] flow cytometric immunophenotyping, bone marrow: Plasma cells [...] in an addendum. 05/08/2025 2:54 PM CDT [facility] 05/07/2025 05/07/2025 6:1 2 AM CDT Bijal Dubose M.D. LAB SURG PATH ORDERABLES Final Result [facility] [address] [place] [address], [facility] [address] [place] [address] * Dipstick, Urine (05/06/2025 12:28 PM CDT) [...] ORDERABLES Wilma l Result Performing Organization Address [facility] Co de Phone Number [facility] [address] [facility] 200 [place] [address] * Microscopic Automated (05/06/2025 12:28 PM CDT) Microscopy Normal 05/06/2025 2:47 PM CDT DTL RBC None Seen <3 /hpf 05/06/2025 2:47 PM CDT DTL WBC 1-3 /hpf 05/06/2025 2:47 PM CDT DTL Comment: ----REFERENCE VALUE---- <4 (Males) <11 (Females) Urine 05/06/2025 12:2 8 PM CDT 05/06/2025 1:48 PM CDT Bijal Dubose M.D. LAB URINE ORDERABLES Wilma l Result Performing Organization Address [facility] Co de Phone Number [facility] [address] [place] [address], [facility] [address] [place] [address] * pH, Urine (05/06/2025 12:28 PM CDT) pH, U 5.2 4.5 - 8.0 05/06/2025 3:0 3 PM CDT DTL Urine 05/06/2025 12:2 8 PM CDT 05/06/2025 1:48 PM CDT Bijal Dubose M.D. LAB URINE ORDERABLES Wilma l Result Performing Organization Address City/[facility]/ZIP Co de Phone Number [facility] [address] [place] [address] * Osmolality, Urine (05/06/2025 12:28 PM CDT) Osmolality, U 949 150 - 1150 mOsm/kg 05/06/2025 3:03 PM CDT DTL Urine 05/06/2025 12:2 8 PM CDT 05/06/2025 1:48 PM CDT Bijal Dubose M.D. LAB URINE ORDERABLES Wilma l Result Performing Organization Address [facility] Co de Phone Number [facility] [address] [place] [address] * Urinalysis, with Microscopic: Urine, Midstream (05/06/2025 [...] M.D. LAB URINE ORDERABLES Wilma christopher Result [facility] [address] [place] [address], [facility] DTL [facility] [address] [place] [address] * CBC no call back, reflex T/S [...] ADD-ON Wilma l Result Performing Organization Address [facility] Co de Phone Number [facility] 200 [place] [address], [facility] DTL [facility] 200 [place] [address] [facility] [address] [place] [address] * Plasma Cell Assessment (05/06/2025 12:04 PM CDT) Pathologist [facility] Blood Plasma Cell Light Chain Monotypic [...] reagent. Its performance characteristics were determined by [facility] in a manner consistent with CLIA requirements. This test has not been cleared or approved by the U.S. Food and Drug Administration. Blood (Blood, Venous) 05/06/2025 12:04 PM CDT 05/06/2025 12:35 PM CDT Bijal Dubose M.D. LAB BLOOD NON ADD-ON Wilma l Result Performing Organization Address City/[facility]/ZIP Co de Phone Number [facility] 200 [place] [address], [facility] DTL [address] [address] * 25-Hydroxyvitamin D2 and D3 (05/06/2025 12:04 PM CDT) Pathologist [facility] 25-Hydroxy D2 <4.0 ng/mL 05/08/2025 12:28 PM CDT [facility] 25-Hydroxy D3 66 ng/mL 05/08/2025 12:28 PM CDT [facility] 25-Hydroxy D Total 66 ng/mL 2024 12:28 PM CDT [facility] Comment: Interpretation: 51-80 ng/mL (increased risk of hypercalciuria) ----REFERENCE VALUE---- 25-HYDROXY D TOTAL (D2+D3) Optimum levels in the healthy population are 20-50. ----ADDITIONAL INFORMATION---- This test was developed and its performance characteristics determined by [facility] in a manner consistent with CLIA requirements. This test has not been cleared or approved by the U.S. Food and Drug Administration. Blood (Blood, Venous) 05/06/2025 12:04 PM CDT 05/07/2025 7:31 AM CDT Bijal Dubose M.D. LAB BLOOD ADD-ON Final Re sult [facility] [address] [place] [address] [facility] [address] [place] [address] [place] [address] * Glucose, Fasting (05/06/2025 12:04 PM CDT) [facility] Glucose, P 99 70 - 100 mg/dL 05/06/2025 1:43 PM CDT DTL Last Intake 6 hr 05/06/2025 12:31 PM CDT DTL Blood (Blood, Venous) 05/06/2025 12:04 PM CDT 05/06/2025 12:31 PM CDT Bijal Dubose M.D. LAB BLOOD NON ADD-ON Wilma l Result [facility] [address] [place] [address], [place] [facility] [address] [place] [address] * Thyroid Function [place] (05/06/2025 12:03 PM CDT) [facility] TSH, Sensitive 2.0 0.3 - 4.2 mIU/L 05/06/2025 1:17 PM CDT DTL Blood (Blood, Venous) 05/06/2025 12:03 PM CDT 05/06/2025 12:32 PM CDT Bijal Dubose M.D. LAB BLOOD ADD-ON Final Re sult Performing Organization Address City/[facility]/ZIP Co de Phone Number [facility] [address] [place], [place] [address] [place] [address] [facility] [address] [place] [address] * NT-Pro B-Type Natriuretic Peptide (BNP) (05/06/2025 12:03 PM CDT) [facility] NT-Pro BNP 64 <=540 pg/mL 05/06/2025 1:17 [...] ADD-ON Final Re sult Performing Organization Address City/[facility]/ZIP Co de Phone Number [facility] [address] [place] [address], [facility] 200 [place] [address] * CRP (C-Reactive Protein) (05/06/2025 12:03 PM CDT) [facility] C-Reactive Protein (CRP), S <3.0 <5.0 mg/L 05/06/2025 1:17 PM CDT DTL Blood (Blood, Venous) 05/06/2025 12:03 PM CDT 05/06/2025 12:32 PM CDT Bijal Dubose M.D. LAB BLOOD ADD-ON Final Re sult Performing Organization Address City/[facility]/ZIP Co de Phone Number [facility] [address] [place] [address] * Uric Acid (05/06/2025 12:03 PM CDT) Uric Acid, S 5.3 3.7 - 8.0 mg/dL 05/06/2025 1:17 PM CDT DTL Blood (Blood, Venous) 05/06/2025 12:03 PM CDT 05/06/2025 12:32 PM CDT Bijal Dubose M.D. LAB BLOOD ADD-ON Final Re sult Performing Organization Address [facility]/ZIP Co de Phone Number [facility] [address] [place] [address] * BUN (Blood Urea Nitrogen) (05/06/2025 12:03 PM CDT) BUN (Blood Urea Nitrogen), S 21 8 - 24 mg/dL 05/06/2025 1:17 PM CDT DTL Blood (Blood, Venous) 05/06/2025 12:03 PM CDT 05/06/2025 12:32 PM CDT Bijal Dubose M.D. LAB BLOOD ADD-ON Final Re sult Performing Organization Address City/[facility]/ZIP Co de Phone Number [facility] [address] [place] [address] * AST (Aspartate Aminotransferase) (05/06/2025 12:03 PM CDT) Aspartate Aminotransferase (AST), S 22 8 - 48 U/L 05/06/2025 1:17 PM CDT DTL Blood (Blood, Venous) 05/06/2025 12:03 PM CDT 05/06/2025 12:32 PM CDT Bijal Dubose M.D. LAB BLOOD ADD-ON Final Re sult Performing Organization Address City/[facility]/ZIP Co de Phone Number [facility] 200 [place], [place] [address] [place] [address] 200 [place] [address] * Sodium (05/06/2025 12:03 PM CDT) Sodium, S 138 135 - 145 mmol/L 05/06/2025 1:17 PM CDT DTL Blood (Blood, Venous) 05/06/2025 12:03 PM CDT 05/06/2025 12:32 PM CDT Bijal Dubose M.D. LAB BLOOD ADD-ON Final Re sult Performing Organization Address City/[facility]/ZIP Co de Phone Number [facility] 200 [place], [place] [address] [place] [address] 200 [place] [address] * Potassium (05/06/2025 12:03 PM CDT) Potassium, S 4.4 3.6 - 5.2 mmol/L 05/06/2025 1:17 PM CDT DTL Blood (Blood, Venous) 05/06/2025 12:03 PM CDT 05/06/2025 12:32 PM CDT Bijal Dubose M.D. LAB BLOOD ADD-ON Final Re sult Performing Organization Address City/[facility]/ZIP Co de Phone Number [facility] [address] [place] [address], [facility] 200 [place] [address] * Phosphorus Inorganic (05/06/2025 12:03 PM CDT) Phosphorus (Inorganic), S 3.7 2.5 - 4.5 mg/dL 05/06/2025 1:17 PM CDT DTL Blood (Blood, Venous) 05/06/2025 12:03 PM CDT 05/06/2025 12:32 PM CDT Bijal Dubose M.D. LAB BLOOD ADD-ON Final Re sult Performing Organization Address City/[facility]/ZIP Co de Phone Number [facility] [address] [facility] 200 [place] [address] * Alkaline Phosphatase (05/06/2025 12:03 PM CDT) Alkaline Phosphatase, S 90 40 - 129 U/L 05/06/2025 1:17 PM CDT DTL Blood (Blood, Venous) 05/06/2025 12:03 PM CDT 05/06/2025 12:32 PM CDT Bijal Dubose M.D. LAB BLOOD ADD-ON Final Re sult [facility] [address] [place] [address], [facility] 200 [place] [address] * LD (Lactate Dehydrogenase) (05/06/2025 12:03 PM CDT) Lactate Dehydrogenase (LD), S 136 122 - 222 U/L 05/06/2025 1:17 PM CDT DTL Blood (Blood, Venous) 05/06/2025 12:03 PM CDT 05/06/2025 12:32 PM CDT us Bijal Dubose M.D. LAB BLOOD NON ADD-ON Wilma l Result [facility] [address] [place] [address] * Creatinine with Estimated GFR (05/06/2025 12:03 [...] ADD-ON Final Re sult Performing Organization Address City/[facility]/ZIP Co de Phone Number [facility] [address] [facility] 200 [place] [address] * Bicarbonate (05/06/2025 12:03 PM CDT) Bicarbonate, S 24 22 - 29 mmol/L 05/06/2025 1:17 PM CDT DTL Blood (Blood, Venous) 05/06/2025 12:03 PM CDT 05/06/2025 12:32 PM CDT Bijal Dubose M.D. LAB BLOOD ADD-ON Final Re sult [facility] [address] [facility] 200 [place] [address] * Calcium, Total (05/06/2025 12:03 PM CDT) Calcium, Total, S 9.4 8.8 - 10.2 mg/dL 05/06/2025 1:17 PM CDT DTL Blood (Blood, Venous) 05/06/2025 12:03 PM CDT 05/06/2025 12:32 PM CDT Bijal Dubose M.D. LAB BLOOD ADD-ON Final Re sult [facility] [address] [place] [address], [facility] [address] [place] [address] * Bilirubin, Direct (05/06/2025 12:03 PM CDT) Bilirubin, Direct, S 0.1 0.0 - 0.3 mg/dL 05/06/2025 1:17 PM CDT DTL Blood (Blood, Venous) 05/06/2025 12:03 PM CDT 05/06/2025 12:32 PM CDT Bijal Dubose M.D. LAB BLOOD ADD-ON Final Re sult [facility] [address] [place] [address], [facility] [address] [place] [address] * Bilirubin, Total (05/06/2025 12:03 PM CDT) Bilirubin, Total, S 0.4 0.0 - 1.2 mg/dL 05/06/2025 1:17 PM CDT DTL Blood (Blood, Venous) 05/06/2025 12:03 PM CDT 05/06/2025 12:32 PM CDT Bijal Dubose M.D. LAB BLOOD ADD-ON Final Re sult [facility] [address] [place] [address], [facility] [address] [place] [address] * (ABNORMAL) Tcoo-7-Pwhucjywkgclt (Beta-2-M) (05/06/2025 12:03 PM CDT) [facility] Remo-6-Arwtyeu obulin, S 3.51(H) 1.21 - 2.70 mcg/mL 05/06/2025 9:18 PM CDT [facility] Blood (Blood, Venous) 05/06/2025 12:03 PM CDT 05/06/2025 5:36 PM CDT Bijal Dubose M.D. LAB BLOOD ADD-ON Final Re sult Performing Organization Address City/[facility]/ZIP Co de Phone Number [facility] [address] [place] [address] [facility] [address] [place] [address] * Albumin (05/06/2025 12:03 PM CDT) [facility] Albumin, S 3.7 3.5 - 5.0 g/dL 05/06/2025 1:17 PM CDT [facility] Blood (Blood, Venous) 05/06/2025 12:03 PM CDT 05/06/2025 12:32 PM CDT Bijal Dubose M.D. LAB BLOOD ADD-ON Final Re sult [facility] [address] [place] [address], [facility] [address] [place] [address] * Pathology Review of Outside Material (04/28/2025 9:07 AM CDT) [facility] 05/14/2025 11:16 AM [facility] Report electronically signed by Blaze Butler M.D. I verify that I have examined all relevant slides/materials for the specimen(s) and rendered or confirmed the diagnosis. 05/14/2025 11:16 AM [facility] Material Received A. [id number]: Right clavicle lesion 18 stained slides 05/14/2025 11:16 AM [facility] Interpretation FINAL DIAGNOSIS Clavicle, right, biopsy ([id number]; 04/28/2025): Plasma cell neoplasm. See comment. 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 The specimen consists of sheets of plasma cells with variably prominent nucleoli and nuclear enlargement. Immunohistochemical stains performed by an outside institution were reviewed at [facility] (block A:1), CD20, CD79a, CD138, Ki-67, MYC, OCT2, and PAX5. In situ hybridization studies performed by an outside institution were reviewed at [facility] (block A1: probes for kappa KEVON and [...] kappa monotypic plasma cells. 05/14/2025 11:16 AM [facility] Varies 04/28/2025 9:07 AM CDT 05/12/2025 9:07 AM T Bijal Dubose M.D. LAB SURG PATH ORDERABLES Final Result [facility] [address] [place] [address], [facility] [address] [place] [address] * POC US GUIDANCE NEEDLE PLACEMENT-Outside US (04/28/2025 8:25 AM CDT) Narrative [facility] - 05/01/2025 10:04 AM CDT This order has been created and auto-finalized to support the import of outside images. If available, original interpretation can be found on the Media Tab in Chart Review, in Document Viewer, as an image in InfinityView or as an Addendum. If a re-interpretation or overread is required please follow defined workflow. us Provider Not In System IMG US PROCEDURES Final R esult Performing Organization Address [facility] de Phone Number II NA * CT CHEST ABDOMEN PELVIS W/O W CONTRAST-Outside CT Body (04/21/2025 9:25 AM CDT) Narrative [facility] - 05/01/2025 10:12 AM CDT This order has been created and auto-finalized to support the import of outside images. If available, original interpretation can be found on the Media Tab in Chart Review, in Document Viewer, as an image in InfinityView or as an Addendum. If a re-interpretation or overread is required please follow defined workflow. us Provider Not In System IMG CT PROCEDURES Final R esult Performing Organization Address City/[facility] de Phone Number IIMS NA from Last 3 Months Additional Health Concerns Infection Onset Date Last Indicated Protective Environment 05/20/2025 5 Insurance [facility] MEDICARE
--- OUTSIDE RECORDS SUMMARY | 2025-06-06 08:16 | XMS_ITS | Encounter Summary ---
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 [address] [place] [address] Med Question Social History Tobacco Use Types Packs/Day Years [...] things needed for daily living? No 05/05/2025 [facility] Utilities Answer Date Recorded In the past 12 months has [facility] [employer], [employer], oil, or water company threatened to shut off services in your home? No 05/05/2025 Housing Stability Answer Date Recorded What is your living situation today? 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 [address] [place] [phone] 06/09/2025 9:30 AM CDT Infusion Department of Oncology in [place], [place] [address] [place] [phone] Bijal Dubose M.D. [address] [place] [phone] 06/09/2025 2:00 PM CDT Appointment Department of Radiation Oncology in [place], [place] [address] [place] [phone] Chemo Goss M.D., Ph.D. [address] [place] [phone] 06/10/2025 3:30 PM CDT Appointment Department of Radiation Oncology in [address] [phone] Chemo Goss M.D., Ph.D. [address] [place] [phone] 06/11/2025 11:30 AM CDT Appointment Department of Radiation Oncology in [place], [place] [address] [place] [address] Chemo Goss M.D., Ph.D. [address] [place] [phone] 06/11/2025 2:45 PM CDT Appointment Department of Radiation Oncology in [place], [place] [address] [place] [address] Chemo Goss M.D., Ph.D. [address] [place] [phone] Zhane Parikh R.N. 06/11/2025 3:30 PM CDT Appointment Department of Radiation Oncology in [place], [place] [address] [place] [address] Chemo Goss M.D., Ph.D. [address] [place] [phone] 06/12/2025 11:30 AM CDT Appointment Department of Radiation Oncology in [place], [place] [address] [place] [address] Chemo Goss M.D., Ph.D. [address] [place] [phone] 06/13/2025 9:30 AM CDT Appointment Department of Radiation Oncology in [place], [place] [address] [place] [phone] Chemo Goss M.D., Ph.D. [address] [place] [phone] 06/16/2025 9:10 AM CDT Appointment Department of Laboratory Medicine and Pathology, [facility], in [place], [place] [address] [place] [address] Bijal Dubose M.D. [address] [place] [phone] 06/16/2025 10:30 AM CDT Infusion Department of Oncology in [place], [place] [address] [place] [phone] Bijal Dubose M.D. [address] [place] [phone] 06/16/2025 11:00 AM CDT Appointment Department of Radiation Oncology in [place], [place] [address] [place] [phone] Chemo Goss M.D., Ph.D. [address] [place] [phone] 06/17/2025 9:45 AM CDT Appointment Department of Radiation Oncology in [place], [place] [address] [place] [phone] Chemo Goss M.D., Ph.D. [address] [place] [phone] 06/18/2025 9:45 AM CDT Appointment Department of Radiation Oncology in [place], [place] [address] [place] [phone] Chemo Goss M.D., Ph.D. [address] [place] [phone] 06/18/2025 10:30 AM CDT Appointment Department of Radiation Oncology in [place], [place] [address] [place] [phone] Chemo Goss M.D., Ph.D. [address] [place] [phone] 06/19/2025 10:45 AM CDT Appointment Department of Radiation Oncology in [place], [place] [address] [place] [address] Chemo Goss M.D., Ph.D. [address] [place] [phone] 06/20/2025 10:45 AM CDT Appointment Department of Radiation Oncology in [place], [place] [address] [place] [phone] Chemo Goss M.D., Ph.D. [address] [place] [phone] 06/23/2025 7:50 AM CDT Appointment Department of Laboratory Medicine and Pathology, [facility] in [place], [place] [address] [place] [address] Bijal Dubose M.D. [address] [place] [phone] 06/23/2025 9:30 AM CDT Infusion Department of Oncology in [place], [place] [address] [place] [address] Bijal Dubose M.D. [address] [place] [phone] 06/30/2025 7:30 AM CDT Appointment Department of Laboratory Medicine and Pathology, [facility] in [place], [place] [address] [place] [address] Bijal Dubose M.D. [address] [place] [phone] 06/30/2025 9:30 AM CDT Office Visit Division of Hematology in [place], [place] [address] [place] [address] Bijal Dubose M.D. [address] [place] [phone] 06/30/2025 10:30 AM CDT Infusion Department of Oncology in [place], [place] [address] [place] [phone] Bijal Dubose M.D. [address] [place] [phone] 07/07/2025 11:30 AM SENIOR AUDITOR Infusion Department of Oncology in [place], [place] [address] [place] [phone] Bijal Dubose M.D. [address] [place] [phone] 07/14/2025 11:00 AM SENIOR AUDITOR Infusion Department of Oncology in [place], [place] [address] [place] [address] Bijal Dubose M.D. [address] [place] [phone] 07/21/2025 10:30 AM SENIOR AUDITOR Infusion Department of Oncology in [place], [place] [address] [place] [phone] Bijal Dubose M.D. [address] [place] [phone] documented as of this encounter Visit Diagnoses Not on filedocumented in this encounter Additional Health Concerns Infection Onset Date Last Indicated Resolved Time Protective Environment 05/20/2025 05/20/2025 documented as of this encounter
[2025-06-06 08:20] VITALS: BP 118/70; PULSE 64; RESP 18; TEMP 36.1; O2SAT 97; BMI 29.3
[2025-06-06 08:33] VITALS: BP 124/79; PULSE 62; RESP 18; TEMP 36.9; O2SAT 95
--- NOTE | 2025-06-06 08:37 | CRLHL7_ITS ---
For Patients: As a result of the Century Cures Act, medical imaging exams and procedure reports are released immediately into your electronic medical record. You may view this report before your referring provider. If you have questions, please contact your health care provider. INDICATION: Lower GI bleed TECHNIQUE: CT abdomen and pelvis acquired with 101 cc Isovue 370 IV contrast. Arterial and venous phase imaging obtained. Images and 3D Angiographic MIP reconstructions are obtained. COMPARISON: CT pelvis August 2024 FINDINGS: Lower chest: Calcified granuloma at right lung base. Liver: Normal in size and attenuation. No suspicious masses. Gallbladder and bile ducts: No stones or inflammation. No biliary dilatation. Pancreas: No mass or inflammation. Spleen: Normal in size. No masses. Adrenal glands: No suspicious mass. Kidneys: Bilateral kidneys are few parapelvic Left renal cysts. GI tract: No findings of bowel obstruction. Normal appendix. There is minimal wall thickening of the mid and distal descending colon with very minimal adjacent fatty stranding. Findings could be seen with incomplete distention versus early colitis. No puddling of contrast within the bowel loops to suspect GI bleeding. Limited assessment for the very subtle bleeding due to no noncontrast exam. Vasculature: Abdominal aorta is normal in caliber. Mild atherosclerosis. Lymph nodes: No lymphadenopathy. Peritoneum/Abdominal Wall: No free air or significant free fluid. Umbilical minimal fat containing hernia. Pelvis: Mild prostatomegaly. Bones: Right total hip arthroplasty. Scattered degenerative Changes of the spine. IMPRESSION: 1. Mild wall thickening of the mid and distal descending colon w, which could be related to incomplete distention versus very early colitis. 2. No bowel obstruction. No obvious findings to suspect GI bleeding. Please note that all CT scans at this facility use dose modulation, iterative reconstruction, and/or weight-based dosing when appropriate to reduce radiation dose to as low as reasonably achievable. Dictated by Chikis Hernandez MD @ 06/06/2025 9:53:24 AM (Electronically Signed)
--- NOTE | 2025-06-06 08:39 | ED.GIBLEED ---
HPI - GI Bleed General Date Seen: 06/06/25 Chief complaint: GI Bleed Stated complaint: Passing blood in stool Time Seen by Provider: 06/06/25 08:31 Source: patient Mode of arrival: ambulatory Limitations: no limitations History of Present Illness HPI Narrative: Patient is a 69-year-old male who recently started treatment for multiple myeloma presenting to the emergency department for a lower GI bleed. He states yesterday he had a bowel movement that he thought he noticed some scant blood in. Today he had another bowel movement that he states was bright red blood. States he has not passed any solid stool today. Unsure if he passed any clots. Denies any history of GI bleeds. Has not noticed blood in her stool before. Does states he felt lightheaded this morning but does note that is chronic for him to get lightheaded. Although he does state today seem to move it worse. Lightheadedness has since resolved he states he walked into the emergency department without any issues. Denies chest pain, shortness of breath, fevers, chills, weakness, numbness, nausea. Does state he has some lower abdominal discomfort. No other concerns noted. Related Data Home Medications ?Medication ?Instructions ?Recorded ?Confirmed [id number] 3 fatty no.1 27 cap PO 12/06/24 12/06/24 mg-1 mg-300 mg capsule acyclovir 400 mg tablet 400 mg PO BID 06/06/25 06/06/25 aspirin 325 mg tablet,delayed 325 mg PO DAILY 06/06/25 06/06/25 release dexamethasone 4 mg tablet mg PO 06/06/25 lenalidomide 25 mg capsule mg PO 06/06/25 ondansetron HCl 8 mg tablet 8 mg PO Q8H PRN nausea/vomiting 06/06/25 06/06/25 prochlorperazine maleate 10 mg 10 mg PO Q6H PRN nausea/vomiting 06/06/25 06/06/25 tablet sulfamethoxazole 400 1 tab PO DAILY 06/06/25 06/06/25 mg-trimethoprim 80 mg tablet Previous Rx's ?Medication ?Instructions ?Recorded atorvastatin 40 mg tablet 40 mg PO QHS #90 tabs 03/26/24 tamsulosin 0.4 mg capsule 0.8 mg (2 x 0.4 mg) PO QDAY #180 05/20/24 caps Allergies Allergy/AdvReac Type Severity Reaction Status Date / Time No Known Drug Allergies Allergy Verified 06/06/25 10:48 Review of Systems Status of ROS: Reports: 10 or more systems reviewed and unremarkable except as noted in History and below PFSH PFS Medical History Dizziness ?R42 - Dizziness and giddiness (ICD-10) Degenerative joint disease ?M19.90 - Unspecified osteoarthritis, unspecified site (ICD-10) Trigger finger, left little finger ?M65.352 - Trigger finger, left little finger (ICD-10) Trigger finger, left middle finger ?M65.332 - Trigger finger, left middle finger (ICD-10) Left knee pain ?M25.562 - Pain in left knee (ICD-10) Pericarditis (06/23/10) ?I31.9 - Disease of pericardium, unspecified (ICD-10) Herpes zoster ?B02.9 - Zoster without complications (ICD-10) Surgical History History of eye surgery ?Z98.890 - Other specified postprocedural states (ICD-10) Family History Uncle Stroke Father Prostate cancer Brother Skin cancer Other Breast cancer Social History Narrative: Does not use illicit drugs No history of alcohol use 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 [employer] What is your current living situation?: I presently have a place to live Problems where you live: no known problems In the past 12 months, utilities in danger of being shut off: no In past 12 months, lack of transportation kept you from medical appts, meetings, work, or getting things needed for daily living: no In the past 12 mos, have been you worried that your food would run out before you had money to buy more?: never true In the past 12 mos, the food you bought just didn't last and you didn't have money to buy more?: never true Smoking Status: Never smoker Do you use any of these nicotine containing products: None How often do you have a drink containing alcohol: never AUDIT-C Alcohol total score: 0 Non-prescribed substance use: denies use How often does anyone, including family, friends and others, physically hurt you: never How often does anyone, including family, friends and others, insult or talk down to you: never How often does anyone, including family, friends and others, threaten you with harm: never How often does anyone, including family, friends and others, scream or curse at you: never service: No Exam Narrative: Exam Narrative: Const: Well-nourished, Well-developed, in mild distress Eyes: PERRL, no conjunctival injection, and symmetrical lids HENT: Atraumatic external nose and ears. Moist mucous membranes. Neck: Symmetric, trachea midline, No thyromegaly. CVS: RRR, No murmurs or gallops. Peripheral pulses 2+ and equal in all extremities RESP: Unlabored respiratory effort. Clear to auscultation bilaterally. GI: Mild lower abdominal tenderness, Nondistended, No rebound or guarding. MSK:Extremities w/o deformity, Normal Active ROM Skin: Warm, Dry. No rashes or lesions. Neuro: Normal Muscle tone, No focal neurological deficits. Psych: Awake, Alert, & Oriented x3. Appropriate mood and affect. Const: Vital Signs, click to edit/add: Vital Signs - 24 hr 06/06/25 08:20 06/06/25 08:33 Temperature 96.9 F L 98.4 F Pulse Rate [Pulse Oximeter] 64 62 Respiratory Rate 18 18 Blood Pressure [Ri ght Upper Arm] 118/70 124/79 Pulse Oximetry 97 95 Oxygen Delivery Me thod Room Air Nasal Cannula Course Vital Signs Vital signs: Initial Vital Signs Temperature 96.9 F L 06/06/25 08:20 Temperature Source Temporal Artery Scan 06/06/25 08:20 Pulse Rate 64 06/06/25 08:20 Respiratory Rate 18 06/06/25 08:20 Blood Pressure 118/70 06/06/25 08:20 Blood Pressure Mean 86 06/06/25 08:20 Pulse Oximetry 97 06/06/25 08:20 Oxygen Delivery Method Room Air 06/06/25 08:20 Vital Signs Temperature 96.9 F L 06/06/25 08:20 Pulse Rate 64 06/06/25 08:20 Respiratory Rate 18 06/06/25 08:20 Blood Pressure 118/70 06/06/25 08:20 Pulse Oximetry 97 06/06/25 08:20 Oxygen Delivery Method Room Air 06/06/25 08:20 Temperature 98.4 F 06/06/25 08:33 Pulse Rate 62 06/06/25 08:33 Respiratory Rate 18 06/06/25 08:33 Blood Pressure 124/79 06/06/25 08:33 Pulse Oximetry 95 06/06/25 08:33 Oxygen Delivery Method Nasal Cannula 06/06/25 08:33 MDM - GI Bleed MDM Narrative Medical decision making narrative: Patient is a 69-year-old male presenting to the emergency department for a GI bleed. Patient is rib should this seems most likely a lower GI bleed. Will order a CBC, CMP, magnesium, fecal occult, coags. Also do CT scan angio for GI bleed. This also helped to look for any other intra-abdominal abnormalities. Very likely could be diverticular bleed. Lab work returns showing no acute concerning abnormalities. He has hemoglobin is 12.7. Slightly below his baseline from several months ago but cannot definitively say if this is related to his recent bleeding or is medication he is taking for his multiple myeloma. Rest of his lab work shows no concerning abnormalities. CT scan reviewed by myself and the radiologist showed some mild distal descending colon wall thickening which could be incomplete distention versus early colitis. No obvious signs of GI bleeding or obstruction. He tried a bowel movement but was unable to pass any bowel movements. At this time I spoke to him about admission versus discharge. Explain can keep him hospital under observation to watch the GI bleed. At this time though he would prefer to be discharged with close follow-up in he states he will return for worsening symptoms. After shared decision making was decided he will be discharged. I did give him strict return precautions. He is agreeable to this plan. Lab Data Labs: Lab Results 06/06/25 06/06/25 Range/Units 08:50 08:59 WBC 4.46 L (4.50-11.00) K/uL RBC 4.08 L (4.30-5.90) m/uL Hgb 12.7 L (13.5-17.5) gm/dL Hct 37.5 (37.0-53.0) % MCV 92 (80-100) fL MCH 31 (26-34) pg MCHC 34 (32-36) gm/dL RDW Coeff of Nancy 13.0 (11.5-15.5) % Plt Count 147 (140-440) K/uL Neut % (Auto) 76.1 H (42.0-72.0) % Lymph % (Auto) 8.7 L (20-44) % [place] % (Auto) 8.5 (0.0-11.0) % Eos % (Auto) 6.3 (0.0-7.0) % Baso % (Auto) 0.2 (0.0-3.0) % Neut # (Auto) 3.40 (1.7-7.0) K/uL Lymph # (Auto) 0.40 L (0.90-2.90) K/uL [place] # (Auto) 0.40 (0.00-0.90) K/UL Eos # (Auto) 0.30 (0.00-0.50) K/uL Baso # (Auto) 0.00 (0.00-0.30) K/uL Abs Immat Gran (auto) 0.00 (0.00-0.30) K/uL Imm/Tot Granulo (auto) 0.2 % INR 1.10 (0.91-1.10) APTT 27 (23-33) Seconds Sodium 135 (135-149) mmol/L Potassium 4.0 (3.6-5.1) mmol/L Chloride 105 (96-114) mmol/L Carbon Dioxide 24 (20-32) mmol/L Anion Gap 6 L (7-15) mEq/L BUN 20 (7-30) mg/dL Creatinine 1.0 (0.5-1.5) mg/dL Estimated Creat Clear 70.97 Estimated GFR 81 ml/min Glucose 95 (60-115) mg/dL Calcium 8.9 (8.4-10.6) mg/dL Magnesium 2.0 (1.5-2.6) mg/dL Total Bilirubin 0.4 (0.1-1.5) mg/dL AST 24 (12-35) U/L ALT 32 (4-50) U/L Alkaline Phosphatase 85 (40-150) U/L Total Protein 8.7 H (6.0-8.3) g/dL Albumin 3.5 (3.3-5.0) g/dL POC Creatinine 1.0 (0.6-1.3) mg/dl Imaging Data CT scan abdomen and pelvis: Attestation: I have reviewed the pertinent imaging results. Radiologist's impression: 1. Mild wall thickening of the mid and distal descending colon w, which could be related to incomplete distention versus very early colitis. 2. No bowel obstruction. No obvious findings to suspect GI bleeding. Please note that all CT scans at this facility use dose modulation, iterative reconstruction, and/or weight-based dosing when appropriate to reduce radiation dose to as low as reasonably achievable. Dictated by Chikis Hernandez MD @ 06/06/2025 9:53:24 AM Discharge Plan Discharge Clinical Impression: Acute lower GI bleeding Patient Disposition: Home, Self-Care Condition: Stable Instructions: Gastrointestinal Bleeding (ED), Clear Liquid Diet (ED) Additional Instructions: I do recommend close follow-up with the primary care provider. If you good worsening lightheadedness, fatigue, weakness, worsening bleeding or any other concerning symptoms I do recommend he return to the emergency department immediately for re-evaluation. I also recommend sticking to a clear liquid diet as much as possible to help with bowel rest. Continue to use your antacids. If you need to eat more fiber tried to keep it light. Prescriptions: No Action [id number] 3 fatty no.1 27-1-300 mg capsule PO atorvastatin 40 mg tablet 40 mg PO QHS Qty: 90 3RF sulfamethoxazole-trimethoprim 400-80 mg tablet 1 tab PO DAILY ondansetron HCl 8 mg tablet 8 mg PO Q8H PRN (Reason: nausea/vomiting) prochlorperazine maleate 10 mg tablet 10 mg PO Q6H PRN (Reason: nausea/vomiting) acyclovir 400 mg tablet 400 mg PO BID aspirin 325 mg tablet,delayed release (DR/EC) 325 mg PO DAILY dexamethasone 4 mg tablet PO lenalidomide 25 mg capsule PO tamsulosin 0.4 mg capsule 0.8 mg PO QDAY Qty: 180 3RF Follow Up/Referrals: Teressa Warren MD [Primary Care Provider, Family Practice] Stand Alone Forms: [facility] Info Instructions
[2025-06-06 09:04] LABS: Hematocrit* 37.5 % (37.0-53.0); Hemoglobin* 12.7 gm/dL (13.5-17.5); Immature Granulocytes Abs Auto 0.00 K/uL (0.00-0.30); Immature Granulocytes Pct Auto 0.2 %; Lymphocytes Absolute Auto 0.40 K/uL (0.90-2.90); Mean Corpuscular HGB Conc 34 gm/dL (32-36); Mean Corpuscular Hemoglobin 31 pg (26-34); Mean Corpuscular Volume 92 fL (80-100); RDW Coefficient of Variation % 13.0 % (11.5-15.5); Red Blood Count* 4.08 m/uL (4.30-5.90); Slide Review Reflex No; White Blood Count* 4.46 K/uL (4.50-11.00)
[2025-06-06 09:19] LABS: Albumin* 3.5 g/dL (3.3-5.0); Chloride* 105 mmol/L (96-114); Sodium* 135 mmol/L (135-149)
[2025-06-06 09:20] LABS: Potassium* 4.0 mmol/L (3.6-5.1)
[2025-06-06 09:22] LABS: Alanine Aminotransferase* 32 U/L (4-50); Alkaline Phosphatase* 85 U/L (40-150); Anion Gap 6 mEq/L (7-15); Aspartate Amino Transferase* 24 U/L (12-35); Bilirubin Total* 0.4 mg/dL (0.1-1.5); Blood Urea Nitrogen* 20 mg/dL (7-30); Calcium* 8.9 mg/dL (8.4-10.6); Carbon Dioxide* 24 mmol/L (20-32); Creatinine* 1.0 mg/dL (0.5-1.5); Est. Creatinine Clearance* 70.97; Estimated Glomerular Filt Rate 81 ml/min; Glucose* 95 mg/dL (60-115); Total Protein* 8.7 g/dL (6.0-8.3)
[2025-06-06 09:23] LABS: INR 1.10 (0.91-1.10); Prothrombin Time 15.0 Seconds
[2025-06-06 09:26] LABS: Creatinine, Point-of-Care* 1.0 mg/dl (0.6-1.3)
[2025-06-06 11:00] VITALS: BP 139/90; PULSE 66; RESP 18; TEMP 37.1; O2SAT 97
[2025-06-06 11:41] VITALS: BP 124/79; PULSE 62; RESP 18; TEMP 37.1
== END 2025-06-06 11:42 | disposition home or self-care (01) ==
PROVIDERS: Emergency Provider Student in an Organized Health Care Education/Training Program; PCP Family Medicine
DX: K92.2 Gastrointestinal hemorrhage, unspecified (principal)
CPT/HCPCS: 36415; 74174; 80053; 82270; 82565; 83735; 85025; 85610; 85730; 99284; Q9967